=== PATIENT | male | born 1960 | race Caucasian/White ===

== ENCOUNTER 2017-01-09 16:11 | Inpatient (IN) | payer MEDICARE, OTHER ==
[2017-01-09 16:49] LABS: BASOPHIL 0.9 % (0-2.0); EOSINOPHIL 0.1 % (0-4.5); MCH 26.9 pg (25.7-33.7); MCHC 32.5 g/dl (32.0-35.9); MEAN CELL VOLUME 82.6 fl (80-96); MEAN PLT VOLUME 8.8 fl (7.5-11.1); NEUTROPHILS 86.5 % (42.8-82.8); RDW 16.8 % (11.9-15.9); WHITE BLOOD COUNT 6.2 K/mm3 (4.0-10.0)
[2017-01-09] MEDS ORDERED: SODIUM CHLORIDE 1,000 ML IV STA ×2 (17:02→18:29)
[2017-01-09] MEDS ORDERED: ONDANSETRON 4 MG/2 ML VIAL IVPUSH ONE ×2 (17:02→21:56)
[2017-01-09 17:04] LABS: ALBUMIN 1.6 g/dl (3.4-5.0); ANION GAP 15 (8-16); CALCIUM 7.7 mg/dL (8.5-10.1); CO2 17 mmol/L (21-32); CREATININE 4.1 mg/dL (0.7-1.3); GLUCOSE,RANDOM 132 mg/dL (74-106); SGOT/AST 57 U/L (15-37); SGPT/ALT 48 U/L (12-78)
[2017-01-09] MEDS ORDERED: ONDANSETRON 4 MG/2 ML VIAL ONE ×2 (17:13→22:01)
--- NOTE | 2017-01-09 17:16 | PDOC ---
History of Present Illness - General History Source: Patient - History of Present Illness Associated Symptoms: reports: malaise, nausea/vomiting, weakness. denies: chest pain, fever/chills, headaches, shortness of breath <Padmini Herbert - Last Filed: 01/09/17 18:29> <Fernandez Gardner - Last Filed: 01/09/17 23:24> <Fern Arreola - Last Filed: 01/11/17 15:39> - General Chief Complaint: Vomiting/Diarrhea Stated Complaint: VOMITING Time Seen by Provider: 01/09/17 17:01 Past History - Past Medical History Other medical history: DENIES. - Suicide/Smoking/Psychosocial Hx Smoking History: Never smoked Hx Alcohol Use: No Drug/Substance Use Hx: No Substance Use Type: None <Padmini Herbert - Last Filed: 01/09/17 18:29> <Fernandez Gardner - Last Filed: 01/09/17 23:24> <Fern Arreola - Last Filed: 01/11/17 15:39> - Past Medical History Allergies/Adverse Reactions: Allergies Allergy/AdvReac Type Severity Reaction Status Date / Time No Known Allergies Allergy Verified 01/09/17 16:20 Home Medications: Ambulatory Orders NK [No Known Home Medication] 01/09/17 Review of Systems - Review of Systems Constitutional: Yes: Malaise, Unintentional Wgt. Loss. No: Chills, Fever Respiratory: No: Cough, Shortness of Breath Cardiac (ROS): No: Chest Pain, Lightheadedness, Palpitations ABD/GI: Yes: Nausea, Vomiting. No: Blood Streaked Bowels, Constipated, Diarrhea , Abdominal cramping, Tarry Stools : No: Dysuria Neurological: No: Headache, Dizziness <Padmini Herbert Last Filed: 01/09/17 18:29> *Physical Exam - Vital Signs Last Vital Signs Temp Pulse Resp BP Pulse Ox 98.1 F 111 H 20 132/98 99 01/09/17 16:17 01/09/17 16:17 01/09/17 16:17 01/09/17 16:17 01/09/17 16:17 - Physical Exam Comments: 01/09/17 17:17 appears lethargic General Appearance: Yes: Appropriately Dressed. No: Apparent Distress HEENT: positive: Normal Voice, Other (dry MM) Neck: positive: Supple Respiratory/Chest: positive: Lungs Clear, Normal Breath Sounds. negative: Respiratory Distress Cardiovascular: positive: S1, S2, Tachycardia Gastrointestinal/Abdominal: positive: Soft. negative: Tender Musculoskeletal: negative: CVA Tenderness Extremity: positive: Normal Inspection Integumentary: positive: Dry, Warm Neurologic: positive: Fully Oriented, Alert, Normal Mood/Affect <Maria Del Carmen HerbertKathrynKindra - Last Filed: 01/09/17 18:29> - Vital Signs Last Vital Signs Temp Pulse Resp BP Pulse Ox 97.7 F 99 H 17 162/93 99 01/09/17 20:32 01/09/17 20:32 01/09/17 20:32 01/09/17 20:32 01/09/17 20:32 <Fernandez Gardner - Last Filed: 01/09/17 23:24> - Vital Signs Last Vital Signs Temp Pulse Resp BP Pulse Ox 97.8 F 104 H 20 165/98 99 01/11/17 14:00 01/11/17 14:00 01/11/17 14:00 01/11/17 14:00 01/10/17 01:30 <Fern Arreola - Last Filed: 01/11/17 15:39> Heart Score/ECG Review - ECG Intrepretation Comment:: 01/09/17 17:30 Twelve-lead EKG was performed and reviewed by me. There is sinus tachycardia @ 108 BPM. The axis is normal. The intervals are normal. There are no ST or T wave abnormalities. Impression: Sinus tachycardia, otherwise normal twelve-lead EKG <Maria Del Carmen HerbertKathrynKindra - Last Filed: 01/09/17 18:29> ED Treatment Course - LABORATORY CBC & Chemistry Diagram: 01/09/17 16:20 01/09/17 16:20 - ADDITIONAL ORDERS Additional order review: 01/09/17 16:20 RBC 4.86 MCV 82.6 MCHC 32.5 RDW 16.8 H MPV 8.8 Neutrophils % 86.5 H Lymphocytes % 8.6 Monocytes % 3.9 Eosinophils % 0.1 Basophils % 0.9 - RADIOLOGY Radiology Studies Ordered: Category Date Time Status HEAD CT WITHOUT CONTRAST [CT] Stat CT Scan 01/09/17 17:09 Ordered CHEST X-RAY PORTABLE* [RAD] Stat Radiology 01/09/17 17:02 Ordered <Padmini Herbert - Last Filed: 01/09/17 18:29> - LABORATORY CBC & Chemistry Diagram: 01/09/17 16:20 01/09/17 16:20 - ADDITIONAL ORDERS Additional order review: Laboratory Results 01/09/17 01/09/17 01/09/17 18:55 17:35 17:15 Sodium Potassium Chloride Carbon Dioxide Anion Gap BUN Creatinine Creat Clearance w eGFR Random Glucose Calcium Total Bilirubin AST ALT Alkaline Phosphatase Ammonia 36.41 H Total Protein Albumin Lipase 221 Urine Color Salma Urine Appearance Slcloudy Urine pH 5.0 Ur Specific [place] 1.020 Urine Protein 3+ H Urine Glucose (UA) 2+ H Urine Ketones Negative Urine Blood 2+ H Urine Nitrite Negative Urine Bilirubin Negative Urine Urobilinogen Negative Ur Leukocyte Esterase Negative Urine RBC 13 Urine WBC 4 Ur Epithelial Cells Rare Urine Bacteria Rare Urine Mucus Rare 01/09/17 16:20 Sodium 132 L Potassium 4.1 Chloride 100 Carbon Dioxide 17 L Anion Gap 15 BUN 71 H Creatinine 4.1 H Creat Clearance w eGFR 15.12 Random Glucose 132 H Calcium 7.7 L Total Bilirubin 1.8 H AST 57 H ALT 48 Alkaline Phosphatase 1170 H Ammonia Total Protein 5.5 L Albumin 1.6 L Lipase Urine Color Urine Appearance Urine pH Ur Specific [place] Urine Protein Urine Glucose (UA) Urine Ketones Urine Blood Urine Nitrite Urine Bilirubin Urine Urobilinogen Ur Leukocyte Esterase Urine RBC Urine WBC Ur Epithelial Cells Urine Bacteria Urine Mucus 01/09/17 17:15 Influenza Types A,B Antigen (DIDIER) - Final Nasopharyngeal Swab - Final 01/09/17 16:20 RBC 4.86 MCV 82.6 MCHC 32.5 RDW 16.8 H MPV 8.8 Neutrophils % 86.5 H Lymphocytes % 8.6 Monocytes % 3.9 Eosinophils % 0.1 Basophils % 0.9 - RADIOLOGY Radiology Studies Ordered: Category Date Time Status GALLBLADDER US [US] Stat Ultrasound 01/09/17 22:06 Ordered - Medications Given in the ED: ED Medications Discontinued Medications Generic Name Dose Route Start Last Admin Trade Name Freq PRN Reason Stop Dose Admin Sodium Chloride 1,000 mls @ 1,000 mls/hr 01/09/17 17:02 01/09/17 17:29 Normal Saline - IV 01/09/17 18:01 1,000 mls/hr ASDIR STA Administration Sodium Chloride 1,000 mls @ 1,000 mls/hr 01/09/17 18:29 01/09/17 18:44 Normal Saline - IV 01/09/17 19:28 1,000 mls/hr ASDIR STA Administration Sodium Chloride 500 mls @ 500 mls/hr 01/09/17 21:56 01/09/17 22:08 Normal Saline - IV 01/09/17 22:55 500 mls/hr ASDIR STA Administration Ondansetron HCl 4 mg 01/09/17 17:02 01/09/17 17:29 Zofran Injection IVPUSH 01/09/17 17:03 4 mg ONCE ONE Administration Ondansetron HCl 4 mg 01/09/17 21:56 01/09/17 22:08 Zofran Injection IVPUSH 01/09/17 21:57 4 mg ONCE ONE Administration <Fernandez Gardner D - Last Filed: 01/09/17 23:24> - LABORATORY CBC & Chemistry Diagram: 01/11/17 08:35 01/11/17 08:35 - ADDITIONAL ORDERS Additional order review: 01/09/17 17:15 Influenza Types A,B Antigen (DIDIER) - Final Nasopharyngeal Swab - Final 01/09/17 16:20 RBC 4.86 MCV 82.6 MCHC 32.5 RDW 16.8 H MPV 8.8 Neutrophils % 86.5 H Lymphocytes % 8.6 Monocytes % 3.9 Eosinophils % 0.1 Basophils % 0.9 - Medications Given in the ED: ED Medications Discontinued Medications Generic Name Dose Route Start Last Admin Trade Name Freq PRN Reason Stop Dose Admin Hydralazine HCl 10 mg 01/10/17 01:26 01/10/17 01:44 Apresoline Injection - IVPUSH 01/10/17 01:27 Not Given ONCE ONE Hydralazine HCl 10 mg 01/10/17 01:40 01/10/17 01:54 Apresoline - PO 01/10/17 01:41 10 mg ONCE ONE Administration Sodium Chloride 1,000 mls @ 1,000 mls/hr 01/09/17 17:02 01/09/17 17:29 Normal Saline - IV 01/09/17 18:01 1,000 mls/hr ASDIR STA Administration Sodium Chloride 1,000 mls @ 1,000 mls/hr 01/09/17 18:29 01/09/17 18:44 Normal Saline - IV 01/09/17 19:28 1,000 mls/hr ASDIR STA Administration Sodium Chloride 500 mls @ 500 mls/hr 01/09/17 21:56 01/09/17 22:08 Normal Saline - IV 01/09/17 22:55 500 mls/hr ASDIR STA Administration Sodium Chloride 1,000 mls @ 125 mls/hr 01/10/17 00:30 01/10/17 01:44 Normal Saline - IV 125 mls/hr ASDIR MEI Administration Sodium Chloride 1,000 mls @ 75 mls/hr 01/10/17 01:47 01/10/17 01:53 Normal Saline - IV Not Given ASDIR MEI Folic Acid 1 mg/ Thiamine HCl 1,000 mls @ 125 mls/hr 01/10/17 15:15 01/10/17 17 :39 100 mg/ Multivitamins/Minerals IVPB 01/10/17 23:14 125 mls/hr 10 ml/ Sodium Chloride ONCE ONE Administration Cefepime HCl 2 gm/ Dextrose 100 mls @ 200 mls/hr 01/10/17 16:00 01/10/17 17:39 IVPB 01/10/17 16:29 200 mls/hr ONCE ONE Administration Ibuprofen 600 mg 01/10/17 18:30 01/10/17 18:41 Motrin - PO 01/10/17 18:31 600 mg ONCE ONE Administration Ondansetron HCl 4 mg 01/09/17 17:02 01/09/17 17:29 Zofran Injection IVPUSH 01/09/17 17:03 4 mg ONCE ONE Administration Ondansetron HCl 4 mg 01/09/17 21:56 01/09/17 22:08 Zofran Injection IVPUSH 01/09/17 21:57 4 mg ONCE ONE Administration <Fern Arreola - Last Filed: 01/11/17 15:39> Medical Decision Making - Medical Decision Making 01/09/17 17:09 56-year-old male, denies any past medical history, here with a constellation of symptoms, including malaise with generalized weakness, nausea, vomiting and approximately 15-20 pound weight loss. Daughter at bedside and reports that patient began complaining of symptoms 2 weeks ago and now is hardly able to ambulate or report to work secondary to profound weakness. Daughter also states pt's eyes appear yellow. At some point patient also told family he had some blurry vision. Patient denies abdominal pain, change in bowel movements, fever , chills, chest pain, shortness of breath, palpitatiions, leg pain, swelling, headache, or focal weakness. No history of recent travel. Denies excessive ETOH use. No tob use See exam Profound weakness w/ n/v and weight loss Concern is for possible malignancy Lethargic, tachy and dry on exam w/ ? scleral icterus, exam otherwise unremarkable -IVF -labs -anticipate admission 01/09/17 17:22 Cr 4.1 w/ k of 4.1. Bili 1.8 w/ alk phos of >1K. Concern is for liver vs pancreas vs metastatic disease from other primary malignancy i.e colon, etc. Will scan abd at this time 01/09/17 17:27 01/09/17 17:31 01/09/17 19:00 Signed out to COMPENSATOR WORKER Wilmer pending CT and admission <PiedadPadmini - Last Filed: 01/09/17 18:29> *DC/Admit/Observation/Transfer <Padmini Herbert - Last Filed: 01/09/17 18:29> - Discharge Dispostion Admit: Yes <Fernandez Gardner - Last Filed: 01/09/17 23:24> - Attestations Physician Attestion: I reviewed the case with the mid-level practitioner and agree with the mid- level practitioner's assessment, diagnosis and disposition. <Fern Arreola - Last Filed: 01/11/17 15:39> Diagnosis at time of Disposition: Elevated LFTs Abdominal pain Qualifiers: Abdominal location: generalized Qualified Code(s): R10.84 - Generalized abdominal pain - Discharge Dispostion Condition at time of disposition: Fair
[2017-01-09 17:18] LABS: BILIRUBIN,TOTAL 1.8 mg/dL (0.2-1.0); TOT PROT 5.5 g/dl (6.4-8.2)
[2017-01-09 17:19] LABS: ALK PHOS 1170 U/L (45-117)
[2017-01-09 17:45] LABS: URINE APPEARANCE SLCLOUDY; URINE BILIRUBIN NEGATIVE (NEGATIVE); URINE BLOOD 2+ (NEGATIVE); URINE COLOR AMBER; URINE GLUCOSE (UA) 2+ (NEGATIVE); URINE KETONE NEGATIVE (NEGATIVE); URINE NITRITE NEGATIVE (NEGATIVE); URINE UROBILINOGEN NEGATIVE mg/dL (0.2-1.0)
[2017-01-09 18:07] LABS: URINE PROTEIN 3+ (NEGATIVE)
[2017-01-09 18:32] LABS: PLATELET COUNT 55 K/MM3 (134-434)
[2017-01-09 18:33] LABS: PLATELET ESTIMATE MARKEDLY DECREASED (NORMAL)
[2017-01-09 19:49] LABS: URINE BACTERIA RARE /hpf (NONE SEEN); URINE MUCUS RARE; URINE RBC 13 /hpf (0-3); URINE WBC 4 /hpf (3-5)
[2017-01-09 20:35] LABS: URINE LEUK ESTERASE Negative (NEGATIVE)
[2017-01-09] MEDS ORDERED: SODIUM CHLORIDE 500 ML IV STA (21:56)
--- NOTE | 2017-01-09 22:20 | HP ---
CHIEF COMPLAINT: Nausea, vomiting, generalized weakness, PCP: HISTORY OF PRESENT ILLNESS: Patient is a 56 Year old Indian speaking male with no past medical history who presented to the hospital today with 2 weeks history of nausea, vomiting, diarrhea , loss of appetite and valeria loss of 10-15 pound within 2 weeks and generalized weakness. diarrhea 2-3 times a day non bloody with some mucus . vomiting non bilious non bloody, he claims he vomit whatever he eat.He complains of generalized weakness, fatigue with blurry vision. His daughter noticed appears yellow. Patient denies any sick contact or recent travel. he denies any fever, chills, headache, dizziness but reports some light headedness. He denies any CP, sob, palpitation, cough, orthopnea, dispnea. He denies abdominal pain, urinary symptoms, hematuria or urgency but he claims that he wake up 2 times at night to urinate, he feels very dry and dehydrated and drink a lot of water. ER course was notable for: (1)IVF (2)Hep A,B, C panel (3) CBC, CMP Recent Travel:denies PAST MEDICAL HISTORY:denies, last hospitalization at [facility] with ER visit without admission. PAST SURGICAL HISTORY:None Social History: Smokin years as teenage 3-4 cig aday. Alcohol:6-8 beers on weekends Drugs: denies Family History: dad stroke with hemiplegia, mother had DM. Allergies No Known Allergies Allergy (Verified 01/09/17 16:20) HOME MEDICATIONS: Home Medications Medication Instructions Recorded NK [No Known Home Medication] 01/09/17 REVIEW OF SYSTEMS CONSTITUTIONAL: Absent: fever, chills, diaphoresis, +generalized weakness,+ malaise, loss of appetite, weight change HEENT: Absent: rhinorrhea, nasal congestion, throat pain, throat swelling, difficulty swallowing, mouth swelling, ear pain, eye pain, +visual changes CARDIOVASCULAR: Absent: chest pain, syncope, palpitations, irregular heart rate, + lightheadedness,+1 peripheral edema RESPIRATORY: Absent: cough, shortness of breath, dyspnea with exertion, orthopnea, wheezing, stridor, hemoptysis GASTROINTESTINAL: Absent: abdominal pain, abdominal distension,+ nausea, vomiting, diarrhea, constipation, melena, hematochezia GENITOURINARY: Absent: dysuria, frequency, urgency, hesitancy, hematuria, flank pain, genital pain MUSCULOSKELETAL: Absent: myalgia, arthralgia, joint swelling, back pain, neck pain SKIN: Absent: rash, itching, pallor, +bruises on both legs HEMATOLOGIC/IMMUNOLOGIC: Absent: easy bleeding, easy bruising, lymphadenopathy, frequent infections ENDOCRINE: Absent: unexplained weight gain, +unexplained weight loss, heat intolerance, cold intolerance NEUROLOGIC: Absent: headache, focal weakness or paresthesias, dizziness, unsteady gait, seizure, mental status changes, bladder or bowel incontinence PSYCHIATRIC: Absent: anxiety, depression, suicidal or homicidal ideation, hallucinations. PHYSICAL EXAMINATION Vital Signs - 24 hr 01/09/17 01/09/17 16:17 20:32 Temperature 98.1 F 97.7 F Pulse Rate 111 H Pulse Rate [ 99 H Radial] Respiratory 20 17 Rate Blood Pressure 132/98 Blood Pressure 162/93 [Left Arm] O2 Sat by Pulse 99 99 Oximetry (%) GENERAL: Awake, alert, and fully oriented, in mild distress. HEAD: Normal with no signs of trauma. EYES: sclera icteric, conjunctiva pallor. ENT:Dry mucous membranes. NECK: Normal range of motion, supple without lymphadenopathy, JVD, or masses. LUNGS: Breath sounds equal, clear to auscultation bilaterally. No wheezes, and no crackles. No accessory muscle use. HEART: Regular rate and rhythm, normal S1 and S2 without murmur, rub or gallop. ABDOMEN: Obese, Soft, nontender, little distended, normoactive bowel sounds, no guarding, no rebound, MUSCULOSKELETAL: Normal range of motion at all joints. bony deformities in right foot. No CVA tenderness. UPPER EXTREMITIES: warm, well-perfused. No cyanosis. No clubbing. No peripheral edema.strength 5/5, sensation intact. LOWER EXTREMITIES: warm, well-perfused. No calf tenderness. +1 peripheral edema. strength 5/5 , sensation intact. NEUROLOGICAL: Cranial nerves II-XII intact. Normal speech. unsteady gait. PSYCHIATRIC: Cooperative. Good eye contact. Appropriate mood and affect. SKIN: Jundice,Warm, dry, no rashes, B/L leg bruises from work. Laboratory Results - last 24 hr 01/09/17 01/09/17 01/09/17 16:20 16:20 17:15 WBC 6.2 RBC 4.86 Hgb 13.1 Hct 40.2 MCV 82.6 MCH 26.9 MCHC 32.5 RDW 16.8 H Plt Count 55 L MPV 8.8 Neutrophils % 86.5 H Lymphocytes % 8.6 Monocytes % 3.9 Eosinophils % 0.1 Basophils % 0.9 Platelet Estimate Markedly decreased Sodium 132 L Potassium 4.1 Chloride 100 Carbon Dioxide 17 L Anion Gap 15 BUN 71 H Creatinine 4.1 H Creat Clearance w eGFR 15.12 Random Glucose 132 H Calcium 7.7 L Total Bilirubin 1.8 H AST 57 H ALT 48 Alkaline Phosphatase 1170 H Ammonia Total Protein 5.5 L Albumin 1.6 L Lipase 221 Urine Color Urine Appearance Urine pH Ur Specific [place] Urine Protein Urine Glucose (UA) Urine Ketones Urine Blood Urine Nitrite Urine Bilirubin Urine Urobilinogen Ur Leukocyte Esterase Urine RBC Urine WBC Ur Epithelial Cells Urine Bacteria Urine Mucus 01/09/17 01/09/17 17:35 18:55 WBC RBC Hgb Hct MCV MCH MCHC RDW Plt Count MPV Neutrophils % Lymphocytes % Monocytes % Eosinophils % Basophils % Platelet Estimate Sodium Potassium Chloride Carbon Dioxide Anion Gap BUN Creatinine Creat Clearance w eGFR Random Glucose Calcium Total Bilirubin AST ALT Alkaline Phosphatase Ammonia 36.41 H Total Protein Albumin Lipase Urine Color Salma Urine Appearance Slcloudy Urine pH 5.0 Ur Specific [place] 1.020 Urine Protein 3+ H Urine Glucose (UA) 2+ H Urine Ketones Negative Urine Blood 2+ H Urine Nitrite Negative Urine Bilirubin Negative Urine Urobilinogen Negative Ur Leukocyte Esterase Negative Urine RBC 13 Urine WBC 4 Ur Epithelial Cells Rare Urine Bacteria Rare Urine Mucus Rare CBC, BMP 01/09/17 16:20 01/09/17 16:20 * CT chest and abdomen 01/09/2017 mild ascities, diffuse colities, ILD with fine nodularity, * Head CT is negative ASSESSMENT/PLAN: Patient is a 56 Year old Indian speaking male with no past medical history who presented to the hospital today with 2 weeks history of nausea, vomiting, diarrhea , loss of appetite and valeria loss of 10-15 pound within 2 weeks and generalized weakness.he was amditted for med surg for further evaluation and treatment. # diffuse colitis likely infectious (c.diff) vs other causes * H/O of 2 weeks N/V/D * loss of appetite * C.diff * stool ova and parasite * stool wbc, * stool occult blood. * GI consulted * # Jaundice likely 2/2 Alcoholic hepatitis vs cirrhoses vs cholangitis vs malignancy * hap A, B, C panel * Monitor Liver enzymes * AFP * Abdomen US * Total Bili and direct * alcohol abstinence * PTT, PT, INR * # DALTON likely 2/2 dehydration and hypovolemia vs CKD ? vs hepatorenal syndrom * BUN/Cr 71/4.1, trend * unknown base line * Ammonia 36.41 * IV fluids * Avoid nephrotoxic agents * glucosuria, protienurea * Consider Nephrology consult # Thrombocytopenia, Likely 2/2 secondary to alcohol * PLT 55 * Moitor * No active bleeding # Elevated BP , * not on any home meds * BP 162/93 to 189/115 * started hydralazine 10 mg IV once * start Ativan for alcohol withdrawal * Monitor if continue to be elevated * Consider Norvasc 5 mg daily # Lactic acidosis likely 2/2 infection vs dehydration * no source of infection * IVF fluids * Repeat X2 * trend down to 1.9 # Alcohol withdrawal * ativan 1mg q6hrs prn * ativan 2mg PO q6hrs standing dose * CIWA protocol # Hyponatremia * corrected NA 132 on admission * Start IV fluids * repeat BMP * # FEN * 2.5 L boluses in ED, maintenance NS @ 75 CC /hr * E: Hyponatremia, monitor * N: NPO due to cholitis * #Proph: * DVT: SCDS both legs * GI: no need for now * PT eval for disconditioning(imbalance problems) * # Dispo * Admit to med-surg Visit type - Emergency Visit Emergency Visit: Yes ED Registration Date: 01/09/17 Care time: The patient presented to the Emergency Department on the above date and was hospitalized for further evaluation of their emergent condition. - New Patient This patient is new to me today: Yes Date on this admission: 01/11/17 - Critical Care Critical Care patient: No
[2017-01-10] MEDS ORDERED: SODIUM CHLORIDE 1,000 ML IV SCH ×2 (00:30→01:47)
[2017-01-10] MEDS ORDERED: hydrALAZINE HCL 20 MG/ML VIAL IVPUSH ONE (01:26)
[2017-01-10] MEDS ORDERED: hydrALAZINE HCL 10 MG TABLET PO ONE (01:40)
[2017-01-10] MEDS ORDERED: LORazepam 2 MG/ML SDV VIAL IVPUSH PRN (04:06)
--- NOTE | 2017-01-10 04:19 | PN ---
Teaching Attending Note Name of Resident: Emanuel Pineda ATTENDING PHYSICIAN STATEMENT I saw and evaluated the patient. I reviewed the resident's note and discussed the case with the resident. I agree with the resident's findings and plan as documented. SUBJECTIVE: patient stated that he drinks alcohol frequently and that his last drink was on thursday, where he consumed 8 beers, patient denied drinking daily however he did admit to drink more than once per week. he denied any nausea or fever at the time of his exam. patient denied any chest pain or palpitations OBJECTIVE: BP was elevated patient was tachycardic when examined s1 and S2 RRR abdomen soft non-tender with positive bowel sounds, jaundiced skin and sclera dry mucosa no edema of the extremities ASSESSMENT AND PLAN: acute decomepsated liver cirrhosis - possible 2/2 alcoholic liver disease vs viral vs autoimmune - GI assessment - lactic acidosis - no source of infection at the time of exam possible due to lack of clearance - repeat level q4hrs until its <2 - IVF hydration - monitor the patient for any symptoms of infection - obtain blood culture if the patient spikes fever DALTON - 2/2 dehydration increase the fluid to 150cc after the patient received 2.5L in the fluid Alcohol withdrawal - patient Elevated BP and tachycardia and last drink was few days ago - ativan 1mg q6hrs prn - ativan 2mg PO q6hrs standing dose - evaluate the patient for any symptoms of withdrawal elevated BP and tachycardia - can be 2/2 alcohol withdrawal symptoms will manage the patient for alcohol withdrawal start the patient on amlodipine 5mg daily
[2017-01-10] MEDS: SODIUM CHLORIDE 1,000 ML IV SCH ×2 (04:21→10:10)
[2017-01-10] MEDS: LORazepam 1 MG TABLET PO SCH ×3 (06:52→21:15)
[2017-01-10 08:43] LABS: INR 1.08 (0.82-1.09); PROTHROMBIN TIME (PATIENT) 12.2 SEC (9.98-11.88)
[2017-01-10 08:46] LABS: ACTIVATED PTT 32.5 SECONDS (26.9-34.4)
[2017-01-10 08:56] LABS: ALBUMIN 1.2 g/dl (3.4-5.0); ALK PHOS 887 U/L (45-117); ANION GAP 13 (8-16); BILIRUBIN,TOTAL 1.3 mg/dL (0.2-1.0); CO2 15 mmol/L (21-32); CREATININE 3.7 mg/dL (0.7-1.3); GLUCOSE,RANDOM 79 mg/dL (74-106); MAGNESIUM 2.3 mg/dL (1.8-2.4); MCH 26.7 pg (25.7-33.7); MCHC 32.3 g/dl (32.0-35.9); MEAN CELL VOLUME 82.5 fl (80-96); MEAN PLT VOLUME 8.8 fl (7.5-11.1); PHOSPHOROUS 5.4 mg/dL (2.5-4.9); PLATELET COUNT 42 K/MM3 (134-434); RDW 16.4 % (11.9-15.9); SGOT/AST 47 U/L (15-37); SGPT/ALT 38 U/L (12-78); TOT PROT 4.3 g/dl (6.4-8.2); WHITE BLOOD COUNT 4.7 K/mm3 (4.0-10.0)
--- NOTE | 2017-01-10 09:06 | PN ---
Progress Note (short form) - Note Progress Note: minimally responsive. denies CP, SOB, fever, chills, N/V/C/D pt had large green BM during interview and was unaware he defecated on himself Current Medications Generic Name Dose Route Start Last Admin Trade Name Alpeshq PRN Reason Stop Dose Admin Amlodipine Besylate 5 mg 01/10/17 10:00 Norvasc - PO DAILY MEI Sodium Chloride 1,000 mls @ 150 mls/hr 01/10/17 04:15 01/10/17 04:21 Normal Saline - IV Not Given ASDIR MEI Lorazepam 1 mg 01/10/17 04:06 01/10/17 04:22 Ativan Injection - IVPUSH 1 mg Q6H PRN Administration WITHDRAWAL(CONT SUBST) Lorazepam 1 mg 01/10/17 06:00 01/10/17 06:52 Ativan - PO 1 mg TID MEI Administration Last Vital Signs Temp Pulse Resp BP Pulse Ox 98.0 F 102 H 16 167/106 99 01/10/17 06:13 01/10/17 06:13 01/10/17 06:13 01/10/17 06:13 01/10/17 01:30 General alert. minimally responsive to verbal stimuli. A&O x1 (self) HEENT EOMI, scleral icterus CV S1 S2 RRR no murmur/rub/gallop Lungs CTA B/L no wheezing/rales/rhonchi Abdomen soft +distention +fluid wave Extremities no pedal edema. mild tremor at rest. no asterixis CBCD WBC 4.7 K/mm3 (4.0-10.0) 01/10/17 07:30 RBC 4.00 M/mm3 (4.00-5.60) 01/10/17 07:30 Hgb 10.7 GM/dL (11.7-16.9) L D 01/10/17 07:30 Hct 33.0 % (35.4-49) L D 01/10/17 07:30 MCV 82.5 fl (80-96) 01/10/17 07:30 MCHC 32.3 g/dl (32.0-35.9) 01/10/17 07:30 RDW 16.4 % (11.9-15.9) H 01/10/17 07:30 Plt Count 42 K/MM3 (134-434) L D 01/10/17 07:30 MPV 8.8 fl (7.5-11.1) 01/10/17 07:30 CMP Sodium 136 mmol/L (136-145) 01/10/17 07:30 Potassium 3.5 mmol/L (3.5-5.1) 01/10/17 07:30 Chloride 108 mmol/L (98-107) H 01/10/17 07:30 Carbon Dioxide 15 mmol/L (21-32) L 01/10/17 07:30 Anion Gap 13 (8-16) 01/10/17 07:30 BUN 63 mg/dL (7-18) H 01/10/17 07:30 Creatinine 3.7 mg/dL (0.7-1.3) H 01/10/17 07:30 Creat Clearance w eGFR 17.02 (>60) 01/10/17 07:30 Random Glucose 79 mg/dL (74-106) D 01/10/17 07:30 Calcium 6.9 mg/dL (8.5-10.1) L* 01/10/17 07:30 Total Bilirubin 1.3 mg/dL (0.2-1.0) H D 01/10/17 07:30 AST 47 U/L (15-37) H 01/10/17 07:30 ALT 38 U/L (12-78) D 01/10/17 07:30 Alkaline Phosphatase 887 U/L (45-117) H D 01/10/17 07:30 Total Protein 4.3 g/dl (6.4-8.2) L D 01/10/17 07:30 Albumin 1.2 g/dl (3.4-5.0) L D 01/10/17 07:30 Microbiology 01/10/17 02:10 Clostridium difficile Antigen (DIDIER) - Final Stool Clostridium difficile Toxin Assay - Final 01/10/17 02:10 Gram Stain - Final Stool 01/09/17 17:15 Influenza Types A,B Antigen (DIDIER) - Final Nasopharyngeal Swab - Final A/P 56yo M wtih PMH Continuous ETOH dependence arrived to the ER c/o nausea and diarrhea with 15 pound weight loss. 1. Acute hepatitis and hepatic encephalopathy- likely ETOH induced. MELD 25. as per pt has no hx. ammonia level only mildly elevated. having copious BM. assoc with new onset ascites. concern for SBP. will give cefepime x1 and consult ID. Gi already consulted. will need to monitor closely. hepatitis panel pending 2. DALTON- unknown baseline. place kent. check urine lytes. renal u/s. avoid nephrotoxic medications. high risk of developing hepatorenal syndrome. will need to monitor UOP closely. IVF 3. AG metabolic acidosis- due to lactic acidosis. now resolved 4. Acute normocytic anemia- likely dilutional. no signs of bleeding. repeat CBC now. txn for Hgb <7. FOBT negative 5. Acute ETOH withdrawal- CIWA 5. unable to answer most questions. cont ativan standing. will slowly titrate down. monitor for worsneing withdrawals. give banana bag x1 and then start thiamine/folate/MVI 6. Pseudohypocalcemia- Corrected Ca 9.14 7. DVT ppx- SCD Visit type - Emergency Visit Emergency Visit: Yes ED Registration Date: 01/09/17 Care time: The patient presented to the Emergency Department on the above date and was hospitalized for further evaluation of their emergent condition. - New Patient This patient is new to me today: No - Critical Care Critical Care patient: No - Discharge Referral Referred to [facility] Med [facility] No
[2017-01-10 09:21] LABS: CALCIUM 6.9 mg/dL (8.5-10.1)
[2017-01-10] MEDS: amLODIPine BESYLATE 5 MG TABLET (FP) PO SCH (10:09)
--- NOTE | 2017-01-10 13:08 | EKG ---
Test Reason : Blood Pressure : / mmHG Vent. Rate : 108 BPM Atrial Rate : 108 BPM P-R Int : 152 ms QRS Dur : 090 ms QT Int : 354 ms P-R-T Axes : 038 054 014 degrees QTc Int : 474 ms SINUS TACHYCARDIA WITH PREMATURE ATRIAL COMPLEXES OTHERWISE NORMAL ECG WHEN COMPARED WITH ECG OF 29-SEP-2009 18:37, PREMATURE ATRIAL COMPLEXES ARE NOW PRESENT INVERTED T WAVES HAVE REPLACED NONSPECIFIC T WAVE ABNORMALITY IN INFERIOR LEADS CLINICAL CORRELATION IS RECOMMENDED Confirmed by YANCY CHAVARRIA MD ([id number]) on 01/10/2017 1:08:16 PM Referred By: Confirmed By:YANCY CHAVARRIA MD
[2017-01-10] MEDS ORDERED: CEFEPIME HCL 2 GM VIAL (RESTRICTED TO ID) IVPB ONE (14:52)
[2017-01-10] MEDS ORDERED: FOLIC ACID INJECTION - 1 MG, THIAMINE HCL 100 MG, MULTIVIT INJECTION ADULT 10 ML in SOD... IVPB ONE (15:15)
[2017-01-10] MEDS ORDERED: CEFEPIME 2 GM in DEXTROSE 5%-WATER - 100 ML IVPB ONE (16:00)
--- NOTE | 2017-01-10 16:56 | CON.GI ---
Consult Consult Specialty:: GI Referred by:: service - History of Present Illness History of Present Illness: Chart and ED records reviewed. History via pt's daughter. Weakness, chills, sleepiness, abdominal distension, pain and frequent, watery diarrhea with onset 3 weeks ago. No melena, hematochezia, hematemessis, jaundice reported. No travels other than to [place]. No ill contacts. No known medical problems, viral , genetic, autoimmune hepatitis. 30+ years of daily beer and hard liquor. Drank alcohol daily up until 3 weeks ago. - History Source History Provided By: Family Member, Medical Record Limitations to Obtaining History: Language Barrier - Alcohol/Substance Use Hx Alcohol Use: Yes (30+ year. Beer and vodka, per daughter) History of Substance Use: reports: None - Smoking History Smoking history: Never smoked - Social History Usual Living Arrangement: With Spouse Home Medications - Allergies Allergies/Adverse Reactions: Allergies Allergy/AdvReac Type Severity Reaction Status Date / Time No Known Allergies Allergy Verified 01/09/17 16:20 - Home Medications Home Medications: Ambulatory Orders NK [No Known Home Medication] 01/09/17 Family Disease History - Family Disease History Family History: Unremarkable Review of Systems Findings/Remarks: please refer to H&P and HPI Physical Exam-GI Vital Signs: Vital Signs Temperature 98.8 F 01/10/17 14:00 Pulse Rate 112 H 01/10/17 14:00 Respiratory Rate 20 01/10/17 14:00 Blood Pressure 157/94 01/10/17 14:00 O2 Sat by Pulse Oximetry (%) 99 01/10/17 01:30 Vital Signs (72 hours) 01/09/17 01/09/17 01/10/17 16:17 20:32 01:21 Temperature 98.1 F 97.7 F 98.7 F Pulse Rate 111 H 106 H Pulse Rate [ 99 H Radial] Respiratory 20 17 16 Rate Blood Pressure 132/98 189/115 Blood Pressure 162/93 [Left Arm] O2 Sat by Pulse 99 99 Oximetry (%) 01/10/17 01/10/17 01/10/17 01:30 02:31 05:01 Temperature 98.3 F Pulse Rate 102 H 100 H Pulse Rate [ Radial] Respiratory 18 18 Rate Blood Pressure 171/98 165/100 Blood Pressure [Left Arm] O2 Sat by Pulse 99 Oximetry (%) 01/10/17 01/10/17 01/10/17 06:13 10:00 14:00 Temperature 98.0 F 98.3 F 98.8 F Pulse Rate 102 H 102 H 112 H Pulse Rate [ Radial] Respiratory 16 18 20 Rate Blood Pressure 167/106 158/90 157/94 Blood Pressure [Left Arm] O2 Sat by Pulse Oximetry (%) Constitutional: Yes: No Distress, Calm Eyes: Yes: Conjunctiva Clear HENT: Yes: Atraumatic Neck: Yes: Supple Cardiovascular: Yes: Tachycardia Respiratory: Yes: Regular, CTA Bilaterally ...Auscultate: Yes: Normoactive Bowel Sounds ...Palpate: Yes: Soft. No: Tenderness ...Percussion: Yes: Dullness, Fluid Wave, Tympanitic Musculoskeletal: No: Joint Swelling Edema: No Integumentary: No: Jaundice Neurological: Yes: Alert, Oriented (Pt's daughter was transalting and pt was able to state date and his current location correctly) Labs: CBC, BMP 01/10/17 07:30 01/10/17 07:30 INR, PTT INR 1.08 (0.82-1.09) 01/10/17 07:30 CBCD WBC 4.7 K/mm3 (4.0-10.0) 01/10/17 07:30 RBC 4.00 M/mm3 (4.00-5.60) 01/10/17 07:30 Hgb 10.7 GM/dL (11.7-16.9) L D 01/10/17 07:30 Hct 33.0 % (35.4-49) L D 01/10/17 07:30 MCV 82.5 fl (80-96) 01/10/17 07:30 MCHC 32.3 g/dl (32.0-35.9) 01/10/17 07:30 RDW 16.4 % (11.9-15.9) H 01/10/17 07:30 Plt Count 42 K/MM3 (134-434) L D 01/10/17 07:30 MPV 8.8 fl (7.5-11.1) 01/10/17 07:30 CMP Sodium 136 mmol/L (136-145) 01/10/17 07:30 Potassium 3.5 mmol/L (3.5-5.1) 01/10/17 07:30 Chloride 108 mmol/L (98-107) H 01/10/17 07:30 Carbon Dioxide 15 mmol/L (21-32) L 01/10/17 07:30 Anion Gap 13 (8-16) 01/10/17 07:30 BUN 63 mg/dL (7-18) H 01/10/17 07:30 Creatinine 3.7 mg/dL (0.7-1.3) H 01/10/17 07:30 Creat Clearance w eGFR 17.02 (>60) 01/10/17 07:30 Calcium 6.9 mg/dL (8.5-10.1) L* 01/10/17 07:30 Total Bilirubin 1.3 mg/dL (0.2-1.0) H D 01/10/17 07:30 AST 47 U/L (15-37) H 01/10/17 07:30 ALT 38 U/L (12-78) D 01/10/17 07:30 Alkaline Phosphatase 887 U/L (45-117) H D 01/10/17 07:30 Total Protein 4.3 g/dl (6.4-8.2) L D 01/10/17 07:30 Albumin 1.2 g/dl (3.4-5.0) L D 01/10/17 07:30 Home Medication List Medication Instructions Recorded Confirmed Type NK [No Known Home Medication] 01/09/17 01/09/17 History Active Medications Generic Name Dose Route Start Last Admin Trade Name Kennedy PRN Reason Stop Dose Admin Amlodipine Besylate 5 mg 01/10/17 10:00 01/10/17 10:09 Norvasc - PO 5 mg DAILY MEI Administration Folic Acid 1 mg 01/11/17 10:00 Folic Acid - PO DAILY MEI Sodium Chloride 1,000 mls @ 150 mls/hr 01/10/17 04:15 01/10/17 10:10 Normal Saline - IV 150 mls/hr ASDIR MEI Administration Folic Acid 1 mg/ Thiamine HCl 1,000 mls @ 125 mls/hr 01/10/17 15:15 100 mg/ Multivitamins/Minerals IVPB 01/10/17 23:14 10 ml/ Sodium Chloride ONCE ONE Lorazepam 1 mg 01/10/17 04:06 01/10/17 04:22 Ativan Injection - IVPUSH 1 mg Q6H PRN Administration WITHDRAWAL(CONT SUBST) Lorazepam 1 mg 01/10/17 06:00 01/10/17 14:52 Ativan - PO Not Given TID MEI Multivitamins/Minerals/Vitamin C 1 tab 01/11/17 10:00 Tab-A-Vit - PO DAILY MEI Thiamine HCl 100 mg 01/11/17 10:00 Vitamin B1 - PO DAILY MEI Imaging - Results Cat Scan: Report Reviewed Ultrasound: Report Reviewed Problem List - Problems (1) Lethargy Code(s): R53.83 - OTHER FATIGUE (2) Elevated alkaline phosphatase level Code(s): R74.8 - ABNORMAL LEVELS OF OTHER SERUM ENZYMES Assessment/Plan Lethardy, ascites, colitis with profuse diarrhea, transaminitis and disproportionately elevated ALP, renal insufficiency in settings of chronic alcohol abuse for many years. Liver cirrhosis is likely. Encephalopathy (II), Alcoholic hepatitis (AF<32) ? HRS. ?SBP, ?Biliary pathology. "Colitis" on CT w/o contrast. Edema vs Infectious vs IBD. Rifaximin po 550 bid Diagnostic parasenthesis Exclude viral, autoimmune, metabolic etiologies ALP x 6 normal. Can be due to the above in addition to other potential etiologies. Will obtain GGT and fractionated ALP. Evaluate for hepatobiliary pathology with MRCP Stool workup pending. Withdrawal/detox management Will follow
[2017-01-10 17:01] LABS: MCH 26.8 pg (25.7-33.7); MCHC 32.8 g/dl (32.0-35.9); MEAN CELL VOLUME 81.7 fl (80-96); MEAN PLT VOLUME 9.4 fl (7.5-11.1); PLATELET COUNT 45 K/MM3 (134-434); RDW 16.5 % (11.9-15.9); WHITE BLOOD COUNT 5.2 K/mm3 (4.0-10.0)
[2017-01-10] MEDS ORDERED: IBUPROFEN 600 MG TABLET (FP) PO ONE (18:30)
[2017-01-10 19:55] LABS: ALBUMIN 1.3 g/dl (3.4-5.0); BILIRUBIN,DIRECT 1.1 mg/dL (0.0-0.2); BILIRUBIN,TOTAL 1.4 mg/dL (0.2-1.0); TOT PROT 4.9 g/dl (6.4-8.2)
[2017-01-10] MEDS: RIFAXIMIN 550 MG TABLET (UD) PO SCH (21:15)
[2017-01-11] MEDS: SODIUM CHLORIDE 1,000 ML IV SCH ×3 (02:40→11:57)
[2017-01-11] MEDS: LORazepam 1 MG TABLET PO SCH ×3 (06:10→21:52)
[2017-01-11] MEDS: amLODIPine BESYLATE 5 MG TABLET (FP) PO SCH (08:01)
[2017-01-11 08:48] LABS: BASOPHIL 1.6 % (0-2.0); EOSINOPHIL 0.5 % (0-4.5); MCH 26.7 pg (25.7-33.7); MCHC 32.2 g/dl (32.0-35.9); MEAN CELL VOLUME 82.7 fl (80-96); MEAN PLT VOLUME 8.8 fl (7.5-11.1); NEUTROPHILS 87.1 % (42.8-82.8); PLATELET COUNT 46 K/MM3 (134-434); RDW 16.3 % (11.9-15.9); WHITE BLOOD COUNT 5.1 K/mm3 (4.0-10.0)
[2017-01-11 09:21] LABS: ALBUMIN 1.3 g/dl (3.4-5.0); ANION GAP 15 (8-16); BILIRUBIN,DIRECT 1.2 mg/dL (0.0-0.2); CALCIUM 7.1 mg/dL (8.5-10.1); CO2 11 mmol/L (21-32); CREATININE 3.9 mg/dL (0.7-1.3); GLUCOSE,RANDOM 107 mg/dL (74-106); SGOT/AST 54 U/L (15-37); SGPT/ALT 40 U/L (12-78)
[2017-01-11 09:23] LABS: ALK PHOS 988 U/L (45-117); BILIRUBIN,TOTAL 1.6 mg/dL (0.2-1.0); TOT PROT 4.9 g/dl (6.4-8.2)
[2017-01-11] MEDS: THIAMINE HCL 100 MG TABLET (FP) PO SCH (09:40)
[2017-01-11] MEDS: MULTIVITAMINS (DAILY MVI) TABLET (FP) PO SCH (09:40)
[2017-01-11] MEDS: RIFAXIMIN 550 MG TABLET (UD) PO SCH ×2 (09:40→21:50)
[2017-01-11] MEDS: FOLIC ACID 1 MG TABLET (FP) PO SCH (09:40)
--- NOTE | 2017-01-11 09:57 | PN ---
Progress Note (short form) - Note Progress Note: c/o lethargy. denies CP, SOB, fever, chills, N/V/C/D, RIVERS, blurred vision, auditory or visual hallucinations Current Medications Generic Name Dose Route Start Last Admin Trade Name Freq PRN Reason Stop Dose Admin Amlodipine Besylate 5 mg 01/10/17 10:00 01/11/17 08:01 Norvasc - PO 5 mg DAILY MEI Administration Folic Acid 1 mg 01/11/17 10:00 01/11/17 09:40 Folic Acid - PO 1 mg DAILY MEI Administration Sodium Chloride 1,000 mls @ 150 mls/hr 01/10/17 04:15 01/11/17 06:10 Normal Saline - IV Not Given ASDIR MEI Lorazepam 1 mg 01/10/17 04:06 01/10/17 04:22 Ativan Injection - IVPUSH 1 mg Q6H PRN Administration WITHDRAWAL(CONT SUBST) Lorazepam 1 mg 01/10/17 06:00 01/11/17 06:10 Ativan - PO 1 mg TID MEI Administration Multivitamins/Minerals/Vitamin C 1 tab 01/11/17 10:00 01/11/17 09:40 Tab-A-Vit - PO 1 tab DAILY MEI Administration Rifaximin 550 mg 01/10/17 22:00 01/11/17 09:40 Xifaxan - PO 550 mg BID MEI Administration Thiamine HCl 100 mg 01/11/17 10:00 01/11/17 09:40 Vitamin B1 - PO 100 mg DAILY MEI Administration Last Vital Signs Temp Pulse Resp BP Pulse Ox 97.9 F 68 18 155/92 99 01/11/17 06:00 01/11/17 06:00 01/11/17 06:00 01/11/17 09:50 01/10/17 01:30 Intake & Output 01/08/17 01/09/17 01/10/17 01/11/17 23:59 23:59 23:59 23:59 Intake Total 1999 3750 1200 Output Total 600 200 Balance 2000 3150 1000 Weight 155 lb 160 lb 3.2 oz General alert. A&O x3 HEENT EOMI, non-icteric CV S1 S2 RRR no murmur/rub/gallop Lungs CTA B/L no wheezing/rales/rhonchi Abdomen soft +distention +fluid wave Extremities no pedal edema. no tremor at rest. no asterixis CBCD WBC 5.1 K/mm3 (4.0-10.0) 01/11/17 08:35 RBC 4.52 M/mm3 (4.00-5.60) 01/11/17 08:35 Hgb 12.1 GM/dL (11.7-16.9) 01/11/17 08:35 Hct 37.4 % (35.4-49) 01/11/17 08:35 MCV 82.7 fl (80-96) 01/11/17 08:35 MCHC 32.2 g/dl (32.0-35.9) 01/11/17 08:35 RDW 16.3 % (11.9-15.9) H 01/11/17 08:35 Plt Count 46 K/MM3 (134-434) L 01/11/17 08:35 MPV 8.8 fl (7.5-11.1) 01/11/17 08:35 CMP Sodium 136 mmol/L (136-145) 01/11/17 08:35 Potassium 3.0 mmol/L (3.5-5.1) L 01/11/17 08:35 Chloride 110 mmol/L (98-107) H 01/11/17 08:35 Carbon Dioxide 11 mmol/L (21-32) L D 01/11/17 08:35 Anion Gap 15 (8-16) 01/11/17 08:35 BUN 67 mg/dL (7-18) H 01/11/17 08:35 Creatinine 3.9 mg/dL (0.7-1.3) H 01/11/17 08:35 Creat Clearance w eGFR 16.01 (>60) 01/11/17 08:35 Calcium 7.1 mg/dL (8.5-10.1) L 01/11/17 08:35 Total Bilirubin 1.6 mg/dL (0.2-1.0) H 01/11/17 08:35 AST 54 U/L (15-37) H 01/11/17 08:35 ALT 40 U/L (12-78) 01/11/17 08:35 Alkaline Phosphatase 988 U/L (45-117) H 01/11/17 08:35 Total Protein 4.9 g/dl (6.4-8.2) L 01/11/17 08:35 Albumin 1.3 g/dl (3.4-5.0) L 01/11/17 08:35 Microbiology 01/10/17 02:10 Clostridium difficile Antigen (DIDIER) - Final Stool Clostridium difficile Toxin Assay - Final 01/10/17 02:10 Gram Stain - Final Stool A/P 56yo M wtih PMH Continuous ETOH dependence arrived to the ER c/o nausea and diarrhea with 15 pound weight loss. 1. ACute hepatitis- likely ETOH induced. MELD 25. clinically improved today. Bili trending up. concern for SBP and prophylactically started on cefipime. will pursue paracentesis. MRCP done this AM to further evaluate. started on rifampin. monitor closely. GI on board. hepatitis panel pending, stool Cx pending, BCx pending 2. DALTON- unknown baseline. kent with reduced UOP. kidney functioning worsening. Spoke with Neprhology for concern for developing hepatorenal. will evaluate and possible placement on albumin. avoid nephrotoxic agents. cont IVF. strict I&O 3. AG metabolic acidosis- due to lactic acidosis. now resolved 4. Acute normocytic anemia- likely dilutional. no signs of bleeding. HGb stable. txn for Hgb <7. FOBT negative 5. Acute ETOH withdrawal- CIWA 0. on ativan. will titrate down ativan. on thiamine/folate/MVI 6. Hypokalemia- low dose KCl in setting of DALTON 7. Elevated BP- received [id number]. with good response. will monitor for now. 8. Pseudohypocalcemia- Corrected Ca 9.14 9. Thrombocytopenia- likely due to ETOH and liver disease. no signs of bleeding. will monitor 10. DVT ppx- SCD Visit type - Emergency Visit Emergency Visit: Yes ED Registration Date: 01/09/17 Care time: The patient presented to the Emergency Department on the above date and was hospitalized for further evaluation of their emergent condition. - New Patient This patient is new to me today: No - Critical Care Critical Care patient: No - Discharge Referral Referred to [facility] No
[2017-01-11] MEDS ORDERED: POTASSIUM CHLORIDE ORAL LIQUID 20 MEQ/15 ML PO ONE ×2 (12:30→15:00)
--- NOTE | 2017-01-11 13:20 | CON.ID ---
Consult Consult Specialty:: infectious diseases Referred by:: Reason for Consultation:: r/o sbp,lehtargy - History of Present Illness Chief Complaint: weakness lethargy and dirrhoea History of Present Illness: 56 Year old Yakut speaking male with no past medical history who presented to the hospital today with 4 weeks history of nausea, vomiting,diarrhea , loss of appetite and valeria loss of 10-15 pound within 2 weeks and generalized weakness. diarrhea 2-3 times a day non bloody with some mucus . vomiting non bilious non bloody, he claims he vomit whatever he eat which was main reason patient came to the hospital complains of generalized weakness, fatigue with blurry vision. His daughter noticed appears yellow. Patient denies any sick contact or recent travel. according to the family patient drinks a lot currently patient feels very tired but says he has not had any dirrhoea today family in the room autoimmune hepatitis. 30+ years of daily beer and hard liquor. Drank alcohol daily up until 3 weeks ago. - History Source History Provided By: Patient, Family Member Limitations to Obtaining History: Language Barrier - Alcohol/Substance Use Hx Alcohol Use: Yes (30+ year. Beer and vodka, per daughter) History of Substance Use: reports: None - Smoking History Smoking history: Never smoked - Social History Usual Living Arrangement: With Spouse Home Medications - Allergies Allergies/Adverse Reactions: Allergies Allergy/AdvReac Type Severity Reaction Status Date / Time No Known Allergies Allergy Verified 01/09/17 16:20 - Home Medications Home Medications: Ambulatory Orders NK [No Known Home Medication] 01/09/17 Review of Systems - Review of Systems Constitutional: reports: Lethargy, Weakness Eyes: reports: No Symptoms HENT: reports: No Symptoms Neck: reports: No Symptoms Cardiovascular: reports: No Symptoms Respiratory: reports: No Symptoms Gastrointestinal: reports: Bloating, Diarrhea Genitourinary: reports: No Symptoms Musculoskeletal: reports: No Symptoms Integumentary: reports: No Symptoms Neurological: reports: No Symptoms Endocrine: reports: No Symptoms Hematology/Lymphatic: reports: No Symptoms Psychiatric: reports: No Symptoms Physical Exam Vital Signs: Vital Signs Temperature 97.9 F 01/11/17 06:00 Pulse Rate 68 01/11/17 06:00 Respiratory Rate 18 01/11/17 06:00 Blood Pressure 155/92 01/11/17 09:50 O2 Sat by Pulse Oximetry (%) 99 01/10/17 01:30 Constitutional: Yes: Well Nourished, No Distress, Calm Eyes: Yes: PERRL HENT: Yes: Atraumatic, Normocephalic Cardiovascular: Yes: Regular Rate and Rhythm Respiratory: Yes: Regular, CTA Bilaterally Gastrointestinal: Yes: Ascites, Tenderness (diffuse in the abdomen), Other ( sluggish bowel sounds) Musculoskeletal: Yes: WNL Extremities: Yes: WNL Neurological: Yes: Alert, Oriented Psychiatric: Yes: Alert, Oriented Labs: CBC, BMP 01/11/17 08:35 01/11/17 08:35 Imaging - Results Chest X-ray: Report Reviewed, Image Reviewed Cat Scan: Report Reviewed, Image Reviewed MRI: Image Reviewed Assessment/Plan Problem List - Problems (1) Lethargy Code(s): R53.83 - OTHER FATIGUE (2) Elevated alkaline phosphatase level Code(s): R74.8 - ABNORMAL LEVELS OF OTHER SERUM ENZYMES 3 colitis after lookng at the the patients picture and symptoms i am leaning towards infectious colitis though he can have inflammatory colitis also all the cx are still pending patient got cefipime plan i am going to start zosyn hydration gi following rest as per primary
[2017-01-11] MEDS: PIPERACILLIN/TAZOB 3.375 GM 50 ML IVPB SCH ×2 (14:46→17:57)
--- NOTE | 2017-01-11 15:08 | PN ---
Progress Note, Physician History of Present Illness: More awake and alert. No events. 5 loose bms in ~ 24 hrs. no melena, blood. Afebrile. MRI done, results pending. - Current Medication List Current Medications: Active Medications Amlodipine Besylate (Norvasc -) 5 mg PO DAILY [facility] Last Admin: 01/11/17 08:01 Dose: 5 mg Folic Acid (Folic Acid -) 1 mg PO DAILY [facility] Last Admin: 01/11/17 09:40 Dose: 1 mg Sodium Chloride (Normal Saline -) 1,000 mls @ 150 mls/hr IV ASDIR MEI Last Admin: 01/11/17 11:57 Dose: 150 mls/hr Piperacillin/Tazobactam/Dextrose (Zosyn 3.375gm Ivpb (Premix)) 50 mls @ 100 mls /hr IVPB Q8H-IV MEI PRN Reason: Protocol Last Admin: 01/11/17 14:46 Dose: 100 mls/hr Lorazepam (Ativan Injection -) 1 mg IVPUSH Q6H PRN PRN Reason: WITHDRAWAL(CONT SUBST) Last Admin: 01/10/17 04:22 Dose: 1 mg Lorazepam (Ativan -) 1 mg PO TID [facility] Last Admin: 01/11/17 14:40 Dose: Not Given Multivitamins/Minerals/Vitamin C (Tab-A-Vit -) 1 tab PO DAILY [facility] Last Admin: 01/11/17 09:40 Dose: 1 tab Rifaximin (Xifaxan -) 550 mg PO BID [facility] Last Admin: 01/11/17 09:40 Dose: 550 mg Thiamine HCl (Vitamin B1 -) 100 mg PO DAILY [facility] Last Admin: 01/11/17 09:40 Dose: 100 mg - Objective Vital Signs: Vital Signs Temperature 97.8 F 01/11/17 14:00 Pulse Rate 104 H 01/11/17 14:00 Respiratory Rate 20 01/11/17 14:00 Blood Pressure 165/98 01/11/17 14:00 O2 Sat by Pulse Oximetry (%) 99 01/10/17 01:30 Constitutional: Yes: No Distress, Calm Eyes: Yes: Conjunctiva Clear. No: Sclera Icterus HENT: Yes: Atraumatic Neck: Yes: Supple Cardiovascular: Yes: Tachycardia Respiratory: Yes: Regular, CTA Bilaterally Gastrointestinal: Yes: Normal Bowel Sounds, Distention. No: Tenderness Edema: No Integumentary: No: Jaundice Neurological: Yes: Alert Labs: CBC, BMP 01/11/17 08:35 01/11/17 08:35 INR, PTT INR 1.08 (0.82-1.09) 01/10/17 07:30 Laboratory Results - last 24 hr 01/09/17 01/10/17 01/10/17 17:15 16:40 18:45 WBC 5.2 RBC 4.46 Hgb 12.0 D Hct 36.5 MCV 81.7 MCH 26.8 MCHC 32.8 RDW 16.5 H Plt Count 45 L MPV 9.4 Neutrophils % Lymphocytes % Monocytes % Eosinophils % Basophils % Sodium Potassium Chloride Carbon Dioxide Anion Gap BUN Creatinine Creat Clearance w eGFR Random Glucose Calcium Total Bilirubin 1.4 H Direct Bilirubin 1.1 H GGT AST 50 H ALT 39 Alkaline Phosphatase 963 H Total Protein 4.9 L Albumin 1.3 L Stool Occult Blood Hep B Core IgM Ab Negative 01/10/17 01/11/17 01/11/17 19:30 08:35 08:35 WBC 5.1 RBC 4.52 Hgb 12.1 Hct 37.4 MCV 82.7 MCH 26.7 MCHC 32.2 RDW 16.3 H Plt Count 46 L MPV 8.8 Neutrophils % 87.1 H Lymphocytes % 7.3 L Monocytes % 3.5 L Eosinophils % 0.5 D Basophils % 1.6 Sodium 136 Potassium 3.0 L Chloride 110 H Carbon Dioxide 11 L D Anion Gap 15 BUN 67 H Creatinine 3.9 H Creat Clearance w eGFR 16.01 Random Glucose 107 H D Calcium 7.1 L Total Bilirubin 1.6 H Direct Bilirubin 1.2 H GGT AST 54 H ALT 40 Alkaline Phosphatase 988 H Total Protein 4.9 L Albumin 1.3 L Stool Occult Blood Positive Hep B Core IgM Ab 01/11/17 08:35 WBC RBC Hgb Hct MCV MCH MCHC RDW Plt Count MPV Neutrophils % Lymphocytes % Monocytes % Eosinophils % Basophils % Sodium Potassium Chloride Carbon Dioxide Anion Gap BUN Creatinine Creat Clearance w eGFR Random Glucose Calcium Total Bilirubin Direct Bilirubin GGT 880 H AST ALT Alkaline Phosphatase Total Protein Albumin Stool Occult Blood Hep B Core IgM Ab - ....Imaging MRI: Pending Problem List - Problems (1) Lethargy Code(s): R53.83 - OTHER FATIGUE (2) Elevated alkaline phosphatase level Code(s): R74.8 - ABNORMAL LEVELS OF OTHER SERUM ENZYMES Assessment/Plan Lethardy, ascites, colitis with profuse diarrhea, transaminitis and disproportionately elevated ALP, renal insufficiency in settings of chronic alcohol abuse for many years. Liver cirrhosis is likely. Encephalopathy (II), Alcoholic hepatitis (AF<32) ? HRS. ?SBP, ?Biliary pathology. "Colitis" on CT w/o contrast. Edema vs Infectious vs IBD. Rifaximin po 550 bid Diagnostic paracenthesis Exclude viral, autoimmune, metabolic etiologies ALP x 6 normal. Can be due to the above in addition to other potential etiologies. Fractionated ALP pending, however likely liver source. MRCP read pending Stool workup pending. Withdrawal/detox management EGD and Colonoscopy on this admission (colitis on CT, vomiting and diarrhea x 3 weeks) Will follow
[2017-01-11 15:51] LABS: URINE CREATININE 77.6 mg/dL (20-370)
[2017-01-11 17:23] VITALS: BMI 26.6
--- NOTE | 2017-01-11 17:23 | CON.NEP ---
Consult Consult Specialty:: Nephrology Reason for Consultation:: renal insufficiency - History of Present Illness Chief Complaint: vomiting History of Present Illness: This is a 56 year old man with a history of ethanol abuse who states he has not drank any alcohol in 2 to 3 months and presented with 3 weeks of vomiting and diarrhea. He is a poor historian but it seems he does not have issues with his kidneys. Still is weak. Has not taken any new recent meds and has no pain so has not taken NSAIDS - History Source History Provided By: Patient, Medical Record Limitations to Obtaining History: Poor Historian - Alcohol/Substance Use Hx Alcohol Use: Yes (30+ year. Beer and vodka, per daughter) History of Substance Use: reports: None - Smoking History Smoking history: Never smoked - Social History Usual Living Arrangement: With Spouse Home Medications - Allergies Allergies/Adverse Reactions: Allergies Allergy/AdvReac Type Severity Reaction Status Date / Time No Known Allergies Allergy Verified 01/09/17 16:20 - Home Medications Home Medications: Ambulatory Orders NK [No Known Home Medication] 01/09/17 Review of Systems - Review of Systems Constitutional: reports: Lethargy, Loss of Appetite, Unintentional Wgt. Loss, Weakness Eyes: reports: No Symptoms HENT: reports: No Symptoms Neck: reports: No Symptoms Cardiovascular: reports: No Symptoms Respiratory: reports: No Symptoms Gastrointestinal: reports: Diarrhea, Vomiting Genitourinary: reports: No Symptoms Breasts: reports: No Symptoms Reported Musculoskeletal: reports: No Symptoms Integumentary: reports: No Symptoms Neurological: reports: No Symptoms Endocrine: reports: No Symptoms Hematology/Lymphatic: reports: No Symptoms Psychiatric: reports: No Symptoms Nephrology Consult - Height Height: 5 ft 5 in - Weight Weight: 160 lb 3.2 oz - BMI Body Mass Index (BMI): 26.6 - Lab Results CBC,BMP: CBC, BMP 01/11/17 08:35 01/11/17 08:35 Anion Gap: Anion Gap Anion Gap 15 (8-16) 01/11/17 08:35 - Imaging Chest X-ray: Report Reviewed (interstitial lung disease) Cat Scan: Report Reviewed (wang colitis) - Physical Examination Vital Signs: Vital Signs Temperature 97.8 F 01/11/17 14:00 Pulse Rate 104 H 01/11/17 14:00 Respiratory Rate 20 01/11/17 14:00 Blood Pressure 165/98 01/11/17 14:00 O2 Sat by Pulse Oximetry (%) 99 01/10/17 01:30 Constitutional: Yes: Well Nourished, No Distress, Calm Eyes: Yes: Conjunctiva Clear HENT: Yes: Atraumatic, Normocephalic Neck: Yes: Supple, Trachea Midline Cardiovascular: Yes: Regular Rate and Rhythm. No: Rub Respiratory: Yes: CTA Bilaterally Gastrointestinal: Yes: Normal Bowel Sounds, Ascites. No: Tenderness Renal/: Yes: WNL Musculoskeletal: Yes: WNL Edema: No Integumentary: Yes: WNL Neurological: Yes: Alert, Oriented, Tremors Psychiatric: Yes: Alert, Oriented Assessment/Plan IMPRESSION This patient has renal insufficiency associated with proteinuria and hematuria. By my evaluation of his CT scan he has a left parapelvic cyst and perhaps some small non obstructing calculi and no hydronephrosis and apparently normal size kidneys. An official interpretation of the ct scan findings of the kidney is not available. He does have an FeNa of 0.78 which would suggest a prerenal state. Hepatorenal is a possibility but given his diarrhea, hypertension, urinary findings and stability of creatinine one would need to look for another cause. HRS type 2 is possible. He also has a hyperchloremic metabolic acidosis probably from diarrhea. Note positive urine net charge PLAN would do a vasculitis and hepatitis work up reduce ivf given hypertension may add bicarb to fluids avoid nephrotoxins obtain renal sonogram diagnostic paracentesis continue antibiotics obtain urine protein and creatinine MV
[2017-01-11 17:50] LABS: ALBUMIN 1.3 g/dl (3.4-5.0); BILIRUBIN,DIRECT 1.2 mg/dL (0.0-0.2); BILIRUBIN,TOTAL 1.5 mg/dL (0.2-1.0); TOT PROT 4.9 g/dl (6.4-8.2)
[2017-01-11] MEDS: [UNRECOGNIZED DRUG - OTHER] IV SCH (21:50)
[2017-01-11] MEDS: SODIUM BICARBONATE IV SCH (21:50)
[2017-01-11] MEDS: DEXTROSE IV SCH (21:50)
[2017-01-11] MEDS ORDERED: amLODIPine BESYLATE 5 MG TABLET (FP) PO ONE (22:42)
[2017-01-12] MEDS: PIPERACILLIN/TAZOB 3.375 GM 50 ML IVPB SCH ×3 (01:23→17:55)
[2017-01-12] MEDS: LORazepam 1 MG TABLET PO SCH ×2 (06:33→21:01)
[2017-01-12] MEDS: DEXTROSE IV SCH (06:34)
[2017-01-12] MEDS: [UNRECOGNIZED DRUG - OTHER] IV SCH (06:34)
[2017-01-12] MEDS: SODIUM BICARBONATE IV SCH (06:34)
[2017-01-12 08:04] LABS: BASOPHIL 1.1 % (0-2.0); EOSINOPHIL 0.4 % (0-4.5); MCH 26.7 pg (25.7-33.7); MCHC 32.9 g/dl (32.0-35.9); MEAN CELL VOLUME 81.2 fl (80-96); MEAN PLT VOLUME 8.9 fl (7.5-11.1); NEUTROPHILS 87.1 % (42.8-82.8); PLATELET COUNT 36 K/MM3 (134-434); RDW 16.8 % (11.9-15.9); WHITE BLOOD COUNT 5.3 K/mm3 (4.0-10.0)
--- NOTE | 2017-01-12 08:07 | PN ---
Physical Exam: SUBJECTIVE: Spoke in german. Pt states he had 3 episodes of soft diarrhea. Denies CP, SOB, fatigue. Febrile overnight 100.7. Elevated BP last night 196/ 100 --> given extra dose of Norvasc 5mg --> 160/84. OBJECTIVE: Vital Signs Period Temp Pulse Resp BP Sys/Arguelles Pulse Ox Last 24 Hr 97.8 F-100.7 F 94-110 18-21 149-196/68-100 GEN: AAOx2, NAD, Notably jaundice HEENT: PERRLA, EOMi CV: S1, S2, RRR LUNG: Mild bibasilar crackles ABD: Soft, mildly distended, normoactive BS MSK: No edema, no erythema Active Medications Generic Name Dose Route Start Last Admin Trade Name Freq PRN Reason Stop Dose Admin Amlodipine Besylate 5 mg 01/10/17 10:00 01/11/17 08:01 Norvasc - PO 5 mg DAILY MEI Administration Folic Acid 1 mg 01/11/17 10:00 01/11/17 09:40 Folic Acid - PO 1 mg DAILY MEI Administration Piperacillin/Tazobactam/Dextrose 50 mls @ 100 mls/hr 01/11/17 13:30 01/12/17 01 :23 Zosyn 3.375gm Ivpb (Premix) IVPB 100 mls/hr Q8H-IV MEI Administration Protocol Sodium Bicarbonate 50 meq/ 1,050 mls @ 83 mls/hr 01/11/17 19:00 01/12/17 06:34 Dextrose/Sodium Chloride IV Not Given Q12H MEI Lorazepam 1 mg 01/10/17 04:06 01/10/17 04:22 Ativan Injection - IVPUSH 1 mg Q6H PRN Administration WITHDRAWAL(CONT SUBST) Lorazepam 1 mg 01/10/17 06:00 01/12/17 06:33 Ativan - PO 1 mg TID MEI Administration Multivitamins/Minerals/Vitamin C 1 tab 01/11/17 10:00 01/11/17 09:40 Tab-A-Vit - PO 1 tab DAILY MEI Administration Rifaximin 550 mg 01/10/17 22:00 01/11/17 21:50 Xifaxan - PO 550 mg BID MEI Administration Thiamine HCl 100 mg 01/11/17 10:00 01/11/17 09:40 Vitamin B1 - PO 100 mg DAILY MEI Administration ASSESSMENT/PLAN: 56yo M w/ PMHx of EtOH abuse (+30 yrs) who presented to ER w/ nausea, vomiting, profuse watery diarrhea, 15 lb wt loss. Found to have elevated LFTs. # Transaminitis w/ markedly elevated ALP - ?intrahep cholestasis, likely underlying cirrhosis (ascites, low PLT/alb, splenomeg, hyperNH3), followed by GI + ID - Worsening ALP, no biliary path on MRCP, notable liver lesions (4 + 9mm), ? HCC, cannot do MRI w/con due to DALTON, - Spoke to Dr Mendoza, will transfuse 1u PLT tmrw 8AM and schedule diagnostic paracentesis for afternoon, ?malignant cells, also await AFP - R/o viral hepatitis (panel) and autoimmune (antiSM, TESSY) - Continue PO Rifamixin 550mg BID for hepatic enceph # Diarrhea - 2/2 infectious vs inflammatory colitis, seen on CT, Cdiff neg, leading to hypoK, hyperCl met acidosis - Febrile overnight, cont. Zosyn 3.375 Q8H, stool O&P pending, stool cx pending - EGD and colonoscopy on 10:30AM, will transfused PLTs prior # DALTON - worsening, likely acute on chronic, prerenal (FeNA 0.8), likely 2/2 hepatic dz vs vasculitis - Renal consult, unlikely hepatorenal syndrome, vasculitis w/up - Continue IVF NaCl w/ HCO3 # HTN - Increased Norvasc to 10mg daily, if BP elevated overnight ok to give Norvasc 5mg # EtOH Withdrawal - Titrating down standing Ativan to BID + PRN Ativan (due to liver dz), thiamine, folate, MV # FEN - Decreased IVNS w/ HCO3 to 50 cc/hr, repleting K+, sodium controlled # PPx - SCDs, PT requested (not seen) # Dispo - Continues to need inpatient care, will await for viral hep panel, rheumatoid panel, and AFP. Diagnostic para tmrw afternoon. Michaela Mendoza MD - PGY1 Internal Medicine Visit type - Emergency Visit Emergency Visit: No - New Patient This patient is new to me today: No - Critical Care Critical Care patient: No - Discharge Referral Referred to [facility] Med P.C.: No
[2017-01-12 08:35] LABS: ALBUMIN 1.2 g/dl (3.4-5.0); ANION GAP 16 (8-16); CALCIUM 7.1 mg/dL (8.5-10.1); CO2 10 mmol/L (21-32); GLUCOSE,RANDOM 157 mg/dL (74-106); MAGNESIUM 2.4 mg/dL (1.8-2.4); SGOT/AST 47 U/L (15-37)
[2017-01-12 08:41] LABS: BILIRUBIN,DIRECT 1.3 mg/dL (0.0-0.2); BILIRUBIN,TOTAL 1.7 mg/dL (0.2-1.0); CREATININE 4.3 mg/dL (0.7-1.3); PHOSPHOROUS 5.2 mg/dL (2.5-4.9); SGPT/ALT 38 U/L (12-78); TOT PROT 4.6 g/dl (6.4-8.2)
[2017-01-12 09:25] LABS: URINE CREATININE 67.5 mg/dL (20-370)
[2017-01-12] MEDS: RIFAXIMIN 550 MG TABLET (UD) PO SCH ×2 (09:37→21:01)
[2017-01-12] MEDS: amLODIPine BESYLATE 5 MG TABLET (FP) PO SCH (09:37)
[2017-01-12] MEDS: FOLIC ACID 1 MG TABLET (FP) PO SCH (09:37)
[2017-01-12] MEDS: THIAMINE HCL 100 MG TABLET (FP) PO SCH (09:37)
[2017-01-12] MEDS: MULTIVITAMINS (DAILY MVI) TABLET (FP) PO SCH (09:37)
[2017-01-12 09:48] LABS: ALK PHOS 1005 U/L (45-117)
--- NOTE | 2017-01-12 11:52 | PN ---
Progress Note, Physician History of Present Illness: More awake and alert. Diarrhea. Low grade fever. No melena, blood in stool ( heme pos). MRI shows 9 and 4 mm right lobe lesions, MRI with contrast recommended. Cr 4.3. - Current Medication List Current Medications: Active Medications Amlodipine Besylate (Norvasc -) 5 mg PO DAILY [facility] Last Admin: 01/12/17 09:37 Dose: 5 mg Folic Acid (Folic Acid -) 1 mg PO DAILY [facility] Last Admin: 01/12/17 09:37 Dose: 1 mg Piperacillin/Tazobactam/Dextrose (Zosyn 3.375gm Ivpb (Premix)) 50 mls @ 100 mls /hr IVPB Q8H-IV MEI PRN Reason: Protocol Last Admin: 01/12/17 09:37 Dose: 100 mls/hr Sodium Bicarbonate 50 meq/ (Dextrose/Sodium Chloride) 1,050 mls @ 83 mls/hr IV Q12H MEI Last Admin: 01/12/17 06:34 Dose: Not Given Lorazepam (Ativan Injection -) 1 mg IVPUSH Q6H PRN PRN Reason: WITHDRAWAL(CONT SUBST) Last Admin: 01/10/17 04:22 Dose: 1 mg Lorazepam (Ativan -) 1 mg PO TID [facility] Last Admin: 01/12/17 06:33 Dose: 1 mg Multivitamins/Minerals/Vitamin C (Tab-A-Vit -) 1 tab PO DAILY [facility] Last Admin: 01/12/17 09:37 Dose: 1 tab Rifaximin (Xifaxan -) 550 mg PO BID [facility] Last Admin: 01/12/17 09:37 Dose: 550 mg Thiamine HCl (Vitamin B1 -) 100 mg PO DAILY [facility] Last Admin: 01/12/17 09:37 Dose: 100 mg - Objective Vital Signs: Vital Signs Temperature 98.6 F 01/12/17 07:52 Pulse Rate 96 H 01/12/17 07:52 Respiratory Rate 18 01/12/17 07:52 Blood Pressure 163/96 01/12/17 07:52 O2 Sat by Pulse Oximetry (%) 96 01/12/17 09:00 Constitutional: Yes: No Distress, Calm HENT: Yes: Normocephalic Neck: Yes: Supple Cardiovascular: Yes: Regular Rate and Rhythm Respiratory: Yes: Regular Gastrointestinal: Yes: Normal Bowel Sounds, Ascites, Distention. No: Palpable Mass, Pulsatile Mass, Rectal Bleeding, Tenderness, Vomiting Integumentary: No: Jaundice Neurological: Yes: Alert, Oriented Labs: CBC, BMP 01/12/17 07:35 01/12/17 07:35 INR, PTT INR 1.08 (0.82-1.09) 01/10/17 07:30 CBCD WBC 5.3 K/mm3 (4.0-10.0) 01/12/17 07:35 RBC 4.17 M/mm3 (4.00-5.60) 01/12/17 07:35 Hgb 11.1 GM/dL (11.7-16.9) L 01/12/17 07:35 Hct 33.8 % (35.4-49) L 01/12/17 07:35 MCV 81.2 fl (80-96) 01/12/17 07:35 MCHC 32.9 g/dl (32.0-35.9) 01/12/17 07:35 RDW 16.8 % (11.9-15.9) H 01/12/17 07:35 Plt Count 36 K/MM3 (134-434) L* D 01/12/17 07:35 MPV 8.9 fl (7.5-11.1) 01/12/17 07:35 CMP Sodium 137 mmol/L (136-145) 01/12/17 07:35 Potassium 3.0 mmol/L (3.5-5.1) L 01/12/17 07:35 Chloride 111 mmol/L (98-107) H 01/12/17 07:35 Carbon Dioxide 10 mmol/L (21-32) L 01/12/17 07:35 Anion Gap 16 (8-16) 01/12/17 07:35 BUN 66 mg/dL (7-18) H 01/12/17 07:35 Creatinine 4.3 mg/dL (0.7-1.3) H 01/12/17 07:35 Creat Clearance w eGFR 14.31 (>60) 01/12/17 07:35 Calcium 7.1 mg/dL (8.5-10.1) L 01/12/17 07:35 Total Bilirubin 1.7 mg/dL (0.2-1.0) H 01/12/17 07:35 AST 47 U/L (15-37) H 01/12/17 07:35 ALT 38 U/L (12-78) 01/12/17 07:35 Alkaline Phosphatase 1005 U/L (45-117) H 01/12/17 07:35 Total Protein 4.6 g/dl (6.4-8.2) L 01/12/17 07:35 Albumin 1.2 g/dl (3.4-5.0) L 01/12/17 07:35 - ....Imaging MRI: Report Reviewed Problem List - Problems (1) Lethargy Code(s): R53.83 - OTHER FATIGUE (2) Elevated alkaline phosphatase level Code(s): R74.8 - ABNORMAL LEVELS OF OTHER SERUM ENZYMES (3) Liver mass, right lobe Code(s): R16.0 - HEPATOMEGALY, NOT ELSEWHERE CLASSIFIED Assessment/Plan Lethardy, ascites, colitis with profuse diarrhea, transaminitis and disproportionately elevated ALP, renal insufficiency in settings of chronic alcohol abuse for many years. Liver cirrhosis is likely. Encephalopathy (II), Alcoholic hepatitis (AF<32) ? HRS. ?SBP, ?Biliary pathology. "Colitis" on CT w/o contrast. Edema vs Infectious vs IBD. 9 and 4 mm right liver lobe lesions, contrast MRI recommended however Cr >4 at th is time Diagnostic paracentesis Exclude viral, autoimmune work up pending ALP continues to rise. Can be due to the above in addition to other potential etiologies. Fractionated ALP pending, however likely liver source. Stool workup pending. Withdrawal/detox management EGD and Colonoscopy on this admission after PLT transfusion (?esophageal varices , IBD, colitis on CT, hemeoccult positive, vomiting and diarrhea x 3 weeks) Will follow
[2017-01-12] MEDS ORDERED: POTASSIUM CHLORIDE ORAL LIQUID 20 MEQ/15 ML PO ONE ×2 (13:56→18:00)
[2017-01-12] MEDS ORDERED: DEXTROSE IV SCH (13:57)
[2017-01-12] MEDS ORDERED: [UNRECOGNIZED DRUG - OTHER] IV SCH (13:57)
[2017-01-12] MEDS ORDERED: SODIUM BICARBONATE IV SCH (13:57)
--- NOTE | 2017-01-12 14:03 | PN ---
Teaching Attending Note Name of Resident: Michaela Mendoza ATTENDING PHYSICIAN STATEMENT I saw and evaluated the patient. I reviewed the resident's note and discussed the case with the resident. I agree with the resident's findings and plan as documented. SUBJECTIVE:asymptomatic. offers no complaints and answers no to all questioning. denies Cp, SOB, fever, chills, N/V/C/D OBJECTIVE: Last Vital Signs Temp Pulse Resp BP Pulse Ox 98.6 F 96 H 18 163/96 96 01/12/17 07:52 01/12/17 07:52 01/12/17 07:52 01/12/17 07:52 01/12/17 09:00 Intake & Output 01/09/17 01/10/17 01/11/17 01/12/17 23:59 23:59 23:59 23:59 Intake Total 1999 3750 2000 850 Output Total 600 900 400 Balance 1999 3150 1100 450 Weight 155 lb 160 lb 3.2 oz 160 lb 3.2 oz General NAD CV S1 S2 RRR no murmur/rub/gallop Lungs +crackles R base Abdomen soft +distention normoactive BS Extremities no pedal edema no tremor ASSESSMENT AND PLAN: 56yo M wtih PMH Continuous ETOH dependence arrived to the ER c/o nausea and diarrhea with 15 pound weight loss. 1. ACute hepatitis- likely ETOH induced. MELD 25. clinically improved today. Bili trending up. concern for SBP however can not do paracentesis at this time in setting of worsening thrombocytopenia. MRCP showing 2 liver lesions with suspicion for malignancy. unable to do contrast with rising Cr. alk phos continues to rise. elevated GGT. AFP pending. autoimmune workup pending. on rifampin. monitor closely. GI on board. hepatitis panel pending, stool Cx pending, BCx pending 2. DALTON- unknown baseline. zaida has chronic disease as evident on renal u/s. bicarb started yesterday. will reduce IVF with pleural effusions. cont ot monitor OUP. cont IVF. strict I&O 3. Acute colitis- clinically improved. stool cx negative. on zosyn day 3. ID on board 4. AG metabolic acidosis- due to lactic acidosis. now resolved 5. Acute normocytic anemia- likely dilutional. no signs of bleeding. HGb stable. txn for Hgb <7. FOBT negative 6. Acute ETOH withdrawal- CIWA 0. on ativan. will titrate down ativan to BID dosing. on thiamine/folate/MVI 7. Hypokalemia- low dose KCl in setting of DALTON 8. Elevated BP- received [id number]. with good response. will monitor for now. 9. Pseudohypocalcemia- Corrected Ca 9.14 10. Thrombocytopenia- likely due to ETOH and liver disease. no signs of bleeding. continuing to trend down. will monitor 11. DVT ppx- SCD
--- NOTE | 2017-01-12 15:44 | PN ---
Physical Exam: SUBJECTIVE: --NEPHROLOGY PROGRESS NOTE -- Patient seen and examined at bedside. Pt with no complaints at this time. According to nursing notes pt has loose BMs still. Pt also had BP elevation to 196/100 last night. OBJECTIVE: Vital Signs Temperature 97.9 F 01/12/17 14:17 Pulse Rate 96 H 01/12/17 14:17 Respiratory Rate 18 01/12/17 14:17 Blood Pressure 157/87 01/12/17 14:17 O2 Sat by Pulse Oximetry (%) 96 01/12/17 09:00 GENERAL: The patient is awake, alert, and oriented x2 EYES: scleral icterus ENT: Ears normal, nares patent LUNGS: mild crackles at bases HEART: Regular rate and rhythm, S1, S2 without murmur ABDOMEN: Soft, nontender, mild distension, normoactive bowel sounds EXTREMITIES: warm, well-perfused, no edema. SKIN: Warm, dry Laboratory Results - last 24 hr 01/11/17 01/11/17 01/11/17 15:10 15:10 17:20 WBC RBC Hgb Hct MCV MCH MCHC RDW Plt Count MPV Neutrophils % Lymphocytes % Monocytes % Eosinophils % Basophils % Sodium Potassium Chloride Carbon Dioxide Anion Gap BUN Creatinine Creat Clearance w eGFR Random Glucose Calcium Phosphorus Magnesium Total Bilirubin 1.5 H Direct Bilirubin 1.2 H AST 53 H ALT 42 Alkaline Phosphatase 986 H Total Protein 4.9 L Albumin 1.3 L U Random Total Protein Ur Random Sodium Cancelled 21 Ur Random Potassium 14.9 Ur Random Chloride 11 Urine Creatinine 77.6 Protein/Creatinin Ratio 01/12/17 01/12/17 01/12/17 06:00 07:35 07:35 WBC 5.3 RBC 4.17 Hgb 11.1 L Hct 33.8 L MCV 81.2 MCH 26.7 MCHC 32.9 RDW 16.8 H Plt Count 36 L* D MPV 8.9 Neutrophils % 87.1 H Lymphocytes % 7.7 L Monocytes % 3.7 L Eosinophils % 0.4 Basophils % 1.1 Sodium 137 Potassium 3.0 L Chloride 111 H Carbon Dioxide 10 L Anion Gap 16 BUN 66 H Creatinine 4.3 H Creat Clearance w eGFR 14.31 Random Glucose 157 H D Calcium 7.1 L Phosphorus 5.2 H Magnesium 2.4 Total Bilirubin 1.7 H Direct Bilirubin 1.3 H AST 47 H ALT 38 Alkaline Phosphatase 1005 H Total Protein 4.6 L Albumin 1.2 L U Random Total Protein 427 H Ur Random Sodium Ur Random Potassium Ur Random Chloride Urine Creatinine 67.5 Protein/Creatinin Ratio 6.325 Laboratory Tests 01/11/17 01/12/17 08:35 07:35 TESSY Screen Pending c-ANCA Pending Proteinase 3 (PR3) Pending p-ANCA Pending Atypical p-ANCA Pending Myeloperoxidase Ab Pending Smooth Musc &FLOOR CASHIER Intrp Pending Microbiology 01/11/17 00:12 Stool Salmonella/Shigella Culture - Preliminary NO ENTERIC PATHOGENS, 24 HOURS, ON PRIMARY PLATES 01/11/17 00:12 Stool Yersinia Culture - Preliminary NO ENTERIC PATHOGENS, 24 HOURS, ON PRIMARY PLATES 01/11/17 00:12 Stool Vibrio Culture - Final NO GROWTH OF VIBRIO SPECIES OBTAINED 01/11/17 00:12 Stool Escherichia coli 0157 Culture - Final NO GROWTH OF E COLI 0157 OBTAINED 01/10/17 15:50 Urine - Urine Carter Urine Culture - Final NO GROWTH OBTAINED 01/10/17 18:55 Blood - Arterial Blood Culture - Preliminary NO GROWTH OBTAINED AFTER 24 HOURS, INCUBATION TO CONTINUE FOR 4 DAYS. 01/10/17 18:50 Blood - Arterial Blood Culture - Preliminary NO GROWTH OBTAINED AFTER 24 HOURS, INCUBATION TO CONTINUE FOR 4 DAYS. 01/10/17 02:10 Stool Clostridium difficile Antigen (DIDIER) - Final 01/10/17 02:10 Stool Clostridium difficile Toxin Assay - Final 01/10/17 02:10 Stool Gram Stain - Final 01/09/17 17:15 Nasopharyngeal Swab Influenza Types A,B Antigen (DIDIER) - Final 01/09/17 17:15 Nasopharyngeal Swab - Final Renal U/S imaging noted Active Medications Generic Name Dose Route Start Last Admin Trade Name Freq PRN Reason Stop Dose Admin Amlodipine Besylate 10 mg 01/13/17 10:00 Norvasc - PO DAILY MEI Folic Acid 1 mg 01/11/17 10:00 01/12/17 09:37 Folic Acid - PO 1 mg DAILY MEI Administration Piperacillin/Tazobactam/Dextrose 50 mls @ 100 mls/hr 01/11/17 13:30 01/12/17 09 :37 Zosyn 3.375gm Ivpb (Premix) IVPB 100 mls/hr Q8H-IV MEI Administration Protocol Sodium Bicarbonate 50 meq/ 1,050 mls @ 50 mls/hr 10/23/17 13:57 Dextrose/Sodium Chloride IV Q21H MEI Lorazepam 1 mg 01/10/17 04:06 01/10/17 04:22 Ativan Injection - IVPUSH 1 mg Q6H PRN Administration WITHDRAWAL(CONT SUBST) Lorazepam 1 mg 01/12/17 22:00 Ativan - PO BID MEI Multivitamins/Minerals/Vitamin C 1 tab 01/11/17 10:00 01/12/17 09:37 Tab-A-Vit - PO 1 tab DAILY MEI Administration Rifaximin 550 mg 01/10/17 22:00 01/12/17 09:37 Xifaxan - PO 550 mg BID MEI Administration Thiamine HCl 100 mg 01/11/17 10:00 01/12/17 09:37 Vitamin B1 - PO 100 mg DAILY MEI Administration ASSESSMENT/PLAN: 56 y/o F w/PMH of alcohol abuse presented to ER w/ N/V/diarrhea, fatigue and 15 pound weight loss. Pt with elevated ALP and found to have elevated Cr. -DALTON -no baseline Cr, pt with no medical follow up previously as well -c/w vasculitis work up -TESSY, c-anca, p-anca, PR3, atypical p-anca, myeloperoxidase ab, smooth muscle pending -possibly secondary to hepatorenal syndrome type 2 -hepatic workup including for malignancy and hepatitis -c/w D5NS w/sodium bicarb -avoid nephrotoxic agents -Acute hepatitis -c/w hepatic workup including for malignancy and hepatitis (including hep A) , alk phos isoenzyme -GI on board -Acute colitis -c/w zosyn -Anemia, normocytic -continue to monitor, transfuse if Hgb <7 -Hypokalemia -replete, monitor -alcohol abuse -on ativan Visit type - Emergency Visit Emergency Visit: Yes ED Registration Date: 01/09/17 Care time: The patient presented to the Emergency Department on the above date and was hospitalized for further evaluation of their emergent condition. - New Patient This patient is new to me today: No - Critical Care Critical Care patient: No
--- NOTE | 2017-01-12 16:13 | PN ---
Progress Note, Physician History of Present Illness: patient stable still with pain - Current Medication List Current Medications: Active Medications Amlodipine Besylate (Norvasc -) 10 mg PO DAILY [facility] Folic Acid (Folic Acid -) 1 mg PO DAILY [facility] Last Admin: 01/12/17 09:37 Dose: 1 mg Piperacillin/Tazobactam/Dextrose (Zosyn 3.375gm Ivpb (Premix)) 50 mls @ 100 mls /hr IVPB Q8H-IV [facility]I PRN Reason: Protocol Last Admin: 01/12/17 09:37 Dose: 100 mls/hr Sodium Bicarbonate 50 meq/ (Dextrose/Sodium Chloride) 1,050 mls @ 50 mls/hr IV Q21H MEI Lorazepam (Ativan Injection -) 1 mg IVPUSH Q6H PRN PRN Reason: WITHDRAWAL(CONT SUBST) Last Admin: 01/10/17 04:22 Dose: 1 mg Lorazepam (Ativan -) 1 mg PO BID [facility] Multivitamins/Minerals/Vitamin C (Tab-A-Vit -) 1 tab PO DAILY [facility] Last Admin: 01/12/17 09:37 Dose: 1 tab Rifaximin (Xifaxan -) 550 mg PO BID [facility] Last Admin: 01/12/17 09:37 Dose: 550 mg Thiamine HCl (Vitamin B1 -) 100 mg PO DAILY [facility] Last Admin: 01/12/17 09:37 Dose: 100 mg - Objective Vital Signs: Vital Signs Temperature 97.9 F 01/12/17 14:17 Pulse Rate 96 H 01/12/17 14:17 Respiratory Rate 18 01/12/17 14:17 Blood Pressure 157/87 01/12/17 14:17 O2 Sat by Pulse Oximetry (%) 96 01/12/17 09:00 Constitutional: Yes: No Distress, Calm Neck: Yes: Supple Cardiovascular: Yes: Regular Rate and Rhythm Respiratory: Yes: Regular, CTA Bilaterally Gastrointestinal: Yes: Normal Bowel Sounds, Soft Musculoskeletal: Yes: WNL Extremities: Yes: WNL Neurological: Yes: Alert, Oriented Psychiatric: Yes: Alert, Oriented Labs: CBC, BMP 01/12/17 07:35 01/12/17 07:35 INR, PTT INR 1.08 (0.82-1.09) 01/10/17 07:30 - ....Imaging Cat Scan: Report Reviewed, Image Reviewed Ultrasound: Report Reviewed MRI: Report Reviewed, Image Reviewed Assessment/Plan Problem List - Problems (1) Lethargy Code(s): R53.83 - OTHER FATIGUE (2) Elevated alkaline phosphatase level Code(s): R74.8 - ABNORMAL LEVELS OF OTHER SERUM ENZYMES 3 colitis plan continue zosyn rest as per primary await for work up final plan awaited
--- NOTE | 2017-01-12 17:59 | PN ---
Teaching Attending Note Name of Resident: Carlos Eduardo Patrick (Nephrology) ATTENDING PHYSICIAN STATEMENT I saw and evaluated the patient. I reviewed the resident's note and discussed the case with the resident. I agree with the resident's findings and plan as documented. Renal Follow Up Please see resident note. Pt denies shortness of breath. He denies lower ext edema. Current Medications Generic Name Dose Route Start Last Admin Trade Name Freq PRN Reason Stop Dose Admin Amlodipine Besylate 10 mg 01/13/17 10:00 Norvasc - PO DAILY [facility] Folic Acid 1 mg 01/11/17 10:00 01/12/17 09:37 Folic Acid - PO 1 mg DAILY [facility] Administration Piperacillin/Tazobactam/Dextrose 50 mls @ 100 mls/hr 01/11/17 13:30 01/12/17 17 :55 Zosyn 3.375gm Ivpb (Premix) IVPB 100 mls/hr Q8H-IV [facility] Administration Protocol Sodium Bicarbonate 50 meq/ 1,050 mls @ 50 mls/hr 01/12/17 13:57 01/12/17 17:55 Dextrose/Sodium Chloride IV 50 mls/hr Q21H [facility] Administration Lorazepam 1 mg 01/10/17 04:06 01/10/17 04:22 Ativan Injection - IVPUSH 1 mg Q6H PRN Administration WITHDRAWAL(CONT SUBST) Lorazepam 1 mg 01/12/17 22:00 Ativan - PO BID [facility] Multivitamins/Minerals/Vitamin C 1 tab 01/11/17 10:00 01/12/17 09:37 Tab-A-Vit - PO 1 tab DAILY [facility] Administration Rifaximin 550 mg 01/10/17 22:00 01/12/17 09:37 Xifaxan - PO 550 mg BID [facility]I Administration Thiamine HCl 100 mg 01/11/17 10:00 01/12/17 09:37 Vitamin B1 - PO 100 mg DAILY [facility] Administration Last Vital Signs Temp Pulse Resp BP Pulse Ox 97.9 F 96 H 18 157/87 96 01/12/17 14:17 01/12/17 14:17 01/12/17 14:17 01/12/17 14:17 01/12/17 09:00 Laboratory Tests 01/11/17 01/12/17 01/12/17 08:35 07:35 07:35 Carbon Dioxide 10 L BUN 66 H Creatinine 4.3 H TESSY Screen Pending c-ANCA Pending p-ANCA Pending Atypical p-ANCA Pending Myeloperoxidase Ab Pending Impression 1. DALTON 2. etoh abuse 3. liver cirrhosis 4. acidosis Plan - repeat labs in am - renal workup is in progress - cont current meds - HRS is in the differential - will follow Dr Amaya
[2017-01-12 18:44] LABS: ALBUMIN 1.2 g/dl (3.4-5.0); BILIRUBIN,DIRECT 1.2 mg/dL (0.0-0.2); BILIRUBIN,TOTAL 1.5 mg/dL (0.2-1.0); TOT PROT 4.9 g/dl (6.4-8.2)
[2017-01-13 00:09] LABS: SMOOTH MUSCLE AB 6 Units (0-19)
[2017-01-13] MEDS: PIPERACILLIN/TAZOB 3.375 GM 50 ML IVPB SCH ×3 (02:34→17:43)
[2017-01-13 07:06] LABS: ALBUMIN 1.3 g/dl (3.4-5.0); ALK PHOS 918 U/L (45-117); ANION GAP 18 (8-16); BILIRUBIN,TOTAL 1.7 mg/dL (0.2-1.0); CALCIUM 7.1 mg/dL (8.5-10.1); CO2 11 mmol/L (21-32); CREATININE 4.5 mg/dL (0.7-1.3); GLUCOSE,RANDOM 117 mg/dL (74-106); INR 1.09 (0.82-1.09); PROTHROMBIN TIME (PATIENT) 12.3 SEC (9.98-11.88); SGOT/AST 39 U/L (15-37); SGPT/ALT 37 U/L (12-78); TOT PROT 4.8 g/dl (6.4-8.2)
--- NOTE | 2017-01-13 07:52 | PN ---
Physical Exam: SUBJECTIVE: Patient seen this AM. Spoke in persian. Denies all complaints. 1x watery BM yesterday. OBJECTIVE: Vital Signs Period Temp Pulse Resp BP Sys/Arguelles Pulse Ox Last 24 Hr 97.9 F-98.9 F 96-103 18-19 128-157/72-100 94-96 GEN: AAOx2, NAD, Notably jaundice HEENT: PERRLA, EOMi, scleral icterus CV: S1, S2, RRR LUNG: Bibasilar crackles ABD: Soft, mildly distended, normoactive BS MSK: No edema, no erythema Laboratory Last Values WBC 5.3 K/mm3 (4.0-10.0) 01/12/17 07:35 RBC 4.17 M/mm3 (4.00-5.60) 01/12/17 07:35 Hgb 11.1 GM/dL (11.7-16.9) L 01/12/17 07:35 Hct 33.8 % (35.4-49) L 01/12/17 07:35 MCV 81.2 fl (80-96) 01/12/17 07:35 MCH 26.7 pg (25.7-33.7) 01/12/17 07:35 MCHC 32.9 g/dl (32.0-35.9) 01/12/17 07:35 RDW 16.8 % (11.9-15.9) H 01/12/17 07:35 Plt Count 36 K/MM3 (134-434) L* D 01/12/17 07:35 MPV 8.9 fl (7.5-11.1) 01/12/17 07:35 Neutrophils % 87.1 % (42.8-82.8) H 01/12/17 07:35 Lymphocytes % 7.7 % (8-40) L 01/12/17 07:35 Monocytes % 3.7 % (3.8-10.2) L 01/12/17 07:35 Eosinophils % 0.4 % (0-4.5) 01/12/17 07:35 Basophils % 1.1 % (0-2.0) 01/12/17 07:35 Platelet Estimate Markedly decreased (NORMAL) 01/09/17 16:20 PT with INR 12.30 SEC (9.98-11.88) H 01/13/17 05:40 INR 1.09 (0.82-1.09) 01/13/17 05:40 PTT (Actin FS) 32.5 SECONDS (26.9-34.4) 01/10/17 07:30 Sodium 141 mmol/L (136-145) 01/13/17 05:40 Potassium 3.0 mmol/L (3.5-5.1) L 01/13/17 05:40 Chloride 112 mmol/L (98-107) H 01/13/17 05:40 Carbon Dioxide 11 mmol/L (21-32) L 01/13/17 05:40 Anion Gap 18 (8-16) H 01/13/17 05:40 BUN 70 mg/dL (7-18) H 01/13/17 05:40 Creatinine 4.5 mg/dL (0.7-1.3) H 01/13/17 05:40 Creat Clearance w eGFR 13.58 (>60) 01/13/17 05:40 Random Glucose 117 mg/dL (74-106) H D 01/13/17 05:40 Lactic Acid 1.9 mmol/L (0.4-2.0) 01/10/17 03:00 Calcium 7.1 mg/dL (8.5-10.1) L 01/13/17 05:40 Phosphorus 5.2 mg/dL (2.5-4.9) H 01/12/17 07:35 Magnesium 2.4 mg/dL (1.8-2.4) 01/12/17 07:35 Total Bilirubin 1.7 mg/dL (0.2-1.0) H 01/13/17 05:40 Direct Bilirubin 1.2 mg/dL (0.0-0.2) H 01/12/17 16:30 GGT 880 U/L (5-85) H 01/11/17 08:35 AST 39 U/L (15-37) H 01/13/17 05:40 ALT 37 U/L (12-78) 01/13/17 05:40 Alkaline Phosphatase 918 U/L (45-117) H 01/13/17 05:40 Ammonia 36.41 umol/L (11-32) H 01/09/17 18:55 Total Protein 4.8 g/dl (6.4-8.2) L 01/13/17 05:40 Albumin 1.3 g/dl (3.4-5.0) L 01/13/17 05:40 Lipase 221 U/L (73-393) 01/09/17 17:15 Tumor Marker AFP 1.0 ng/ml (0.0-8.3) 01/11/17 08:35 Urine Color Salma 01/09/17 17:35 Urine Appearance Slcloudy 01/09/17 17:35 Urine pH 5.0 (5.0-8.0) 01/09/17 17:35 Ur Specific Baldwin 1.020 (1.005-1.025) 01/09/17 17:35 Urine Protein 3+ (NEGATIVE) H 01/09/17 17:35 Urine Glucose (UA) 2+ (NEGATIVE) H 01/09/17 17:35 Urine Ketones Negative (NEGATIVE) 01/09/17 17:35 Urine Blood 2+ (NEGATIVE) H 01/09/17 17:35 Urine Nitrite Negative (NEGATIVE) 01/09/17 17:35 Urine Bilirubin Negative (NEGATIVE) 01/09/17 17:35 Urine Urobilinogen Negative mg/dL (0.2-1.0) 01/09/17 17:35 Ur Leukocyte Esterase Negative (NEGATIVE) 01/09/17 17:35 Urine RBC 13 /hpf (0-3) 01/09/17 17:35 Urine WBC 4 /hpf (3-5) 01/09/17 17:35 Ur Epithelial Cells Rare /hpf (FEW) 01/09/17 17:35 Urine Bacteria Rare /hpf (NONE SEEN) 01/09/17 17:35 Urine Mucus Rare 01/09/17 17:35 U Random Total Protein 427 mg/dl (5-11.9) H 01/12/17 06:00 Ur Random Sodium 21 MMOL/L 01/11/17 15:10 Ur Random Potassium 14.9 MMOL/L 01/11/17 15:10 Ur Random Chloride 11 MMOL/L 01/11/17 15:10 Urine Creatinine 67.5 mg/dL (20-370) 01/12/17 06:00 Protein/Creatinin Ratio 6.325 MG/DL 01/12/17 06:00 Stool Occult Blood Positive (NEGATIVE) 01/10/17 19:30 TESSY Screen Negative (.) 01/11/17 08:35 Smooth Musc &[employer] Intrp 6 Units (0-19) 01/11/17 08:35 Hep B Core IgM Ab Negative (Negative) 01/09/17 17:15 Hepatitis C Antibody 0.3 s/co ratio (0.0-0.9) 01/11/17 17:20 Active Medications Generic Name Dose Route Start Last Admin Trade Name Freq PRN Reason Stop Dose Admin Amlodipine Besylate 10 mg 01/13/17 10:00 Norvasc - PO DAILY MEI Folic Acid 1 mg 01/11/17 10:00 01/12/17 09:37 Folic Acid - PO 1 mg DAILY MEI Administration Piperacillin/Tazobactam/Dextrose 50 mls @ 100 mls/hr 01/11/17 13:30 01/13/17 02 :34 Zosyn 3.375gm Ivpb (Premix) IVPB 100 mls/hr Q8H-IV MEI Administration Protocol Sodium Bicarbonate 50 meq/ 1,050 mls @ 50 mls/hr 01/12/17 13:57 01/12/17 17:55 Dextrose/Sodium Chloride IV 50 mls/hr Q21H MEI Administration Lorazepam 1 mg 01/10/17 04:06 01/10/17 04:22 Ativan Injection - IVPUSH 1 mg Q6H PRN Administration WITHDRAWAL(CONT SUBST) Lorazepam 1 mg 01/12/17 22:00 01/12/17 21:01 Ativan - PO 1 mg BID MEI Administration Multivitamins/Minerals/Vitamin C 1 tab 01/11/17 10:00 01/12/17 09:37 Tab-A-Vit - PO 1 tab DAILY MEI Administration Rifaximin 550 mg 01/10/17 22:00 01/12/17 21:01 Xifaxan - PO 550 mg BID MEI Administration Thiamine HCl 100 mg 01/11/17 10:00 01/12/17 09:37 Vitamin B1 - PO 100 mg DAILY MEI Administration ASSESSMENT/PLAN: 56yo M w/ PMHx of EtOH abuse (+30 yrs) who presented to ER w/ nausea, vomiting, profuse watery diarrhea, 15 lb wt loss. Found to have elevated LFTs. # Transaminitis w/ markedly elevated ALP - no gallbladder path on MRCP, likely 2 /2 intrahepatic cholestasis vs alcoholic hepatitis, followed by GI + ID - MRCP shows liver lesions (4 + 9mm), ?HCC, cannot do MRI w/con due to DALTON, - Spoke to Dr Mendoza, transfuse 1u PLT today, and paracentesis for afternoon , will send fluid for labwork, also await AFP - Unlikely autoimmune (TESSY neg, smooth musc Ab neg), R/o viral hepatitis ( panel) - Continue PO Rifamixin 550mg BID for hepatic enceph # Diarrhea - 2/2 infectious vs inflammatory colitis, seen on CT, Cdiff neg, leading to hypoK, hyperCl met acidosis - Day 4 Zosyn 3.375 Q8H, stool studies preliminary negative - EGD and colonoscopy on 10:30AM, will transfuse PLTs prior # DALTON - worsening, likely acute on chronic, prerenal (FeNA 0.8), likely 2/2 hepatic dz vs vasculitis - Renal consult, 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 Diagnostic para today afternoon if PLTs are around 54 Michaela Mendoza MD - PGY1 Internal Medicine Visit type - Emergency Visit Emergency Visit: No - New Patient This patient is new to me today: No - Critical Care Critical Care patient: No - Discharge Referral Referred to [facility] Med [facility] No
[2017-01-13] MEDS ORDERED: POTASSIUM CHLORIDE ORAL LIQUID 20 MEQ/15 ML PO ONE (08:05)
[2017-01-13] MEDS: amLODIPine BESYLATE 5 MG TABLET (FP) PO SCH (09:07)
[2017-01-13] MEDS: LORazepam 1 MG TABLET PO SCH ×2 (09:07→21:09)
--- NOTE | 2017-01-13 09:41 | PN ---
Progress Note, Physician History of Present Illness: More awake and alert. Diarrhea. No melena, chris blood in stool (heme pos). - Current Medication List Current Medications: Active Medications Amlodipine Besylate (Norvasc -) 10 mg PO DAILY [facility] Last Admin: 01/13/17 09:07 Dose: 10 mg Folic Acid (Folic Acid -) 1 mg PO DAILY [facility] Last Admin: 01/12/17 09:37 Dose: 1 mg Piperacillin/Tazobactam/Dextrose (Zosyn 3.375gm Ivpb (Premix)) 50 mls @ 100 mls /hr IVPB Q8H-IV MEI PRN Reason: Protocol Last Admin: 01/13/17 02:34 Dose: 100 mls/hr Sodium Bicarbonate 50 meq/ (Dextrose/Sodium Chloride) 1,050 mls @ 50 mls/hr IV Q21H MEI Last Admin: 01/12/17 17:55 Dose: 50 mls/hr Lorazepam (Ativan Injection -) 1 mg IVPUSH Q6H PRN PRN Reason: WITHDRAWAL(CONT SUBST) Last Admin: 01/10/17 04:22 Dose: 1 mg Lorazepam (Ativan -) 1 mg PO BID [facility] Last Admin: 01/13/17 09:07 Dose: 1 mg Multivitamins/Minerals/Vitamin C (Tab-A-Vit -) 1 tab PO DAILY [facility] Last Admin: 01/12/17 09:37 Dose: 1 tab Rifaximin (Xifaxan -) 550 mg PO BID [facility] Last Admin: 01/12/17 21:01 Dose: 550 mg Thiamine HCl (Vitamin B1 -) 100 mg PO DAILY [facility] Last Admin: 01/12/17 09:37 Dose: 100 mg - Objective Vital Signs: Vital Signs Temperature 98.9 F 01/13/17 06:00 Pulse Rate 102 H 01/13/17 06:00 Respiratory Rate 18 01/13/17 06:00 Blood Pressure 160/90 01/13/17 06:00 O2 Sat by Pulse Oximetry (%) 95 01/13/17 08:50 Constitutional: Yes: No Distress, Calm Eyes: Yes: Conjunctiva Clear Cardiovascular: Yes: Regular Rate and Rhythm Respiratory: Yes: CTA Bilaterally Gastrointestinal: Yes: Normal Bowel Sounds, Soft. No: Tenderness Neurological: Yes: Alert, Oriented Labs: CBC, BMP 01/12/17 07:35 01/13/17 05:40 INR, PTT INR 1.09 (0.82-1.09) 01/13/17 05:40 CBCD WBC 5.3 K/mm3 (4.0-10.0) 01/12/17 07:35 RBC 4.17 M/mm3 (4.00-5.60) 01/12/17 07:35 Hgb 11.1 GM/dL (11.7-16.9) L 01/12/17 07:35 Hct 33.8 % (35.4-49) L 01/12/17 07:35 MCV 81.2 fl (80-96) 01/12/17 07:35 MCHC 32.9 g/dl (32.0-35.9) 01/12/17 07:35 RDW 16.8 % (11.9-15.9) H 01/12/17 07:35 Plt Count 36 K/MM3 (134-434) L* D 01/12/17 07:35 MPV 8.9 fl (7.5-11.1) 01/12/17 07:35 CMP Sodium 141 mmol/L (136-145) 01/13/17 05:40 Potassium 3.0 mmol/L (3.5-5.1) L 01/13/17 05:40 Chloride 112 mmol/L (98-107) H 01/13/17 05:40 Carbon Dioxide 11 mmol/L (21-32) L 01/13/17 05:40 Anion Gap 18 (8-16) H 01/13/17 05:40 BUN 70 mg/dL (7-18) H 01/13/17 05:40 Creatinine 4.5 mg/dL (0.7-1.3) H 01/13/17 05:40 Creat Clearance w eGFR 13.58 (>60) 01/13/17 05:40 Calcium 7.1 mg/dL (8.5-10.1) L 01/13/17 05:40 Total Bilirubin 1.7 mg/dL (0.2-1.0) H 01/13/17 05:40 AST 39 U/L (15-37) H 01/13/17 05:40 ALT 37 U/L (12-78) 01/13/17 05:40 Alkaline Phosphatase 918 U/L (45-117) H 01/13/17 05:40 Total Protein 4.8 g/dl (6.4-8.2) L 01/13/17 05:40 Albumin 1.3 g/dl (3.4-5.0) L 01/13/17 05:40 Problem List - Problems (1) Lethargy Code(s): R53.83 - OTHER FATIGUE (2) Elevated alkaline phosphatase level Code(s): R74.8 - ABNORMAL LEVELS OF OTHER SERUM ENZYMES (3) Liver mass, right lobe Code(s): R16.0 - HEPATOMEGALY, NOT ELSEWHERE CLASSIFIED Assessment/Plan Clinically the same. Awake, alert, not in distress. Afebrile 9 and 4 mm right liver lobe lesions, contrast MRI recommended however Cr >4 at th is time Diagnostic paracentesis. Please send fluid for WBC cell count, cytology, Albumin , Total protein Exclude viral, autoimmune work up pending ALP trending down. Stool workup pending. Withdrawal/detox management EGD and Colonoscopy on this admission after PLT transfusion (?esophageal varices , IBD, colitis on CT, hemeoccult positive, vomiting and diarrhea x 3 weeks) Will follow
[2017-01-13 13:00] LABS: MCH 26.6 pg (25.7-33.7); MCHC 32.8 g/dl (32.0-35.9); MEAN PLT VOLUME 8.3 fl (7.5-11.1); PLATELET COUNT 53 K/MM3 (134-434); RDW 17.2 % (11.9-15.9); WHITE BLOOD COUNT 5.5 K/mm3 (4.0-10.0)
--- NOTE | 2017-01-13 14:39 | PN ---
Physical Exam: SUBJECTIVE: --NEPHROLOGY PROGRESS NOTE-- Patient seen and examined at bedside. Pt states he feels well and has no complaints. He denies CP, SOB, abd pain, diarrhea, n/v/f/c. He states hes had 3 BMs today none of which were loose stools/diarrhea. OBJECTIVE: Vital Signs Temperature 97.9 F 01/13/17 11:00 Pulse Rate 104 H 01/13/17 11:00 Respiratory Rate 18 01/13/17 11:00 Blood Pressure 162/97 01/13/17 11:00 O2 Sat by Pulse Oximetry (%) 95 01/13/17 08:50 GENERAL: The patient is awake, alert, oriented to person and place only. EYES: scleral icterus ENT: Ears normal, nares patent LUNGS: Auscultated anteriorly - CTA b/l; +TACHYPNEA HEART: Regular rate and rhythm, S1, S2 ABDOMEN: Soft, nontender, +DISTENSION, normoactive BS EXTREMITIES: warm, well-perfused, no edema. NEUROLOGICAL: Normal speech, gait not observed. PSYCH: Normal mood SKIN: Warm, dry Laboratory Results - last 24 hr 01/11/17 01/11/17 01/11/17 08:35 08:35 17:20 WBC RBC Hgb Hct MCV MCH MCHC RDW Plt Count MPV PT with INR INR Sodium Potassium Chloride Carbon Dioxide Anion Gap BUN Creatinine Creat Clearance w eGFR Random Glucose Calcium Total Bilirubin Direct Bilirubin AST ALT Alkaline Phosphatase Total Protein Albumin Tumor Marker AFP 1.0 TESSY Screen Negative Smooth Musc &[employer] Intrp 6 Hepatitis C Antibody 0.3 Blood Type Antibody Screen 01/12/17 01/13/17 01/13/17 16:30 05:40 05:40 WBC RBC Hgb Hct MCV MCH MCHC RDW Plt Count MPV PT with INR 12.30 H INR 1.09 Sodium 141 Potassium 3.0 L Chloride 112 H Carbon Dioxide 11 L Anion Gap 18 H BUN 70 H Creatinine 4.5 H Creat Clearance w eGFR 13.58 Random Glucose 117 H D Calcium 7.1 L Total Bilirubin 1.5 H 1.7 H Direct Bilirubin 1.2 H AST 41 H 39 H ALT 39 37 Alkaline Phosphatase 963 H 918 H Total Protein 4.9 L 4.8 L Albumin 1.2 L 1.3 L Tumor Marker AFP TESSY Screen Smooth Musc &[employer] Intrp Hepatitis C Antibody Blood Type Antibody Screen 01/13/17 01/13/17 01/13/17 08:20 08:20 12:50 WBC 5.5 RBC 4.32 Hgb 11.5 L Hct 35.0 L MCV 81.0 MCH 26.6 MCHC 32.8 RDW 17.2 H Plt Count 53 L D MPV 8.3 PT with INR INR Sodium Potassium Chloride Carbon Dioxide Anion Gap BUN Creatinine Creat Clearance w eGFR Random Glucose Calcium Total Bilirubin Direct Bilirubin AST ALT Alkaline Phosphatase Total Protein Albumin Tumor Marker AFP TESSY Screen Smooth Musc &[employer] Intrp Hepatitis C Antibody Blood Type O POSITIVE O POSITIVE Antibody Screen Negative Microbiology 01/11/17 00:12 Stool Salmonella/Shigella Culture - Final NO GROWTH OF SALMONELLA OR SHIGELLA SPECIES OBTAINED 01/11/17 00:12 Stool Campylobacter Culture - Final NO GROWTH OF CAMPYLOBACTER SPECIES OBTAINED 01/11/17 00:12 Stool Yersinia Culture - Final NO GROWTH OF YERSINIA SPECIES OBTAINED 01/11/17 00:12 Stool Vibrio Culture - Final NO GROWTH OF VIBRIO SPECIES OBTAINED 01/11/17 00:12 Stool Escherichia coli 0157 Culture - Final NO GROWTH OF E COLI 0157 OBTAINED 01/10/17 18:55 Blood - Arterial Blood Culture - Preliminary NO GROWTH OBTAINED AFTER 48 HOURS, INCUBATION TO CONTINUE FOR 3 DAYS. 01/10/17 18:50 Blood - Arterial Blood Culture - Preliminary NO GROWTH OBTAINED AFTER 48 HOURS, INCUBATION TO CONTINUE FOR 3 DAYS. 01/10/17 15:50 Urine - Urine Carter Urine Culture - Final NO GROWTH OBTAINED 01/10/17 02:10 Stool Clostridium difficile Antigen (DIDIER) - Final 01/10/17 02:10 Stool Clostridium difficile Toxin Assay - Final 01/10/17 02:10 Stool Gram Stain - Final 01/09/17 17:15 Nasopharyngeal Swab Influenza Types A,B Antigen (DIDIER) - Final 01/09/17 17:15 Nasopharyngeal Swab - Final Active Medications Generic Name Dose Route Start Last Admin Trade Name Freq PRN Reason Stop Dose Admin Amlodipine Besylate 10 mg 01/13/17 10:00 01/13/17 09:07 Norvasc - PO 10 mg DAILY EMI Administration Folic Acid 1 mg 01/11/17 10:00 01/12/17 09:37 Folic Acid - PO 1 mg DAILY MEI Administration Piperacillin/Tazobactam/Dextrose 50 mls @ 100 mls/hr 01/11/17 13:30 01/13/17 12 :29 Zosyn 3.375gm Ivpb (Premix) IVPB 100 mls/hr Q8H-IV MEI Administration Protocol Sodium Bicarbonate 50 meq/ 1,050 mls @ 50 mls/hr 01/12/17 13:57 01/12/17 17:55 Dextrose/Sodium Chloride IV 50 mls/hr Q21H MEI Administration Lorazepam 1 mg 01/10/17 04:06 01/10/17 04:22 Ativan Injection - IVPUSH 1 mg Q6H PRN Administration WITHDRAWAL(CONT SUBST) Lorazepam 1 mg 01/12/17 22:00 01/13/17 09:07 Ativan - PO 1 mg BID MEI Administration Multivitamins/Minerals/Vitamin C 1 tab 01/11/17 10:00 01/12/17 09:37 Tab-A-Vit - PO 1 tab DAILY MEI Administration Rifaximin 550 mg 01/10/17 22:00 01/12/17 21:01 Xifaxan - PO 550 mg BID MEI Administration Thiamine HCl 100 mg 01/11/17 10:00 01/12/17 09:37 Vitamin B1 - PO 100 mg DAILY MEI Administration ASSESSMENT/PLAN: 56 y/o F w/PMH of alcohol abuse presented to ER w/ N/V/diarrhea, fatigue and 15 pound weight loss. Pt with elevated ALP and found to have elevated Cr. -DALTON -no baseline Cr, pt with no medical follow up previously as well -Cr with some improvement today (2.9 --> 2.7) -c/w vasculitis work up -TESSY negative -c-anca, p-anca, PR3, atypical p-anca, myeloperoxidase ab, smooth muscle pending -possibly secondary to hepatorenal syndrome type 2 -hepatic workup including for malignancy and hepatitis -Fluids stopped -bicarb drip changed to 650 mg po q8h -will consider starting diuretics tomorrow -avoid nephrotoxic agents -Echo noted - no abnormalities on echo -Acute hepatitis -Hep C negative; Hep A & B pending -c/w hepatic workup including for malignancy and hepatitis (including hep A) , alk phos isoenzyme -GI on board -For paracentesis today, f/u fluid analysis -Thrombocytopenia -secondary to alcohol abuse -s/p transfusion 1 unit platelets -Acute colitis -Abx as per ID -ID on board -Anemia, normocytic -continue to monitor, transfuse if Hgb <7 -Hypokalemia -replete, monitor -alcohol abuse -on ativan 1mg po bid Visit type - Emergency Visit Emergency Visit: Yes ED Registration Date: 01/09/17 Care time: The patient presented to the Emergency Department on the above date and was hospitalized for further evaluation of their emergent condition. - New Patient This patient is new to me today: No - Critical Care Critical Care patient: No
--- NOTE | 2017-01-13 15:46 | PN ---
Teaching Attending Note Name of Resident: Michaela Mendoza ATTENDING PHYSICIAN STATEMENT I saw and evaluated the patient. I reviewed the resident's note and discussed the case with the resident. I agree with the resident's findings and plan as documented. SUBJECTIVE:states asymptomatic. denies being short of breath, tachypnic, CP, fever, chills, N/V/C/D OBJECTIVE: Last Vital Signs Temp Pulse Resp BP Pulse Ox 97.9 F 104 H 18 162/97 95 01/13/17 11:00 01/13/17 11:00 01/13/17 11:00 01/13/17 11:00 01/13/17 08:50 General mildy tachypnic HEENT icteric CV S1 S2 RRR no murmur/rub/gallop Lungs +crackles B/L bases Abdomen soft +distention normoactive BS Extremities no pedal edema no tremor ASSESSMENT AND PLAN: 56yo M wtih PMH Continuous ETOH dependence arrived to the ER c/o nausea and diarrhea with 15 pound weight loss. 1. ACute hepatitis- likely ETOH induced. MELD 25. bili continues to rise. plan for Plt prior to paracentesis today. will send for cell count, albumin, cytology. will need EGD/colonoscopy this admission. plan for tomorrow. to evalaute for varices. autoimmune, viral panel pending. AFP pending. Cx pending, BCx pending 2. DALTON- unknown baseline. zaida has chronic disease as evident on renal u/s. on bicarb ggt. UOP is good. nephrology on board. will need to monitor mental sttus as BUN is rising. kent in place. strict I&O 3. Acute colitis- clinically improved. stool cx negative. on zosyn day 4. ID on board 4. AG metabolic acidosis- due to lactic acidosis. 5. Acute normocytic anemia- likely dilutional. no signs of bleeding. HGb stable. txn for Hgb <7. FOBT negative 6. Acute ETOH withdrawal- CIWA 0. on ativan. will titrate down ativan to BID dosing. on thiamine/folate/MVI 7. Hypokalemia- low dose KCl in setting of DALTON 8. Elevated BP- received norvasc 5mg. with good response. will monitor for now. 9. Pseudohypocalcemia- Corrected Ca 9.14 10. Thrombocytopenia- likely due to ETOH and liver disease. no signs of bleeding. continuing to trend down. will monitor 11. DVT ppx- SCD
[2017-01-13] MEDS: MULTIVITAMINS (DAILY MVI) TABLET (FP) PO SCH (16:10)
[2017-01-13] MEDS: FOLIC ACID 1 MG TABLET (FP) PO SCH (16:11)
[2017-01-13] MEDS: THIAMINE HCL 100 MG TABLET (FP) PO SCH (16:11)
[2017-01-13] MEDS: RIFAXIMIN 550 MG TABLET (UD) PO SCH ×2 (16:11→21:09)
--- NOTE | 2017-01-13 17:18 | PN ---
Progress Note, Physician History of Present Illness: starting to feel better had BM abd pain much better - Current Medication List Current Medications: Active Medications Amlodipine Besylate (Norvasc -) 10 mg PO DAILY [facility] Last Admin: 01/13/17 09:07 Dose: 10 mg Folic Acid (Folic Acid -) 1 mg PO DAILY [facility] Last Admin: 01/13/17 16:11 Dose: 1 mg Piperacillin/Tazobactam/Dextrose (Zosyn 3.375gm Ivpb (Premix)) 50 mls @ 100 mls /hr IVPB Q8H-IV MEI PRN Reason: Protocol Last Admin: 01/13/17 12:29 Dose: 100 mls/hr Lorazepam (Ativan Injection -) 1 mg IVPUSH Q6H PRN PRN Reason: WITHDRAWAL(CONT SUBST) Last Admin: 01/10/17 04:22 Dose: 1 mg Lorazepam (Ativan -) 1 mg PO BID [facility] Last Admin: 01/13/17 09:07 Dose: 1 mg Multivitamins/Minerals/Vitamin C (Tab-A-Vit -) 1 tab PO DAILY [facility] Last Admin: 01/13/17 16:10 Dose: 1 tab Rifaximin (Xifaxan -) 550 mg PO BID [facility] Last Admin: 01/13/17 16:11 Dose: 550 mg Sodium Bicarbonate (Sodium Bicarbonate -) 650 mg PO Q8H MEI Thiamine HCl (Vitamin B1 -) 100 mg PO DAILY [facility] Last Admin: 01/13/17 16:11 Dose: 100 mg - Objective Vital Signs: Vital Signs Temperature 97.9 F 01/13/17 11:00 Pulse Rate 104 H 01/13/17 11:00 Respiratory Rate 18 01/13/17 11:00 Blood Pressure 162/97 01/13/17 11:00 O2 Sat by Pulse Oximetry (%) 95 01/13/17 08:50 Constitutional: Yes: No Distress, Calm Cardiovascular: Yes: Regular Rate and Rhythm Respiratory: Yes: Regular, CTA Bilaterally Gastrointestinal: Yes: Normal Bowel Sounds, Soft Musculoskeletal: Yes: WNL Extremities: Yes: WNL Neurological: Yes: Alert, Oriented Psychiatric: Yes: Alert, Oriented Labs: CBC, BMP 01/13/17 12:50 01/13/17 05:40 INR, PTT INR 1.09 (0.82-1.09) 01/13/17 05:40 Assessment/Plan Problem List - Problems (1) Lethargy Code(s): R53.83 - OTHER FATIGUE (2) Elevated alkaline phosphatase level Code(s): R74.8 - ABNORMAL LEVELS OF OTHER SERUM ENZYMES 3 colitis plan continue zosyn rest as per primary patient improving
[2017-01-13] MEDS: SODIUM BICARBONATE 650 MG TABLET PO SCH (17:43)
[2017-01-13 17:47] LABS: PERITONEAL FLUID LYMPHOCYTE 22 %; PERITONEAL FLUID MACROPHAGE 7 %; PERITONEAL FLUID MESOTHELIAL 1 %; PERITONEAL FLUID MONOCYTE 25 %; PERITONEAL FLUID NEUTROPHIL 45 %
--- NOTE | 2017-01-13 17:50 | PN ---
Teaching Attending Note Name of Resident: Carlos Eduardo Patrick (Nephrology) ATTENDING PHYSICIAN STATEMENT I saw and evaluated the patient. I reviewed the resident's note and discussed the case with the resident. I agree with the resident's findings and plan as documented. Pt seen and examined at bedside. He had paracentesis today Current Medications Generic Name Dose Route Start Last Admin Trade Name Freq PRN Reason Stop Dose Admin Amlodipine Besylate 10 mg 01/13/17 10:00 01/13/17 09:07 Norvasc - PO 10 mg DAILY MEI Administration Folic Acid 1 mg 01/11/17 10:00 01/13/17 16:11 Folic Acid - PO 1 mg DAILY MEI Administration Piperacillin/Tazobactam/Dextrose 50 mls @ 100 mls/hr 01/11/17 13:30 01/13/17 17 :43 Zosyn 3.375gm Ivpb (Premix) IVPB 100 mls/hr Q8H-IV MEI Administration Protocol Lorazepam 1 mg 01/10/17 04:06 01/10/17 04:22 Ativan Injection - IVPUSH 1 mg Q6H PRN Administration WITHDRAWAL(CONT SUBST) Lorazepam 1 mg 01/12/17 22:00 01/13/17 09:07 Ativan - PO 1 mg BID MEI Administration Multivitamins/Minerals/Vitamin C 1 tab 01/11/17 10:00 01/13/17 16:10 Tab-A-Vit - PO 1 tab DAILY MEI Administration Rifaximin 550 mg 01/10/17 22:00 01/13/17 16:11 Xifaxan - PO 550 mg BID MEI Administration Sodium Bicarbonate 650 mg 01/13/17 17:30 01/13/17 17:43 Sodium Bicarbonate - PO 650 mg TID MEI Administration Thiamine HCl 100 mg 01/11/17 10:00 01/13/17 16:11 Vitamin B1 - PO 100 mg DAILY MEI Administration Laboratory Tests 01/13/17 05:40 Potassium 3.0 L Carbon Dioxide 11 L Creatinine 4.5 H cardio s1s2 pulm clear GI soft ext neg edema Impression 1. liver cirrhosis 2. DALTON 3. thrombocytopenia 4. hypokalemia 5. acidosis 6. etoh abuse Plan - stop fluids - replace potassium - PO bicarb - renal workup in progress
[2017-01-14] MEDS: PIPERACILLIN/TAZOB 3.375 GM 50 ML IVPB SCH ×3 (01:55→18:06)
[2017-01-14] MEDS: SODIUM BICARBONATE 650 MG TABLET PO SCH ×3 (06:07→21:38)
[2017-01-14 08:06] LABS: ALBUMIN 1.2 g/dl (3.4-5.0); ANION GAP 18 (8-16); CALCIUM 7.1 mg/dL (8.5-10.1); CO2 11 mmol/L (21-32); GLUCOSE,RANDOM 95 mg/dL (74-106)
[2017-01-14 08:10] LABS: ALK PHOS 871 U/L (45-117); BILIRUBIN,TOTAL 2.1 mg/dL (0.2-1.0); CREATININE 4.8 mg/dL (0.7-1.3); SGOT/AST 39 U/L (15-37); SGPT/ALT 32 U/L (12-78); TOT PROT 4.7 g/dl (6.4-8.2)
[2017-01-14 08:22] LABS: MCH 26.6 pg (25.7-33.7); MCHC 32.4 g/dl (32.0-35.9); MEAN CELL VOLUME 81.9 fl (80-96); PLATELET COUNT 42 K/MM3 (134-434); WHITE BLOOD COUNT 4.8 K/mm3 (4.0-10.0)
--- NOTE | 2017-01-14 08:38 | PN ---
Physical Exam: SUBJECTIVE: Patient seen and examined. States he feels weak, did not eat dinner last night. Denies N/V. Had 2 bouts of green watery diarrhea. Denies fevers, chills. In afternoon, spoke to patient's family in the room, present was his (HCP) , children, sister, and nephew. Dr Castellon was present to discuss the risks and benefits of the EGD and colonoscopy. The patient endorsed full understanding, and signed consent. All questions about the patients admission and hospital events were answered. OBJECTIVE: Vital Signs Period Temp Pulse Resp BP Sys/Arguelles Pulse Ox Last 24 Hr 97.8 F-99.1 F 82-104 18-21 134-162/70-97 94-95 GEN: AAOx2, NAD, Notably jaundice, flapping tremors HEENT: PERRLA, EOMi, scleral icterus CV: S1, S2, RRR LUNG: Bibasilar crackles ABD: Soft, mildly distended, normoactive BS MSK: No edema, no erythema Laboratory Results - last 24 hr 01/11/17 01/13/17 01/13/17 06:00 08:20 08:20 WBC RBC Hgb Hct MCV MCH MCHC RDW Plt Count MPV Peritoneal WBC Peritoneal RBC Periton Neutrophils Periton Lymphocytes Peritoneal Monocytes Periton Mesothelial Periton Macrophages Peritoneal Tot Protein Peritoneal Albumin Peritoneal LDH Peritoneal Glucose Peritoneal Amylase Peritoneal Triglycerid Stool Calprotectin TNP Blood Type O POSITIVE O POSITIVE Antibody Screen Negative 01/13/17 01/13/17 01/14/17 12:50 15:00 06:25 WBC 5.5 4.8 RBC 4.32 3.95 L Hgb 11.5 L 10.5 L Hct 35.0 L 32.4 L MCV 81.0 81.9 MCH 26.6 26.6 MCHC 32.8 32.4 RDW 17.2 H 17.0 H Plt Count 53 L D 42 L D MPV 8.3 9.0 Peritoneal WBC 91 Peritoneal RBC 673 Periton Neutrophils 45 Periton Lymphocytes 22 Peritoneal Monocytes 25 Periton Mesothelial 1 Periton Macrophages 7 Peritoneal Tot Protein 1 Peritoneal Albumin 0 Peritoneal LDH 89 Peritoneal Glucose 134 Peritoneal Amylase 54 Peritoneal Triglycerid 45 Stool Calprotectin Blood Type Antibody Screen Active Medications Generic Name Dose Route Start Last Admin Trade Name Freq PRN Reason Stop Dose Admin Amlodipine Besylate 10 mg 01/13/17 10:00 01/14/17 09:59 Norvasc - PO 10 mg DAILY MEI Administration Folic Acid 1 mg 01/11/17 10:00 01/14/17 10:00 Folic Acid - PO 1 mg DAILY MEI Administration Piperacillin/Tazobactam/Dextrose 50 mls @ 100 mls/hr 01/11/17 13:30 01/14/17 18 :06 Zosyn 3.375gm Ivpb (Premix) IVPB 100 mls/hr Q8H-IV MEI Administration Protocol Lactulose 30 gm 01/14/17 13:27 Cephulac (Oral Use) PO Q6H PRN CONSTIPATION Lorazepam 1 mg 01/10/17 04:06 01/10/17 04:22 Ativan Injection - IVPUSH 1 mg Q6H PRN Administration WITHDRAWAL(CONT SUBST) Lorazepam 1 mg 01/12/17 22:00 01/14/17 10:00 Ativan - PO 1 mg BID MEI Administration Multivitamins/Minerals/Vitamin C 1 tab 01/11/17 10:00 01/14/17 09:59 Tab-A-Vit - PO 1 tab DAILY MEI Administration Rifaximin 550 mg 01/10/17 22:00 01/14/17 09:59 Xifaxan - PO 550 mg BID MEI Administration Sodium Bicarbonate 650 mg 01/13/17 17:30 01/14/17 15:34 Sodium Bicarbonate - PO 650 mg TID MEI Administration Thiamine HCl 100 mg 01/11/17 10:00 01/14/17 10:00 Vitamin B1 - PO 100 mg DAILY MEI Administration ASSESSMENT/PLAN: 56yo M w/ PMHx of EtOH abuse (+30 yrs) who presented to ER w/ nausea, vomiting, profuse watery diarrhea, 15 lb wt loss. Found to have elevated LFTs. # Hepatitis - likely 2/2 alcoholic hepatitis vs intrahepatic cholestasis; AFP neg; viral hep neg; TESSY/smAb neg - Pt showing signs of worsening hepatic encephalopathy, will give Lactulose 30 Q6H, continue Rifamixin 550mg BID - s/p paracentesis, SAAG >1.1 consistent w/ portal HTN, no SBP - Will speak to family today and update # Diarrhea - 2/2 infectious vs inflammatory colitis, seen on CT, Cdiff neg, leading to hypoK, hyperCl met acidosis - Day 5 Zosyn 3.375 Q8H, stool studies negative - EGD and colonoscopy tmrw 10:30AM, will transfuse PLTs in AM, start prep at 6pm, NPO after midnight # DALTON - worsening, likely acute on chronic, prerenal (FeNA 0.8), likely 2/2 hepatic dz vs vasculitis - Spoke to renal, 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 # Hypokalemia - 2/2 diarrhea + poor diet, repleted K+ today w/ 40mg PO x2 # HTN - Increased Norvasc to 10mg daily # EtOH Withdrawal - Continue Ativan BID, consider titrating tmrw to QD + PRN Ativan (due to liver dz), thiamine, folate, MV # FEN - Sodium controlled diet, ate more today # PPx - SCDs, PT requested # Dispo - Continues to need inpatient care, will await for viral hep panel, colonoscopy Michaela Mendoza MD - PGY1 Internal Medicine Visit type - Emergency Visit Emergency Visit: No - New Patient This patient is new to me today: No - Critical Care Critical Care patient: No - Discharge Referral Referred to [facility] Med P.C.: No
[2017-01-14] MEDS ORDERED: POTASSIUM CHLORIDE ORAL LIQUID 20 MEQ/15 ML PO ONE ×2 (09:36→18:25)
--- NOTE | 2017-01-14 09:40 | PN ---
Physical Exam: SUBJECTIVE: --NEPHROLOGY PROGRESS NOTE-- Patient seen and examined at bedside. Pt continues to deny any complaints. States he feels well and has no issues at this time. He reports 3 regular BMs over night into today but as per nurse pt had 3 loose/diarrhea BMs. Pt is s/p paracentesis. OBJECTIVE: Vital Signs Temperature 98.7 F 01/14/17 06:26 Pulse Rate 95 H 01/14/17 06:26 Respiratory Rate 21 01/14/17 06:26 Blood Pressure 149/79 01/14/17 06:26 O2 Sat by Pulse Oximetry (%) 94 L 01/13/17 20:40 GENERAL: The patient is awake, alert, oriented to person and place only. EYES: scleral icterus ENT: Ears normal, nares patent LUNGS: Auscultated anteriorly - CTA b/l; HEART: Regular rate and rhythm, S1, S2 ABDOMEN: Soft, nontender, +DISTENSION (improved compared to on admission), normoactive BS EXTREMITIES: warm, well-perfused, no edema. NEUROLOGICAL: Normal speech, gait not observed. PSYCH: Normal mood SKIN: Warm, dry Laboratory Results - last 24 hr 01/11/17 01/13/17 01/13/17 06:00 08:20 08:20 WBC RBC Hgb Hct MCV MCH MCHC RDW Plt Count MPV Sodium Potassium Chloride Carbon Dioxide Anion Gap BUN Creatinine Creat Clearance w eGFR Random Glucose Calcium Total Bilirubin AST ALT Alkaline Phosphatase Total Protein Albumin Peritoneal WBC Peritoneal RBC Periton Neutrophils Periton Lymphocytes Peritoneal Monocytes Periton Mesothelial Periton Macrophages Peritoneal Tot Protein Peritoneal Albumin Peritoneal LDH Peritoneal Glucose Peritoneal Amylase Peritoneal Triglycerid Stool Calprotectin TNP Blood Type O POSITIVE O POSITIVE Antibody Screen Negative 01/13/17 01/13/17 01/14/17 12:50 15:00 06:25 WBC 5.5 RBC 4.32 Hgb 11.5 L Hct 35.0 L MCV 81.0 MCH 26.6 MCHC 32.8 RDW 17.2 H Plt Count 53 L D MPV 8.3 Sodium 142 Potassium 2.8 L* Chloride 113 H Carbon Dioxide 11 L Anion Gap 18 H BUN 75 H Creatinine 4.8 H Creat Clearance w eGFR 12.60 Random Glucose 95 Calcium 7.1 L Total Bilirubin 2.1 H D AST 39 H ALT 32 Alkaline Phosphatase 871 H Total Protein 4.7 L Albumin 1.2 L Peritoneal WBC 91 Peritoneal RBC 673 Periton Neutrophils 45 Periton Lymphocytes 22 Peritoneal Monocytes 25 Periton Mesothelial 1 Periton Macrophages 7 Peritoneal Tot Protein 1 Peritoneal Albumin 0 Peritoneal LDH 89 Peritoneal Glucose 134 Peritoneal Amylase 54 Peritoneal Triglycerid 45 Stool Calprotectin Blood Type Antibody Screen 01/14/17 06:25 WBC 4.8 RBC 3.95 L Hgb 10.5 L Hct 32.4 L MCV 81.9 MCH 26.6 MCHC 32.4 RDW 17.0 H Plt Count 42 L D MPV 9.0 Sodium Potassium Chloride Carbon Dioxide Anion Gap BUN Creatinine Creat Clearance w eGFR Random Glucose Calcium Total Bilirubin AST ALT Alkaline Phosphatase Total Protein Albumin Peritoneal WBC Peritoneal RBC Periton Neutrophils Periton Lymphocytes Peritoneal Monocytes Periton Mesothelial Periton Macrophages Peritoneal Tot Protein Peritoneal Albumin Peritoneal LDH Peritoneal Glucose Peritoneal Amylase Peritoneal Triglycerid Stool Calprotectin Blood Type Antibody Screen Microbiology 01/13/17 15:00 Peritoneal Fluid Mycobacterial Culture - Preliminary 01/10/17 18:55 Blood - Arterial Blood Culture - Preliminary NO GROWTH OBTAINED AFTER 72 HOURS, INCUBATION TO CONTINUE FOR 2 DAYS. 01/10/17 18:50 Blood - Arterial Blood Culture - Preliminary NO GROWTH OBTAINED AFTER 72 HOURS, INCUBATION TO CONTINUE FOR 2 DAYS. 01/13/17 15:00 Peritoneal Fluid CHELLY Preparation - Preliminary 01/13/17 15:00 Peritoneal Fluid Fungal Culture - Preliminary 01/11/17 00:12 Stool Salmonella/Shigella Culture - Final NO GROWTH OF SALMONELLA OR SHIGELLA SPECIES OBTAINED 01/11/17 00:12 Stool Campylobacter Culture - Final NO GROWTH OF CAMPYLOBACTER SPECIES OBTAINED 01/11/17 00:12 Stool Yersinia Culture - Final NO GROWTH OF YERSINIA SPECIES OBTAINED 01/11/17 00:12 Stool Vibrio Culture - Final NO GROWTH OF VIBRIO SPECIES OBTAINED 01/11/17 00:12 Stool Escherichia coli 0157 Culture - Final NO GROWTH OF E COLI 0157 OBTAINED 01/10/17 15:50 Urine - Urine Carter Urine Culture - Final NO GROWTH OBTAINED 01/10/17 02:10 Stool Clostridium difficile Antigen (DIDIER) - Final 01/10/17 02:10 Stool Clostridium difficile Toxin Assay - Final 01/10/17 02:10 Stool Gram Stain - Final 01/09/17 17:15 Nasopharyngeal Swab Influenza Types A,B Antigen (DIDIER) - Final 01/09/17 17:15 Nasopharyngeal Swab - Final Active Medications Generic Name Dose Route Start Last Admin Trade Name Freq PRN Reason Stop Dose Admin Amlodipine Besylate 10 mg 01/13/17 10:00 01/13/17 09:07 Norvasc - PO 10 mg DAILY MEI Administration Folic Acid 1 mg 01/11/17 10:00 01/13/17 16:11 Folic Acid - PO 1 mg DAILY MEI Administration Piperacillin/Tazobactam/Dextrose 50 mls @ 100 mls/hr 01/11/17 13:30 01/14/17 01 :55 Zosyn 3.375gm Ivpb (Premix) IVPB 100 mls/hr Q8H-IV MEI Administration Protocol Lorazepam 1 mg 01/10/17 04:06 01/10/17 04:22 Ativan Injection - IVPUSH 1 mg Q6H PRN Administration WITHDRAWAL(CONT SUBST) Lorazepam 1 mg 01/12/17 22:00 01/13/17 21:09 Ativan - PO 1 mg BID MEI Administration Multivitamins/Minerals/Vitamin C 1 tab 01/11/17 10:00 01/13/17 16:10 Tab-A-Vit - PO 1 tab DAILY MEI Administration Rifaximin 550 mg 01/10/17 22:00 01/13/17 21:09 Xifaxan - PO 550 mg BID MEI Administration Sodium Bicarbonate 650 mg 01/13/17 17:30 01/14/17 06:07 Sodium Bicarbonate - PO 650 mg TID MEI Administration Thiamine HCl 100 mg 01/11/17 10:00 01/13/17 16:11 Vitamin B1 - PO 100 mg DAILY MEI Administration ASSESSMENT/PLAN: 56 y/o F w/PMH of alcohol abuse presented to ER w/ N/V/diarrhea, fatigue and 15 pound weight loss. Pt with elevated ALP and found to have elevated Cr. -DALTON -no baseline Cr, pt with no medical follow up previously as well -Cr worsening today. 4.5 --> 4.8 today -c/w vasculitis work up -TESSY negative, smooth muscle neg -PENDING: c-anca, p-anca, PR3, atypical p-anca, myeloperoxidase ab -possibly secondary to hepatorenal syndrome type 2 -hepatic workup including for malignancy and hepatitis -c/w sodium bicarb 650 mg po tid -avoid nephrotoxic agents -Echo noted - no abnormalities on echo -Acute hepatitis -Hep C negative; Hep A & B pending -c/w hepatic workup including for malignancy and hepatitis (including hep A) , alk phos isoenzyme -AFP neg -GI on board -For paracentesis today, f/u fluid analysis -Thrombocytopenia -secondary to alcohol abuse -s/p transfusion 1 unit platelets -continue to monitor -Acute colitis -Abx as per ID -ID on board -Anemia, normocytic -continue to monitor, transfuse if Hgb <7 -Hypokalemia -2.8 this AM -replete, monitor -alcohol abuse -on ativan 1mg po bid, folic acid, thiamine Visit type - Emergency Visit Emergency Visit: Yes ED Registration Date: 01/09/17 Care time: The patient presented to the Emergency Department on the above date and was hospitalized for further evaluation of their emergent condition. - New Patient This patient is new to me today: No - Critical Care Critical Care patient: No
[2017-01-14] MEDS: RIFAXIMIN 550 MG TABLET (UD) PO SCH ×2 (09:59→21:38)
[2017-01-14] MEDS: amLODIPine BESYLATE 5 MG TABLET (FP) PO SCH (09:59)
[2017-01-14] MEDS: MULTIVITAMINS (DAILY MVI) TABLET (FP) PO SCH (09:59)
[2017-01-14] MEDS: FOLIC ACID 1 MG TABLET (FP) PO SCH (10:00)
[2017-01-14] MEDS: LORazepam 1 MG TABLET PO SCH ×2 (10:00→21:38)
[2017-01-14] MEDS: THIAMINE HCL 100 MG TABLET (FP) PO SCH (10:00)
--- NOTE | 2017-01-14 10:27 | PN ---
Progress Note, Physician History of Present Illness: S/p diag. paracentesis. More awake and alert. No melena, chris blood in stool - Current Medication List Current Medications: Active Medications Amlodipine Besylate (Norvasc -) 10 mg PO DAILY [facility] Last Admin: 01/14/17 09:59 Dose: 10 mg Folic Acid (Folic Acid -) 1 mg PO DAILY MEI Last Admin: 01/14/17 10:00 Dose: 1 mg Piperacillin/Tazobactam/Dextrose (Zosyn 3.375gm Ivpb (Premix)) 50 mls @ 100 mls /hr IVPB Q8H-IV MEI PRN Reason: Protocol Last Admin: 01/14/17 10:05 Dose: 100 mls/hr Lorazepam (Ativan Injection -) 1 mg IVPUSH Q6H PRN PRN Reason: WITHDRAWAL(CONT SUBST) Last Admin: 01/10/17 04:22 Dose: 1 mg Lorazepam (Ativan -) 1 mg PO BID [facility] Last Admin: 01/14/17 10:00 Dose: 1 mg Multivitamins/Minerals/Vitamin C (Tab-A-Vit -) 1 tab PO DAILY MEI Last Admin: 01/14/17 09:59 Dose: 1 tab Rifaximin (Xifaxan -) 550 mg PO BID [facility] Last Admin: 01/14/17 09:59 Dose: 550 mg Sodium Bicarbonate (Sodium Bicarbonate -) 650 mg PO TID [facility] Last Admin: 01/14/17 06:07 Dose: 650 mg Thiamine HCl (Vitamin B1 -) 100 mg PO DAILY [facility] Last Admin: 01/14/17 10:00 Dose: 100 mg - Objective Vital Signs: Vital Signs Temperature 98.7 F 01/14/17 06:26 Pulse Rate 95 H 01/14/17 06:26 Respiratory Rate 21 01/14/17 06:26 Blood Pressure 149/79 01/14/17 06:26 O2 Sat by Pulse Oximetry (%) 94 L 01/13/17 20:40 Constitutional: Yes: No Distress, Calm Gastrointestinal: Yes: Normal Bowel Sounds, Soft, Distention. No: Tenderness Labs: CBC, BMP 01/14/17 06:25 01/14/17 06:25 INR, PTT INR 1.09 (0.82-1.09) 01/13/17 05:40 CBCD WBC 4.8 K/mm3 (4.0-10.0) 01/14/17 06:25 RBC 3.95 M/mm3 (4.00-5.60) L 01/14/17 06:25 Hgb 10.5 GM/dL (11.7-16.9) L 01/14/17 06:25 Hct 32.4 % (35.4-49) L 01/14/17 06:25 MCV 81.9 fl (80-96) 01/14/17 06:25 MCHC 32.4 g/dl (32.0-35.9) 01/14/17 06:25 RDW 17.0 % (11.9-15.9) H 01/14/17 06:25 Plt Count 42 K/MM3 (134-434) L D 01/14/17 06:25 MPV 9.0 fl (7.5-11.1) 01/14/17 06:25 CMP Sodium 142 mmol/L (136-145) 01/14/17 06:25 Potassium 2.8 mmol/L (3.5-5.1) L* 01/14/17 06:25 Chloride 113 mmol/L (98-107) H 01/14/17 06:25 Carbon Dioxide 11 mmol/L (21-32) L 01/14/17 06:25 Anion Gap 18 (8-16) H 01/14/17 06:25 BUN 75 mg/dL (7-18) H 01/14/17 06:25 Creatinine 4.8 mg/dL (0.7-1.3) H 01/14/17 06:25 Creat Clearance w eGFR 12.60 (>60) 01/14/17 06:25 Calcium 7.1 mg/dL (8.5-10.1) L 01/14/17 06:25 Total Bilirubin 2.1 mg/dL (0.2-1.0) H D 01/14/17 06:25 AST 39 U/L (15-37) H 01/14/17 06:25 ALT 32 U/L (12-78) 01/14/17 06:25 Alkaline Phosphatase 871 U/L (45-117) H 01/14/17 06:25 Total Protein 4.7 g/dl (6.4-8.2) L 01/14/17 06:25 Albumin 1.2 g/dl (3.4-5.0) L 01/14/17 06:25 SAAG 1.2 TP 1 WBC 91 Problem List - Problems (1) Lethargy Code(s): R53.83 - OTHER FATIGUE (2) Elevated alkaline phosphatase level Code(s): R74.8 - ABNORMAL LEVELS OF OTHER SERUM ENZYMES (3) Liver mass, right lobe Code(s): R16.0 - HEPATOMEGALY, NOT ELSEWHERE CLASSIFIED Assessment/Plan More alert and comfortable 9 and 4 mm right liver lobe lesions, contrast MRI recommended however Cr >4 at th is time Diagnostic paracentesis. Please send fluid for WBC cell count, cytology, Albumin , Total protein Exclude viral, autoimmune work up pending ALP trending down. Stool workup pending. Withdrawal/detox management EGD and Colonoscopy on this admission after PLT transfusion (?esophageal varices , IBD, colitis on CT, hemeoccult positive, vomiting and diarrhea x 3 weeks) Will follow
--- NOTE | 2017-01-14 12:08 | PN ---
Teaching Attending Note Name of Resident: Carlos Eduardo Patrick (Nephrology) ATTENDING PHYSICIAN STATEMENT I saw and evaluated the patient. I reviewed the resident's note and discussed the case with the resident. I agree with the resident's findings and plan as documented. Nephrology Pt seen and examined at bedside. He is having diarrhea. Current Medications Generic Name Dose Route Start Last Admin Trade Name Freq PRN Reason Stop Dose Admin Amlodipine Besylate 10 mg 01/13/17 10:00 01/14/17 09:59 Norvasc - PO 10 mg DAILY MEI Administration Folic Acid 1 mg 01/11/17 10:00 01/14/17 10:00 Folic Acid - PO 1 mg DAILY MEI Administration Piperacillin/Tazobactam/Dextrose 50 mls @ 100 mls/hr 01/11/17 13:30 01/14/17 10 :05 Zosyn 3.375gm Ivpb (Premix) IVPB 100 mls/hr Q8H-IV MEI Administration Protocol Lorazepam 1 mg 01/10/17 04:06 01/10/17 04:22 Ativan Injection - IVPUSH 1 mg Q6H PRN Administration WITHDRAWAL(CONT SUBST) Lorazepam 1 mg 01/12/17 22:00 01/14/17 10:00 Ativan - PO 1 mg BID MEI Administration Multivitamins/Minerals/Vitamin C 1 tab 01/11/17 10:00 01/14/17 09:59 Tab-A-Vit - PO 1 tab DAILY MEI Administration Rifaximin 550 mg 01/10/17 22:00 01/14/17 09:59 Xifaxan - PO 550 mg BID MEI Administration Sodium Bicarbonate 650 mg 01/13/17 17:30 01/14/17 06:07 Sodium Bicarbonate - PO 650 mg TID MEI Administration Thiamine HCl 100 mg 01/11/17 10:00 01/14/17 10:00 Vitamin B1 - PO 100 mg DAILY MEI Administration Last Vital Signs Temp Pulse Resp BP Pulse Ox 98.4 F 88 20 130/77 94 L 01/14/17 10:00 01/14/17 10:00 01/14/17 10:00 01/14/17 10:00 01/13/17 20:40 Laboratory Tests 01/12/17 01/14/17 01/14/17 07:35 06:25 06:25 Plt Count 36 L* D 42 L D Potassium 2.8 L* Carbon Dioxide 11 L Anion Gap 18 H 01/14/17 11:45 Plt Count Potassium Pending Carbon Dioxide Anion Gap Laboratory Tests 01/12/17 07:35 c-ANCA Pending Proteinase 3 (PR3) Pending p-ANCA Pending Atypical p-ANCA Pending Myeloperoxidase Ab Pending cardio s1s2 pulm clear GI soft ext neg edema Impression 1. liver cirrhosis 2. DALTON 3. thrombocytopenia 4. hypokalemia 5. acidosis 6. etoh abuse Plan - replace potassium - check mag - cont bicarb - follow renal workup - follow repeat potassium - renal workup in progress
[2017-01-14] MEDS ORDERED: LACTULOSE 20 GM/30 ML UDC (FOR ORAL USE ONLY) PO PRN (13:27)
[2017-01-14 16:18] LABS: ALKALINE PHOSPHATASE 916 IU/L (39-117); INTESTINAL FRAC.: 0 % (0-18)
--- NOTE | 2017-01-14 16:29 | PN ---
Progress Note, Physician History of Present Illness: stable s/p diagnostic paracentesis - Current Medication List Current Medications: Active Medications Amlodipine Besylate (Norvasc -) 10 mg PO DAILY [facility] Last Admin: 01/14/17 09:59 Dose: 10 mg Folic Acid (Folic Acid -) 1 mg PO DAILY MEI Last Admin: 01/14/17 10:00 Dose: 1 mg Piperacillin/Tazobactam/Dextrose (Zosyn 3.375gm Ivpb (Premix)) 50 mls @ 100 mls /hr IVPB Q8H-IV MEI PRN Reason: Protocol Last Admin: 01/14/17 10:05 Dose: 100 mls/hr Lactulose (Cephulac (Oral Use)) 30 gm PO Q6H PRN PRN Reason: CONSTIPATION Lorazepam (Ativan Injection -) 1 mg IVPUSH Q6H PRN PRN Reason: WITHDRAWAL(CONT SUBST) Last Admin: 01/10/17 04:22 Dose: 1 mg Lorazepam (Ativan -) 1 mg PO BID [facility] Last Admin: 01/14/17 10:00 Dose: 1 mg Multivitamins/Minerals/Vitamin C (Tab-A-Vit -) 1 tab PO DAILY [facility] Last Admin: 01/14/17 09:59 Dose: 1 tab Rifaximin (Xifaxan -) 550 mg PO BID [facility] Last Admin: 01/14/17 09:59 Dose: 550 mg Sodium Bicarbonate (Sodium Bicarbonate -) 650 mg PO TID [facility] Last Admin: 01/14/17 15:34 Dose: 650 mg Thiamine HCl (Vitamin B1 -) 100 mg PO DAILY [facility] Last Admin: 01/14/17 10:00 Dose: 100 mg - Objective Vital Signs: Vital Signs Temperature 96.5 F L 01/14/17 15:15 Pulse Rate 85 01/14/17 15:15 Respiratory Rate 19 01/14/17 15:15 Blood Pressure 105/83 01/14/17 15:15 O2 Sat by Pulse Oximetry (%) 94 L 01/13/17 20:40 Constitutional: Yes: No Distress, Calm Cardiovascular: Yes: Regular Rate and Rhythm Respiratory: Yes: Regular, CTA Bilaterally Gastrointestinal: Yes: Normal Bowel Sounds, Soft Musculoskeletal: Yes: WNL Extremities: Yes: WNL Neurological: Yes: Alert, Oriented Psychiatric: Yes: Alert, Oriented Labs: CBC, BMP 01/14/17 06:25 01/14/17 11:45 INR, PTT INR 1.09 (0.82-1.09) 01/13/17 05:40 Assessment/Plan Problem List - Problems (1) Lethargy Code(s): R53.83 - OTHER FATIGUE (2) Elevated alkaline phosphatase level Code(s): R74.8 - ABNORMAL LEVELS OF OTHER SERUM ENZYMES 3 colitis plan continue zosyn rest as per primary patient improving await for final results will deescalate abx probably by thursday
--- NOTE | 2017-01-14 17:03 | PN ---
Teaching Attending Note Name of Resident: Michaela Mendoza ATTENDING PHYSICIAN STATEMENT I saw and evaluated the patient. I reviewed the resident's note and discussed the case with the resident. I agree with the resident's findings and plan as documented. SUBJECTIVE: Patient seen and examined. denies any dyspnea, weakness, nausea, vomiting or abdominal pain. Ongoing greenish diarrhea. Reports dry throat, no other complaints. OBJECTIVE: Vital Signs Period Temp Pulse Resp BP Sys/Arguelles Pulse Ox Last 24 Hr 96.5 F-99.1 F 82-95 19-21 105-149/70-83 94 CVS -S1S2 regular Chest - decreased effort, decreased breath sounds at bases Abdomen - soft, distended, non tender throughout, positive bowel sounds Extremities - trace pedal edema, positive asterexis Neuro AAOriented to self, place, moves all extremities freely HEENT - PERRLA, EOMI, positive icterus Laboratory Results - last 24 hr 01/10/17 01/11/17 01/13/17 07:30 08:35 15:00 WBC RBC Hgb Hct MCV MCH MCHC RDW Plt Count MPV Sodium Potassium Chloride Carbon Dioxide Anion Gap Hepatic Function Panel 66 BUN Creatinine Creat Clearance w eGFR Random Glucose Calcium Total Bilirubin AST ALT Alkaline Phosphatase 916 H Total Protein Albumin Peritoneal WBC 91 Peritoneal RBC 673 Periton Neutrophils 45 Periton Lymphocytes 22 Peritoneal Monocytes 25 Periton Mesothelial 1 Periton Macrophages 7 Peritoneal Tot Protein 1 Peritoneal Albumin 0 Peritoneal LDH 89 Peritoneal Glucose 134 Peritoneal Amylase 54 Peritoneal Triglycerid 45 TESSY Screen Negative 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 Intrp 6 Hep A IgM Ab Confirm Negative Hepatitis A Ab Total Positive H Hep Bs Antigen Negative Hep Bs Antibody Non reactive Hep B Core Total Ab Negative 01/14/17 01/14/17 01/14/17 06:25 06:25 11:45 WBC 4.8 RBC 3.95 L Hgb 10.5 L Hct 32.4 L MCV 81.9 MCH 26.6 MCHC 32.4 RDW 17.0 H Plt Count 42 L D MPV 9.0 Sodium 142 Potassium 2.8 L* 3.6 D Chloride 113 H Carbon Dioxide 11 L Anion Gap 18 H Hepatic Function Panel BUN 75 H Creatinine 4.8 H Creat Clearance w eGFR 12.60 Random Glucose 95 Calcium 7.1 L Total Bilirubin 2.1 H D AST 39 H ALT 32 Alkaline Phosphatase 871 H Total Protein 4.7 L Albumin 1.2 L Peritoneal WBC Peritoneal RBC Periton Neutrophils Periton Lymphocytes Peritoneal Monocytes Periton Mesothelial Periton Macrophages Peritoneal Tot Protein Peritoneal Albumin Peritoneal LDH Peritoneal Glucose Peritoneal Amylase Peritoneal Triglycerid TESSY Screen 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 Intrp Hep A IgM Ab Confirm Hepatitis A Ab Total Hep Bs Antigen Hep Bs Antibody Hep B Core Total Ab ASSESSMENT AND PLAN: 56yo M wtih PMH Continuous ETOH dependence arrived to the ER c/o nausea and diarrhea with 15 pound weight loss. - ACute hepatitis- likely ETOH induced. MELD 25. LFTS elevated but overal unchanged. s/p paracentesis 01/13 with fluid studies neg for SBP. For EGD/ colonoscopy tomorrow, Autoimmune w/u/AFP neg. GI input appreciated. -HEpatic encephalopathy - Continue rifaximin, will start lactulose to titrate for 2-3 loose BM. Monitor mental status. - DALTON- unknown baseline. zaida has chronic disease as evident on renal u/s. on bicarb ggt. UOP is good. nephrology on board. will need to monitor mental sttus as BUN is rising. kent in place. strict I&O. Hepatorenal syndrome on differential, continue to monitor. HOld off o nIVF. - Acute colitis- clinically improved. stool cx negative. on zosyn day 5. ID on board - AG metabolic acidosis- due to lactic acidosis and renal failure. - Acute normocytic anemia- likely dilutional. no signs of bleeding. HGb stable. txn for Hgb <7. FOBT negative - Acute ETOH withdrawal- CIWA 0. on ativan. will titrate down ativan to BID dosing. on thiamine/folate/MVI, titrate Ativan to once daily, then off. - Hypokalemia- low dose KCl in setting of DALTON, worsened today, replete aggressively given ongoing diarrhea. - Elevated BP- received norvasc 5mg. with good response. will monitor for now. - Pseudohypocalcemia- Corrected Ca 9.14 - Thrombocytopenia- likely due to ETOH and liver disease. no signs of bleeding. continuing to trend down. will monitor. Positive splenomegaly - DVT ppx- SCD -dispo - ongoing multiple active medical issues, continues to be inpatient level of care.
[2017-01-14] MEDS ORDERED: PEG3350/SOD SULF,BICARB,CL/KCL 4,000 ML SOLN.RECON PO ONE (18:00)
[2017-01-15 00:12] LABS: C-ANCA <1:20 titer (Neg:<1:20); MYELOPEROXIDASE ANTIBODY <9.0 U/mL (0.0-9.0); P-ANCA <1:20 titer (Neg:<1:20); PROTEINASE-3 ANTIBODY <3.5 U/mL (0.0-3.5)
[2017-01-15] MEDS: PIPERACILLIN/TAZOB 3.375 GM 50 ML IVPB SCH ×3 (01:13→18:28)
[2017-01-15] MEDS: SODIUM BICARBONATE 650 MG TABLET PO SCH ×3 (06:05→21:29)
[2017-01-15] MEDS ORDERED: LACTULOSE 20 GM/30 ML UDC (FOR ORAL USE ONLY) PO SCH (06:30)
--- NOTE | 2017-01-15 08:27 | PN ---
Physical Exam: SUBJECTIVE: Patient seen and examined. Looks much better today! More alert, awake, smiling. States he feels less weak. NPO for EGD/colonoscopy. OBJECTIVE: Vital Signs Period Temp Pulse Resp BP Sys/Arguelles Pulse Ox Last 24 Hr 96.5 F-98.4 F 83-88 19-20 105-150/77-91 97 GEN: AAOx2, NAD, Notably jaundice, flapping tremors HEENT: PERRLA, EOMi, scleral icterus CV: S1, S2, RRR LUNG: Bibasilar crackles ABD: Soft, mildly distended, normoactive BS MSK: No edema, no erythema Laboratory Results - last 24 hr 01/10/17 01/11/17 01/12/17 07:30 08:35 07:35 Sodium Potassium Chloride Carbon Dioxide Anion Gap Hepatic Function Panel 66 BUN Creatinine Creat Clearance w eGFR Random Glucose Calcium Total Bilirubin AST ALT Alkaline Phosphatase 916 H Total Protein Albumin TESSY Screen Negative c-ANCA <1:20 Proteinase 3 (PR3) <3.5 p-ANCA <1:20 Atypical p-ANCA <1:20 Myeloperoxidase Ab <9.0 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 6 Hep A IgM Ab Confirm Negative Hepatitis A Ab Total Positive H Hep Bs Antigen Negative Hep Bs Antibody Non reactive Hep B Core Total Ab Negative 01/14/17 01/14/17 06:25 11:45 Sodium 142 Potassium 2.8 L* 3.6 D Chloride 113 H Carbon Dioxide 11 L Anion Gap 18 H Hepatic Function Panel BUN 75 H Creatinine 4.8 H Creat Clearance w eGFR 12.60 Random Glucose 95 Calcium 7.1 L Total Bilirubin 2.1 H D AST 39 H ALT 32 Alkaline Phosphatase 871 H Total Protein 4.7 L Albumin 1.2 L TESSY Screen c-ANCA Proteinase 3 (PR3) p-ANCA Atypical p-ANCA Myeloperoxidase Ab 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 Hep A IgM Ab Confirm Hepatitis A Ab Total Hep Bs Antigen Hep Bs Antibody Hep B Core Total Ab Active Medications Generic Name Dose Route Start Last Admin Trade Name Freq PRN Reason Stop Dose Admin Amlodipine Besylate 10 mg 01/13/17 10:00 01/14/17 09:59 Norvasc - PO 10 mg DAILY EMI Administration Folic Acid 1 mg 01/11/17 10:00 01/14/17 10:00 Folic Acid - PO 1 mg DAILY MEI Administration Piperacillin/Tazobactam/Dextrose 50 mls @ 100 mls/hr 01/11/17 13:30 01/15/17 01 :13 Zosyn 3.375gm Ivpb (Premix) IVPB 100 mls/hr Q8H-IV MEI Administration Protocol Lactulose 30 gm 01/15/17 06:30 Cephulac (Oral Use) PO Q6HPO MEI Lorazepam 1 mg 01/10/17 04:06 01/10/17 04:22 Ativan Injection - IVPUSH 1 mg Q6H PRN Administration WITHDRAWAL(CONT SUBST) Lorazepam 1 mg 01/15/17 10:00 Ativan - PO DAILY MEI Multivitamins/Minerals/Vitamin C 1 tab 01/11/17 10:00 01/14/17 09:59 Tab-A-Vit - PO 1 tab DAILY MEI Administration Rifaximin 550 mg 01/10/17 22:00 01/14/17 21:38 Xifaxan - PO 550 mg BID MEI Administration Sodium Bicarbonate 650 mg 01/13/17 17:30 01/15/17 06:05 Sodium Bicarbonate - PO Not Given TID MEI Thiamine HCl 100 mg 01/11/17 10:00 01/14/17 10:00 Vitamin B1 - PO 100 mg DAILY MEI Administration ASSESSMENT/PLAN: 56yo M w/ PMHx of EtOH abuse (+30 yrs) who presented to ER w/ nausea, vomiting, profuse watery diarrhea, 15 lb wt loss. Found to have elevated LFTs. # Transaminitis w/ markedly high ALP - likely 2/2 alcoholic hep vs intrahep cholestasis; AFP neg; viral hep neg; TESSY/smAb neg; SAAG >1.1 - Cont Lactulose + Rifamixin for hepatic encephalopathy # Diarrhea - 2/2 infectious vs inflammatory colitis, seen on CT, Cdiff neg, leading to hypoK, hyperCl met acidosis - s/p EGD + colonoscopy today, look for varices, Day 6 Zosyn 3.375 Q8H, stool studies negative # DALTON - worsening, possible hepatorenal, likely pt is intravascularly depleted from diarrhea + poor PO, and third spacing w/ low albumin causing ascites - Stat ABG shows met acidosis, likely from diarrhea loss of HCO3 and possible lactic acidosis from low organ perfusion, will get stat LA - Will replete albumin and get stat BMP to check bicarb, will call Dr. Amaya w/ results # Hypokalemia - 2/2 diarrhea + poor diet, repleted K+ today w/ 40mg PO x2, encourage PO intake # HTN - Increased Norvasc to 10mg daily # EtOH Withdrawal - Continue Ativan QD, + PRN Ativan (due to liver dz), thiamine , folate, MV # FEN - Sodium controlled diet, ate more today # PPx - SCDs # Dispo - Continues to need inpatient care, pt needs kent for strict I&O monitoring, too weak to use urinal Michaela Mendoza MD - PGY1 Internal Medicine Visit type - Emergency Visit Emergency Visit: No - New Patient This patient is new to me today: No - Critical Care Critical Care patient: No - Discharge Referral Referred to [facility] Med P.C.: No
[2017-01-15 09:01] LABS: ALBUMIN 1.3 g/dl (3.4-5.0); ANION GAP 20 (8-16); CALCIUM 7.2 mg/dL (8.5-10.1); CO2 9 mmol/L (21-32); GLUCOSE,RANDOM 103 mg/dL (74-106)
[2017-01-15 09:05] LABS: ALK PHOS 818 U/L (45-117); BILIRUBIN,TOTAL 1.9 mg/dL (0.2-1.0); SGOT/AST 40 U/L (15-37); SGPT/ALT 33 U/L (12-78); TOT PROT 4.9 g/dl (6.4-8.2)
[2017-01-15] MEDS: amLODIPine BESYLATE 5 MG TABLET (FP) PO SCH (10:31)
[2017-01-15 11:36] LABS: MCH 26.6 pg (25.7-33.7); MCHC 32.6 g/dl (32.0-35.9); MEAN CELL VOLUME 81.6 fl (80-96); MEAN PLT VOLUME 8.3 fl (7.5-11.1); PLATELET COUNT 61 K/MM3 (134-434); WHITE BLOOD COUNT 5.6 K/mm3 (4.0-10.0)
[2017-01-15] MEDS ORDERED: PROPOFOL 20 ML ONE ×3 (12:07)
[2017-01-15] MEDS ORDERED: POTASSIUM CHLORIDE ORAL LIQUID 20 MEQ/15 ML PO ONE ×3 (12:45→18:31)
--- NOTE | 2017-01-15 12:55 | PROC ---
Endoscopy Procedure Endoscopy procedure completed. Please see scanned procedure report.
--- NOTE | 2017-01-15 13:52 | PN ---
Teaching Attending Note Name of Resident: Michaela Mendoza ATTENDING PHYSICIAN STATEMENT I saw and evaluated the patient. I reviewed the resident's note and discussed the case with the resident. I agree with the resident's findings and plan as documented. SUBJECTIVE: patient seen and examined. Sleepy but arousable, denies any pain, dyspnea, abdominal symptoms. No new complaints. OBJECTIVE: Vital Signs Period Temp Pulse Resp BP Sys/Arguelles Pulse Ox Last 24 Hr 96.5 F-98.2 F 72-86 18-20 105-150/64-91 97-100 Intake & Output 01/12/17 01/13/17 01/14/17 01/15/17 23:59 23:59 23:59 23:59 Intake Total 1781 5375 608 5338 Output Total 1150 800 625 0 Balance 631 5002 153 6417 General - sleepy but arousable, answers appropriately, in no acute distress CVS - S1S2 regular Chest -decreaed effort, decreased breath sounds at bases Abdomen - soft, NT, Mild distension unchanged, positive bowel sounds extremities - unchanged edema, positive asterexis Current Medications Generic Name Dose Route Start Last Admin Trade Name Freq PRN Reason Stop Dose Admin Amlodipine Besylate 10 mg 01/13/17 10:00 01/15/17 10:31 Norvasc - PO 10 mg DAILY MEI Administration Folic Acid 1 mg 01/11/17 10:00 01/14/17 10:00 Folic Acid - PO 1 mg DAILY MEI Administration Piperacillin/Tazobactam/Dextrose 50 mls @ 100 mls/hr 01/11/17 13:30 01/15/17 01 :13 Zosyn 3.375gm Ivpb (Premix) IVPB 100 mls/hr Q8H-IV MEI Administration Protocol Lactulose 30 gm 01/15/17 06:30 Cephulac (Oral Use) PO Q6HPO MEI Lorazepam 1 mg 01/10/17 04:06 01/10/17 04:22 Ativan Injection - IVPUSH 1 mg Q6H PRN Administration WITHDRAWAL(CONT SUBST) Lorazepam 1 mg 01/15/17 10:00 Ativan - PO DAILY MEI Multivitamins/Minerals/Vitamin C 1 tab 01/11/17 10:00 01/14/17 09:59 Tab-A-Vit - PO 1 tab DAILY MEI Administration Rifaximin 550 mg 01/10/17 22:00 01/14/17 21:38 Xifaxan - PO 550 mg BID MEI Administration Sodium Bicarbonate 650 mg 01/13/17 17:30 01/15/17 06:05 Sodium Bicarbonate - PO Not Given TID MEI Thiamine HCl 100 mg 01/11/17 10:00 01/14/17 10:00 Vitamin B1 - PO 100 mg DAILY MEI Administration Laboratory Results - last 24 hr 01/10/17 01/11/17 01/12/17 07:30 08:35 07:35 WBC RBC Hgb Hct MCV MCH MCHC RDW Plt Count MPV Sodium Potassium Chloride Carbon Dioxide Anion Gap Hepatic Function Panel 66 BUN Creatinine Creat Clearance w eGFR Random Glucose Calcium Total Bilirubin AST ALT Alkaline Phosphatase 916 H Total Protein Albumin TESSY Screen Negative c-ANCA <1:20 Proteinase 3 (PR3) <3.5 p-ANCA <1:20 Atypical p-ANCA <1:20 Myeloperoxidase Ab <9.0 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 Intrp 6 Hep A IgM Ab Confirm Negative Hepatitis A Ab Total Positive H Hep Bs Antigen Negative Hep Bs Antibody Non reactive Hep B Core Total Ab Negative Blood Type 01/13/17 01/15/17 01/15/17 08:20 08:15 11:25 WBC 5.6 RBC 4.00 Hgb 10.7 L Hct 32.6 L MCV 81.6 MCH 26.6 MCHC 32.6 RDW 17.0 H Plt Count 61 L D MPV 8.3 Sodium 139 Potassium 3.0 L Chloride 110 H Carbon Dioxide 9 L Anion Gap 20 H Hepatic Function Panel BUN 73 H Creatinine 5.0 H Creat Clearance w eGFR 12.02 Random Glucose 103 Calcium 7.2 L Total Bilirubin 1.9 H AST 40 H ALT 33 Alkaline Phosphatase 818 H Total Protein 4.9 L Albumin 1.3 L TESSY Screen c-ANCA Proteinase 3 (PR3) p-ANCA Atypical p-ANCA Myeloperoxidase Ab 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 Antibiotic taper per ID. Change norvasc to beta ottoniel if varices present. Worsening renal function, suspect intravascular depletion with third spacing from diarrhea/poor PO intake, cannot r/o hepatorenal syndrome. Tricky volume status given pleural effusion/ascitis Discussed with nephrology about fluid challenge vs albumin. Monitor renal function closely, renal dosing of medications. Platelet transfusion as needed. Replete K aggressively. Encourage PO intake. Lactulose/rifaximin. DVTPPX with SCDs prognosis guarded given multiple active issues and worsening renal function.
--- NOTE | 2017-01-15 14:33 | PN ---
Progress Note, Physician History of Present Illness: Pt seen and examined at bedside. He is awake and appears comfortable. - Current Medication List Current Medications: Active Medications Amlodipine Besylate (Norvasc -) 10 mg PO DAILY [facility] Last Admin: 01/15/17 10:31 Dose: 10 mg Folic Acid (Folic Acid -) 1 mg PO DAILY [facility] Last Admin: 01/14/17 10:00 Dose: 1 mg Piperacillin/Tazobactam/Dextrose (Zosyn 3.375gm Ivpb (Premix)) 50 mls @ 100 mls /hr IVPB Q8H-IV MEI PRN Reason: Protocol Last Admin: 01/15/17 01:13 Dose: 100 mls/hr Lactulose (Cephulac (Oral Use)) 30 gm PO Q6HPO MEI Lorazepam (Ativan Injection -) 1 mg IVPUSH Q6H PRN PRN Reason: WITHDRAWAL(CONT SUBST) Last Admin: 01/10/17 04:22 Dose: 1 mg Lorazepam (Ativan -) 1 mg PO DAILY [facility] Multivitamins/Minerals/Vitamin C (Tab-A-Vit -) 1 tab PO DAILY [facility] Last Admin: 01/14/17 09:59 Dose: 1 tab Rifaximin (Xifaxan -) 550 mg PO BID [facility] Last Admin: 01/14/17 21:38 Dose: 550 mg Sodium Bicarbonate (Sodium Bicarbonate -) 650 mg PO TID [facility] Last Admin: 01/15/17 06:05 Dose: Not Given Thiamine HCl (Vitamin B1 -) 100 mg PO DAILY [facility] Last Admin: 01/14/17 10:00 Dose: 100 mg - Objective Vital Signs: Vital Signs Temperature 98 F 01/15/17 12:53 Pulse Rate 72 01/15/17 13:30 Respiratory Rate 18 01/15/17 13:30 Blood Pressure 120/64 01/15/17 13:30 O2 Sat by Pulse Oximetry (%) 99 01/15/17 13:30 Constitutional: Yes: Calm Eyes: Yes: Conjunctiva Clear HENT: Yes: Atraumatic Cardiovascular: Yes: S1, S2 Respiratory: Yes: Rhonchi Gastrointestinal: Yes: Soft, Ascites Musculoskeletal: Yes: Muscle Weakness Edema: No Neurological: Yes: Other (awake) Labs: CBC, BMP 01/15/17 11:25 01/15/17 08:15 INR, PTT INR 1.09 (0.82-1.09) 01/13/17 05:40 Assessment/Plan Current Medications Generic Name Dose Route Start Last Admin Trade Name Kennedy PRN Reason Stop Dose Admin Amlodipine Besylate 10 mg 01/13/17 10:00 01/15/17 10:31 Norvasc - PO 10 mg DAILY MEI Administration Folic Acid 1 mg 01/11/17 10:00 01/14/17 10:00 Folic Acid - PO 1 mg DAILY MEI Administration Piperacillin/Tazobactam/Dextrose 50 mls @ 100 mls/hr 01/11/17 13:30 01/15/17 01 :13 Zosyn 3.375gm Ivpb (Premix) IVPB 100 mls/hr Q8H-IV MEI Administration Protocol Lactulose 30 gm 01/15/17 06:30 Cephulac (Oral Use) PO Q6HPO MEI Lorazepam 1 mg 01/10/17 04:06 01/10/17 04:22 Ativan Injection - IVPUSH 1 mg Q6H PRN Administration WITHDRAWAL(CONT SUBST) Lorazepam 1 mg 01/15/17 10:00 Ativan - PO DAILY MEI Multivitamins/Minerals/Vitamin C 1 tab 01/11/17 10:00 01/14/17 09:59 Tab-A-Vit - PO 1 tab DAILY MEI Administration Rifaximin 550 mg 01/10/17 22:00 01/14/17 21:38 Xifaxan - PO 550 mg BID MEI Administration Sodium Bicarbonate 650 mg 01/13/17 17:30 01/15/17 06:05 Sodium Bicarbonate - PO Not Given TID [facility] Thiamine HCl 100 mg 01/11/17 10:00 01/14/17 10:00 Vitamin B1 - PO 100 mg DAILY MEI Administration Impression 1. liver cirrhosis 2. DALTON 3. thrombocytopenia 4. hypokalemia 5. acidosis 6. etoh abuse Plan - start albumin - repeat labs in am - renal workup in progress - renal failure has been progressive - supplement potassium - likely hepatorenal disease - will follow
[2017-01-15 15:08] LABS: ARTERIAL BLD GAS O2 SATURATION 97.7 % (90-98.9); ARTERIAL BLOOD GAS pH 7.33 (7.35-7.45)
[2017-01-15 15:09] LABS: ALLENS TEST POSITIVE; ART PUNCT SITE RIGHT RADIAL; ARTERIAL BLOOD GAS HCO3 9.4 meq/L (22-26)
[2017-01-15 15:10] LABS: LPM/O2% 21%; PT. ON O2? NO; TYPE OF O2 R/A
[2017-01-15] MEDS: ALBUMIN HUMAN 25% 12.5 GM/50 ML VIAL IVPB SCH ×2 (15:46→21:27)
[2017-01-15] MEDS: LACTULOSE 20 GM/30 ML UDC (FOR ORAL USE ONLY) PO SCH ×2 (15:50→17:32)
[2017-01-15] MEDS: LORazepam 1 MG TABLET PO SCH (15:51)
[2017-01-15] MEDS: THIAMINE HCL 100 MG TABLET (FP) PO SCH (15:51)
[2017-01-15] MEDS: RIFAXIMIN 550 MG TABLET (UD) PO SCH ×2 (15:52→21:30)
[2017-01-15] MEDS: FOLIC ACID 1 MG TABLET (FP) PO SCH (15:52)
[2017-01-15] MEDS: MULTIVITAMINS (DAILY MVI) TABLET (FP) PO SCH (15:52)
--- NOTE | 2017-01-15 15:58 | PN ---
Progress Note, Physician History of Present Illness: stable s/p endoscopy,colonoscopy - Current Medication List Current Medications: Active Medications Albumin Human (Albumin Human 25%) 25 gm IVPB Q6H [facility] Stop: 01/16/17 20:46 Last Admin: 01/15/17 15:46 Dose: 25 gm Amlodipine Besylate (Norvasc -) 10 mg PO DAILY [facility] Last Admin: 01/15/17 10:31 Dose: 10 mg Folic Acid (Folic Acid -) 1 mg PO DAILY MEI Last Admin: 01/15/17 15:52 Dose: 1 mg Piperacillin/Tazobactam/Dextrose (Zosyn 3.375gm Ivpb (Premix)) 50 mls @ 100 mls /hr IVPB Q8H-IV MEI PRN Reason: Protocol Last Admin: 01/15/17 14:58 Dose: 100 mls/hr Lactulose (Cephulac (Oral Use)) 30 gm PO Q6HPO MEI Last Admin: 01/15/17 15:50 Dose: 30 gm Lorazepam (Ativan Injection -) 1 mg IVPUSH Q6H PRN PRN Reason: WITHDRAWAL(CONT SUBST) Last Admin: 01/10/17 04:22 Dose: 1 mg Lorazepam (Ativan -) 1 mg PO DAILY [facility] Last Admin: 01/15/17 15:51 Dose: 1 mg Multivitamins/Minerals/Vitamin C (Tab-A-Vit -) 1 tab PO DAILY [facility] Last Admin: 01/15/17 15:52 Dose: 1 tab Rifaximin (Xifaxan -) 550 mg PO BID [facility] Last Admin: 01/15/17 15:52 Dose: 550 mg Sodium Bicarbonate (Sodium Bicarbonate -) 1,300 mg PO TID [facility] Thiamine HCl (Vitamin B1 -) 100 mg PO DAILY [facility] Last Admin: 01/15/17 15:51 Dose: 100 mg - Objective Vital Signs: Vital Signs Temperature 98 F 01/15/17 12:53 Pulse Rate 72 01/15/17 13:30 Respiratory Rate 18 01/15/17 13:30 Blood Pressure 120/64 01/15/17 13:30 O2 Sat by Pulse Oximetry (%) 99 01/15/17 13:30 Constitutional: Yes: No Distress, Calm Cardiovascular: Yes: Regular Rate and Rhythm Respiratory: Yes: Regular, CTA Bilaterally Gastrointestinal: Yes: Normal Bowel Sounds, Soft Musculoskeletal: Yes: WNL Extremities: Yes: WNL Neurological: Yes: Alert, Oriented Psychiatric: Yes: Alert, Oriented Labs: CBC, BMP 01/15/17 11:25 01/15/17 08:15 INR, PTT INR 1.09 (0.82-1.09) 01/13/17 05:40 Assessment/Plan Problem List - Problems (1) Lethargy Code(s): R53.83 - OTHER FATIGUE (2) Elevated alkaline phosphatase level Code(s): R74.8 - ABNORMAL LEVELS OF OTHER SERUM ENZYMES 3 colitis plan continue zosyn rest as per primary await for all cx reports daughter in room spoke in detail; patient very weak will stop abx tomorrow
--- NOTE | 2017-01-15 17:38 | PATH ---
Cytology Non-Gynecological Report Patient Name: ALONZO BOLIVAR [facility]. Rec. #: [id number] /Age/Gender: 1960 (Age: 56) / M Account: [id number] Location: [address] [place] [address] Taken: 01/13/2017 Received: 01/14/2017 Reported: 01/15/2017 Physicians: Wang Mccrary M.D. Specimen(s) Received A: PERITONEAL FLUID B: PERITONEAL FLUID Clinical History Ascites Final Diagnosis A. ABDOMINAL FLUID, PARACENTESIS: SATISFACTORY FOR EVALUATION. NO MALIGNANT CELLS IDENTIFIED. FEW MESOTHELIAL CELLS, FEW NEUTROPHILS AND FEW LYMPHOCYTES PRESENT. B. ABDOMINAL FLUID, PARACENTESIS: SATISFACTORY FOR EVALUATION. NO MALIGNANT CELLS IDENTIFIED. RARE MESOTHELIAL CELLS PRESENT. Comment: Recommend correlation with clinical findings and follow up as clinically indicated. Electronically Signed Hermelinda Covarrubias M.D. Gross Description A. Approximately 50 cc of yellow fluid received fixed in 50% alcohol. Two cytofunnels and one cellblock prepared. B. Approximately 1500 cc of yellow fluid received fresh. Two cytofunnels and one cellblock prepared.
[2017-01-15 18:09] LABS: ANION GAP 20 (8-16); CALCIUM 7.3 mg/dL (8.5-10.1); CO2 10 mmol/L (21-32); CREATININE 5.1 mg/dL (0.7-1.3); GLUCOSE,RANDOM 102 mg/dL (74-106); MAGNESIUM 2.5 mg/dL (1.8-2.4)
[2017-01-15] MEDS ORDERED: KCL 10 MEQ IVPB 100 ML IVPB SCH (18:30)
[2017-01-15] MEDS ORDERED: POTASSIUM CHLORIDE 20 MEQ in SODIUM CHLORIDE 250 ML IVPB ONE (18:45)
[2017-01-15] MEDS ORDERED: POTASSIUM CHLORIDE 20 MEQ in SODIUM CHLORIDE 250 ML IVPB SCH (18:45)
[2017-01-15 19:28] LABS: URINE APPEARANCE CLOUDY; URINE BILIRUBIN NEGATIVE (NEGATIVE); URINE BLOOD 2+ (NEGATIVE); URINE COLOR DKYELLOW; URINE GLUCOSE (UA) 1+ (NEGATIVE); URINE KETONE NEGATIVE (NEGATIVE); URINE NITRITE NEGATIVE (NEGATIVE); URINE UROBILINOGEN NEGATIVE mg/dL (0.2-1.0)
[2017-01-15 19:29] LABS: URINE PROTEIN 3+ (NEGATIVE)
[2017-01-15 19:32] LABS: URINE BACTERIA MANY /hpf (NONE SEEN); URINE MUCUS RARE; URINE RBC 82 /hpf (0-3); URINE WBC 3 /hpf (3-5)
[2017-01-15 21:19] LABS: URINE LEUK ESTERASE Negative (NEGATIVE)
[2017-01-16] MEDS: LACTULOSE 20 GM/30 ML UDC (FOR ORAL USE ONLY) PO SCH ×5 (00:17→18:48)
[2017-01-16] MEDS: PIPERACILLIN/TAZOB 3.375 GM 50 ML IVPB SCH ×2 (02:40→09:27)
[2017-01-16] MEDS: ALBUMIN HUMAN 25% 12.5 GM/50 ML VIAL IVPB SCH ×2 (02:40→09:27)
[2017-01-16] MEDS: SODIUM BICARBONATE 650 MG TABLET PO SCH ×3 (05:51→21:38)
[2017-01-16 07:42] LABS: MCH 27.5 pg (25.7-33.7); MCHC 33.6 g/dl (32.0-35.9); MEAN CELL VOLUME 81.7 fl (80-96); MEAN PLT VOLUME 9.6 fl (7.5-11.1); PLATELET COUNT 42 K/MM3 (134-434); RDW 17.3 % (11.9-15.9); WHITE BLOOD COUNT 4.2 K/mm3 (4.0-10.0)
[2017-01-16 08:29] LABS: ALBUMIN 2.4 g/dl (3.4-5.0); ALK PHOS 642 U/L (45-117); ANION GAP 19 (8-16); BILIRUBIN,TOTAL 3.1 mg/dL (0.2-1.0); CALCIUM 7.4 mg/dL (8.5-10.1); CO2 10 mmol/L (21-32); GLUCOSE,RANDOM 128 mg/dL (74-106); TOT PROT 5.5 g/dl (6.4-8.2)
--- NOTE | 2017-01-16 08:33 | PN ---
Physical Exam: SUBJECTIVE: Patient more alert and awake today. Vomitted once overnight because he had dry throat and was coughing, was able to tolerate dinner yesterday. No abd pain but states his belly is more distended. Had 3 bouts of diarrhea. Denies CP, SOB, fevers, chills. OBJECTIVE: Vital Signs Period Temp Pulse Resp BP Sys/Arguelles Pulse Ox Last 24 Hr 97.9 F-98.7 F 72-85 18-20 108-150/64-85 95-100 GEN: AAOx2, Eyes open, more responsive today, talkign more, still notably jaundice, +asterixis HEENT: PERRLA, EOMi, scleral icterus CV: S1, S2, RRR LUNG: Bibasilar crackles ABD: Soft, moderately distended, normoactive BS MSK: No edema, no erythema Laboratory Last Values WBC 4.2 K/mm3 (4.0-10.0) 01/16/17 06:00 RBC 3.59 M/mm3 (4.00-5.60) L 01/16/17 06:00 Hgb 9.9 GM/dL (11.7-16.9) L 01/16/17 06:00 Hct 29.3 % (35.4-49) L 01/16/17 06:00 MCV 81.7 fl (80-96) 01/16/17 06:00 MCH 27.5 pg (25.7-33.7) 01/16/17 06:00 MCHC 33.6 g/dl (32.0-35.9) 01/16/17 06:00 RDW 17.3 % (11.9-15.9) H 01/16/17 06:00 Plt Count 42 K/MM3 (134-434) L D 01/16/17 06:00 MPV 9.6 fl (7.5-11.1) D 01/16/17 06:00 Neutrophils % 87.1 % (42.8-82.8) H 01/12/17 07:35 Lymphocytes % 7.7 % (8-40) L 01/12/17 07:35 Monocytes % 3.7 % (3.8-10.2) L 01/12/17 07:35 Eosinophils % 0.4 % (0-4.5) 01/12/17 07:35 Basophils % 1.1 % (0-2.0) 01/12/17 07:35 Platelet Estimate Markedly decreased (NORMAL) 01/09/17 16:20 PT with INR 12.30 SEC (9.98-11.88) H 01/13/17 05:40 INR 1.09 (0.82-1.09) 01/13/17 05:40 PTT (Actin FS) 32.5 SECONDS (26.9-34.4) 01/10/17 07:30 Puncture Site Right radial 01/15/17 15:00 ABG pH 7.33 (7.35-7.45) L 01/15/17 15:00 ABG pCO2 at Pt Temp 18.4 mmHg (35-45) L* 01/15/17 15:00 ABG pO2 at Pt Temp 94.0 mmHg (80-100) 01/15/17 15:00 ABG HCO3 9.4 meq/L (22-26) L* 01/15/17 15:00 ABG O2 Sat (Measured) 97.7 % (90-98.9) 01/15/17 15:00 ABG O2 Content 14.2 % vol (15-22) L 01/15/17 15:00 ABG Base Excess -15.0 meq/l (-2-2) L* 01/15/17 15:00 Ramón Test Positive 01/15/17 15:00 O2 Delivery Device R/a 01/15/17 15:00 Oxygen Flow Rate 21% 01/15/17 15:00 PEEP 0.0 cmH2O 01/15/17 15:00 Sodium 141 mmol/L (136-145) 01/16/17 06:00 Potassium 3.0 mmol/L (3.5-5.1) L 01/16/17 06:00 Chloride 112 mmol/L (98-107) H 01/16/17 06:00 Carbon Dioxide 10 mmol/L (21-32) L 01/16/17 06:00 Anion Gap 19 (8-16) H 01/16/17 06:00 Hepatic Function Panel 66 % (13-88) 01/11/17 08:35 BUN 75 mg/dL (7-18) H 01/15/17 17:00 Creatinine 5.1 mg/dL (0.7-1.3) H 01/15/17 17:00 Creat Clearance w eGFR 12.02 (>60) 01/15/17 08:15 Random Glucose 128 mg/dL (74-106) H D 01/16/17 06:00 Lactic Acid 2.0 mmol/L (0.4-2.0) 01/15/17 18:00 Calcium 7.4 mg/dL (8.5-10.1) L 01/16/17 06:00 Phosphorus 5.2 mg/dL (2.5-4.9) H 01/12/17 07:35 Magnesium 2.5 mg/dL (1.8-2.4) H 01/15/17 17:00 Total Bilirubin 3.1 mg/dL (0.2-1.0) H D 01/16/17 06:00 Direct Bilirubin 1.2 mg/dL (0.0-0.2) H 01/12/17 16:30 GGT 880 U/L (5-85) H 01/11/17 08:35 AST 40 U/L (15-37) H 01/15/17 08:15 ALT 33 U/L (12-78) 01/15/17 08:15 Alkaline Phosphatase 642 U/L (45-117) H D 01/16/17 06:00 Ammonia 36.41 umol/L (11-32) H 01/09/17 18:55 Total Protein 5.5 g/dl (6.4-8.2) L 01/16/17 06:00 Albumin 2.4 g/dl (3.4-5.0) L D 01/16/17 06:00 Lipase 221 U/L (73-393) 01/09/17 17:15 Tumor Marker AFP 1.0 ng/ml (0.0-8.3) 01/11/17 08:35 Urine Color Dkyellow 01/15/17 18:30 Urine Appearance Cloudy 01/15/17 18:30 Urine pH 5.0 (5.0-8.0) 01/15/17 18:30 Ur Specific [place] 1.015 (1.005-1.025) 01/15/17 18:30 Urine Protein 3+ (NEGATIVE) H 01/15/17 18:30 Urine Glucose (UA) 1+ (NEGATIVE) H 01/15/17 18:30 Urine Ketones Negative (NEGATIVE) 01/15/17 18:30 Urine Blood 2+ (NEGATIVE) H 01/15/17 18:30 Urine Nitrite Negative (NEGATIVE) 01/15/17 18:30 Urine Bilirubin Negative (NEGATIVE) 01/15/17 18:30 Urine Urobilinogen Negative mg/dL (0.2-1.0) 01/15/17 18:30 Ur Leukocyte Esterase Negative (NEGATIVE) 01/15/17 18:30 Urine RBC 82 /hpf (0-3) 01/15/17 18:30 Urine WBC 3 /hpf (3-5) 01/15/17 18:30 Ur Epithelial Cells Rare /hpf (FEW) 01/15/17 18:30 Urine Bacteria Many /hpf (NONE SEEN) 01/15/17 18:30 Urine Mucus Rare 01/15/17 18:30 U Random Total Protein 427 mg/dl (5-11.9) H 01/12/17 06:00 Ur Random Sodium 21 MMOL/L 01/11/17 15:10 Ur Random Potassium 14.9 MMOL/L 01/11/17 15:10 Ur Random Chloride 11 MMOL/L 01/11/17 15:10 Urine Creatinine 67.5 mg/dL (20-370) 01/12/17 06:00 Protein/Creatinin Ratio 6.325 MG/DL 01/12/17 06:00 Peritoneal WBC 91 /mm3 01/13/17 15:00 Peritoneal RBC 673 /mm3 01/13/17 15:00 Periton Neutrophils 45 % 01/13/17 15:00 Periton Lymphocytes 22 % 01/13/17 15:00 Peritoneal Monocytes 25 % 01/13/17 15:00 Periton Mesothelial 1 % 01/13/17 15:00 Periton Macrophages 7 % 01/13/17 15:00 Peritoneal Tot Protein 1 gm/dL 01/13/17 15:00 Peritoneal Albumin 0 g/dL 01/13/17 15:00 Peritoneal LDH 89 IU/L 01/13/17 15:00 Peritoneal Glucose 134 mg/dL 01/13/17 15:00 Peritoneal Amylase 54 U/L 01/13/17 15:00 Peritoneal Triglycerid 45 mg/dL 01/13/17 15:00 Stool Occult Blood Positive (NEGATIVE) 01/10/17 19:30 Stool Calprotectin TNP 01/11/17 06:00 TESSY Screen Negative (.) 01/11/17 08:35 c-ANCA <1:20 titer (Neg:<1:20) 01/12/17 07:35 Proteinase 3 (PR3) <3.5 U/mL (0.0-3.5) 01/12/17 07:35 p-ANCA <1:20 titer (Neg:<1:20) 01/12/17 07:35 Atypical p-ANCA <1:20 titer (Neg:<1:20) 01/12/17 07:35 Myeloperoxidase Ab <9.0 U/mL (0.0-9.0) 01/12/17 07:35 Smooth Musc &KAIWHAKAHAERE Intrp 6 Units (0-19) 01/11/17 08:35 Hep A IgM Ab Confirm Negative (Negative) 01/10/17 07:30 Hepatitis A Ab Total Positive (Negative) H 01/10/17 07:30 Hep Bs Antigen Negative (Negative) 01/10/17 07:30 Hep Bs Antibody Non reactive (.) 01/10/17 07:30 Hep B Core Total Ab Negative (Negative) 01/10/17 07:30 Hep B Core IgM Ab Negative (Negative) 01/09/17 17:15 Hepatitis C Antibody 0.3 s/co ratio (0.0-0.9) 01/11/17 17:20 Blood Type O POSITIVE 01/13/17 08:20 Antibody Screen Negative 01/13/17 08:20 Active Medications Generic Name Dose Route Start Last Admin Trade Name Freq PRN Reason Stop Dose Admin Albumin Human 50 gm 01/17/17 10:00 Albumin Human 25% IVPB DAILY MEI Amlodipine Besylate 10 mg 01/13/17 10:00 01/16/17 09:21 Norvasc - PO 10 mg DAILY MEI Administration Folic Acid 1 mg 01/11/17 10:00 01/16/17 09:21 Folic Acid - PO 1 mg DAILY MEI Administration Piperacillin/Tazobactam/Dextrose 50 mls @ 100 mls/hr 01/11/17 13:30 01/16/17 09 :27 Zosyn 3.375gm Ivpb (Premix) IVPB 100 mls/hr Q8H-IV MEI Administration Protocol Lactulose 30 gm 01/15/17 06:30 01/16/17 06:00 Cephulac (Oral Use) PO Not Given Q6HPO MEI Midodrine 7.5 mg 01/16/17 11:00 01/16/17 12:52 Proamatine - PO 7.5 mg TID-MID MEI Administration Multivitamins/Minerals/Vitamin C 1 tab 01/11/17 10:00 01/16/17 09:22 Tab-A-Vit - PO 1 tab DAILY MEI Administration Octreotide Acetate 100 mcg 01/16/17 11:00 01/16/17 12:53 Sandostatin - SQ 100 mcg TID MEI Administration Potassium Chloride 40 meq 01/17/17 10:00 Potassium Chloride Oral Liquid PO DAILY MEI Rifaximin 550 mg 01/10/17 22:00 01/16/17 09:22 Xifaxan - PO 550 mg BID MEI Administration Sodium Bicarbonate 1,300 mg 01/15/17 14:37 01/16/17 05:51 Sodium Bicarbonate - PO 1,300 mg TID MEI Administration Thiamine HCl 100 mg 01/11/17 10:00 01/16/17 09:22 Vitamin B1 - PO 100 mg DAILY MEI Administration ASSESSMENT/PLAN: 56yo M w/ PMHx of EtOH abuse (+30 yrs) who presented to ER w/ nausea, vomiting, profuse watery diarrhea, 15 lb wt loss. Found to have elevated LFTs. # Acute Hepatitis - likely 2/2 alcohol, LFTs improving; AFP neg; viral hep neg; TESSY/smAb neg; SAAG >1.1 - Cont Lactulose + Rifamixin for hepatic encephalopathy, eventual conversation w/ liver center # DALTON - possible hepatorenal along w/ dehydration + third spacing, sediment in urine, ?ATN - S/p 6 doses of albumin, started Midodrine and Octreotide as per GI. Will give trial 500cc of IVF D5-1/2NS w/ HCO3, d/w nephro - Will get UA and Ulytes to determine if pt is in ATN, eventually nephro can consider biopsy, too risky now 2/2 low PLT # Colitis - 2/2 infectious vs inflammatory colitis, seen on CT, Cdiff neg, leading to hypoK, hyperCl met acidosis - Zosyn stopped, s/p EGD + colonoscopy - inflammed colon, no varices, + gastritis w/ erosions (likely from alcohol) # HAGMA - 2/2 bicarb loss from diarrhea, lactic acid negative - NaHCO3 started by nephro # Hypokalemia - 2/2 diarrhea + poor diet, will place standing PO 40meq KCl liquid daily, check more than once per day # HTN -Norvasc 10mg daily # EtOH Withdrawal - Stopped ativan, continue thiamine, folate, MV # FEN - Sodium controlled diet, eating today # PPx - SCDs # Dispo - Continues to need inpatient care, DALTON continues to progress, possible hepatorenal picture Visit type - Emergency Visit Emergency Visit: No - New Patient This patient is new to me today: No - Critical Care Critical Care patient: No - Discharge Referral Referred to [facility] Med P.C.: No
[2017-01-16] MEDS: LORazepam 1 MG TABLET PO SCH (09:20)
[2017-01-16] MEDS: FOLIC ACID 1 MG TABLET (FP) PO SCH (09:21)
[2017-01-16] MEDS: amLODIPine BESYLATE 5 MG TABLET (FP) PO SCH (09:21)
[2017-01-16] MEDS: RIFAXIMIN 550 MG TABLET (UD) PO SCH ×2 (09:22→21:38)
[2017-01-16] MEDS: MULTIVITAMINS (DAILY MVI) TABLET (FP) PO SCH (09:22)
[2017-01-16] MEDS: THIAMINE HCL 100 MG TABLET (FP) PO SCH (09:22)
--- NOTE | 2017-01-16 10:07 | PN ---
Progress Note, Physician History of Present Illness: Awake and alert. No melena, chris blood in stool. Tremors. Nephrology input noted. - Current Medication List Current Medications: Active Medications Albumin Human (Albumin Human 25%) 25 gm IVPB Q6H MEI Stop: 01/16/17 20:46 Last Admin: 01/16/17 09:27 Dose: 25 gm Amlodipine Besylate (Norvasc -) 10 mg PO DAILY MEI Last Admin: 01/16/17 09:21 Dose: 10 mg Folic Acid (Folic Acid -) 1 mg PO DAILY MEI Last Admin: 01/16/17 09:21 Dose: 1 mg Piperacillin/Tazobactam/Dextrose (Zosyn 3.375gm Ivpb (Premix)) 50 mls @ 100 mls /hr IVPB Q8H-IV MEI PRN Reason: Protocol Last Admin: 01/16/17 09:27 Dose: 100 mls/hr Lactulose (Cephulac (Oral Use)) 30 gm PO Q6HPO MEI Last Admin: 01/16/17 06:00 Dose: Not Given Lorazepam (Ativan Injection -) 1 mg IVPUSH Q6H PRN PRN Reason: WITHDRAWAL(CONT SUBST) Last Admin: 01/10/17 04:22 Dose: 1 mg Lorazepam (Ativan -) 1 mg PO DAILY MEI Last Admin: 01/16/17 09:20 Dose: 1 mg Multivitamins/Minerals/Vitamin C (Tab-A-Vit -) 1 tab PO DAILY MEI Last Admin: 01/16/17 09:22 Dose: 1 tab Rifaximin (Xifaxan -) 550 mg PO BID [facility] Last Admin: 01/16/17 09:22 Dose: 550 mg Sodium Bicarbonate (Sodium Bicarbonate -) 1,300 mg PO TID [facility] Last Admin: 01/16/17 05:51 Dose: 1,300 mg Thiamine HCl (Vitamin B1 -) 100 mg PO DAILY [facility] Last Admin: 01/16/17 09:22 Dose: 100 mg - Objective Vital Signs: Vital Signs Temperature 98.3 F 01/16/17 06:00 Pulse Rate 85 01/16/17 06:00 Respiratory Rate 18 01/16/17 06:00 Blood Pressure 141/85 01/16/17 06:00 O2 Sat by Pulse Oximetry (%) 95 01/15/17 20:58 Constitutional: Yes: Calm, Mild Distress Cardiovascular: Yes: Regular Rate and Rhythm Respiratory: Yes: Tachypnea Gastrointestinal: Yes: Normal Bowel Sounds, Soft. No: Melena, Palpable Mass, Pulsatile Mass, Rectal Bleeding, Tenderness Neurological: Yes: Alert, Oriented, Lethargy Labs: CBC, BMP 01/16/17 06:00 01/16/17 06:00 INR, PTT INR 1.09 (0.82-1.09) 01/13/17 05:40 Abnormal Lab Results 01/15/17 01/15/17 01/15/17 11:25 15:00 17:00 RBC Hgb 10.7 L Hct 32.6 L RDW 17.0 H Plt Count 61 L D ABG pH 7.33 L ABG pCO2 at Pt Temp 18.4 L* ABG HCO3 9.4 L* ABG O2 Content 14.2 L ABG Base Excess -15.0 L* Potassium 2.8 L* Chloride 108 H Carbon Dioxide 10 L Anion Gap 20 H BUN 75 H Creatinine 5.1 H Random Glucose Calcium 7.3 L Magnesium 2.5 H Total Bilirubin Alkaline Phosphatase Total Protein Albumin Urine Protein Urine Glucose (UA) Urine Blood 01/15/17 01/16/17 01/16/17 18:30 06:00 06:00 RBC 3.59 L Hgb 9.9 L Hct 29.3 L RDW 17.3 H Plt Count 42 L D ABG pH ABG pCO2 at Pt Temp ABG HCO3 ABG O2 Content ABG Base Excess Potassium 3.0 L Chloride 112 H Carbon Dioxide 10 L Anion Gap 19 H BUN Creatinine Random Glucose 128 H D Calcium 7.4 L Magnesium Total Bilirubin 3.1 H D Alkaline Phosphatase 642 H D Total Protein 5.5 L Albumin 2.4 L D Urine Protein 3+ H Urine Glucose (UA) 1+ H Urine Blood 2+ H Problem List - Problems (1) Lethargy Code(s): R53.83 - OTHER FATIGUE (2) Elevated alkaline phosphatase level Code(s): R74.8 - ABNORMAL LEVELS OF OTHER SERUM ENZYMES (3) Liver mass, right lobe Code(s): R16.0 - HEPATOMEGALY, NOT ELSEWHERE CLASSIFIED Assessment/Plan Mild respiratory distress. Worsening renal function. Gastritis with multiple erosions on EGD and edematous colon on colonoscopy. Biopsies pending. HRS Midodrine, octreotide in addition to already started albumin ordered Daily CMP/Dir. bili ordered
[2017-01-16 10:43] LABS: CREATININE 5.3 mg/dL (0.7-1.3); SGOT/AST 33 U/L (15-37); SGPT/ALT 27 U/L (12-78)
[2017-01-16 10:51] LABS: BILIRUBIN,DIRECT 2.2 mg/dL (0.0-0.2)
[2017-01-16] MEDS ORDERED: POTASSIUM CHLORIDE ORAL LIQUID 20 MEQ/15 ML PO ONE ×3 (12:14→17:54)
[2017-01-16] MEDS: MIDODRINE HCL 5 MG TABLET PO SCH ×3 (12:52→18:47)
[2017-01-16] MEDS: OCTREOTIDE ACETATE 100 MCG/1 ML SQ SCH ×3 (12:53→21:38)
[2017-01-16] MEDS ORDERED: PT OWN MED DRAWER 7, Y5N ONE ×2 (13:43→18:19)
--- NOTE | 2017-01-16 13:44 | PN ---
Progress Note, Physician History of Present Illness: events noted patient very weak - Current Medication List Current Medications: Active Medications Albumin Human (Albumin Human 25%) 50 gm IVPB DAILY [facility] Amlodipine Besylate (Norvasc -) 10 mg PO DAILY [facility] Last Admin: 01/16/17 09:21 Dose: 10 mg Folic Acid (Folic Acid -) 1 mg PO DAILY [facility] Last Admin: 01/16/17 09:21 Dose: 1 mg Sodium Bicarbonate 75 meq/ (Dextrose/Sodium Chloride) 1,075 mls @ 35 mls/hr IV ASDIR [facility] Lactulose (Cephulac (Oral Use)) 30 gm PO Q6HPO [facility] Last Admin: 01/16/17 13:21 Dose: Not Given Midodrine (Proamatine -) 7.5 mg PO TID-MID [facility] Last Admin: 01/16/17 13:24 Dose: Not Given Multivitamins/Minerals/Vitamin C (Tab-A-Vit -) 1 tab PO DAILY [facility] Last Admin: 01/16/17 09:22 Dose: 1 tab Octreotide Acetate (Sandostatin -) 100 mcg SQ TID [facility] Last Admin: 01/16/17 13:24 Dose: Not Given Potassium Chloride (Potassium Chloride Oral Liquid) 40 meq PO DAILY [facility] Potassium Chloride (Potassium Chloride Oral Liquid) 40 meq PO ONCE ONE Stop: 01/16/17 13:40 Rifaximin (Xifaxan -) 550 mg PO BID [facility] Last Admin: 01/16/17 09:22 Dose: 550 mg Sodium Bicarbonate (Sodium Bicarbonate -) 1,300 mg PO TID [facility] Last Admin: 01/16/17 05:51 Dose: 1,300 mg Thiamine HCl (Vitamin B1 -) 100 mg PO DAILY [facility] Last Admin: 01/16/17 09:22 Dose: 100 mg - Objective Vital Signs: Vital Signs Temperature 98.3 F 01/16/17 06:00 Pulse Rate 85 01/16/17 06:00 Respiratory Rate 18 01/16/17 06:00 Blood Pressure 141/85 01/16/17 06:00 O2 Sat by Pulse Oximetry (%) 95 01/15/17 20:58 Constitutional: Yes: Calm, Mild Distress Cardiovascular: Yes: Regular Rate and Rhythm Respiratory: Yes: Regular, CTA Bilaterally Gastrointestinal: Yes: Normal Bowel Sounds, Soft Musculoskeletal: Yes: WNL Extremities: Yes: WNL Neurological: Yes: Alert, Oriented Psychiatric: Yes: Alert, Oriented Labs: CBC, BMP 01/16/17 06:00 INR, PTT INR 1.09 (0.82-1.09) 01/13/17 05:40 Assessment/Plan Problem List - Problems (1) Lethargy Code(s): R53.83 - OTHER FATIGUE (2) Elevated alkaline phosphatase level Code(s): R74.8 - ABNORMAL LEVELS OF OTHER SERUM ENZYMES 3 colitis renal failure plan stopped all abx rest as per primary continue to monitor will await renal plan rest as per primary
[2017-01-16] MEDS ORDERED: DEXTROSE 5%-0.45% SALINE 1,000 ML with SODIUM BICARBONATE 8.4% - 75 MEQ IV SCH ×2 (13:45→13:46)
--- NOTE | 2017-01-16 14:49 | PN ---
Progress Note, Physician History of Present Illness: Pt seen and examined at bedside. He is out of bed to chair today. He is more awake and alert. He denies shortness of breath. - Current Medication List Current Medications: Active Medications Albumin Human (Albumin Human 25%) 50 gm IVPB DAILY [facility] Amlodipine Besylate (Norvasc -) 10 mg PO DAILY [facility] Last Admin: 01/16/17 09:21 Dose: 10 mg Folic Acid (Folic Acid -) 1 mg PO DAILY [facility] Last Admin: 01/16/17 09:21 Dose: 1 mg Sodium Bicarbonate 75 meq/ (Dextrose/Sodium Chloride) 1,075 mls @ 35 mls/hr IV ASDIR [facility] Stop: 01/17/17 15:45 Lactulose (Cephulac (Oral Use)) 30 gm PO Q6HPO [facility] Last Admin: 01/16/17 13:21 Dose: Not Given Midodrine (Proamatine -) 7.5 mg PO TID-MID [facility] Last Admin: 01/16/17 13:24 Dose: Not Given Multivitamins/Minerals/Vitamin C (Tab-A-Vit -) 1 tab PO DAILY [facility] Last Admin: 01/16/17 09:22 Dose: 1 tab Octreotide Acetate (Sandostatin -) 100 mcg SQ TID [facility] Last Admin: 01/16/17 13:24 Dose: Not Given Potassium Chloride (Potassium Chloride Oral Liquid) 40 meq PO DAILY [facility] Potassium Chloride (Potassium Chloride Oral Liquid) 40 meq PO ONCE ONE Stop: 01/16/17 15:01 Rifaximin (Xifaxan -) 550 mg PO BID [facility] Last Admin: 01/16/17 09:22 Dose: 550 mg Sodium Bicarbonate (Sodium Bicarbonate -) 1,300 mg PO TID [facility] Last Admin: 01/16/17 05:51 Dose: 1,300 mg Thiamine HCl (Vitamin B1 -) 100 mg PO DAILY [facility] Last Admin: 01/16/17 09:22 Dose: 100 mg - Objective Vital Signs: Vital Signs Temperature 98.3 F 01/16/17 06:00 Pulse Rate 85 01/16/17 06:00 Respiratory Rate 18 01/16/17 06:00 Blood Pressure 141/85 01/16/17 06:00 O2 Sat by Pulse Oximetry (%) 95 01/15/17 20:58 Constitutional: Yes: Calm HENT: Yes: Atraumatic Cardiovascular: Yes: S1, S2 Respiratory: Yes: CTA Bilaterally Gastrointestinal: Yes: Ascites Genitourinary: Yes: Carter Present Musculoskeletal: Yes: Muscle Weakness Edema: No Neurological: Yes: Other (oriented but sluggish) Labs: CBC, BMP 01/16/17 06:00 01/16/17 10:31 INR, PTT INR 1.09 (0.82-1.09) 01/13/17 05:40 Assessment/Plan Current Medications Generic Name Dose Route Start Last Admin Trade Name [place] PRN Reason Stop Dose Admin Albumin Human 50 gm 01/17/17 10:00 Albumin Human 25% IVPB DAILY MEI Amlodipine Besylate 10 mg 01/13/17 10:00 01/16/17 09:21 Norvasc - PO 10 mg DAILY MEI Administration Folic Acid 1 mg 01/11/17 10:00 01/16/17 09:21 Folic Acid - PO 1 mg DAILY MEI Administration Sodium Bicarbonate 75 meq/ 1,075 mls @ 35 mls/hr 01/16/17 13:46 Dextrose/Sodium Chloride IV 01/17/17 15:45 ASDIR MEI Lactulose 30 gm 01/15/17 06:30 01/16/17 13:21 Cephulac (Oral Use) PO Not Given Q6HPO MEI Midodrine 7.5 mg 01/16/17 11:00 01/16/17 13:24 Proamatine - PO Not Given TID-MID MEI Multivitamins/Minerals/Vitamin C 1 tab 01/11/17 10:00 01/16/17 09:22 Tab-A-Vit - PO 1 tab DAILY MEI Administration Octreotide Acetate 100 mcg 01/16/17 11:00 01/16/17 13:24 Sandostatin - SQ Not Given TID MEI Potassium Chloride 40 meq 01/17/17 10:00 Potassium Chloride Oral Liquid PO DAILY MEI Potassium Chloride 40 meq 01/16/17 15:00 Potassium Chloride Oral Liquid PO 01/16/17 15:01 ONCE ONE Rifaximin 550 mg 01/10/17 22:00 01/16/17 09:22 Xifaxan - PO 550 mg BID MEI Administration Sodium Bicarbonate 1,300 mg 01/15/17 14:37 01/16/17 05:51 Sodium Bicarbonate - PO 1,300 mg TID MEI Administration Thiamine HCl 100 mg 01/11/17 10:00 01/16/17 09:22 Vitamin B1 - PO 100 mg DAILY MEI Administration Laboratory Tests 01/09/17 01/10/17 01/11/17 17:15 07:30 08:35 Urine Protein Urine Blood TESSY Screen Negative c-ANCA Proteinase 3 (PR3) p-ANCA Atypical p-ANCA Myeloperoxidase Ab Double Strand DNA Ab Glomerular Base Memb Ab Hep Bs Antigen Negative Hep Bs Antibody Non reactive Hep B Core Total Ab Negative Hep B Core IgM Ab Negative 01/12/17 01/15/17 01/15/17 07:35 06:20 18:30 Urine Protein 3+ H Urine Blood 2+ H TESSY Screen c-ANCA <1:20 Proteinase 3 (PR3) <3.5 p-ANCA <1:20 Atypical p-ANCA <1:20 Myeloperoxidase Ab <9.0 Double Strand DNA Ab 3 Glomerular Base Memb Ab Pending Hep Bs Antigen Hep Bs Antibody Hep B Core Total Ab Hep B Core IgM Ab Impression 1. liver cirrhosis 2. DALTON 3. thrombocytopenia 4. hypokalemia 5. acidosis 6. etoh abuse Plan - discussed with GI - cont albimun - po intake is poor and he is having diarrhea - will give gentle fluids with dextrose and bicarb - aggressively replace potassium and check potassium levels more than once per day - discussed with medical team - renal workup is negative so far - kidney biopsy will be risky at this point secondary to thrombocytopenia - monitor bicarb - monitor renal function - renal failure has been progressive - supplement potassium - likely hepatorenal disease - per family, he has a 35 year etoh history and he is rarely seen sober - pt is making urine - urinary sediment is active, reviewed repeat labs - could have ATN as well - will follow
--- NOTE | 2017-01-16 15:02 | PN ---
Teaching Attending Note Name of Resident: Michaela Mendoza ATTENDING PHYSICIAN STATEMENT I saw and evaluated the patient. I reviewed the resident's note and discussed the case with the resident. I agree with the resident's findings and plan as documented. SUBJECTIVE: Patient seen and examined. more awake and conversant today, denies any pain, dyspnea, Still with ongoing loose stools. No new complaints. OBJECTIVE: Vital Signs Period Temp Pulse Resp BP Sys/Arguelles Pulse Ox Last 24 Hr 97.9 F-98.7 F 80-85 18-20 139-141/78-85 95 Intake & Output 01/13/17 01/14/17 01/15/17 01/16/17 23:59 23:59 23:59 23:59 Intake Total 2602 244 6069 50 Output Total 800 491 854 9428 Balance 6706 760 5404 -950 General: positive icterus, in no acute distress, no use of acessory muscles of respiration CVS -S1S2 regular chest - decreased breath sounds at bases Abdomen - soft, distended (mildy worse than yesterday), non tender throughout, positive bowel sounds Extremities unchanged pedal edema Neuro AA, oriented Current Medications Albumin Human (Albumin Human 25%) 50 gm IVPB DAILY [facility] Amlodipine Besylate (Norvasc -) 10 mg PO DAILY [facility] Last Admin: 01/16/17 09:21 Dose: 10 mg Folic Acid (Folic Acid -) 1 mg PO DAILY [facility] Last Admin: 01/16/17 09:21 Dose: 1 mg Sodium Bicarbonate 75 meq/ (Dextrose/Sodium Chloride) 1,075 mls @ 35 mls/hr IV ASDIR [facility] Stop: 01/17/17 15:45 Lactulose (Cephulac (Oral Use)) 30 gm PO Q6HPO [facility] Last Admin: 01/16/17 13:21 Dose: Not Given Midodrine (Proamatine -) 7.5 mg PO TID-MID [facility] Last Admin: 01/16/17 13:24 Dose: Not Given Multivitamins/Minerals/Vitamin C (Tab-A-Vit -) 1 tab PO DAILY [facility] Last Admin: 01/16/17 09:22 Dose: 1 tab Octreotide Acetate (Sandostatin -) 100 mcg SQ TID [facility] Last Admin: 01/16/17 13:24 Dose: Not Given Potassium Chloride (Potassium Chloride Oral Liquid) 40 meq PO DAILY [facility] Rifaximin (Xifaxan -) 550 mg PO BID [facility] Last Admin: 01/16/17 09:22 Dose: 550 mg Sodium Bicarbonate (Sodium Bicarbonate -) 1,300 mg PO TID [facility] Last Admin: 01/16/17 05:51 Dose: 1,300 mg Thiamine HCl (Vitamin B1 -) 100 mg PO DAILY [facility] Last Admin: 01/16/17 09:22 Dose: 100 mg Laboratory Results - last 24 hr 01/15/17 01/15/17 01/15/17 06:20 15:00 17:00 WBC RBC Hgb Hct MCV MCH MCHC RDW Plt Count MPV Puncture Site Right radial ABG pH 7.33 L ABG pCO2 at Pt Temp 18.4 L* ABG pO2 at Pt Temp 94.0 ABG HCO3 9.4 L* ABG O2 Sat (Measured) 97.7 ABG O2 Content 14.2 L ABG Base Excess -15.0 L* Ramón Test Positive O2 Delivery Device R/a Oxygen Flow Rate 21% PEEP 0.0 Sodium 138 Potassium 2.8 L* Chloride 108 H Carbon Dioxide 10 L Anion Gap 20 H BUN 75 H Creatinine 5.1 H Creat Clearance w eGFR Random Glucose 102 Lactic Acid Calcium 7.3 L Magnesium 2.5 H Total Bilirubin Direct Bilirubin AST ALT Alkaline Phosphatase Total Protein Albumin Urine Color Urine Appearance Urine pH Ur Specific [place] Urine Protein Urine Glucose (UA) Urine Ketones Urine Blood Urine Nitrite Urine Bilirubin Urine Urobilinogen Ur Leukocyte Esterase Urine RBC Urine WBC Ur Epithelial Cells Urine Bacteria Urine Mucus Double Strand DNA Ab 3 01/15/17 01/15/17 01/16/17 18:00 18:30 06:00 WBC 4.2 RBC 3.59 L Hgb 9.9 L Hct 29.3 L MCV 81.7 MCH 27.5 MCHC 33.6 RDW 17.3 H Plt Count 42 L D MPV 9.6 D Puncture Site ABG pH ABG pCO2 at Pt Temp ABG pO2 at Pt Temp ABG HCO3 ABG O2 Sat (Measured) ABG O2 Content ABG Base Excess Ramón Test O2 Delivery Device Oxygen Flow Rate PEEP Sodium Potassium Chloride Carbon Dioxide Anion Gap BUN Creatinine Creat Clearance w eGFR Random Glucose Lactic Acid 2.0 Calcium Magnesium Total Bilirubin Direct Bilirubin AST ALT Alkaline Phosphatase Total Protein Albumin Urine Color Dkyellow Urine Appearance Cloudy Urine pH 5.0 Ur Specific [place] 1.015 Urine Protein 3+ H Urine Glucose (UA) 1+ H Urine Ketones Negative Urine Blood 2+ H Urine Nitrite Negative Urine Bilirubin Negative Urine Urobilinogen Negative Ur Leukocyte Esterase Negative Urine RBC 82 Urine WBC 3 Ur Epithelial Cells Rare Urine Bacteria Many Urine Mucus Rare Double Strand DNA Ab 01/16/17 01/16/17 06:00 10:31 WBC RBC Hgb Hct MCV MCH MCHC RDW Plt Count MPV Puncture Site ABG pH ABG pCO2 at Pt Temp ABG pO2 at Pt Temp ABG HCO3 ABG O2 Sat (Measured) ABG O2 Content ABG Base Excess Ramón Test O2 Delivery Device Oxygen Flow Rate PEEP Sodium 141 Cancelled Potassium 3.0 L Cancelled Chloride 112 H Cancelled Carbon Dioxide 10 L Cancelled Anion Gap 19 H Cancelled BUN 76 H Cancelled Creatinine 5.3 H Cancelled Creat Clearance w eGFR 11.24 Cancelled Random Glucose 128 H D Cancelled Lactic Acid Calcium 7.4 L Cancelled Magnesium Total Bilirubin 3.1 H D Cancelled Direct Bilirubin 2.2 H D Cancelled AST 33 Cancelled ALT 27 Cancelled Alkaline Phosphatase 642 H D Cancelled Total Protein 5.5 L Cancelled Albumin 2.4 L D Cancelled Urine Color Urine Appearance Urine pH Ur Specific [place] Urine Protein Urine Glucose (UA) Urine Ketones Urine Blood Urine Nitrite Urine Bilirubin Urine Urobilinogen Ur Leukocyte Esterase Urine RBC Urine WBC Ur Epithelial Cells Urine Bacteria Urine Mucus Double Strand DNA Ab ASSESSMENT AND PLAN: -Acute hepatitis, suspect ETOH induced -Hepatic encephalopathy -Pleural effusion/ascitis -Hypoalbuminemia -Hypokalemia -Acute colitis -ARF vs ARF on CKD, unknown baseline, unclear if from intravascular depletion vs hepatorenal syndrome -Normocytic anemia -Thrombocytopenia -HTN -Pseudohypocalcemia Plan: Zosyn day 7, for EGD/colonscopy noted, multiple gastric erosions, edematous colon. start protonix, outpatient biopsy results follow up. Antibiotic taper per ID. Worsening renal function, suspect intravascular depletion with third spacing from diarrhea/poor PO intake, cannot r/o hepatorenal syndrome. Tricky volume status given pleural effusion/ascitis Started on albumin/octreotide/midodrine/Bicarb drip, BMP q12h, monitor for now. Platelet transfusion as needed. Replete K aggressively. Place on standing K supplementation. Encourage PO intake. Lactulose/rifaximin. DVTPPX with SCDs prognosis guarded given multiple active issues and worsening renal function.
[2017-01-16] MEDS: PANTOPRAZOLE 40 MG TABLET (FP) PO SCH (15:18)
--- NOTE | 2017-01-16 15:29 | PATH ---
Surgical Pathology Report Patient Name: ALONZO BOLIVAR [facility]. Rec. #: [id number] /Age/Gender: 1960 (Age: 56) / M Account: [id number] Location: [address] [place] [address] Taken: 01/15/2017 Received: 01/15/2017 Reported: 01/16/2017 Physicians: Jarett Castellon M.D. Specimen(s) Received A: BX 2ND PORTION DUODENUM B: BX ANTRUM AND BODY C: ASCENDING COLON POLYP D: BX DESCENDING COLON E: POLYP SIGMOID Clinical History Liver cirrhosis, colitis Gastritis, duodenitis, colon polyp, colitis Final Diagnosis A. SECOND PORTION DUODENUM, BIOPSY: MODERATE CHRONIC DUODENITIS. B. ANTRUM AND BODY, BIOPSY: MODERATE CHRONIC GASTRITIS. IMMUNOSTAIN IS NEGATIVE FOR H. PYLORI ORGANISMS. C. ASCENDING COLON, BIOPSY: COLONIC MUCOSA SHOWING SMALL BENIGN/REACTIVE LYMPHOID AGGREGATE. NEGATIVE FOR COLITIS. D. DESCENDING COLON, BIOPSY: COLONIC MUCOSA SHOWING SMALL BENIGN/REACTIVE LYMPHOID AGGREGATE. NEGATIVE FOR COLITIS. E. SIGMOID, POLYP, POLYPECTOMY: TUBULAR ADENOMA. Electronically Signed Salma Blanco M.D. Gross Description A. Received in formalin, labeled "biopsy second portion of duodenum" are 2 givens, irregular portions of soft tissue measuring 0.1 and 0.3 cm. in greatest dimension. The specimens are submitted in toto in one cassette. B. Received in formalin, labeled "biopsy antrum and body" are 4 givens, irregular portions of soft tissue ranging from 0.2-0.5 cm. in greatest dimension. The specimens are submitted in toto in one cassette. C. Received in formalin, labeled "biopsy ascending colon" are 2 givens, irregular portions of soft tissue averaging 0.3 cm. in greatest dimension. The specimens are submitted in toto in one cassette. D. Received in formalin, labeled "biopsy descending colon" are 3 givens, irregular portions of soft tissue ranging from 0.1-0.2 cm. in greatest dimension. The specimens are submitted in toto in one cassette. E. Received in formalin, labeled "biopsy sigmoid polyp" are 2 givens, irregular portions of soft tissue measuring 0.1 and 0.4 cm. in greatest dimension. The specimens are submitted in toto in one cassette. /01/15/2017 saudi01/15/2017
[2017-01-16 17:00] LABS: URINE APPEARANCE CLOUDY; URINE BILIRUBIN NEGATIVE (NEGATIVE); URINE BLOOD 3+ (NEGATIVE); URINE COLOR AMBER; URINE GLUCOSE (UA) 2+ (NEGATIVE); URINE KETONE NEGATIVE (NEGATIVE); URINE NITRITE NEGATIVE (NEGATIVE); URINE UROBILINOGEN NEGATIVE mg/dL (0.2-1.0)
[2017-01-16 17:08] LABS: URINE PROTEIN 3+ (NEGATIVE)
[2017-01-16 17:15] LABS: URINE BACTERIA RARE /hpf (NONE SEEN); URINE MUCUS RARE; URINE RBC 211 /hpf (0-3); URINE WBC 26 /hpf (3-5); YEAST FEW
[2017-01-16 17:34] LABS: ANION GAP 18 (8-16); CALCIUM 7.6 mg/dL (8.5-10.1); CO2 9 mmol/L (21-32); CREATININE 5.2 mg/dL (0.7-1.3); GLUCOSE,RANDOM 153 mg/dL (74-106)
[2017-01-16 19:07] LABS: URINE LEUK ESTERASE Negative (NEGATIVE)
[2017-01-17] MEDS: LACTULOSE 20 GM/30 ML UDC (FOR ORAL USE ONLY) PO SCH ×3 (00:27→11:55)
[2017-01-17] MEDS: OCTREOTIDE ACETATE 100 MCG/1 ML SQ SCH ×3 (06:02→23:05)
[2017-01-17] MEDS: SODIUM BICARBONATE 650 MG TABLET PO SCH ×3 (06:03→22:25)
[2017-01-17 07:00] LABS: ALBUMIN 2.3 g/dl (3.4-5.0); ALK PHOS 524 U/L (45-117); ANION GAP 20 (8-16); BILIRUBIN,DIRECT 2.2 mg/dL (0.0-0.2); BILIRUBIN,TOTAL 2.9 mg/dL (0.2-1.0); CALCIUM 7.7 mg/dL (8.5-10.1); CO2 9 mmol/L (21-32); CREATININE 5.5 mg/dL (0.7-1.3); GLUCOSE,RANDOM 150 mg/dL (74-106); SGPT/ALT 28 U/L (12-78); TOT PROT 5.5 g/dl (6.4-8.2)
[2017-01-17 07:02] LABS: SGOT/AST 34 U/L (15-37)
[2017-01-17] MEDS ORDERED: ALBUMIN HUMAN 25% 12.5 GM/50 ML VIAL IVPB SCH (10:00)
[2017-01-17] MEDS ORDERED: POTASSIUM CHLORIDE ORAL LIQUID 20 MEQ/15 ML PO SCH (10:00)
[2017-01-17] MEDS ORDERED: PIPERACILLIN/TAZOB 2.25 GM/50 ML PREMIX BAG IVPB ONE (10:24)
[2017-01-17] MEDS: FOLIC ACID 1 MG TABLET (FP) PO SCH (10:27)
[2017-01-17] MEDS: THIAMINE HCL 100 MG TABLET (FP) PO SCH (10:28)
[2017-01-17] MEDS: amLODIPine BESYLATE 5 MG TABLET (FP) PO SCH (10:28)
[2017-01-17] MEDS: PANTOPRAZOLE 40 MG TABLET (FP) PO SCH (10:28)
[2017-01-17] MEDS: RIFAXIMIN 550 MG TABLET (UD) PO SCH ×2 (10:28→22:25)
[2017-01-17] MEDS ORDERED: PT OWN MED DRAWER 7, Y5N ONE ×2 (10:57→15:30)
--- NOTE | 2017-01-17 11:27 | PN ---
Progress Note, Physician History of Present Illness: Pt seen and examined. Chart, imaging and labs reviewed. Today patient is afebrile, denies pain. Reports about 3-4 BMs per day. Denies chills/fever, shortness of breath, or chest pain. - Current Medication List Current Medications: Active Medications Albumin Human (Albumin Human 25%) 50 gm IVPB DAILY [facility] Amlodipine Besylate (Norvasc -) 10 mg PO DAILY [facility] Last Admin: 01/17/17 10:28 Dose: 10 mg Folic Acid (Folic Acid -) 1 mg PO DAILY [facility] Last Admin: 01/17/17 10:27 Dose: 1 mg Sodium Bicarbonate 75 meq/ (Dextrose/Sodium Chloride) 1,075 mls @ 35 mls/hr IV ASDIR [facility] Stop: 01/17/17 15:45 Last Admin: 01/16/17 17:22 Dose: 35 mls/hr Piperacillin/Tazobactam/Dextrose (Zosyn 2.25gm Ivpb (Premix)) 50 mls @ 100 mls/ hr IVPB Q6H-IV [facility] PRN Reason: Protocol Lactulose (Cephulac (Oral Use)) 30 gm PO Q6HPO [facility] Last Admin: 01/17/17 06:03 Dose: 30 gm Midodrine (Proamatine -) 7.5 mg PO TID-MID [facility] Last Admin: 01/16/17 18:47 Dose: 7.5 mg Multivitamins/Minerals/Vitamin C (Tab-A-Vit -) 1 tab PO DAILY [facility] Last Admin: 01/16/17 09:22 Dose: 1 tab Octreotide Acetate (Sandostatin -) 100 mcg SQ TID [facility] Last Admin: 01/17/17 06:02 Dose: 100 mcg Pantoprazole Sodium (Protonix -) 40 mg PO DAILY [facility] Last Admin: 01/17/17 10:28 Dose: 40 mg Potassium Chloride (Potassium Chloride Oral Liquid) 40 meq PO DAILY [facility] Last Admin: 01/17/17 10:29 Dose: 40 meq Rifaximin (Xifaxan -) 550 mg PO BID [facility] Last Admin: 01/17/17 10:28 Dose: 550 mg Sodium Bicarbonate (Sodium Bicarbonate -) 1,300 mg PO TID [facility] Last Admin: 01/17/17 06:03 Dose: 1,300 mg Thiamine HCl (Vitamin B1 -) 100 mg PO DAILY [facility] Last Admin: 01/17/17 10:28 Dose: 100 mg - Objective Vital Signs: Vital Signs Temperature 98.2 F 01/17/17 08:45 Pulse Rate 68 01/17/17 08:45 Respiratory Rate 22 01/17/17 08:45 Blood Pressure 138/80 01/17/17 08:45 O2 Sat by Pulse Oximetry (%) 98 01/16/17 21:00 Constitutional: Yes: No Distress Cardiovascular: Yes: Tachycardia Respiratory: Yes: CTA Bilaterally Gastrointestinal: Yes: Normal Bowel Sounds, Soft Genitourinary: Yes: Carter Present Extremities: Yes: WNL, Other (SCDs on) Integumentary: Yes: WNL Psychiatric: Yes: Alert, Oriented Labs: CBC, BMP 01/16/17 06:00 01/17/17 05:55 INR, PTT INR 1.09 (0.82-1.09) 01/13/17 05:40 Assessment/Plan Acute Renal failure Diarrhea - stool studies negative - pt afebrile, no leukocytosis continue monitor off antibiotics
--- NOTE | 2017-01-17 11:33 | PN ---
Physical Exam: SUBJECTIVE: Patient seen and examined. States that his belly is more distended, and it hurts when he moves around. Still has no appetite. No SOB though visibly more tachypneic today. OBJECTIVE: Vital Signs Period Temp Pulse Resp BP Sys/Arguelles Pulse Ox Last 24 Hr 94 F-99.0 F 68-88 20-24 138-155/80-93 98 GEN: AAOx2, more tachypneic today, slightly increased labored breathing, but not SOB HEENT: PERRLA, EOMi, scleral icterus CV: S1, S2, RRR LUNG: Bibasilar crackles ABD: Soft, more distended, normoactive BS MSK: No edema, no erythema Laboratory Last Values WBC 4.2 K/mm3 (4.0-10.0) 01/16/17 06:00 RBC 3.59 M/mm3 (4.00-5.60) L 01/16/17 06:00 Hgb 9.9 GM/dL (11.7-16.9) L 01/16/17 06:00 Hct 29.3 % (35.4-49) L 01/16/17 06:00 MCV 81.7 fl (80-96) 01/16/17 06:00 MCH 27.5 pg (25.7-33.7) 01/16/17 06:00 MCHC 33.6 g/dl (32.0-35.9) 01/16/17 06:00 RDW 17.3 % (11.9-15.9) H 01/16/17 06:00 Plt Count 42 K/MM3 (134-434) L D 01/16/17 06:00 MPV 9.6 fl (7.5-11.1) D 01/16/17 06:00 Neutrophils % 87.1 % (42.8-82.8) H 01/12/17 07:35 Lymphocytes % 7.7 % (8-40) L 01/12/17 07:35 Monocytes % 3.7 % (3.8-10.2) L 01/12/17 07:35 Eosinophils % 0.4 % (0-4.5) 01/12/17 07:35 Basophils % 1.1 % (0-2.0) 01/12/17 07:35 Platelet Estimate Markedly decreased (NORMAL) 01/09/17 16:20 PT with INR 12.30 SEC (9.98-11.88) H 01/13/17 05:40 INR 1.09 (0.82-1.09) 01/13/17 05:40 PTT (Actin FS) 32.5 SECONDS (26.9-34.4) 01/10/17 07:30 Puncture Site Right radial 01/15/17 15:00 ABG pH 7.33 (7.35-7.45) L 01/15/17 15:00 ABG pCO2 at Pt Temp 18.4 mmHg (35-45) L* 01/15/17 15:00 ABG pO2 at Pt Temp 94.0 mmHg (80-100) 01/15/17 15:00 ABG HCO3 9.4 meq/L (22-26) L* 01/15/17 15:00 ABG O2 Sat (Measured) 97.7 % (90-98.9) 01/15/17 15:00 ABG O2 Content 14.2 % vol (15-22) L 01/15/17 15:00 ABG Base Excess -15.0 meq/l (-2-2) L* 01/15/17 15:00 Ramón Test Positive 01/15/17 15:00 O2 Delivery Device R/a 01/15/17 15:00 Oxygen Flow Rate 21% 01/15/17 15:00 PEEP 0.0 cmH2O 01/15/17 15:00 Sodium 144 mmol/L (136-145) 01/17/17 05:55 Potassium 3.6 mmol/L (3.5-5.1) 01/17/17 05:55 Chloride 115 mmol/L (98-107) H 01/17/17 05:55 Carbon Dioxide 9 mmol/L (21-32) L 01/17/17 05:55 Anion Gap 20 (8-16) H 01/17/17 05:55 Hepatic Function Panel 66 % (13-88) 01/11/17 08:35 BUN 77 mg/dL (7-18) H 01/17/17 05:55 Creatinine 5.5 mg/dL (0.7-1.3) H 01/17/17 05:55 Creat Clearance w eGFR 10.77 (>60) 01/17/17 05:55 Random Glucose 150 mg/dL (74-106) H 01/17/17 05:55 Lactic Acid 2.0 mmol/L (0.4-2.0) 01/15/17 18:00 Calcium 7.7 mg/dL (8.5-10.1) L 01/17/17 05:55 Phosphorus 5.2 mg/dL (2.5-4.9) H 01/12/17 07:35 Magnesium 2.5 mg/dL (1.8-2.4) H 01/15/17 17:00 Total Bilirubin 2.9 mg/dL (0.2-1.0) H 01/17/17 05:55 Direct Bilirubin 2.2 mg/dL (0.0-0.2) H 01/17/17 05:55 GGT 880 U/L (5-85) H 01/11/17 08:35 AST 34 U/L (15-37) 01/17/17 05:55 ALT 28 U/L (12-78) 01/17/17 05:55 Alkaline Phosphatase 524 U/L (45-117) H 01/17/17 05:55 Ammonia 36.41 umol/L (11-32) H 01/09/17 18:55 Total Protein 5.5 g/dl (6.4-8.2) L 01/17/17 05:55 Albumin 2.3 g/dl (3.4-5.0) L 01/17/17 05:55 Lipase 221 U/L (73-393) 01/09/17 17:15 Tumor Marker AFP 1.0 ng/ml (0.0-8.3) 01/11/17 08:35 Urine Color Salma 01/16/17 15:30 Urine Appearance Cloudy 01/16/17 15:30 Urine pH 5.0 (5.0-8.0) 01/16/17 15:30 Ur Specific [place] 1.020 (1.005-1.025) 01/16/17 15:30 Urine Protein 3+ (NEGATIVE) H 01/16/17 15:30 Urine Glucose (UA) 2+ (NEGATIVE) H 01/16/17 15:30 Urine Ketones Negative (NEGATIVE) 01/16/17 15:30 Urine Blood 3+ (NEGATIVE) H 01/16/17 15:30 Urine Nitrite Negative (NEGATIVE) 01/16/17 15:30 Urine Bilirubin Negative (NEGATIVE) 01/16/17 15:30 Urine Urobilinogen Negative mg/dL (0.2-1.0) 01/16/17 15:30 Ur Leukocyte Esterase Negative (NEGATIVE) 01/16/17 15:30 Urine RBC 211 /hpf (0-3) 01/16/17 15:30 Urine WBC 26 /hpf (3-5) 01/16/17 15:30 Ur Epithelial Cells Rare /hpf (FEW) 01/16/17 15:30 Urine Bacteria Rare /hpf (NONE SEEN) 01/16/17 15:30 Urine Mucus Rare 01/16/17 15:30 Urine Yeast Few 01/16/17 15:30 U Random Total Protein 427 mg/dl (5-11.9) H 01/12/17 06:00 Ur Random Sodium 34 MMOL/L 01/16/17 15:30 Ur Random Potassium 24.6 MMOL/L 01/16/17 15:30 Ur Random Chloride 15 MMOL/L 01/16/17 15:30 Urine Creatinine 59.0 mg/dL (20-370) 01/16/17 15:30 Protein/Creatinin Ratio 6.325 MG/DL 01/12/17 06:00 Peritoneal WBC 91 /mm3 01/13/17 15:00 Peritoneal RBC 673 /mm3 01/13/17 15:00 Periton Neutrophils 45 % 01/13/17 15:00 Periton Lymphocytes 22 % 01/13/17 15:00 Peritoneal Monocytes 25 % 01/13/17 15:00 Periton Mesothelial 1 % 01/13/17 15:00 Periton Macrophages 7 % 01/13/17 15:00 Peritoneal Tot Protein 1 gm/dL 01/13/17 15:00 Peritoneal Albumin 0 g/dL 01/13/17 15:00 Peritoneal LDH 89 IU/L 01/13/17 15:00 Peritoneal Glucose 134 mg/dL 01/13/17 15:00 Peritoneal Amylase 54 U/L 01/13/17 15:00 Peritoneal Triglycerid 45 mg/dL 01/13/17 15:00 Stool Occult Blood Positive (NEGATIVE) 01/10/17 19:30 Stool Calprotectin TNP 01/11/17 06:00 TESSY Screen Negative (.) 01/11/17 08:35 c-ANCA <1:20 titer (Neg:<1:20) 01/12/17 07:35 Proteinase 3 (PR3) <3.5 U/mL (0.0-3.5) 01/12/17 07:35 p-ANCA <1:20 titer (Neg:<1:20) 01/12/17 07:35 Atypical p-ANCA <1:20 titer (Neg:<1:20) 01/12/17 07:35 Myeloperoxidase Ab <9.0 U/mL (0.0-9.0) 01/12/17 07:35 Double Strand DNA Ab 3 IU/mL (0-9) 01/15/17 06:20 Smooth Musc &[employer] Intrp 6 Units (0-19) 01/11/17 08:35 Hep A IgM Ab Confirm Negative (Negative) 01/10/17 07:30 Hepatitis A Ab Total Positive (Negative) H 01/10/17 07:30 Hep Bs Antigen Negative (Negative) 01/10/17 07:30 Hep Bs Antibody Non reactive (.) 01/10/17 07:30 Hep B Core Total Ab Negative (Negative) 01/10/17 07:30 Hep B Core IgM Ab Negative (Negative) 01/09/17 17:15 Hepatitis C Antibody 0.3 s/co ratio (0.0-0.9) 01/11/17 17:20 Blood Type O POSITIVE 01/13/17 08:20 Antibody Screen Negative 01/13/17 08:20 Active Medications Generic Name Dose Route Start Last Admin Trade Name Freq PRN Reason Stop Dose Admin Albumin Human 50 gm 01/17/17 10:00 01/17/17 11:53 Albumin Human 25% IVPB 50 gm DAILY [facility] Administration Amlodipine Besylate 10 mg 01/13/17 10:00 01/17/17 10:28 Norvasc - PO 10 mg DAILY [facility] Administration Folic Acid 1 mg 01/11/17 10:00 01/17/17 10:27 Folic Acid - PO 1 mg DAILY [facility] Administration Meropenem 500 mg/ Dextrose 100 mls @ 400 mls/hr 01/17/17 22:00 IVPB BID [facility] Midodrine 7.5 mg 01/16/17 11:00 01/17/17 15:35 Proamatine - PO 7.5 mg TID-MID [facility] Administration Multivitamins/Minerals/Vitamin C 1 tab 01/11/17 10:00 01/17/17 11:55 Tab-A-Vit - PO 1 tab DAILY [facility] Administration Octreotide Acetate 100 mcg 01/16/17 11:00 01/17/17 15:41 Sandostatin - SQ 100 mcg TID [facility] Administration Pantoprazole Sodium 40 mg 01/16/17 15:15 01/17/17 10:28 Protonix - PO 40 mg DAILY [facility] Administration Potassium Chloride 40 meq 01/17/17 10:00 01/17/17 10:29 Potassium Chloride Oral Liquid PO 40 meq DAILY [facility] Administration Rifaximin 550 mg 01/10/17 22:00 01/17/17 10:28 Xifaxan - PO 550 mg BID [facility] Administration Sodium Bicarbonate 1,300 mg 01/15/17 14:37 01/17/17 15:43 Sodium Bicarbonate - PO 1,300 mg TID [facility] Administration Thiamine HCl 100 mg 01/11/17 10:00 01/17/17 10:28 Vitamin B1 - PO 100 mg DAILY [facility] Administration ASSESSMENT/PLAN: 56yo M w/ PMHx of EtOH abuse (+30 yrs) who presented to ER w/ nausea, vomiting, profuse watery diarrhea, 15 lb wt loss. Found to have elevated LFTs. # Alcoholic Hepatitis - 500cc fluid challenge yest lead to increased ascites w/ symptomatic SOB, still worsening DAL[place] - Nephro (Dr Mcadams) agrees to therapeutic tap, IR willing to do it Thursday w/ possible pleur-ex for continual drainage - Cont Lactulose + Rifamixin for HE; Cont albumin 50mg QD for third spacing - If pt becomes very SOB, will give prn BiPAP and possibly ?Lasix in the meantime # DALTON - ?hepatorenal, worsening, currently in ATN picture w/ FeNa 2.2% - Continue Midodrine and Octreotide as per GI, continue low salt diet # Chronic Diarrhea - unk cause carlene, surg path of colonoscopy shows no colitis, stool cultures neg, ?malabsorption related to liver dz # Hypothermia - ?GI source, ?pneumonia, w/ ID reccs, start Meropenem 500mg BID in light of new hypothermia # Pulmonary Infiltrates - seen on new CT, venous congestion vs PNA # HAGMA - 2/2 bicarb loss from diarrhea, lactic acid negative, NaHCO3 started by nephro # Gastritis - w/ erosions, seen on EGD, likely from alcohol, started on protonix PO # Hypokalemia - 2/2 diarrhea + poor diet, will place standing PO 40meq KCl liquid daily # HTN - Norvasc 10mg daily # EtOH Withdrawal - Stopped ativan, continue thiamine, folate, MV # FEN - Sodium controlled diet, eating today # PPx - SCDs # Dispo - Continues to need inpatient care, guarded prognosis given possible hepatorenal picture, now in ATN. Progressing condition, will transfer to tele for closer monitoring. Family is aware. Visit type - Emergency Visit Emergency Visit: No - New Patient This patient is new to me today: No - Critical Care Critical Care patient: No - Discharge Referral Referred to [facility] No
[2017-01-17] MEDS: MULTIVITAMINS (DAILY MVI) TABLET (FP) PO SCH (11:55)
[2017-01-17] MEDS: MIDODRINE HCL 5 MG TABLET PO SCH ×3 (11:55→18:57)
--- NOTE | 2017-01-17 12:41 | PN ---
Teaching Attending Note Name of Resident: Michaela Mendoza ATTENDING PHYSICIAN STATEMENT I saw and evaluated the patient. I reviewed the resident's note and discussed the case with the resident. I agree with the resident's findings and plan as documented. SUBJECTIVE: Patient seen and examined. Denies any dyspnea, nausea, vomiting. Reports some abdominal pain generalized, ongoing diarrhea. Poor oral intake. OBJECTIVE: Vital Signs Period Temp Pulse Resp BP Sys/Arguelles Pulse Ox Last 24 Hr 94 F-99.0 F 68-88 20-24 138-155/80-93 98 Intake & Output 01/14/17 01/15/17 01/16/17 01/17/17 23:59 23:59 23:59 23:59 Intake Total 820 5316 470 420 Output Total 022 007 4620 400 Balance 195 4566 -1130 20 General mildly tachypneic in bed, able to speak in full sentences, icterus ABdomen soft, worsened distension, mild tenderness in amilcar-umbilical region, unable to appreciate bowel sounds Extremities trace pedal edema CVS -S1S2 regular Chest decreased breath sounds at bases Current Medications Albumin Human (Albumin Human 25%) 50 gm IVPB DAILY [facility] Last Admin: 01/17/17 11:53 Dose: 50 gm Amlodipine Besylate (Norvasc -) 10 mg PO DAILY [facility] Last Admin: 01/17/17 10:28 Dose: 10 mg Folic Acid (Folic Acid -) 1 mg PO DAILY [facility] Last Admin: 01/17/17 10:27 Dose: 1 mg Sodium Bicarbonate 75 meq/ (Dextrose/Sodium Chloride) 1,075 mls @ 35 mls/hr IV ASDIR [facility] Stop: 01/17/17 15:45 Last Admin: 01/16/17 17:22 Dose: 35 mls/hr Piperacillin/Tazobactam/Dextrose (Zosyn 2.25gm Ivpb (Premix)) 50 mls @ 100 mls/ hr IVPB Q6H-IV [facility] PRN Reason: Protocol Lactulose (Cephulac (Oral Use)) 30 gm PO Q6HPO [facility] Last Admin: 01/17/17 06:03 Dose: 30 gm Midodrine (Proamatine -) 7.5 mg PO TID-MID [facility] Last Admin: 01/16/17 18:47 Dose: 7.5 mg Multivitamins/Minerals/Vitamin C (Tab-A-Vit -) 1 tab PO DAILY [facility] Last Admin: 01/16/17 09:22 Dose: 1 tab Octreotide Acetate (Sandostatin -) 100 mcg SQ TID [facility] Last Admin: 01/17/17 06:02 Dose: 100 mcg Pantoprazole Sodium (Protonix -) 40 mg PO DAILY [facility] Last Admin: 01/17/17 10:28 Dose: 40 mg Potassium Chloride (Potassium Chloride Oral Liquid) 40 meq PO DAILY [facility] Last Admin: 01/17/17 10:29 Dose: 40 meq Rifaximin (Xifaxan -) 550 mg PO BID [facility] Last Admin: 01/17/17 10:28 Dose: 550 mg Sodium Bicarbonate (Sodium Bicarbonate -) 1,300 mg PO TID [facility] Last Admin: 01/17/17 06:03 Dose: 1,300 mg Thiamine HCl (Vitamin B1 -) 100 mg PO DAILY [facility] Last Admin: 01/17/17 10:28 Dose: 100 mg Laboratory Results - last 24 hr 01/15/17 01/16/17 01/16/17 06:20 10:31 15:30 Sodium Cancelled Potassium Cancelled Chloride Cancelled Carbon Dioxide Cancelled Anion Gap Cancelled BUN Cancelled Creatinine Cancelled Creat Clearance w eGFR Cancelled Random Glucose Cancelled Calcium Cancelled Total Bilirubin Cancelled Direct Bilirubin Cancelled AST Cancelled ALT Cancelled Alkaline Phosphatase Cancelled Total Protein Cancelled Albumin Cancelled Urine Color Urine Appearance Urine pH Ur Specific [place] Urine Protein Urine Glucose (UA) Urine Ketones Urine Blood Urine Nitrite Urine Bilirubin Urine Urobilinogen Ur Leukocyte Esterase Urine RBC Urine WBC Ur Epithelial Cells Urine Bacteria Urine Mucus Urine Yeast Ur Random Sodium 34 Ur Random Potassium 24.6 Ur Random Chloride 15 Urine Creatinine Double Strand DNA Ab 3 01/16/17 01/16/17 01/16/17 15:30 15:30 16:00 Sodium 139 Potassium 3.3 L Chloride 112 H Carbon Dioxide 9 L Anion Gap 18 H BUN 73 H Creatinine 5.2 H Creat Clearance w eGFR Random Glucose 153 H Calcium 7.6 L Total Bilirubin Direct Bilirubin AST ALT Alkaline Phosphatase Total Protein Albumin Urine Color Salma Urine Appearance Cloudy Urine pH 5.0 Ur Specific [place] 1.020 Urine Protein 3+ H Urine Glucose (UA) 2+ H Urine Ketones Negative Urine Blood 3+ H Urine Nitrite Negative Urine Bilirubin Negative Urine Urobilinogen Negative Ur Leukocyte Esterase Negative Urine RBC 211 Urine WBC 26 Ur Epithelial Cells Rare Urine Bacteria Rare Urine Mucus Rare Urine Yeast Few Ur Random Sodium Ur Random Potassium Ur Random Chloride Urine Creatinine 59.0 Double Strand DNA Ab 01/17/17 05:55 Sodium 144 Potassium 3.6 Chloride 115 H Carbon Dioxide 9 L Anion Gap 20 H BUN 77 H Creatinine 5.5 H Creat Clearance w eGFR 10.77 Random Glucose 150 H Calcium 7.7 L Total Bilirubin 2.9 H Direct Bilirubin 2.2 H AST 34 ALT 28 Alkaline Phosphatase 524 H Total Protein 5.5 L Albumin 2.3 L Urine Color Urine Appearance Urine pH Ur Specific [place] Urine Protein Urine Glucose (UA) Urine Ketones Urine Blood Urine Nitrite Urine Bilirubin Urine Urobilinogen Ur Leukocyte Esterase Urine RBC Urine WBC Ur Epithelial Cells Urine Bacteria Urine Mucus Urine Yeast Ur Random Sodium Ur Random Potassium Ur Random Chloride Urine Creatinine Double Strand DNA Ab ASSESSMENT AND PLAN: -Acute hepatitis, suspect ETOH induced -Hepatic encephalopathy -Pleural effusion/ascitis -Hypoalbuminemia -Hypokalemia -Acute colitis -ARF vs ARF on CKD, unknown baseline, unclear if from intravascular depletion with resultant ATN vs hepatorenal syndrome -Normocytic anemia -Thrombocytopenia -HTN -Pseudohypocalcemia Plan: Zosyn day 8 (resumed today given episode of hypothermia yesterday and abdominal pain). Worsening ascitis with tachypneia today, discussed with IR, oxygenating well, plan for diagnostic/therapeutic paracentesis on Thursday after platelet transfusion. Check non contrast CT chest/A/P. EGD/colonscopy noted, multiple gastric erosions, edematous colon. Continue Protonix, outpatient biopsy results follow up. ID inptu noted Worsening renal function, suspect intravascular depletion with third spacing from diarrhea/poor PO intake with resultant ATN, cannot r/o hepatorenal syndrome. Tricky volume status given pleural effusion/ascitis Started on albumin/octreotide/midodrine/Bicarb drip, BMP q12h, monitor for now. Worsening ascitis and also suspect more pleural effusion. Plan for paracentesis , repeat chest/abdominal imaging as above. Monitor closely. Platelet transfusion as needed. Replete K aggressively. Place on standing K supplementation. Encourage PO intake. Lactulose/rifaximin. DVTPPX with SCDs prognosis guarded given multiple active issues and worsening renal function, continue to monitor closely, transfer to telemetry given worsening clinical status, for closer monitoring.
[2017-01-17] MEDS: PIPERACILLIN/TAZOB 2.25 GM 50 ML IVPB SCH ×2 (15:38→15:40)
[2017-01-17 16:26] LABS: BASOPHIL 0.1 % (0-2.0); EOSINOPHIL 0.7 % (0-4.5); MCH 27.3 pg (25.7-33.7); MEAN CELL VOLUME 82.9 fl (80-96); MEAN PLT VOLUME 10.1 fl (7.5-11.1); NEUTROPHILS 90.6 % (42.8-82.8); RDW 18.5 % (11.9-15.9); WHITE BLOOD COUNT 6.6 K/mm3 (4.0-10.0)
--- NOTE | 2017-01-17 16:28 | PN ---
GI Progress Note Subjective: No acute events Increased abdominal girth reported by nurse copious diarrhea reported - Objective Vital Signs: Vital Signs Temperature 96.2 F L 01/17/17 11:00 Pulse Rate 68 01/17/17 08:45 Respiratory Rate 22 01/17/17 08:45 Blood Pressure 138/80 01/17/17 08:45 O2 Sat by Pulse Oximetry (%) 98 01/16/17 21:00 Constitutional: Calm Eyes: Yes: Sclera Icterus Cardiovascular: Yes: Regular Rate and Rhythm Respiratory: Yes: Diminished (at left base > right with mild rhonchi left lung base) Gastrointestinal Inspection: Yes: Distention, Other (Dressing in RLQ.) ...Auscultate: Yes: Normoactive Bowel Sounds ...Palpate: Yes: Soft. No: Tenderness ...Percussion: Yes: Dullness. No: Tympanitic Edema: Yes (trace LE edema) Neurological: Yes: Alert. No: Asterix[facility] Labs: CBC, BMP 01/17/17 05:55 INR, PTT INR 1.09 (0.82-1.09) 01/13/17 05:40 Hepatic Panel Hepatic Function Panel 66 % (13-88) 01/11/17 08:35 Total Bilirubin 2.9 mg/dL (0.2-1.0) H 01/17/17 05:55 Direct Bilirubin 2.2 mg/dL (0.0-0.2) H 01/17/17 05:55 AST 34 U/L (15-37) 01/17/17 05:55 ALT 28 U/L (12-78) 01/17/17 05:55 Alkaline Phosphatase 524 U/L (45-117) H 01/17/17 05:55 Albumin 2.3 g/dl (3.4-5.0) L 01/17/17 05:55 - ....Imaging Cat Scan: Report Reviewed (diffuse interstitial opacities, small bilateral pleural effusions, atelectatic changes left lung base. moderate ascites) Assessment/Plan Alcoholic hepatitis In setting of cirrhosis with sequelae of ascites, possible HRS vs. alternate renal pathology (UA + for blood, RBC,Protein) -May need repeat paracentesis at some point however no need for urgent one at this time -On Midodrine / Octreotide and being followed by nephrology -Diarrhea: Stopping lactulose today given the profound metabolic acidosis. Continue Rifaximin. Also, Antibiotics were just stoppped yesterday by ID however restarted by primary team today. consider recalling ID. Abx would also be a source for Na load. -Sodium controlled diet -Being transferred to monitored setting Overall poor prognosis. Family is aware of this
[2017-01-17 16:32] LABS: PLATELET COUNT 35 K/MM3 (134-434)
[2017-01-17] MEDS ORDERED: MEROPENEM 500 MG VIAL (RESTRICTED TO ID) IVPB SCH (22:00)
[2017-01-17] MEDS: MEROPENEM 500 MG in DEXTROSE 5%-WATER - 100 ML IVPB SCH (23:06)
[2017-01-18] MEDS: SODIUM BICARBONATE 650 MG TABLET PO SCH ×3 (06:15→21:58)
[2017-01-18] MEDS: OCTREOTIDE ACETATE 100 MCG/1 ML SQ SCH ×3 (06:16→22:26)
[2017-01-18 06:30] LABS: BASOPHIL 0.3 % (0-2.0); EOSINOPHIL 1.2 % (0-4.5); MCH 27.5 pg (25.7-33.7); MCHC 33.2 g/dl (32.0-35.9); MEAN CELL VOLUME 82.8 fl (80-96); MEAN PLT VOLUME 9.4 fl (7.5-11.1); NEUTROPHILS 88.7 % (42.8-82.8); RDW 18.7 % (11.9-15.9); WHITE BLOOD COUNT 5.5 K/mm3 (4.0-10.0)
[2017-01-18 06:37] LABS: PLATELET COUNT 32 K/MM3 (134-434)
[2017-01-18 07:18] LABS: ALBUMIN 2.3 g/dl (3.4-5.0); ALK PHOS 405 U/L (45-117); ANION GAP 18 (8-16); BILIRUBIN,DIRECT 2.3 mg/dL (0.0-0.2); BILIRUBIN,TOTAL 3.1 mg/dL (0.2-1.0); CALCIUM 7.7 mg/dL (8.5-10.1); CO2 10 mmol/L (21-32); CREATININE 6.4 mg/dL (0.7-1.3); GLUCOSE,RANDOM 129 mg/dL (74-106); SGOT/AST 36 U/L (15-37); SGPT/ALT 27 U/L (12-78); TOT PROT 5.5 g/dl (6.4-8.2)
[2017-01-18] MEDS ORDERED: LACTULOSE 20 GM/30 ML UDC (FOR ORAL USE ONLY) PO ONE (09:00)
[2017-01-18] MEDS ORDERED: PT OWN MED DRAWER 7, Y5N ONE ×3 (09:02→21:36)
[2017-01-18] MEDS: MEROPENEM 500 MG in DEXTROSE 5%-WATER - 100 ML IVPB SCH ×2 (09:41→21:57)
[2017-01-18] MEDS: FOLIC ACID 1 MG TABLET (FP) PO SCH (09:42)
[2017-01-18] MEDS: amLODIPine BESYLATE 5 MG TABLET (FP) PO SCH (09:42)
[2017-01-18] MEDS: PANTOPRAZOLE 40 MG TABLET (FP) PO SCH (09:42)
[2017-01-18] MEDS: MULTIVITAMINS (DAILY MVI) TABLET (FP) PO SCH (09:42)
[2017-01-18] MEDS: THIAMINE HCL 100 MG TABLET (FP) PO SCH (09:42)
[2017-01-18] MEDS: RIFAXIMIN 550 MG TABLET (UD) PO SCH ×2 (09:42→21:58)
[2017-01-18] MEDS: MIDODRINE HCL 5 MG TABLET PO SCH ×3 (09:43→17:54)
[2017-01-18] MEDS ORDERED: POTASSIUM CHLORIDE ORAL LIQUID 20 MEQ/15 ML PO SCH (10:00)
[2017-01-18] MEDS ORDERED: ALBUMIN HUMAN 25% 12.5 GM/50 ML VIAL IVPB SCH (10:00)
--- NOTE | 2017-01-18 11:17 | PN ---
Progress Note, Physician History of Present Illness: Pt seen and examined. Events noted. Was transferred to ICU for closer monitoring. He is alert and asking to go home. Still with loose stools reported on Lactulose. Less hypothermic today. - Current Medication List Current Medications: Active Medications Amlodipine Besylate (Norvasc -) 10 mg PO DAILY [facility] Last Admin: 01/18/17 09:42 Dose: 10 mg Folic Acid (Folic Acid -) 1 mg PO DAILY [facility] Last Admin: 01/18/17 09:42 Dose: 1 mg Meropenem 500 mg/ Dextrose 100 mls @ 400 mls/hr IVPB BID [facility] Last Admin: 01/18/17 09:41 Dose: 400 mls/hr Midodrine (Proamatine -) 7.5 mg PO TID-MID [facility] Last Admin: 01/18/17 09:43 Dose: 7.5 mg Multivitamins/Minerals/Vitamin C (Tab-A-Vit -) 1 tab PO DAILY [facility] Last Admin: 01/18/17 09:42 Dose: 1 tab Octreotide Acetate (Sandostatin -) 100 mcg SQ TID [facility] Last Admin: 01/18/17 06:16 Dose: 100 mcg Pantoprazole Sodium (Protonix -) 40 mg PO DAILY [facility] Last Admin: 01/18/17 09:42 Dose: 40 mg Potassium Chloride (Potassium Chloride Oral Liquid) 40 meq PO DAILY [facility] Last Admin: 01/18/17 09:46 Dose: 40 meq Rifaximin (Xifaxan -) 550 mg PO BID [facility] Last Admin: 01/18/17 09:42 Dose: 550 mg Sodium Bicarbonate (Sodium Bicarbonate -) 1,300 mg PO TID [facility] Last Admin: 01/18/17 06:15 Dose: 1,300 mg Thiamine HCl (Vitamin B1 -) 100 mg PO DAILY [facility] Last Admin: 01/18/17 09:42 Dose: 100 mg - Objective Vital Signs: Vital Signs Temperature 98.4 F 01/18/17 06:00 Pulse Rate 87 01/18/17 08:00 Respiratory Rate 22 01/18/17 08:00 Blood Pressure 159/91 01/18/17 08:00 O2 Sat by Pulse Oximetry (%) 100 01/18/17 09:00 Constitutional: Yes: Mild Distress Cardiovascular: Yes: Regular Rate and Rhythm Respiratory: Yes: Diminished Gastrointestinal: Yes: Normal Bowel Sounds, Soft, Ascites, Distention Extremities: Yes: Other (mild edema) Integumentary: Yes: WNL Neurological: Yes: Alert Labs: CBC, BMP 01/18/17 05:05 01/18/17 05:05 INR, PTT INR 1.09 (0.82-1.09) 01/13/17 05:40 Repeat Blood cultures sent- results pending - ....Imaging Cat Scan: Report Reviewed Assessment/Plan ETOH abuse Worsening abd distension Colitis Pulmonary vascular congestion with possible superimposed PNA -- restarted on Meropenem yesterday by me, continue -- no diarrhea at this time , has been on lactulose -- repeat C. difficile testing ordered, last was negative along with previous stool cultures showing no growth -- hypothermia appears to have resolved continue close monitoring CC time: 40 min
--- NOTE | 2017-01-18 12:32 | PN ---
Teaching Attending Note Name of Resident: Solo Crabtree ATTENDING PHYSICIAN STATEMENT SUBJECTIVE: Patient seen and examined. Denies any chest pain, palpitations, or dyspnea. Anxious in bed, fidgety, reports some abdominal pain, no fevers or chills. OBJECTIVE: Vital Signs Period Temp Pulse Resp BP Sys/Arguelles Pulse Ox Last 24 Hr 97.7 F-98.4 F 78-91 17-25 158-175/88-95 100-100 Intake & Output 01/15/17 01/16/17 01/17/17 01/18/17 23:59 23:59 23:59 23:59 Intake Total 5316 470 920 120 Output Total 750 1600 450 200 Balance 4566 -1130 470 -80 General: mild distress, anxious in bed, + icterus CVS S1s2 regular Chest bibasilar rales, R>L Abdomen soft, distended periumbilical tenderness, no voluntary or involuntary guarding or rigidity, unable to appreciate bowel sounds extr - trace pedal edema Neuro Awake, oriented to self and place, follows commands, mild asterexis, facial symmetry, moves all extremities symmetrically Current Medications Amlodipine Besylate (Norvasc -) 10 mg PO DAILY [facility] Last Admin: 01/18/17 09:42 Dose: 10 mg Folic Acid (Folic Acid -) 1 mg PO DAILY [facility] Last Admin: 01/18/17 09:42 Dose: 1 mg Meropenem 500 mg/ Dextrose 100 mls @ 400 mls/hr IVPB BID [facility] Last Admin: 01/18/17 09:41 Dose: 400 mls/hr Midodrine (Proamatine -) 7.5 mg PO TID-MID [facility] Last Admin: 01/18/17 09:43 Dose: 7.5 mg Multivitamins/Minerals/Vitamin C (Tab-A-Vit -) 1 tab PO DAILY [facility] Last Admin: 01/18/17 09:42 Dose: 1 tab Octreotide Acetate (Sandostatin -) 100 mcg SQ TID [facility] Last Admin: 01/18/17 06:16 Dose: 100 mcg Pantoprazole Sodium (Protonix -) 40 mg PO DAILY [facility] Last Admin: 01/18/17 09:42 Dose: 40 mg Potassium Chloride (Potassium Chloride Oral Liquid) 40 meq PO DAILY [facility] Last Admin: 01/18/17 09:46 Dose: 40 meq Rifaximin (Xifaxan -) 550 mg PO BID [facility] Last Admin: 01/18/17 09:42 Dose: 550 mg Sodium Bicarbonate (Sodium Bicarbonate -) 1,300 mg PO TID [facility] Last Admin: 01/18/17 06:15 Dose: 1,300 mg Thiamine HCl (Vitamin B1 -) 100 mg PO DAILY [facility] Last Admin: 01/18/17 09:42 Dose: 100 mg Laboratory Results - last 24 hr 01/13/17 01/17/17 01/18/17 08:20 15:40 05:05 WBC 6.6 D RBC 3.92 L Hgb 10.7 L Hct 32.5 L MCV 82.9 MCH 27.3 MCHC 33.0 RDW 18.5 H Plt Count 35 L* MPV 10.1 Neutrophils % 90.6 H Lymphocytes % 4.9 L D Monocytes % 3.7 L Eosinophils % 0.7 Basophils % 0.1 Sodium 144 Potassium 3.6 Chloride 116 H Carbon Dioxide 10 L Anion Gap 18 H BUN 85 H Creatinine 6.4 H Creat Clearance w eGFR 9.04 Random Glucose 129 H Lactic Acid Calcium 7.7 L Total Bilirubin 3.1 H Direct Bilirubin 2.3 H AST 36 ALT 27 Alkaline Phosphatase 405 H D Total Protein 5.5 L Albumin 2.3 L Blood Type O POSITIVE 01/18/17 01/18/17 05:05 05:05 WBC 5.5 RBC 3.97 L Hgb 10.9 L Hct 32.9 L MCV 82.8 MCH 27.5 MCHC 33.2 RDW 18.7 H Plt Count 32 L* MPV 9.4 Neutrophils % 88.7 H Lymphocytes % 6.8 L D Monocytes % 3.0 L Eosinophils % 1.2 Basophils % 0.3 Sodium Potassium Chloride Carbon Dioxide Anion Gap BUN Creatinine Creat Clearance w eGFR Random Glucose Lactic Acid 2.6 H* Calcium Total Bilirubin Direct Bilirubin AST ALT Alkaline Phosphatase Total Protein Albumin Blood Type CT chest/A/P reviewed ASSESSMENT AND PLAN: -Acute hepatitis, suspect ETOH induced -Hepatic encephalopathy -Pleural effusion/ascitis -Hypoalbuminemia -Hypokalemia -Acute colitis -ARF vs ARF on CKD, unknown baseline, unclear if from intravascular depletion vs hepatorenal syndrome -Normocytic anemia -Thrombocytopenia -HTN -Pseudohypocalcemia -Lactic acidosis Plan: s/p 7 days zosyn, Meropenem day 1 per ID. Vague abdominal pain and tenderness. CT A/P reviewed. For diagnostic/therapeutic paracentesis tomorrow, discussed with IR. Repeat stool C defficile, diarrhea partly induced by lactulose. EGD/colonscopy noted, multiple gastric erosions, edematous colon. Continue protonix, outpatient biopsy results follow up. Today with some increased confusion, suspect from holding lactulose, give one dose today, assess. Also cannot r/u uremia component and ongoing infectious process. Pulmonary vascular congeston +/- superimposed PNA on CT Chest, antibiotics per ID, discussed with renal as below. Worsening renal function, suspect intravascular depletion with third spacing from diarrhea/poor PO intake with resultant ATN, cannot r/o hepatorenal syndrome. Tricky volume status given pleural effusion/ascitis Lactic acid noted, check ABG. Worsening acid- base with volume overload, worsening creatinine now with decreasing urine output. Discussed with renal Dr. Gupta, given difficult volume status with acidosis and worsening renal function, will need to address HD with patient and family. However, overall prognosis poor at this stage, given ongoing alcohol use with decompensated , likely alcoholic liver disease at this stage. Continue midodrine/octreotide per GI. Platelet transfusion in AM before paracentesis. Replete K aggressively. Place on standing K supplementation. Encourage PO intake. Lactulose/rifaximin. DVTPPX with SCDs Volume status and renal function continue to worsen with decreasing urine output , worsening acidosis and ongoing infectious process (unclear if colitis on admission or bowel edema from volume overload) with possible superimposed PNA. Will need to address overall goals of care with patient and HCP, given overall poor prognosis. Not a candidate for liver transplant given ongoing alcohol use. Total time spent including patient visit and exam, discussion with patient, RN, renal and co-ordination of care 45 min.
--- NOTE | 2017-01-18 15:38 | PN ---
Progress Note (short form) - Note Progress Note: nephrology f/u alcoholic liver disease alcoholic hepatitis [place] non oliguric metabolic acidosis Active Medications Amlodipine Besylate (Norvasc -) 10 mg PO DAILY [facility] Last Admin: 01/18/17 09:42 Dose: 10 mg Folic Acid (Folic Acid -) 1 mg PO DAILY [facility] Last Admin: 01/18/17 09:42 Dose: 1 mg Meropenem 500 mg/ Dextrose 100 mls @ 400 mls/hr IVPB BID [facility] Last Admin: 01/18/17 09:41 Dose: 400 mls/hr Midodrine (Proamatine -) 7.5 mg PO TID-MID [facility] Last Admin: 01/18/17 14:07 Dose: 7.5 mg Multivitamins/Minerals/Vitamin C (Tab-A-Vit -) 1 tab PO DAILY [facility] Last Admin: 01/18/17 09:42 Dose: 1 tab Octreotide Acetate (Sandostatin -) 100 mcg SQ TID [facility] Last Admin: 01/18/17 06:16 Dose: 100 mcg Pantoprazole Sodium (Protonix -) 40 mg PO DAILY [facility] Last Admin: 01/18/17 09:42 Dose: 40 mg Potassium Chloride (Potassium Chloride Oral Liquid) 40 meq PO DAILY [facility] Last Admin: 01/18/17 09:46 Dose: 40 meq Rifaximin (Xifaxan -) 550 mg PO BID [facility] Last Admin: 01/18/17 09:42 Dose: 550 mg Sodium Bicarbonate (Sodium Bicarbonate -) 1,300 mg PO TID [facility] Last Admin: 01/18/17 14:06 Dose: 1,300 mg Thiamine HCl (Vitamin B1 -) 100 mg PO DAILY [facility] Last Admin: 01/18/17 09:42 Dose: 100 mg Last Vital Signs Temp Pulse Resp BP Pulse Ox 96.3 F L 73 18 159/91 100 01/18/17 14:00 01/18/17 14:00 01/18/17 14:00 01/18/17 14:00 01/18/17 09:00 arousable responsive oriented to place and person Heent icteric neck NO JVD Lungs clear Heart RRR Abd soft nontender Ext edema feet and pretibial CBC, BMP 01/18/17 05:05 01/18/17 05:05 IMP Progressive [place] still nonoliguric, clear urine, high spec gravity prior u/a looks clinically dry (diarrhea, deminished intake, insensitive losses) chest ct c/w some lung congestion- no reflected clinically (no sob, o2 sat 100, clear sounding lungs) no Plan-another fluid trial 1 liter slowly 75 cc/hr may need dialysis if not better tomorrow consent obtained for dialysis access catheter and for hemodialysis treatment
--- NOTE | 2017-01-18 16:14 | PN ---
GI Progress Note Subjective: No acute events Remains in monitored setting Denies abdominal pain Diarrhea improved - Objective Vital Signs: Vital Signs Temperature 96.3 F L 01/18/17 14:00 Pulse Rate 73 01/18/17 14:00 Respiratory Rate 18 01/18/17 14:00 Blood Pressure 159/91 01/18/17 14:00 O2 Sat by Pulse Oximetry (%) 100 01/18/17 09:00 Constitutional: Calm Eyes: Yes: Sclera Icterus Cardiovascular: Yes: Regular Rate and Rhythm Respiratory: Yes: Diminished (at bases b/l) Gastrointestinal Inspection: Yes: Distention ...Auscultate: Yes: Normoactive Bowel Sounds ...Palpate: Yes: Soft. No: Tenderness Neurological: Yes: Confusion (AAO x person) Labs: CBC, BMP 01/18/17 05:05 01/18/17 05:05 INR, PTT INR 1.09 (0.82-1.09) 01/13/17 05:40 Assessment/Plan Suspected Alcoholic Hepatitis Being evaluated for ? HRS. May need Hemodialysis Adding back Lactulose 20g BID given increasing confusion. Ammonia ordered for AM Family aware of overall poor prognosis
[2017-01-18] MEDS ORDERED: POTASSIUM CHLORIDE 10 MEQ in SODIUM CHLORIDE 1,000 ML IVPB ONE (16:45)
[2017-01-18 20:36] LABS: ARTERIAL BLOOD GAS BASE EXCESS -16.2 meq/l (-2-2); ARTERIAL BLOOD GAS HCO3 8.7 meq/L (22-26); ARTERIAL BLOOD GAS PO2 79.3 mmHg (80-100)
[2017-01-18 20:37] LABS: ALLENS TEST POSITIVE; ART PUNCT SITE RIGHT RADIAL; PT. ON O2? NO
[2017-01-18 20:38] LABS: TYPE OF O2 ROOM AIR
[2017-01-18] MEDS: LACTULOSE 20 GM/30 ML UDC (FOR ORAL USE ONLY) PO SCH (21:57)
--- NOTE | 2017-01-19 06:10 | PN ---
Progress Note (short form) - Note Progress Note: Responded to code 99 immediatly.Patient being coded.Did DL with MAC#3.VCV ETT 7.5.Posative Etco2.BS R=L.ETT secured at 23 cm.Advised ABG and CXR.
--- NOTE | 2017-01-19 06:13 | HOSP ---
Subjective - Review of Symptoms Events since last encounter: Call was placed to home phone [phone]. Family was made aware of the patient's condition. Consent was obtained from Stephanie Montes (daughter) and Hermelinda Montes () for central line placement. They are on their way to the hospital. Dr Thomson was made aware Visit type - Emergency Visit Emergency Visit: No - New Patient This patient is new to me today: No - Critical Care Critical Care patient: No
[2017-01-19] MEDS ORDERED: LORazepam 2 MG/ML SDV VIAL ONE ×8 (06:17→21:54)
[2017-01-19 06:18] LABS: EOSINOPHIL 0.5 % (0-4.5); MCH 27.3 pg (25.7-33.7); MEAN CELL VOLUME 85.3 fl (80-96); MEAN PLT VOLUME 9.4 fl (7.5-11.1); NEUTROPHILS 86.9 % (42.8-82.8); PLATELET COUNT 47 K/MM3 (134-434); RDW 19.8 % (11.9-15.9); WHITE BLOOD COUNT 6.8 K/mm3 (4.0-10.0)
[2017-01-19] MEDS: SODIUM BICARBONATE 650 MG TABLET PO SCH (06:20)
[2017-01-19] MEDS: OCTREOTIDE ACETATE 100 MCG/1 ML SQ SCH ×3 (06:21→21:32)
[2017-01-19] MEDS ORDERED: FOSPHENYTOIN SODIUM 100 MG/2 ML VIAL IVPUSH ONE (06:24)
[2017-01-19 06:26] LABS: INR 1.42 (0.82-1.09); PROTHROMBIN TIME (PATIENT) 16.1 SEC (9.98-11.88)
--- NOTE | 2017-01-19 06:44 | RAPID ---
Physical Examination Vital Signs: Vital Signs Temperature 97.5 F L 01/19/17 02:00 Pulse Rate 90 01/19/17 06:20 Respiratory Rate 21 01/19/17 06:20 Blood Pressure 148/80 01/19/17 06:20 O2 Sat by Pulse Oximetry (%) 100 01/18/17 20:04 Findings/Remarks: Arsh Rudolph called for PEA arrest CPR at bedside EPI X2 With ROSC Stat Intubation ABD/CXR ALL LABS including CBC,CMP. Elecctrolytes, ABG, repeat LA, STAT TROP/EKG, repeated Pt. noted to have Seizures Ativan 2mg X 3 given Fosphenytoin loading/maintnance ordered Neuro consulted CT Head when able Central line being placed Family and Team notified and at bedside Transfer pt. to ICU CC Time: 45 minutes Labs: CBC, BMP 01/19/17 05:00
[2017-01-19 06:45] LABS: ANION GAP 14 (8-16); BILIRUBIN,DIRECT 2.4 mg/dL (0.0-0.2); CALCIUM 7.6 mg/dL (8.5-10.1); CO2 12 mmol/L (21-32); CREATININE 7.3 mg/dL (0.7-1.3); GLUCOSE,RANDOM 155 mg/dL (74-106); SGPT/ALT 29 U/L (12-78)
[2017-01-19] MEDS ORDERED: FOSPHENYTOIN SODIUM IVPB ONE (06:45)
[2017-01-19] MEDS ORDERED: SODIUM CHLORIDE IVPB ONE (06:45)
[2017-01-19 06:47] LABS: ALK PHOS 367 U/L (45-117); BILIRUBIN,TOTAL 3.3 mg/dL (0.2-1.0); TOT PROT 5.4 g/dl (6.4-8.2)
[2017-01-19] MEDS ORDERED: MAGNESIUM SULF 50% (8.12 MEQ/2 ML-1 GM VIAL) IVPB ONE (06:56)
[2017-01-19 07:00] LABS: SGOT/AST 42 U/L (15-37)
[2017-01-19] MEDS ORDERED: PROPOFOL 100 ML ONE (07:17)
[2017-01-19] MEDS ORDERED: LORazepam 2 MG/ML SDV VIAL IVPUSH ONE ×2 (07:25→20:59)
[2017-01-19] MEDS ORDERED: DOPAMINE 400 MG/D5W - 250 ML IVPB SCH (07:30)
--- NOTE | 2017-01-19 07:30 | PROC ---
Procedure Note Procedure: Central line placement Informed consent was obtained, a pause was conducted with RN and this user. Under ultrasound guidance a Right IJ triple lumen catheter was placed using Selinger technique. There was gentle flow of dark venous blood from all ports. Line was secured at 14cm. A chest xray was ordered to confirm placement. The vital signs were stable throughout the procedure. The patient tolerated the procedure well. KIA Hernandez
[2017-01-19 07:38] LABS: ARTERIAL BLD GAS O2 SATURATION 97.7 % (90-98.9); ARTERIAL BLOOD GAS BASE EXCESS -28.2 meq/l (-2-2); ARTERIAL BLOOD GAS HCO3 5.5 meq/L (22-26)
[2017-01-19 07:39] LABS: ART PUNCT SITE RIGHT BRACHIAL; LPM/O2% 100; MECH. VENT. YES; PT. ON O2? YES; TYPE OF O2 VENT; VENT RATE 14; VT/PRESS 500
[2017-01-19 07:40] LABS: ARTERIAL BLOOD GAS pH 6.75 (7.35-7.45)
[2017-01-19] MEDS ORDERED: SODIUM BICARBONATE 8.4% 50 MEQ/50 ML DISP.SYRIN IVPUSH ONE ×4 (08:17→16:03)
[2017-01-19 08:37] LABS: PHOSPHOROUS 7.9 mg/dL (2.5-4.9)
[2017-01-19 08:50] LABS: MAGNESIUM 2.9 mg/dL (1.8-2.4)
[2017-01-19] MEDS ORDERED: levETIRAcetam 500 MG/5 ML INJECTION VIAL IVPB ONE ×2 (09:00→11:49)
[2017-01-19 09:29] LABS: TROPONIN I 0.16 ng/ml (0.00-0.05)
[2017-01-19] MEDS ORDERED: SODIUM BICARBONATE 8.4% 50 MEQ/50 ML VIAL ONE ×2 (09:29→14:39)
[2017-01-19] MEDS: PANTOPRAZOLE 40 MG TABLET (FP) PO SCH (10:07)
[2017-01-19] MEDS: amLODIPine BESYLATE 5 MG TABLET (FP) PO SCH (10:07)
[2017-01-19] MEDS ORDERED: NOREPINEPHRINE BITARTRATE 4 MG/4 ML ML IV ONE ×2 (10:15→21:03)
[2017-01-19] MEDS: SODIUM BICARBONATE 8.4% - 150 MEQ in DEXTROSE 5%-WATER - 1,000 ML IV SCH ×2 (10:30→20:58)
[2017-01-19] MEDS: NOREPINEPHRINE BITARTRATE 4,000 MCG in DEXTROSE 5%-WATER - 496 ML IV SCH ×2 (11:00→23:06)
--- NOTE | 2017-01-19 11:30 | PN ---
Progress Note, Physician History of Present Illness: Chart reviewed. Events noted. Worsened RF. s/p code 99. - Current Medication List Current Medications: Active Medications Amlodipine Besylate (Norvasc -) 10 mg PO DAILY MEI Folic Acid (Folic Acid -) 1 mg PO DAILY MEI Fosphenytoin Sodium (Cerebyx -) 100 mg IVPB TID MEI Sodium Bicarbonate 150 meq/ (Dextrose) 1,150 mls @ 83 mls/hr IV Q13H MEI Norepinephrine Bitartrate 4, (000 mcg/ Dextrose) 500 mls @ 37.5 mls/hr IV TITR MEI; 5 MCG/MIN PRN Reason: Protocol Meropenem 500 mg/ Dextrose 100 mls @ 400 mls/hr IVPB BID MEI Lactulose (Cephulac (Oral Use)) 20 gm PO BID MEI Lorazepam (Ativan Injection -) 2 mg IM ONCE ONE Stop: 01/19/17 10:25 Lorazepam (Ativan Injection -) 2 mg IM ONCE ONE Stop: 01/19/17 10:26 Midodrine (Proamatine -) 7.5 mg PO TID-MID MEI Multivitamins/Minerals/Vitamin C (Tab-A-Vit -) 1 tab PO DAILY MEI Octreotide Acetate (Sandostatin -) 100 mcg SQ TID MEI Pantoprazole Sodium (Protonix -) 40 mg PO DAILY MEI Rifaximin (Xifaxan -) 550 mg PO BID MEI Sodium Bicarbonate (Sodium Bicarbonate 8.4% -) 50 meq IVPUSH ONCE ONE Stop: 01/19/17 08:18 Last Admin: 01/19/17 08:20 Dose: 50 meq Sodium Bicarbonate (Sodium Bicarbonate 8.4% -) 50 meq IVPUSH ONCE ONE Stop: 01/19/17 08:33 Last Admin: 01/19/17 08:40 Dose: 50 meq Sodium Bicarbonate (Sodium Bicarbonate -) 1,300 mg PO TID MEI Thiamine HCl (Vitamin B1 -) 100 mg PO DAILY MEI - Objective Vital Signs: Vital Signs Temperature 97.5 F L 01/19/17 02:00 Pulse Rate 82 01/19/17 09:40 Respiratory Rate 14 01/19/17 09:40 Blood Pressure 86/55 01/19/17 09:40 O2 Sat by Pulse Oximetry (%) 100 01/19/17 09:00 Labs: CBC, BMP 01/19/17 05:00 01/19/17 05:00 INR, PTT INR 1.42 (0.82-1.09) H D 01/19/17 05:00 Problem List - Problems (1) Lethargy Code(s): R53.83 - OTHER FATIGUE (2) Elevated alkaline phosphatase level Code(s): R74.8 - ABNORMAL LEVELS OF OTHER SERUM ENZYMES (3) Liver mass, right lobe Code(s): R16.0 - HEPATOMEGALY, NOT ELSEWHERE CLASSIFIED Assessment/Plan Deteriorated. s/p code 99. in ICU on vasopressors and ventilatory support. Daughters at bedside. Worsened renal function with pos protein and blood in urine. ?ATN ?+/-HRS. Midodrine, octreotide and albumin, started on Thursday, had no positive effect on cr level. ICU Management as per ICU team Prognosis grave Discussed with patient daughters at bedside
[2017-01-19] MEDS: MEROPENEM 500 MG in DEXTROSE 5%-WATER - 100 ML IVPB SCH ×3 (11:42→21:31)
[2017-01-19] MEDS: MIDODRINE HCL 5 MG TABLET PO SCH (11:43)
[2017-01-19] MEDS: MULTIVITAMINS (DAILY MVI) TABLET (FP) PO SCH (11:43)
[2017-01-19] MEDS: RIFAXIMIN 550 MG TABLET (UD) PO SCH (11:43)
[2017-01-19] MEDS: THIAMINE HCL 100 MG TABLET (FP) PO SCH (11:43)
--- NOTE | 2017-01-19 12:10 | PN ---
Teaching Attending Note Name of Resident: Michaela Mendoza ATTENDING PHYSICIAN STATEMENT Time over evaluation: 9:00 AM I saw and evaluated the patient. I reviewed the resident's note and discussed the case with the resident. I agree with the resident's findings and plan as documented. SUBJECTIVE: Patient seen and examined, intubated, on vent, no pupillary or corneal reflexes. Unable to assess for ROS. OBJECTIVE: Vital Signs Period Temp Pulse Resp BP Sys/Arguelles Pulse Ox Last 24 Hr 96.3 F-97.5 F 56-90 14-29 55-168/40-100 100-100 Intake & Output 01/16/17 01/17/17 01/18/17 01/19/17 23:59 23:59 23:59 23:59 Intake Total 470 948 821 7907 Output Total 1600 450 350 200 Balance -1130 470 -10 1100 Weight 171 lb General: intubated unresponsive on vent, eyes open, neg pupillary or corneal reflexes CVS S1S2 regular Chest poor effort,limited exam Abdomen soft, distended, unable to appreciate bowel sounds, extremities edema unchanged from yesterday neuro eyes open no pupillary or corneal reflexes, pupil dilated and fixed, no withdrawal to pain, unable to appreciate reflexes Current Medications Amlodipine Besylate (Norvasc -) 10 mg PO DAILY MEI Folic Acid (Folic Acid -) 1 mg PO DAILY MEI Fosphenytoin Sodium (Cerebyx -) 100 mg IVPB TID [facility] Sodium Bicarbonate 150 meq/ (Dextrose) 1,150 mls @ 83 mls/hr IV Q13H MEI Last Admin: 01/19/17 10:30 Dose: 83 mls/hr Norepinephrine Bitartrate 4, (000 mcg/ Dextrose) 500 mls @ 37.5 mls/hr IV TITR MEI; 5 MCG/MIN PRN Reason: Protocol Last Admin: 01/19/17 11:00 Dose: 37.5 mls/hr Meropenem 500 mg/ Dextrose 100 mls @ 400 mls/hr IVPB BID MEI Last Admin: 01/19/17 11:43 Dose: 400 mls/hr Midazolam HCl 100 mg/ Sodium (Chloride) 100 mls @ 2 mls/hr IVPB TITR MEI; 2 MG/ HR PRN Reason: Protocol Propofol (Diprivan -) 100 mls @ 2.327 mls/hr IVPB TITR MEI; 5 MCG/KG/MIN PRN Reason: Protocol Lactulose (Cephulac (Oral Use)) 20 gm PO BID MEI Lorazepam (Ativan Injection -) 2 mg IVPUSH ONCE ONE Stop: 01/19/17 11:54 Lorazepam (Ativan Injection -) 2 mg IVPUSH ONCE ONE Stop: 01/19/17 11:54 Midodrine (Proamatine -) 7.5 mg PO TID-MID MEI Multivitamins/Minerals/Vitamin C (Tab-A-Vit -) 1 tab PO DAILY MEI Octreotide Acetate (Sandostatin -) 100 mcg SQ TID MEI Pantoprazole Sodium (Protonix -) 40 mg PO DAILY MEI Rifaximin (Xifaxan -) 550 mg PO BID MEI Sodium Bicarbonate (Sodium Bicarbonate -) 1,300 mg PO TID MEI Thiamine HCl (Vitamin B1 -) 100 mg PO DAILY MEI Laboratory Results - last 24 hr 01/16/17 01/18/17 01/18/17 15:30 20:25 20:45 WBC RBC Hgb Hct MCV MCH MCHC RDW Plt Count MPV Neutrophils % Lymphocytes % Monocytes % Eosinophils % Basophils % PT with INR INR Anticoagulation Therapy Y Puncture Site Right radial ABG pH 7.30 L ABG pCO2 at Pt Temp 18.5 L* ABG pO2 at Pt Temp 79.3 L ABG HCO3 8.7 L* ABG O2 Sat (Measured) 95.0 ABG O2 Content 13.5 L ABG Base Excess -16.2 L* Ramón Test Positive O2 Delivery Device Room air Oxygen Flow Rate No Vent Mode Y Vent Rate Y Mechanical Rate Y PEEP 0.0 Pressure Support Vent Y Sodium Potassium Chloride Carbon Dioxide Anion Gap BUN Creatinine Creat Clearance w eGFR Random Glucose Calcium Phosphorus Magnesium Total Bilirubin Direct Bilirubin AST ALT Alkaline Phosphatase Ammonia Troponin I Total Protein Albumin Urine Eosinophils None seen Blood Type O POSITIVE Antibody Screen Negative 01/18/17 01/19/17 01/19/17 20:45 05:00 05:00 WBC 6.8 RBC 4.11 Hgb 11.2 L Hct 35.1 L MCV 85.3 MCH 27.3 MCHC 32.0 RDW 19.8 H Plt Count 47 L D MPV 9.4 Neutrophils % 86.9 H Lymphocytes % 10.0 D Monocytes % 0.6 L Eosinophils % 0.5 Basophils % 2.0 D PT with INR INR Anticoagulation Therapy Puncture Site ABG pH ABG pCO2 at Pt Temp ABG pO2 at Pt Temp ABG HCO3 ABG O2 Sat (Measured) ABG O2 Content ABG Base Excess Ramón Test O2 Delivery Device Oxygen Flow Rate Vent Mode Vent Rate Mechanical Rate PEEP Pressure Support Vent Sodium 144 Potassium 4.9 D Chloride 118 H Carbon Dioxide 12 L Anion Gap 14 BUN 92 H Creatinine 7.3 H Creat Clearance w eGFR 7.77 Random Glucose 155 H D Calcium 7.6 L Phosphorus 7.9 H D Magnesium 2.9 H Total Bilirubin 3.3 H Direct Bilirubin 2.4 H AST 42 H ALT 29 Alkaline Phosphatase 367 H Ammonia Troponin I 0.16 H Total Protein 5.4 L Albumin 2.0 L Urine Eosinophils Blood Type O POSITIVE Antibody Screen 01/19/17 01/19/17 01/19/17 05:00 05:00 05:00 WBC RBC Hgb Hct MCV MCH MCHC RDW Plt Count MPV Neutrophils % Lymphocytes % Monocytes % Eosinophils % Basophils % PT with INR 16.10 H INR 1.42 H D Anticoagulation Therapy Puncture Site ABG pH ABG pCO2 at Pt Temp ABG pO2 at Pt Temp ABG HCO3 ABG O2 Sat (Measured) ABG O2 Content ABG Base Excess Ramón Test O2 Delivery Device Oxygen Flow Rate Vent Mode Vent Rate Mechanical Rate PEEP Pressure Support Vent Sodium Cancelled Potassium Cancelled Chloride Cancelled Carbon Dioxide Cancelled Anion Gap Cancelled BUN Cancelled Creatinine Cancelled Creat Clearance w eGFR Cancelled Random Glucose Cancelled Calcium Cancelled Phosphorus Cancelled Magnesium Cancelled Total Bilirubin Cancelled Direct Bilirubin AST Cancelled ALT Cancelled Alkaline Phosphatase Cancelled Ammonia 37.90 H Troponin I Total Protein Cancelled Albumin Cancelled Urine Eosinophils Blood Type Antibody Screen 01/19/17 01/19/17 05:00 07:30 WBC RBC Hgb Hct MCV MCH MCHC RDW Plt Count MPV Neutrophils % Lymphocytes % Monocytes % Eosinophils % Basophils % PT with INR INR Anticoagulation Therapy Puncture Site Right brachial ABG pH 6.75 L* ABG pCO2 at Pt Temp 41.8 D ABG pO2 at Pt Temp 269.0 H* ABG HCO3 5.5 L* ABG O2 Sat (Measured) 97.7 ABG O2 Content 13.6 L ABG Base Excess -28.2 L* Ramón Test Not applicable O2 Delivery Device Vent Oxygen Flow Rate 100 Vent Mode A/c Vent Rate 14 Mechanical Rate Yes PEEP 5.0 Pressure Support Vent 500 Sodium Potassium Chloride Carbon Dioxide Anion Gap BUN Creatinine Creat Clearance w eGFR Random Glucose Calcium Phosphorus Magnesium Total Bilirubin Direct Bilirubin AST ALT Alkaline Phosphatase Ammonia Troponin I Cancelled Total Protein Albumin Urine Eosinophils Blood Type Antibody Screen ASSESSMENT AND PLAN: -PEA arrest -Acute hypoxic respiratory failure -Status epilepticus -ARF vs ARF on CKD, unknown baseline, unclear if from intravascular depletion vs hepatorenal syndrome, progressively worsening, now oliguric -Metablic acidosis, combined anion gap and non anion gap -Acute hepatitis, suspect ETOH induced -Hepatic encephalopathy -Pleural effusion/ascitis -Hypoalbuminemia -Hypokalemia -Acute colitis -Normocytic anemia -Thrombocytopenia -HTN -Pseudohypocalcemia -Lactic acidosis Plan Overnight events noted. Code 99 called for PEA arrest, intubated. Noted in status, s/p Ativan IV and phenytoin loading. Bradycardic and hypotensive, placed on dopamine, now levophed. Defer further management to ICU. Dilated fixed pupils, neurology input. CT brain, Dialysis per renal, however actively unstable with status epilepticus and hypothermia currently, placed on patsy hugger. Failed trial with midodrine, octreotide, albumin. Progressive hepatic dysfunction and worsening of renal function inspite of multiple ongoing therapeutic interventions. Prognosis grave currently. Will continue to follow up with ICU team, neurology,nephrology, GI for additional interventions. Discussed with daughter Stephanie, updated on current status, all questions answered. Patient critically ill with multiorgan involvement, now with respiratory failure , status epilepticus, dilated fixed pupils and ongoing progressive hepatic dysfunction with coagulopathy and renal failure. Discussed with nephrology Keyla Pan. Total critical care time spent 45 min.
[2017-01-19] MEDS: DOPAMINE 400 MG/D5W - 250 ML IVPB SCH ×2 (12:55→20:00)
--- NOTE | 2017-01-19 12:59 | PN ---
Progress Note, Physician History of Present Illness: Pt seen and examined at bedside. He had an arrest this morning and is now in the ICU. He is having seizure activity. - Current Medication List Current Medications: Active Medications Amlodipine Besylate (Norvasc -) 10 mg PO DAILY [facility] Folic Acid (Folic Acid -) 1 mg PO DAILY MEI Fosphenytoin Sodium (Cerebyx -) 100 mg IVPB TID MEI Sodium Bicarbonate 150 meq/ (Dextrose) 1,150 mls @ 83 mls/hr IV Q13H MEI Last Admin: 01/19/17 10:30 Dose: 83 mls/hr Norepinephrine Bitartrate 4, (000 mcg/ Dextrose) 500 mls @ 37.5 mls/hr IV TITR MEI; 5 MCG/MIN PRN Reason: Protocol Last Admin: 01/19/17 11:00 Dose: 37.5 mls/hr Meropenem 500 mg/ Dextrose 100 mls @ 400 mls/hr IVPB BID MEI Last Admin: 01/19/17 11:43 Dose: 400 mls/hr Midazolam HCl 100 mg/ Sodium (Chloride) 100 mls @ 2 mls/hr IVPB TITR MEI; 2 MG/ HR PRN Reason: Protocol Propofol (Diprivan -) 100 mls @ 2.327 mls/hr IVPB TITR MEI; 5 MCG/KG/MIN PRN Reason: Protocol Lactulose (Cephulac (Oral Use)) 20 gm PO BID MEI Lorazepam (Ativan Injection -) 2 mg IVPUSH ONCE ONE Stop: 01/19/17 11:54 Lorazepam (Ativan Injection -) 2 mg IVPUSH ONCE ONE Stop: 01/19/17 11:54 Midodrine (Proamatine -) 7.5 mg PO TID-MID [facility] Multivitamins/Minerals/Vitamin C (Tab-A-Vit -) 1 tab PO DAILY MEI Octreotide Acetate (Sandostatin -) 100 mcg SQ TID MEI Pantoprazole Sodium (Protonix -) 40 mg PO DAILY MEI Rifaximin (Xifaxan -) 550 mg PO BID MEI Sodium Bicarbonate (Sodium Bicarbonate -) 1,300 mg PO TID MEI Thiamine HCl (Vitamin B1 -) 100 mg PO DAILY MEI - Objective Vital Signs: Vital Signs Temperature 93.2 F L 01/19/17 12:20 Pulse Rate 77 01/19/17 12:20 Respiratory Rate 14 01/19/17 12:20 Blood Pressure 96/71 01/19/17 12:20 O2 Sat by Pulse Oximetry (%) 100 01/19/17 09:00 Constitutional: Yes: Moderate Distress Eyes: Yes: Other (pupils are dilated and not reactive) Neck: Yes: Supple Cardiovascular: Yes: S1, S2 Respiratory: Yes: Mechanically Ventilated Gastrointestinal: Yes: Soft, Ascites Genitourinary: Yes: Carter Present Musculoskeletal: Yes: Muscle Weakness Edema: LLE: Trace, RLE: Trace Neurological: Yes: Other (seizure) Labs: CBC, BMP 01/19/17 05:00 01/19/17 05:00 INR, PTT INR 1.42 (0.82-1.09) H D 01/19/17 05:00 - ....Imaging Chest X-ray: Report Reviewed Assessment/Plan Current Medications Generic Name Dose Route Start Last Admin Trade Name Freq PRN Reason Stop Dose Admin Amlodipine Besylate 10 mg 01/20/17 10:00 Norvasc - PO DAILY MEI Folic Acid 1 mg 01/20/17 10:00 Folic Acid - PO DAILY MEI Fosphenytoin Sodium 100 mg 01/19/17 14:00 Cerebyx - IVPB TID MEI Sodium Bicarbonate 150 meq/ 1,150 mls @ 83 mls/hr 01/19/17 08:15 01/19/17 10:30 Dextrose IV 83 mls/hr Q13H MEI Administration Norepinephrine Bitartrate 4, 500 mls @ 37.5 mls/hr 01/19/17 09:00 01/19/17 11: 00 000 mcg/ Dextrose IV 37.5 mls/hr TITR MEI Administration Protocol 5 MCG/MIN Meropenem 500 mg/ Dextrose 100 mls @ 400 mls/hr 01/19/17 22:00 01/19/17 11:43 IVPB 400 mls/hr BID MEI Administration Midazolam HCl 100 mg/ Sodium 100 mls @ 2 mls/hr 01/19/17 12:00 Chloride IVPB TITR MEI Protocol 2 MG/HR Propofol 100 mls @ 2.327 mls/hr 01/19/17 12:00 Diprivan - IVPB TITR MEI Protocol 5 MCG/KG/MIN Lactulose 20 gm 01/19/17 22:00 Cephulac (Oral Use) PO BID MEI Lorazepam 2 mg 01/19/17 11:53 Ativan Injection - IVPUSH 01/19/17 11:54 ONCE ONE Lorazepam 2 mg 01/19/17 11:53 Ativan Injection - IVPUSH 01/19/17 11:54 ONCE ONE Midodrine 7.5 mg 01/19/17 14:00 Proamatine - PO TID-MID MEI Multivitamins/Minerals/Vitamin C 1 tab 01/20/17 10:00 Tab-A-Vit - PO DAILY MEI Octreotide Acetate 100 mcg 01/19/17 14:00 Sandostatin - SQ TID MEI Pantoprazole Sodium 40 mg 01/20/17 10:00 Protonix - PO DAILY MEI Rifaximin 550 mg 01/19/17 22:00 Xifaxan - PO BID MEI Sodium Bicarbonate 1,300 mg 01/19/17 14:00 Sodium Bicarbonate - PO TID MEI Thiamine HCl 100 mg 01/20/17 10:00 Vitamin B1 - PO DAILY MEI Laboratory Tests 01/11/17 01/12/17 01/15/17 08:35 07:35 06:20 TESSY Screen Negative c-ANCA <1:20 Proteinase 3 (PR3) <3.5 p-ANCA <1:20 Atypical p-ANCA <1:20 Myeloperoxidase Ab <9.0 Double Strand DNA Ab 3 Smooth Musc &PRODUCTION LINE OPERATOR Intrp 6 Glomerular Base Memb Ab Pending Impression 1. liver cirrhosis 2. DALTON 3. thrombocytopenia 4. hypokalemia 5. acidosis 6. etoh abuse 7. HRS 8. cardiac arrest 9. hypotension 10. seizure Plan - pt is s/p cardiac arrest - pupuls are dilated and fixed, called neuro - ct head when stable - start bicarb drip - pt is too unstable for HD at this point - discussed with ICU team - discussed with family at length, they asked for me to call their friend who is a physician, Yrn Barraza [phone], [phone] and discuss the case - daughter says she has never seen pt sober for the last 35 years and he has been drinking up until this admission - GI follow up - likely hepatorenal disease - monitor urine output - will follow
[2017-01-19 13:32] LABS: ARTERIAL BLD GAS O2 SATURATION 97.8 % (90-98.9); ARTERIAL BLOOD GAS BASE EXCESS -27.4 meq/l (-2-2)
[2017-01-19 13:33] LABS: ARTERIAL BLOOD GAS HCO3 6.5 meq/L (22-26); ARTERIAL BLOOD GAS pH 6.78 (7.35-7.45)
[2017-01-19 13:34] LABS: ALLENS TEST POSITIVE; ART PUNCT SITE RIGHT BRACHIAL; LPM/O2% 100%; MECH. VENT. Y; PT. ON O2? YES; TYPE OF O2 VENT; VENT RATE 14; VT/PRESS 500
[2017-01-19] MEDS: FOLIC ACID 1 MG TABLET (FP) PO SCH (13:49)
[2017-01-19] MEDS: FOSPHENYTOIN SODIUM 100 MG/2 ML VIAL IVPB SCH ×3 (13:54→23:06)
[2017-01-19] MEDS ORDERED: SODIUM BICARBONATE 650 MG TABLET PO SCH (14:00)
[2017-01-19] MEDS ORDERED: MIDODRINE HCL 5 MG TABLET PO SCH (14:00)
[2017-01-19] MEDS: MIDAZOLAM 100 MG in SODIUM CHLORIDE 100 ML IVPB SCH (14:16)
[2017-01-19] MEDS: LACTULOSE 20 GM/30 ML UDC (FOR ORAL USE ONLY) PO SCH (14:17)
--- NOTE | 2017-01-19 15:20 | PN ---
Progress Note, Physician History of Present Illness: events noted patient crashed in icu now intubated - Current Medication List Current Medications: Active Medications Fosphenytoin Sodium (Cerebyx -) 100 mg IVPB TID MEI Last Admin: 01/19/17 13:54 Dose: 100 mg Sodium Bicarbonate 150 meq/ (Dextrose) 1,150 mls @ 83 mls/hr IV Q13H MEI Last Admin: 01/19/17 10:30 Dose: 83 mls/hr Norepinephrine Bitartrate 4, (000 mcg/ Dextrose) 500 mls @ 37.5 mls/hr IV TITR MEI; 5 MCG/MIN PRN Reason: Protocol Last Admin: 01/19/17 11:00 Dose: 37.5 mls/hr Meropenem 500 mg/ Dextrose 100 mls @ 400 mls/hr IVPB BID MEI Last Admin: 01/19/17 11:43 Dose: 400 mls/hr Midazolam HCl 100 mg/ Sodium (Chloride) 100 mls @ 2 mls/hr IVPB TITR MEI; 2 MG/ HR PRN Reason: Protocol Last Titration: 01/19/17 14:47 Dose: 4 mg/hr Propofol (Diprivan -) 100 mls @ 2.327 mls/hr IVPB TITR MEI; 5 MCG/KG/MIN PRN Reason: Protocol Dopamine HCl/Dextrose (Dopamine 400 Mg/D5w -) 250 mls @ 8.726 mls/hr IVPB TITR MEI; 3 MCG/KG/MIN PRN Reason: Protocol Last Admin: 01/19/17 12:55 Dose: 8.726 mls/hr Octreotide Acetate (Sandostatin -) 100 mcg SQ TID MEI Last Admin: 01/19/17 14:17 Dose: Not Given Sodium Bicarbonate (Sodium Bicarbonate -) 1,300 mg PO TID MEI Last Admin: 01/19/17 14:17 Dose: Not Given - Objective Vital Signs: Vital Signs Temperature 95.1 F L 01/19/17 14:46 Pulse Rate 84 01/19/17 14:46 Respiratory Rate 14 01/19/17 14:46 Blood Pressure 113/69 01/19/17 14:46 O2 Sat by Pulse Oximetry (%) 100 01/19/17 14:20 Constitutional: Yes: Other Neck: Yes: Supple Cardiovascular: Yes: Regular Rate and Rhythm Respiratory: Yes: Intubated, Mechanically Ventilated Gastrointestinal: Yes: Normal Bowel Sounds, Soft Musculoskeletal: Yes: WNL Extremities: Yes: WNL Neurological: Yes: Other Psychiatric: Yes: Other Labs: CBC, BMP 01/19/17 05:00 01/19/17 05:00 INR, PTT INR 1.42 (0.82-1.09) H D 01/19/17 05:00 Assessment/Plan Problem List - Problems (1) Lethargy Code(s): R53.83 - OTHER FATIGUE (2) Elevated alkaline phosphatase level Code(s): R74.8 - ABNORMAL LEVELS OF OTHER SERUM ENZYMES 3 colitis renal failure Acute CP arrest Seizures Liver cirrhosis [place] Thrombocytopenia Electrolyte imbalance Severe Metabolic Acidosis ETOH abuse plan conitnue current mgmt renal on case plan noted icu managing ct abx patients prognosis poor cc time 40 min
--- NOTE | 2017-01-19 15:28 | PN ---
Teaching Attending Note Name of Resident: Rogelio Barlow ATTENDING PHYSICIAN STATEMENT I saw and evaluated the patient. I reviewed the resident's note and discussed the case with the resident. I agree with the resident's findings and plan as documented. SUBJECTIVE: Patient seen and examined in the ICU. 56 M, chronic ETOH abuse and cirrhosis. Admitted initially to the medical floor due to a 2 week history nausea, vomiting , loss of appetite, and weight loss. Patient was also having diarrhea, which was non-bloody. Prolonged hospital course with progressive deterioration. Early this AM patient suffered a CP arrest. Time of ROSC estimated to be 6 minutes. Patient now seen intubate with seizure activity noted. Currently on 5 mcq NE / 3 mg Dopamine for hemodynamic support. Noted severe electrolyte disarray and acidosis. Intake & Output 01/16/17 01/17/17 01/18/17 01/19/17 23:59 23:59 23:59 23:59 Intake Total 470 174 977 1462 Output Total 1600 450 350 220 Balance -1130 470 -10 1080 Weight 171 lb Last Vital Signs Temp Pulse Resp BP Pulse Ox 95.1 F L 84 14 113/69 100 01/19/17 14:46 01/19/17 14:46 01/19/17 14:46 01/19/17 14:46 01/19/17 14:20 Active Medications Fosphenytoin Sodium (Cerebyx -) 100 mg IVPB TID MEI Last Admin: 01/19/17 13:54 Dose: 100 mg Sodium Bicarbonate 150 meq/ (Dextrose) 1,150 mls @ 83 mls/hr IV Q13H MEI Last Admin: 01/19/17 10:30 Dose: 83 mls/hr Norepinephrine Bitartrate 4, (000 mcg/ Dextrose) 500 mls @ 37.5 mls/hr IV TITR MEI; 5 MCG/MIN PRN Reason: Protocol Last Admin: 01/19/17 11:00 Dose: 37.5 mls/hr Meropenem 500 mg/ Dextrose 100 mls @ 400 mls/hr IVPB BID MEI Last Admin: 01/19/17 11:43 Dose: 400 mls/hr Midazolam HCl 100 mg/ Sodium (Chloride) 100 mls @ 2 mls/hr IVPB TITR MEI; 2 MG/ HR PRN Reason: Protocol Last Titration: 01/19/17 14:47 Dose: 4 mg/hr Propofol (Diprivan -) 100 mls @ 2.327 mls/hr IVPB TITR MEI; 5 MCG/KG/MIN PRN Reason: Protocol Dopamine HCl/Dextrose (Dopamine 400 Mg/D5w -) 250 mls @ 8.726 mls/hr IVPB TITR MEI; 3 MCG/KG/MIN PRN Reason: Protocol Last Admin: 01/19/17 12:55 Dose: 8.726 mls/hr Octreotide Acetate (Sandostatin -) 100 mcg SQ TID MEI Last Admin: 01/19/17 14:17 Dose: Not Given Sodium Bicarbonate (Sodium Bicarbonate -) 1,300 mg PO TID MEI Last Admin: 01/19/17 14:17 Dose: Not Given Constitutional: Yes: Intubated, seizing Eyes: Yes: Dilated and non-reactive Neck: Yes: Supple Cardiovascular: Yes: S1, S2 Respiratory: Yes: Mechanically Ventilated, few scattered rhonchi Gastrointestinal: Yes: Soft, Ascites Genitourinary: Yes: Carter Present Musculoskeletal: Yes: Muscle Weakness Edema: LLE: Trace, RLE: Trace Neurological: Yes: seizure Labs: Laboratory Results - last 24 hr 01/15/17 01/16/17 01/18/17 06:20 15:30 20:25 WBC RBC Hgb Hct MCV MCH MCHC RDW Plt Count MPV Neutrophils % Lymphocytes % Monocytes % Eosinophils % Basophils % PT with INR INR Anticoagulation Therapy Y Puncture Site Right radial ABG pH 7.30 L ABG pCO2 at Pt Temp 18.5 L* ABG pO2 at Pt Temp 79.3 L ABG HCO3 8.7 L* ABG O2 Sat (Measured) 95.0 ABG O2 Content 13.5 L ABG Base Excess -16.2 L* Ramón Test Positive O2 Delivery Device Room air Oxygen Flow Rate No Vent Mode Y Vent Rate Y Mechanical Rate Y PEEP 0.0 Pressure Support Vent Y Sodium Potassium Chloride Carbon Dioxide Anion Gap BUN Creatinine Creat Clearance w eGFR Random Glucose Calcium Phosphorus Magnesium Total Bilirubin Direct Bilirubin AST ALT Alkaline Phosphatase Ammonia Troponin I Total Protein Albumin Urine Eosinophils None seen Double Strand DNA Ab 3 Glomerular Base Memb Ab 6 Blood Type Antibody Screen 01/18/17 01/18/17 01/19/17 20:45 20:45 05:00 WBC RBC Hgb Hct MCV MCH MCHC RDW Plt Count MPV Neutrophils % Lymphocytes % Monocytes % Eosinophils % Basophils % PT with INR INR Anticoagulation Therapy Puncture Site ABG pH ABG pCO2 at Pt Temp ABG pO2 at Pt Temp ABG HCO3 ABG O2 Sat (Measured) ABG O2 Content ABG Base Excess Ramón Test O2 Delivery Device Oxygen Flow Rate Vent Mode Vent Rate Mechanical Rate PEEP Pressure Support Vent Sodium 144 Potassium 4.9 D Chloride 118 H Carbon Dioxide 12 L Anion Gap 14 BUN 92 H Creatinine 7.3 H Creat Clearance w eGFR 7.77 Random Glucose 155 H D Calcium 7.6 L Phosphorus 7.9 H D Magnesium 2.9 H Total Bilirubin 3.3 H Direct Bilirubin 2.4 H AST 42 H ALT 29 Alkaline Phosphatase 367 H Ammonia Troponin I 0.16 H Total Protein 5.4 L Albumin 2.0 L Urine Eosinophils Double Strand DNA Ab Glomerular Base Memb Ab Blood Type O POSITIVE O POSITIVE Antibody Screen Negative 01/19/17 01/19/17 01/19/17 05:00 05:00 05:00 WBC 6.8 RBC 4.11 Hgb 11.2 L Hct 35.1 L MCV 85.3 MCH 27.3 MCHC 32.0 RDW 19.8 H Plt Count 47 L D MPV 9.4 Neutrophils % 86.9 H Lymphocytes % 10.0 D Monocytes % 0.6 L Eosinophils % 0.5 Basophils % 2.0 D PT with INR 16.10 H INR 1.42 H D Anticoagulation Therapy Puncture Site ABG pH ABG pCO2 at Pt Temp ABG pO2 at Pt Temp ABG HCO3 ABG O2 Sat (Measured) ABG O2 Content ABG Base Excess Ramón Test O2 Delivery Device Oxygen Flow Rate Vent Mode Vent Rate Mechanical Rate PEEP Pressure Support Vent Sodium Potassium Chloride Carbon Dioxide Anion Gap BUN Creatinine Creat Clearance w eGFR Random Glucose Calcium Phosphorus Magnesium Total Bilirubin Direct Bilirubin AST ALT Alkaline Phosphatase Ammonia 37.90 H Troponin I Total Protein Albumin Urine Eosinophils Double Strand DNA Ab Glomerular Base Memb Ab Blood Type Antibody Screen 01/19/17 01/19/17 01/19/17 05:00 05:00 07:30 WBC RBC Hgb Hct MCV MCH MCHC RDW Plt Count MPV Neutrophils % Lymphocytes % Monocytes % Eosinophils % Basophils % PT with INR INR Anticoagulation Therapy Puncture Site Right brachial ABG pH 6.75 L* ABG pCO2 at Pt Temp 41.8 D ABG pO2 at Pt Temp 269.0 H* ABG HCO3 5.5 L* ABG O2 Sat (Measured) 97.7 ABG O2 Content 13.6 L ABG Base Excess -28.2 L* Ramón Test Not applicable O2 Delivery Device Vent Oxygen Flow Rate 100 Vent Mode A/c Vent Rate 14 Mechanical Rate Yes PEEP 5.0 Pressure Support Vent 500 Sodium Cancelled Potassium Cancelled Chloride Cancelled Carbon Dioxide Cancelled Anion Gap Cancelled BUN Cancelled Creatinine Cancelled Creat Clearance w eGFR Cancelled Random Glucose Cancelled Calcium Cancelled Phosphorus Cancelled Magnesium Cancelled Total Bilirubin Cancelled Direct Bilirubin AST Cancelled ALT Cancelled Alkaline Phosphatase Cancelled Ammonia Troponin I Cancelled Total Protein Cancelled Albumin Cancelled Urine Eosinophils Double Strand DNA Ab Glomerular Base Memb Ab Blood Type Antibody Screen 01/19/17 13:28 WBC RBC Hgb Hct MCV MCH MCHC RDW Plt Count MPV Neutrophils % Lymphocytes % Monocytes % Eosinophils % Basophils % PT with INR INR Anticoagulation Therapy Puncture Site Right brachial ABG pH 6.78 L* ABG pCO2 at Pt Temp 46.3 H ABG pO2 at Pt Temp 218.0 H* ABG HCO3 6.5 L* ABG O2 Sat (Measured) 97.8 ABG O2 Content 14.6 L ABG Base Excess -27.4 L* Ramón Test Positive O2 Delivery Device Vent Oxygen Flow Rate 100% Vent Mode A/c Vent Rate 14 Mechanical Rate Y PEEP 5.0 Pressure Support Vent 500 Sodium Potassium Chloride Carbon Dioxide Anion Gap BUN Creatinine Creat Clearance w eGFR Random Glucose Calcium Phosphorus Magnesium Total Bilirubin Direct Bilirubin AST ALT Alkaline Phosphatase Ammonia Troponin I Total Protein Albumin Urine Eosinophils Double Strand DNA Ab Glomerular Base Memb Ab Blood Type Antibody Screen IMP: Acute CP arrest -> Likely LUIS Seizures due to hypoxemia Liver cirrhosis DALTON Thrombocytopenia Electrolyte imbalance Severe Metabolic Acidosis ETOH abuse Suspected HRS PLAN: Due to previously suspected HRS and now with CP arrest (although ROSC was only 6 minutes) -> Overall outcome is expected to be grave. Neurology consult noted. Noted renal consult. Agree that given his current condition, he would not be able to tolerate [employer] and this intervention would unlikely change his outcome Noted Bicarbonate was ordered Pressors to maintain MAP Follow ABG / Acid Base ABX per ID Update given to the friend of the family Dr Yrn Barraza [phone]. Dr Rivas Critical care time spent in reviewing chart, evaluating patient and formulating plan - 40 minutes.
--- NOTE | 2017-01-19 15:39 | CON.NEURO ---
Consult - History of Present Illness History of Present Illness: 56 Year old [place] speaking male with no past medical history who presented to the hospital on 12/2016 with 2 weeks history of nausea, vomiting,diarrhea , loss of appetite and valeria loss of 10-15 pound within 2 weeks and generalized weakness. diarrhea 2-3 times a day non bloody was being treated for alcholic hepatitis. This AM ,s/p PEA arrest, intubated. Noted in status, s/p Ativan IV and phenytoin loading. Bradycardic and hypotensive, placed on dopamine, now levophed;on versed 4, as well noted to be left facial twitching ; family bedside; unable to get HD CT bc pt too unstable 01/09/17 : CT/HEAD CT WITHOUT CONTRAST HISTORY PROVIDED: Blurred vision TECHNIQUE: Sequential axial images were obtained from the base of the skull to the vertex. There is no evidence of acute intracranial hemorrhage, mass lesions or infarctions. There is a mild degree of diffuse cerebral atrophy with sulcal widening and ventricular dilatation. IMPRESSION: No evidence of acute intracranial pathology. - Alcohol/Substance Use Hx Alcohol Use: Yes (30+ year. Beer and vodka, per daughter) History of Substance Use: reports: None - Smoking History Smoking history: Never smoked - Social History Usual Living Arrangement: With Spouse Home Medications - Allergies Allergies/Adverse Reactions: Allergies Allergy/AdvReac Type Severity Reaction Status Date / Time No Known Allergies Allergy Verified 01/09/17 16:20 - Home Medications Home Medications: Ambulatory Orders NK [No Known Home Medication] 01/09/17 Physical Exam-Neuro Vital Signs: Vital Signs Temperature 95.1 F L 01/19/17 14:46 Pulse Rate 84 01/19/17 14:46 Respiratory Rate 14 01/19/17 14:46 Blood Pressure 113/69 01/19/17 14:46 O2 Sat by Pulse Oximetry (%) 100 01/19/17 14:20 Constitutional: Yes: Moderate Distress Labs: CBC, BMP 01/19/17 05:00 01/19/17 05:00 INR, PTT INR 1.42 (0.82-1.09) H D 01/19/17 05:00 - Neuro Exam Level Of Consciousness: Yes: Comatose (on sedation, eyes open, nystagmus to left , left facila twitching, no corneal, pupils 6mm-NR , motor- no repsosne to tactile stim, plantars dwn ) Assessment/Plan 56 Year old [place] speaking male with no past medical history who presented to the hospital on 12/2016 with 2 weeks history of nausea, vomiting,diarrhea , loss of appetite and valeria loss of 10-15 pound within 2 weeks and generalized weakness. diarrhea 2-3 times a day non bloody was being treated for alcholic hepatitis. This AM ,s/p PEA arrest, intubated. Noted in status, s/p Ativan IV and phenytoin loading. 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
--- NOTE | 2017-01-19 15:57 | PN ---
Physical Exam: SUBJECTIVE: Patient seen and examined at bedside. Pt was transferred to ICU this morning following a code 99 with ROSC after 6 min. Pt was intubated. On exam, pt was unresponsive to verbal command or sternal rub. Pupils were fixed and dilated. No corneal reflex, no babinski sign. OBJECTIVE: Vital Signs Period Temp Pulse Resp BP Sys/Arguelles Pulse Ox Last 24 Hr 88.6 F-97.5 F 56-90 14-29 55-168/40-100 100-100 GENERAL: Intubated. Pt unresponsive to voice or sternal rub HEAD: Normal with no signs of trauma. EYES: pupils fixed and dilated ENT: moist mucous membranes. NECK: Trachea midline, full range of motion, supple. LUNGS: Breath sounds equal, clear to auscultation bilaterally, no wheezes, no crackles, no accessory muscle use. HEART: Regular rate and rhythm, S1, S2 without murmur, rub or gallop. ABDOMEN: Soft, nondistended, normoactive bowel sounds, no guarding, no rebound, no hepatosplenomegaly, no masses. EXTREMITIES: 2+ pulses, warm, well-perfused, no edema. NEUROLOGICAL:gait not observed. SKIN: Warm, dry, normal turgor, no rashes or lesions noted Laboratory Results - last 24 hr 01/15/17 01/16/17 01/18/17 06:20 15:30 20:25 WBC RBC Hgb Hct MCV MCH MCHC RDW Plt Count MPV Neutrophils % Lymphocytes % Monocytes % Eosinophils % Basophils % PT with INR INR Anticoagulation Therapy Y Puncture Site Right radial ABG pH 7.30 L ABG pCO2 at Pt Temp 18.5 L* ABG pO2 at Pt Temp 79.3 L ABG HCO3 8.7 L* ABG O2 Sat (Measured) 95.0 ABG O2 Content 13.5 L ABG Base Excess -16.2 L* Ramón Test Positive O2 Delivery Device Room air Oxygen Flow Rate No Vent Mode Y Vent Rate Y Mechanical Rate Y PEEP 0.0 Pressure Support Vent Y Sodium Potassium Chloride Carbon Dioxide Anion Gap BUN Creatinine Creat Clearance w eGFR Random Glucose Calcium Phosphorus Magnesium Total Bilirubin Direct Bilirubin AST ALT Alkaline Phosphatase Ammonia Troponin I Total Protein Albumin Urine Eosinophils None seen Double Strand DNA Ab 3 Glomerular Base Memb Ab 6 Blood Type Antibody Screen 01/18/17 01/18/17 01/19/17 20:45 20:45 05:00 WBC RBC Hgb Hct MCV MCH MCHC RDW Plt Count MPV Neutrophils % Lymphocytes % Monocytes % Eosinophils % Basophils % PT with INR INR Anticoagulation Therapy Puncture Site ABG pH ABG pCO2 at Pt Temp ABG pO2 at Pt Temp ABG HCO3 ABG O2 Sat (Measured) ABG O2 Content ABG Base Excess Ramón Test O2 Delivery Device Oxygen Flow Rate Vent Mode Vent Rate Mechanical Rate PEEP Pressure Support Vent Sodium 144 Potassium 4.9 D Chloride 118 H Carbon Dioxide 12 L Anion Gap 14 BUN 92 H Creatinine 7.3 H Creat Clearance w eGFR 7.77 Random Glucose 155 H D Calcium 7.6 L Phosphorus 7.9 H D Magnesium 2.9 H Total Bilirubin 3.3 H Direct Bilirubin 2.4 H AST 42 H ALT 29 Alkaline Phosphatase 367 H Ammonia Troponin I 0.16 H Total Protein 5.4 L Albumin 2.0 L Urine Eosinophils Double Strand DNA Ab Glomerular Base Memb Ab Blood Type O POSITIVE O POSITIVE Antibody Screen Negative 01/19/17 01/19/17 01/19/17 05:00 05:00 05:00 WBC 6.8 RBC 4.11 Hgb 11.2 L Hct 35.1 L MCV 85.3 MCH 27.3 MCHC 32.0 RDW 19.8 H Plt Count 47 L D MPV 9.4 Neutrophils % 86.9 H Lymphocytes % 10.0 D Monocytes % 0.6 L Eosinophils % 0.5 Basophils % 2.0 D PT with INR 16.10 H INR 1.42 H D Anticoagulation Therapy Puncture Site ABG pH ABG pCO2 at Pt Temp ABG pO2 at Pt Temp ABG HCO3 ABG O2 Sat (Measured) ABG O2 Content ABG Base Excess Ramón Test O2 Delivery Device Oxygen Flow Rate Vent Mode Vent Rate Mechanical Rate PEEP Pressure Support Vent Sodium Potassium Chloride Carbon Dioxide Anion Gap BUN Creatinine Creat Clearance w eGFR Random Glucose Calcium Phosphorus Magnesium Total Bilirubin Direct Bilirubin AST ALT Alkaline Phosphatase Ammonia 37.90 H Troponin I Total Protein Albumin Urine Eosinophils Double Strand DNA Ab Glomerular Base Memb Ab Blood Type Antibody Screen 01/19/17 01/19/17 01/19/17 05:00 05:00 07:30 WBC RBC Hgb Hct MCV MCH MCHC RDW Plt Count MPV Neutrophils % Lymphocytes % Monocytes % Eosinophils % Basophils % PT with INR INR Anticoagulation Therapy Puncture Site Right brachial ABG pH 6.75 L* ABG pCO2 at Pt Temp 41.8 D ABG pO2 at Pt Temp 269.0 H* ABG HCO3 5.5 L* ABG O2 Sat (Measured) 97.7 ABG O2 Content 13.6 L ABG Base Excess -28.2 L* Ramón Test Not applicable O2 Delivery Device Vent Oxygen Flow Rate 100 Vent Mode A/c Vent Rate 14 Mechanical Rate Yes PEEP 5.0 Pressure Support Vent 500 Sodium Cancelled Potassium Cancelled Chloride Cancelled Carbon Dioxide Cancelled Anion Gap Cancelled BUN Cancelled Creatinine Cancelled Creat Clearance w eGFR Cancelled Random Glucose Cancelled Calcium Cancelled Phosphorus Cancelled Magnesium Cancelled Total Bilirubin Cancelled Direct Bilirubin AST Cancelled ALT Cancelled Alkaline Phosphatase Cancelled Ammonia Troponin I Cancelled Total Protein Cancelled Albumin Cancelled Urine Eosinophils Double Strand DNA Ab Glomerular Base Memb Ab Blood Type Antibody Screen 01/19/17 13:28 WBC RBC Hgb Hct MCV MCH MCHC RDW Plt Count MPV Neutrophils % Lymphocytes % Monocytes % Eosinophils % Basophils % PT with INR INR Anticoagulation Therapy Puncture Site Right brachial ABG pH 6.78 L* ABG pCO2 at Pt Temp 46.3 H ABG pO2 at Pt Temp 218.0 H* ABG HCO3 6.5 L* ABG O2 Sat (Measured) 97.8 ABG O2 Content 14.6 L ABG Base Excess -27.4 L* Ramón Test Positive O2 Delivery Device Vent Oxygen Flow Rate 100% Vent Mode A/c Vent Rate 14 Mechanical Rate Y PEEP 5.0 Pressure Support Vent 500 Sodium Potassium Chloride Carbon Dioxide Anion Gap BUN Creatinine Creat Clearance w eGFR Random Glucose Calcium Phosphorus Magnesium Total Bilirubin Direct Bilirubin AST ALT Alkaline Phosphatase Ammonia Troponin I Total Protein Albumin Urine Eosinophils Double Strand DNA Ab Glomerular Base Memb Ab Blood Type Antibody Screen Active Medications Generic Name Dose Route Start Last Admin Trade Name Freq PRN Reason Stop Dose Admin Fosphenytoin Sodium 100 mg 01/19/17 14:00 01/19/17 13:54 Cerebyx - IVPB 100 mg TID MEI Administration Sodium Bicarbonate 150 meq/ 1,150 mls @ 83 mls/hr 01/19/17 08:15 01/19/17 10:30 Dextrose IV 83 mls/hr Q13H MEI Administration Norepinephrine Bitartrate 4, 500 mls @ 37.5 mls/hr 01/19/17 09:00 01/19/17 11: 00 000 mcg/ Dextrose IV 37.5 mls/hr TITR MEI Administration Protocol 5 MCG/MIN Meropenem 500 mg/ Dextrose 100 mls @ 400 mls/hr 01/19/17 22:00 01/19/17 11:43 IVPB 400 mls/hr BID MEI Administration Midazolam HCl 100 mg/ Sodium 100 mls @ 2 mls/hr 01/19/17 12:00 01/19/17 14:47 Chloride IVPB 4 mg/hr TITR MEI Titration Protocol 2 MG/HR Propofol 100 mls @ 2.327 mls/hr 01/19/17 12:00 Diprivan - IVPB TITR MEI Protocol 5 MCG/KG/MIN Dopamine HCl/Dextrose 250 mls @ 8.726 mls/hr 01/19/17 13:15 01/19/17 12:55 Dopamine 400 Mg/D5w - IVPB 8.726 mls/hr TITR MEI Administration Protocol 3 MCG/KG/MIN Octreotide Acetate 100 mcg 01/19/17 14:00 01/19/17 14:17 Sandostatin - SQ Not Given TID MEI Sodium Bicarbonate 1,300 mg 01/19/17 14:00 01/19/17 14:17 Sodium Bicarbonate - PO Not Given TID MEI ASSESSMENT/PLAN: 56 M w/ PMH alcoholism, cirrhosis who presented to ED with n/v/d. Pt was admitted for colitis and jaundice 2/2 acute hepatic failure, DALTON. Floor team has been attempting to optimize pt's fluid and electrolytes status. Despite therapy, pt's liver and kidney function has continued to deteriorate. Pt had 2 diagnostic/therapeutic paracinteses. The possibility of doing dialysis today was being considered. However, this morning the patient had PEA arrest. Pt was coded and ROSC was achieved. Pt was then transferred to ICU. On exam in ICU, pt was unresponsive to sternal rub, had fixed dilated pupils, no corneal reflex, and no babinski sign. #s/p cardiac arrest -pt was coded for 6 min -pt was intubated -currently unresponsive #Hypotensive shock requiring pressors -on levophed -on dopamine #hepatitis on Liver cirrhosis -ascites -transaminitis -2/2 to etoh vs shock liver vs hepatorenal syndrome #DALTON -Laborer/Grade Check 7.3 -not a candidate for HD due to hemodynamic instability #seizures -pt has been seizing despite many rounds of ativan -started on propafol and midazolam drip #metab acidosis -pH 6.7 -pt has been receiving Bicarb pushes and Bicarb drip #ascites -Pt has received 2 taps -belly not currently distended #hypoalbuminemia -alb of 2.0 #normocytic anemia -likely 2/2 liver disease #hyperchloremia -Cl 118 -on fluids #lactic acidosis -LA of 2.6 -pt on pressors #colitis -bowel wall swelling on CT #troponinemia -pt s/p code -mild elevation #FEN -on d5w -pseudohypocalcemia, hyperchloremia -pt unconscious unresponsive #Dispo -admit to ICU Rogelio Barlow MD PGY-1 case discussed with attending Visit type - Emergency Visit Emergency Visit: No - New Patient This patient is new to me today: No - Critical Care Critical Care patient: Yes Total Critical Care Time (in minutes): 35 Critical Care Statement: The care of this patient involved high complexity decision making to prevent further life threatening deterioration of the patient 's condition and/or to evaluate & treat vital organ system(s) failure or risk of failure. - Discharge Referral Referred to [facility] No
[2017-01-19] MEDS: PROPOFOL 100 ML IVPB SCH (16:49)
[2017-01-19] MEDS ORDERED: SODIUM BICARBONATE 8.4% - 50 ML ONE (16:54)
--- NOTE | 2017-01-19 17:12 | PN ---
Physical Exam: SUBJECTIVE: Patient seen and examined. Not responsive to verbal and painful stimuli. Events noted overnight. Code 99 called PEA arrest, intubated. Hypotensive now on 2 pressors (dopamine and NE) OBJECTIVE: Vital Signs Period Temp Pulse Resp BP Sys/Arguelles Pulse Ox Last 24 Hr 88.6 F-97.5 F 56-90 14-29 55-168/40-100 100-100 GEN: Sedative, not responding to sternal rubs, intubated on pressors HEENT: Pupils fixed and dilated, unable to assess EOM CV: S1, S2, RRR LUNG: Upper airway noises bilaterally ABD: Distended, unable to assess tenderness, normoactive BS MSK: No edema, cool extremities Laboratory Last Values WBC 6.8 K/mm3 (4.0-10.0) 01/19/17 05:00 RBC 4.11 M/mm3 (4.00-5.60) 01/19/17 05:00 Hgb 11.2 GM/dL (11.7-16.9) L 01/19/17 05:00 Hct 35.1 % (35.4-49) L 01/19/17 05:00 MCV 85.3 fl (80-96) 01/19/17 05:00 MCH 27.3 pg (25.7-33.7) 01/19/17 05:00 MCHC 32.0 g/dl (32.0-35.9) 01/19/17 05:00 RDW 19.8 % (11.9-15.9) H 01/19/17 05:00 Plt Count 47 K/MM3 (134-434) L D 01/19/17 05:00 MPV 9.4 fl (7.5-11.1) 01/19/17 05:00 Neutrophils % 86.9 % (42.8-82.8) H 01/19/17 05:00 Lymphocytes % 10.0 % (8-40) D 01/19/17 05:00 Monocytes % 0.6 % (3.8-10.2) L 01/19/17 05:00 Eosinophils % 0.5 % (0-4.5) 01/19/17 05:00 Basophils % 2.0 % (0-2.0) D 01/19/17 05:00 Platelet Estimate Markedly decreased (NORMAL) 01/09/17 16:20 PT with INR 16.10 SEC (9.98-11.88) H 01/19/17 05:00 INR 1.42 (0.82-1.09) H D 01/19/17 05:00 PTT (Actin FS) 32.5 SECONDS (26.9-34.4) 01/10/17 07:30 Anticoagulation Therapy Y 01/18/17 20:25 Puncture Site Right brachial 01/19/17 13:28 ABG pH 6.78 (7.35-7.45) L* 01/19/17 13:28 ABG pCO2 at Pt Temp 46.3 mmHg (35-45) H 01/19/17 13:28 ABG pO2 at Pt Temp 218.0 mmHg (80-100) H* 01/19/17 13:28 ABG HCO3 6.5 meq/L (22-26) L* 01/19/17 13:28 ABG O2 Sat (Measured) 97.8 % (90-98.9) 01/19/17 13:28 ABG O2 Content 14.6 % vol (15-22) L 01/19/17 13:28 ABG Base Excess -27.4 meq/l (-2-2) L* 01/19/17 13:28 Ramón Test Positive 01/19/17 13:28 O2 Delivery Device Vent 01/19/17 13:28 Oxygen Flow Rate 100% 01/19/17 13:28 Vent Mode A/c 01/19/17 13:28 Vent Rate 14 01/19/17 13:28 Mechanical Rate Y 01/19/17 13:28 PEEP 5.0 cmH2O 01/19/17 13:28 Pressure Support Vent 500 01/19/17 13:28 Sodium 144 mmol/L (136-145) 01/19/17 05:00 Potassium 4.9 mmol/L (3.5-5.1) D 01/19/17 05:00 Chloride 118 mmol/L (98-107) H 01/19/17 05:00 Carbon Dioxide 12 mmol/L (21-32) L 01/19/17 05:00 Anion Gap 14 (8-16) 01/19/17 05:00 Hepatic Function Panel 66 % (13-88) 01/11/17 08:35 BUN 92 mg/dL (7-18) H 01/19/17 05:00 Creatinine 7.3 mg/dL (0.7-1.3) H 01/19/17 05:00 Creat Clearance w eGFR 7.77 (>60) 01/19/17 05:00 Random Glucose 155 mg/dL (74-106) H D 01/19/17 05:00 Lactic Acid 2.6 mmol/L (0.4-2.0) H* 01/18/17 05:05 Calcium 7.6 mg/dL (8.5-10.1) L 01/19/17 05:00 Phosphorus 7.9 mg/dL (2.5-4.9) H D 01/19/17 05:00 Magnesium 2.9 mg/dL (1.8-2.4) H 01/19/17 05:00 Total Bilirubin 3.3 mg/dL (0.2-1.0) H 01/19/17 05:00 Direct Bilirubin 2.4 mg/dL (0.0-0.2) H 01/19/17 05:00 GGT 880 U/L (5-85) H 01/11/17 08:35 AST 42 U/L (15-37) H 01/19/17 05:00 ALT 29 U/L (12-78) 01/19/17 05:00 Alkaline Phosphatase 367 U/L (45-117) H 01/19/17 05:00 Ammonia 37.90 umol/L (11-32) H 01/19/17 05:00 Troponin I 0.16 ng/ml (0.00-0.05) H 01/19/17 05:00 Total Protein 5.4 g/dl (6.4-8.2) L 01/19/17 05:00 Albumin 2.0 g/dl (3.4-5.0) L 01/19/17 05:00 Lipase 221 U/L (73-393) 01/09/17 17:15 Tumor Marker AFP 1.0 ng/ml (0.0-8.3) 01/11/17 08:35 Urine Color Salma 01/16/17 15:30 Urine Appearance Cloudy 01/16/17 15:30 Urine pH 5.0 (5.0-8.0) 01/16/17 15:30 Ur Specific [place] 1.020 (1.005-1.025) 01/16/17 15:30 Urine Protein 3+ (NEGATIVE) H 01/16/17 15:30 Urine Glucose (UA) 2+ (NEGATIVE) H 01/16/17 15:30 Urine Ketones Negative (NEGATIVE) 01/16/17 15:30 Urine Blood 3+ (NEGATIVE) H 01/16/17 15:30 Urine Nitrite Negative (NEGATIVE) 01/16/17 15:30 Urine Bilirubin Negative (NEGATIVE) 01/16/17 15:30 Urine Urobilinogen Negative mg/dL (0.2-1.0) 01/16/17 15:30 Ur Leukocyte Esterase Negative (NEGATIVE) 01/16/17 15:30 Urine RBC 211 /hpf (0-3) 01/16/17 15:30 Urine WBC 26 /hpf (3-5) 01/16/17 15:30 Ur Epithelial Cells Rare /hpf (FEW) 01/16/17 15:30 Urine Bacteria Rare /hpf (NONE SEEN) 01/16/17 15:30 Urine Mucus Rare 01/16/17 15:30 Urine Yeast Few 01/16/17 15:30 Urine Eosinophils None seen % (.) 01/16/17 15:30 U Random Total Protein 427 mg/dl (5-11.9) H 01/12/17 06:00 Ur Random Sodium 34 MMOL/L 01/16/17 15:30 Ur Random Potassium 24.6 MMOL/L 01/16/17 15:30 Ur Random Chloride 15 MMOL/L 01/16/17 15:30 Urine Creatinine 59.0 mg/dL (20-370) 01/16/17 15:30 Protein/Creatinin Ratio 6.325 MG/DL 01/12/17 06:00 Peritoneal WBC 91 /mm3 01/13/17 15:00 Peritoneal RBC 673 /mm3 01/13/17 15:00 Periton Neutrophils 45 % 01/13/17 15:00 Periton Lymphocytes 22 % 01/13/17 15:00 Peritoneal Monocytes 25 % 01/13/17 15:00 Periton Mesothelial 1 % 01/13/17 15:00 Periton Macrophages 7 % 01/13/17 15:00 Peritoneal Tot Protein 1 gm/dL 01/13/17 15:00 Peritoneal Albumin 0 g/dL 01/13/17 15:00 Peritoneal LDH 89 IU/L 01/13/17 15:00 Peritoneal Glucose 134 mg/dL 01/13/17 15:00 Peritoneal Amylase 54 U/L 01/13/17 15:00 Peritoneal Triglycerid 45 mg/dL 01/13/17 15:00 Stool Occult Blood Positive (NEGATIVE) 01/10/17 19:30 Stool Calprotectin TNP 01/11/17 06:00 TESSY Screen Negative (.) 01/11/17 08:35 c-ANCA <1:20 titer (Neg:<1:20) 01/12/17 07:35 Proteinase 3 (PR3) <3.5 U/mL (0.0-3.5) 01/12/17 07:35 p-ANCA <1:20 titer (Neg:<1:20) 01/12/17 07:35 Atypical p-ANCA <1:20 titer (Neg:<1:20) 01/12/17 07:35 Myeloperoxidase Ab <9.0 U/mL (0.0-9.0) 01/12/17 07:35 Double Strand DNA Ab 3 IU/mL (0-9) 01/15/17 06:20 Smooth Musc &SOIL TESTER Intrp 6 Units (0-19) 01/11/17 08:35 Glomerular Base Memb Ab 6 units (0-20) 01/15/17 06:20 Hep A IgM Ab Confirm Negative (Negative) 01/10/17 07:30 Hepatitis A Ab Total Positive (Negative) H 01/10/17 07:30 Hep Bs Antigen Negative (Negative) 01/10/17 07:30 Hep Bs Antibody Non reactive (.) 01/10/17 07:30 Hep B Core Total Ab Negative (Negative) 01/10/17 07:30 Hep B Core IgM Ab Negative (Negative) 01/09/17 17:15 Hepatitis C Antibody 0.3 s/co ratio (0.0-0.9) 01/11/17 17:20 Blood Type O POSITIVE 01/18/17 20:45 Antibody Screen Negative 01/18/17 20:45 Active Medications Generic Name Dose Route Start Last Admin Trade Name Freq PRN Reason Stop Dose Admin Fosphenytoin Sodium 100 mg 01/19/17 14:00 01/19/17 13:54 Cerebyx - IVPB 100 mg TID MEI Administration Sodium Bicarbonate 150 meq/ 1,150 mls @ 83 mls/hr 01/19/17 08:15 01/19/17 10:30 Dextrose IV 83 mls/hr Q13H MEI Administration Norepinephrine Bitartrate 4, 500 mls @ 37.5 mls/hr 01/19/17 09:00 01/19/17 16: 48 000 mcg/ Dextrose IV 17 mcg/min TITR MEI Titration Protocol 5 MCG/MIN Meropenem 500 mg/ Dextrose 100 mls @ 400 mls/hr 01/19/17 22:00 01/19/17 11:43 IVPB 400 mls/hr BID MEI Administration Midazolam HCl 100 mg/ Sodium 100 mls @ 2 mls/hr 01/19/17 12:00 01/19/17 17:08 Chloride IVPB 6 mg/hr TITR MEI Titration Protocol 2 MG/HR Propofol 100 mls @ 2.327 mls/hr 01/19/17 12:00 01/19/17 16:49 Diprivan - IVPB Not Given TITR MEI Protocol 5 MCG/KG/MIN Dopamine HCl/Dextrose 250 mls @ 8.726 mls/hr 01/19/17 13:15 01/19/17 12:55 Dopamine 400 Mg/D5w - IVPB 8.726 mls/hr TITR MEI Administration Protocol 3 MCG/KG/MIN Octreotide Acetate 100 mcg 01/19/17 14:00 01/19/17 14:17 Sandostatin - SQ Not Given TID MEI Sodium Bicarbonate 1,300 mg 01/19/17 14:00 01/19/17 14:17 Sodium Bicarbonate - PO Not Given TID MEI ASSESSMENT/PLAN: 56yo M w/ PMHx of EtOH abuse (+30 yrs) who presented to ER w/ nausea, vomiting, profuse watery diarrhea, 15 lb wt loss over 2 weeks. Found to have elevated LFTs. # Likely Hepatorenal Syndrome - 2/2 decompensated alcoholic liver dz, failed multiple fluid challenges - S/p PEA arrest, transfer to ICU, intubated, ABG shows worsening acidosis, Cr worsening, even w/ midrodine + octreotide - Per renal, too unstable for HD carlene - Hypotensive, on Dopamine and NE drips # HAGMA - 2/2 bicarb loss from diarrhea + worsening renal failure + lactic acidosis - S/p multiple bicarb pushes, currently on 150meq Bicarb in D5W, ABG not improving # New Onset Seizures - 2/2 anoxia from arrest vs intracerebral pathology ?bleed from low PLT, showing signs of herniation (pupils fixed, dilated, no corneal reflex) - Loaded and maintained on Fospheny + Midazolam drip + Ativan PRN - Per neuro, titrate up midazolam if still seizing as long as BP can tolerate - Dilantin level stat, ideal level 15-20, if low can give more cerebryx # Hypothermia - ?central, ?GI source, ?pneumonia, on Meropenem, consider switching due to seizures, follow ID [email or web address] # Chronic Diarrhea - unk cause carlene, surg path of colonoscopy shows no colitis, stool cultures neg, ?malabsorption related to liver dz # Thrombocytopenia - 2/2 liver dz, intermittent PLT transfusions prior to procedures # Pulmonary Infiltrates - seen on new CT, venous congestion vs PNA # Gastritis - w/ erosions, seen on EGD, likely from alcohol, started on protonix PO # Hypokalemia - resolved as of now, stopped scheduled KCl # HTN - Norvasc 10mg daily # EtOH Withdrawal - Stopped ativan # FEN - NPO for now # PPx - SCDs # Dispo - Now in ICU, very poor prognosis, family aware, family will discuss code status with eachother. d/w Dr Leyda Mendoza MD - PGY1 Internal Medicine Visit type - Emergency Visit Emergency Visit: No - New Patient This patient is new to me today: No - Critical Care Critical Care patient: No - Discharge Referral Referred to [facility] Med P.C.: No
[2017-01-19 17:58] LABS: ARTERIAL BLD GAS O2 SATURATION 97.8 % (90-98.9); ARTERIAL BLOOD GAS BASE EXCESS -25.1 meq/l (-2-2)
[2017-01-19 18:00] LABS: ALLENS TEST POSITIVE; ART PUNCT SITE RIGHT BRACHIAL; PT. ON O2? YES
[2017-01-19 18:01] LABS: LPM/O2% 100%; MECH. VENT. YES; TYPE OF O2 MECH VENT; VENT RATE 20; VT/PRESS 500
[2017-01-19 18:02] LABS: ARTERIAL BLOOD GAS HCO3 6.9 meq/L (22-26)
[2017-01-19] MEDS ORDERED: LORazepam 2 MG/ML SDV VIAL IVPUSH STA ×2 (20:52→21:53)
--- NOTE | 2017-01-19 20:57 | PN ---
Physical Exam: SUBJECTIVE: Called by nurse since pt was actively seizing. Assessed patient, head shaking. Episode lasted for approximately 2 minutes. Vital signs: 99 HR, BP 101/66, 02 sat 100%, patient RR23, vent settings on A/C control 20. Midazolam was titrated up to 10 mg/min. 2 mg IVP ativan was also administered. Patient currently on : dopamine 7 mcg/kg/min and levophed 20 mcg/min. OBJECTIVE: Vital Signs Period Temp Pulse Resp BP Sys/Arguelles Pulse Ox Last 24 Hr 88.6 F-98.7 F 56-90 14-29 55-159/40-95 100-100 GENERAL: pt unable to respond to stimuli, on vent, on levophed and dopamine pressors EYES: pupils fixed and dilated NECK: Trachea midline, full range of motion, supple. LUNGS: coarse breath sounds bilaterally HEART: Regular rate and rhythm, S1, S2 without murmur, rub or gallop. ABDOMEN: distended EXTREMITIES: 2+ pulses, warm, well-perfused, no edema. NEUROLOGICAL: unable to assess d/t pt's mental status SKIN: cool extremities Laboratory Results - last 24 hr 01/15/17 01/16/17 01/18/17 06:20 15:30 20:45 WBC RBC Hgb Hct MCV MCH MCHC RDW Plt Count MPV Neutrophils % Lymphocytes % Monocytes % Eosinophils % Basophils % PT with INR INR Puncture Site ABG pH ABG pCO2 at Pt Temp ABG pO2 at Pt Temp ABG HCO3 ABG O2 Sat (Measured) ABG O2 Content ABG Base Excess Ramón Test O2 Delivery Device Oxygen Flow Rate Vent Mode Vent Rate Mechanical Rate PEEP Pressure Support Vent Sodium Potassium Chloride Carbon Dioxide Anion Gap BUN Creatinine Creat Clearance w eGFR Random Glucose Lactic Acid Calcium Phosphorus Magnesium Total Bilirubin Direct Bilirubin AST ALT Alkaline Phosphatase Ammonia Troponin I Total Protein Albumin Urine Eosinophils None seen Double Strand DNA Ab 3 Glomerular Base Memb Ab 6 Blood Type O POSITIVE Antibody Screen Negative 01/18/17 01/19/17 01/19/17 20:45 05:00 05:00 WBC 6.8 RBC 4.11 Hgb 11.2 L Hct 35.1 L MCV 85.3 MCH 27.3 MCHC 32.0 RDW 19.8 H Plt Count 47 L D MPV 9.4 Neutrophils % 86.9 H Lymphocytes % 10.0 D Monocytes % 0.6 L Eosinophils % 0.5 Basophils % 2.0 D PT with INR INR Puncture Site ABG pH ABG pCO2 at Pt Temp ABG pO2 at Pt Temp ABG HCO3 ABG O2 Sat (Measured) ABG O2 Content ABG Base Excess Ramón Test O2 Delivery Device Oxygen Flow Rate Vent Mode Vent Rate Mechanical Rate PEEP Pressure Support Vent Sodium 144 Potassium 4.9 D Chloride 118 H Carbon Dioxide 12 L Anion Gap 14 BUN 92 H Creatinine 7.3 H Creat Clearance w eGFR 7.77 Random Glucose 155 H D Lactic Acid Calcium 7.6 L Phosphorus 7.9 H D Magnesium 2.9 H Total Bilirubin 3.3 H Direct Bilirubin 2.4 H AST 42 H ALT 29 Alkaline Phosphatase 367 H Ammonia Troponin I 0.16 H Total Protein 5.4 L Albumin 2.0 L Urine Eosinophils Double Strand DNA Ab Glomerular Base Memb Ab Blood Type O POSITIVE Antibody Screen 01/19/17 01/19/17 01/19/17 05:00 05:00 05:00 WBC RBC Hgb Hct MCV MCH MCHC RDW Plt Count MPV Neutrophils % Lymphocytes % Monocytes % Eosinophils % Basophils % PT with INR 16.10 H INR 1.42 H D Puncture Site ABG pH ABG pCO2 at Pt Temp ABG pO2 at Pt Temp ABG HCO3 ABG O2 Sat (Measured) ABG O2 Content ABG Base Excess Ramón Test O2 Delivery Device Oxygen Flow Rate Vent Mode Vent Rate Mechanical Rate PEEP Pressure Support Vent Sodium Cancelled Potassium Cancelled Chloride Cancelled Carbon Dioxide Cancelled Anion Gap Cancelled BUN Cancelled Creatinine Cancelled Creat Clearance w eGFR Cancelled Random Glucose Cancelled Lactic Acid Calcium Cancelled Phosphorus Cancelled Magnesium Cancelled Total Bilirubin Cancelled Direct Bilirubin AST Cancelled ALT Cancelled Alkaline Phosphatase Cancelled Ammonia 37.90 H Troponin I Total Protein Cancelled Albumin Cancelled Urine Eosinophils Double Strand DNA Ab Glomerular Base Memb Ab Blood Type Antibody Screen 01/19/17 01/19/17 01/19/17 05:00 07:30 13:28 WBC RBC Hgb Hct MCV MCH MCHC RDW Plt Count MPV Neutrophils % Lymphocytes % Monocytes % Eosinophils % Basophils % PT with INR INR Puncture Site Right brachial Right brachial ABG pH 6.75 L* 6.78 L* ABG pCO2 at Pt Temp 41.8 D 46.3 H ABG pO2 at Pt Temp 269.0 H* 218.0 H* ABG HCO3 5.5 L* 6.5 L* ABG O2 Sat (Measured) 97.7 97.8 ABG O2 Content 13.6 L 14.6 L ABG Base Excess -28.2 L* -27.4 L* Ramón Test Not applicable Positive O2 Delivery Device Vent Vent Oxygen Flow Rate 100 100% Vent Mode A/c A/c Vent Rate 14 14 Mechanical Rate Yes Y PEEP 5.0 5.0 Pressure Support Vent 500 500 Sodium Potassium Chloride Carbon Dioxide Anion Gap BUN Creatinine Creat Clearance w eGFR Random Glucose Lactic Acid Calcium Phosphorus Magnesium Total Bilirubin Direct Bilirubin AST ALT Alkaline Phosphatase Ammonia Troponin I Cancelled Total Protein Albumin Urine Eosinophils Double Strand DNA Ab Glomerular Base Memb Ab Blood Type Antibody Screen 01/19/17 01/19/17 17:30 18:00 WBC RBC Hgb Hct MCV MCH MCHC RDW Plt Count MPV Neutrophils % Lymphocytes % Monocytes % Eosinophils % Basophils % PT with INR INR Puncture Site Right brachial ABG pH 6.90 L* ABG pCO2 at Pt Temp 37.7 ABG pO2 at Pt Temp 163.0 H* ABG HCO3 6.9 L* ABG O2 Sat (Measured) 97.8 ABG O2 Content 14.6 L ABG Base Excess -25.1 L* Ramón Test Positive O2 Delivery Device Mech vent Oxygen Flow Rate 100% Vent Mode A/c Vent Rate 20 Mechanical Rate Yes PEEP 5.0 Pressure Support Vent 500 Sodium Potassium Chloride Carbon Dioxide Anion Gap BUN Creatinine Creat Clearance w eGFR Random Glucose Lactic Acid 13.6 H* Calcium Phosphorus Magnesium Total Bilirubin Direct Bilirubin AST ALT Alkaline Phosphatase Ammonia Troponin I Total Protein Albumin Urine Eosinophils Double Strand DNA Ab Glomerular Base Memb Ab Blood Type Antibody Screen Active Medications Generic Name Dose Route Start Last Admin Trade Name Freq PRN Reason Stop Dose Admin Fosphenytoin Sodium 100 mg 01/19/17 14:00 01/19/17 13:54 Cerebyx - IVPB 100 mg TID MEI Administration Sodium Bicarbonate 150 meq/ 1,150 mls @ 83 mls/hr 01/19/17 08:15 01/19/17 10:30 Dextrose IV 83 mls/hr Q13H MEI Administration Norepinephrine Bitartrate 4, 500 mls @ 37.5 mls/hr 01/19/17 09:00 01/19/17 18: 10 000 mcg/ Dextrose IV 20 mcg/min TITR MEI Titration Protocol 5 MCG/MIN Meropenem 500 mg/ Dextrose 100 mls @ 400 mls/hr 01/19/17 22:00 01/19/17 11:43 IVPB 400 mls/hr BID MEI Administration Midazolam HCl 100 mg/ Sodium 100 mls @ 2 mls/hr 01/19/17 12:00 01/19/17 17:08 Chloride IVPB 6 mg/hr TITR MEI Titration Protocol 2 MG/HR Propofol 100 mls @ 2.327 mls/hr 01/19/17 12:00 01/19/17 16:49 Diprivan - IVPB Not Given TITR MEI Protocol 5 MCG/KG/MIN Dopamine HCl/Dextrose 250 mls @ 8.726 mls/hr 01/19/17 13:15 01/19/17 12:55 Dopamine 400 Mg/D5w - IVPB 8.726 mls/hr TITR MEI Administration Protocol 3 MCG/KG/MIN Lorazepam 2 mg 01/19/17 20:52 Ativan Injection - IVPUSH 01/19/17 20:53 ONCE STA Octreotide Acetate 100 mcg 01/19/17 14:00 01/19/17 14:17 Sandostatin - SQ Not Given TID MEI ASSESSMENT/PLAN: Visit type - Emergency Visit Emergency Visit: No - New Patient This patient is new to me today: Yes Date on this admission: 01/19/17 - Critical Care Critical Care patient: Yes Total Critical Care Time (in minutes): 42 Critical Care Statement: The care of this patient involved high complexity decision making to prevent further life threatening deterioration of the patient 's condition and/or to evaluate & treat vital organ system(s) failure or risk of failure.
[2017-01-19] MEDS ORDERED: PT OWN MED DRAWER 7, Y5N ONE (21:04)
[2017-01-19] MEDS ORDERED: CHLORHEXIDINE GLUCONATE 0.12% 15ML CUP MM ONE (21:51)
[2017-01-19] MEDS ORDERED: LACTULOSE 20 GM/30 ML UDC (FOR ORAL USE ONLY) PO SCH (22:00)
[2017-01-19] MEDS ORDERED: RIFAXIMIN 550 MG TABLET (UD) PO SCH (22:00)
[2017-01-20] MEDS: FOSPHENYTOIN SODIUM 100 MG/2 ML VIAL IVPB SCH ×4 (05:29→21:41)
[2017-01-20] MEDS: OCTREOTIDE ACETATE 100 MCG/1 ML SQ SCH ×3 (05:30→21:46)
[2017-01-20] MEDS: MIDAZOLAM 100 MG in SODIUM CHLORIDE 100 ML IVPB SCH ×2 (05:31→11:38)
[2017-01-20] MEDS: DOPAMINE 400 MG/D5W - 250 ML IVPB SCH ×2 (05:38→14:09)
[2017-01-20] MEDS ORDERED: ARTIFICIAL TEARS (POLYVINYL ALCOHOL 1.4%) OPTH DROPS OU PRN (05:42)
[2017-01-20 06:34] LABS: INR 2.77 (0.82-1.09); PROTHROMBIN TIME (PATIENT) 31.3 SEC (9.98-11.88)
[2017-01-20 06:40] LABS: ALBUMIN 1.8 g/dl (3.4-5.0); ANION GAP 29 (8-16); BILIRUBIN,TOTAL 3.9 mg/dL (0.2-1.0); CALCIUM 7.1 mg/dL (8.5-10.1); CO2 6 mmol/L (21-32); CREATININE 7.2 mg/dL (0.7-1.3); GLUCOSE,RANDOM 78 mg/dL (74-106); SGPT/ALT 399 U/L (12-78)
[2017-01-20] MEDS ORDERED: NOREPINEPHRINE BITARTRATE 4 MG/4 ML ML IV ONE ×3 (06:50→17:43)
[2017-01-20] MEDS: NOREPINEPHRINE BITARTRATE 8,000 MCG in DEXTROSE 5%-WATER - 492 ML IV SCH ×2 (06:53→19:00)
[2017-01-20 06:56] LABS: ALK PHOS 507 U/L (45-117)
[2017-01-20 07:05] LABS: MCHC 30.2 g/dl (32.0-35.9); MEAN CELL VOLUME 89.4 fl (80-96); MEAN PLT VOLUME 8.4 fl (7.5-11.1); PLATELET COUNT 51 K/MM3 (134-434); RDW 21.6 % (11.9-15.9)
[2017-01-20 07:27] LABS: SGOT/AST 2140 U/L (15-37)
[2017-01-20] MEDS ORDERED: SODIUM POLYSTYRENE SULFONATE 15 GM/60 ML BOTTLE PO ONE (07:34)
[2017-01-20] MEDS ORDERED: INSULIN REGULAR HUMAN 100 UNITS/ML *VIAL IVPUSH ONE (07:39)
[2017-01-20] MEDS ORDERED: DEXTROSE 50%-WATER - 25 GM/50 ML VIAL IVPUSH ONE (07:40)
[2017-01-20] MEDS ORDERED: CALCIUM GLUCONATE 10% - 1,000 MG/10 ML VIAL IVPUSH ONE (07:41)
[2017-01-20] MEDS ORDERED: DEXTROSE 50%-WATER - 25 GM/50 ML VIAL ONE (09:23)
[2017-01-20] MEDS ORDERED: INSULIN (NOVOLOG) ASPART 100 UNITS/ML 10ML VIAL ONE (09:23)
[2017-01-20] MEDS: SODIUM BICARBONATE 8.4% - 150 MEQ in DEXTROSE 5%-WATER - 1,000 ML IV SCH (09:30)
[2017-01-20] MEDS: MEROPENEM 500 MG in DEXTROSE 5%-WATER - 100 ML IVPB SCH ×2 (09:30→21:39)
[2017-01-20] MEDS: NOREPINEPHRINE BITARTRATE 4,000 MCG in DEXTROSE 5%-WATER - 496 ML IV SCH (09:31)
[2017-01-20] MEDS ORDERED: SODIUM POLYSTYRENE SULFONATE 15 GM/60 ML BOTTLE ONE (09:55)
[2017-01-20] MEDS ORDERED: PANTOPRAZOLE 40 MG TABLET (FP) PO SCH (10:00)
[2017-01-20] MEDS ORDERED: amLODIPine BESYLATE 10 MG TABLET (FP) PO SCH (10:00)
[2017-01-20] MEDS ORDERED: FOLIC ACID 1 MG TABLET (FP) PO SCH (10:00)
[2017-01-20] MEDS ORDERED: THIAMINE HCL 100 MG TABLET (FP) PO SCH (10:00)
[2017-01-20] MEDS ORDERED: MULTIVITAMINS (DAILY MVI) TABLET (FP) PO SCH (10:00)
--- NOTE | 2017-01-20 11:07 | PN ---
Progress Note, Physician History of Present Illness: Chart reviewed. No change in neurological status. - Current Medication List Current Medications: Active Medications Artificial Tears (Artificial Tears) 1 drop OU BID PRN PRN Reason: DRY EYES Fosphenytoin Sodium (Cerebyx -) 100 mg IVPB Q6H MEI Last Admin: 01/20/17 05:29 Dose: 100 mg Sodium Bicarbonate 150 meq/ (Dextrose) 1,150 mls @ 83 mls/hr IV Q13H MEI Last Admin: 01/20/17 09:30 Dose: 83 mls/hr Norepinephrine Bitartrate 4, (000 mcg/ Dextrose) 500 mls @ 37.5 mls/hr IV TITR MEI; 5 MCG/MIN PRN Reason: Protocol Last Admin: 01/20/17 09:31 Dose: 562.5 mls/hr Meropenem 500 mg/ Dextrose 100 mls @ 400 mls/hr IVPB BID MEI Last Admin: 01/20/17 09:30 Dose: 400 mls/hr Midazolam HCl 100 mg/ Sodium (Chloride) 100 mls @ 2 mls/hr IVPB TITR MEI; 2 MG/ HR PRN Reason: Protocol Last Admin: 01/20/17 05:31 Dose: 15 mls/hr Propofol (Diprivan -) 100 mls @ 2.327 mls/hr IVPB TITR MEI; 5 MCG/KG/MIN PRN Reason: Protocol Last Admin: 01/19/17 16:49 Dose: Not Given Dopamine HCl/Dextrose (Dopamine 400 Mg/D5w -) 250 mls @ 8.726 mls/hr IVPB TITR MEI; 3 MCG/KG/MIN PRN Reason: Protocol Last Admin: 01/20/17 05:38 Dose: 20.361 mls/hr Norepinephrine Bitartrate 8, (000 mcg/ Dextrose) 500 mls @ 8.72 mls/hr IV ASDIR MEI; 0.03 MCG/KG/MIN PRN Reason: Protocol Last Admin: 01/20/17 06:53 Dose: 75.62 mls/hr Octreotide Acetate (Sandostatin -) 100 mcg SQ TID MEI Last Admin: 01/20/17 05:30 Dose: 100 mcg - Objective Vital Signs: Vital Signs Temperature 98.6 F 01/20/17 10:00 Pulse Rate 82 01/20/17 10:00 Respiratory Rate 22 01/20/17 10:00 Blood Pressure 110/71 01/20/17 10:00 O2 Sat by Pulse Oximetry (%) 100 01/19/17 22:00 Labs: CBC, BMP 01/20/17 05:40 01/20/17 05:40 INR, PTT INR 2.77 (0.82-1.09) H D 01/20/17 05:40 Problem List - Problems (1) Lethargy Code(s): R53.83 - OTHER FATIGUE (2) Elevated alkaline phosphatase level Code(s): R74.8 - ABNORMAL LEVELS OF OTHER SERUM ENZYMES (3) Liver mass, right lobe Code(s): R16.0 - HEPATOMEGALY, NOT ELSEWHERE CLASSIFIED Assessment/Plan Remain in ICU on vasopressors and ventilatory support. Unresponsive. No changes in neurological status. Not a candidate for HD, per nephrology Change in liver chemistry likely related to hypoperfusion/ischemic state. ICU Management as per ICU team Prognosis grave, family aware
[2017-01-20 11:49] LABS: NUCLEATED RED BLOOD CELL 12 % (0-0); WHITE BLOOD COUNT 13.2 K/mm3 (4.0-10.0)
[2017-01-20 11:50] LABS: BASOPHIL (MANUAL) 0 % (0-2.0); METAMYELOCYTE 1 % (0-2); MYELOCYTE 5 % (0-2); PLATELET ESTIMATE DECREASED (NORMAL); REACTIVE LYMPHOCYTES 1 % (0-80)
[2017-01-20 11:51] LABS: ANISOCYTOSIS 2+; POIKILOCYTOSIS 2+
[2017-01-20 11:55] LABS: OVALOCYTE FEW; SMUDGE CELLS RARE; TARGET CELLS FEW; TEAR DROP CELLS RARE
[2017-01-20] MEDS ORDERED: BENZOIN/ALOE VERA/STORAX/TOLU 58 ML BOTTLE ONE (12:00)
--- NOTE | 2017-01-20 12:58 | PN ---
Teaching Attending Note Name of Resident: Rogelio Barlow ATTENDING PHYSICIAN STATEMENT I saw and evaluated the patient. I reviewed the resident's note and discussed the case with the resident. I agree with the resident's findings and plan as documented. SUBJECTIVE: Patient seen and examined in the ICU. Intubated and sedated. Remains on AC Mode of vent, 100% FiO2. HyperK noted and treated this AM. Remains on 20 mcq NE and 7 mg Dopamine for hemodynamic support. Seizure activity noted. Intake & Output 01/17/17 01/18/17 01/19/17 01/20/17 23:59 23:59 23:59 23:59 Intake Total 433 566 4124 2362 Output Total 450 350 320 50 Balance 470 -10 4313 2312 Weight 171 lb 181 lb 3 oz Last Vital Signs Temp Pulse Resp BP Pulse Ox 98.6 F 80 22 96/67 100 01/20/17 10:00 01/20/17 12:00 01/20/17 12:00 01/20/17 12:00 01/19/17 22:00 Active Medications Artificial Tears (Artificial Tears) 1 drop OU BID PRN PRN Reason: DRY EYES Last Admin: 01/20/17 11:45 Dose: 1 drp Fosphenytoin Sodium (Cerebyx -) 100 mg IVPB Q6H MEI Last Admin: 01/20/17 11:40 Dose: 100 mg Sodium Bicarbonate 150 meq/ (Dextrose) 1,150 mls @ 83 mls/hr IV Q13H MEI Last Admin: 01/20/17 09:30 Dose: 83 mls/hr Norepinephrine Bitartrate 4, (000 mcg/ Dextrose) 500 mls @ 37.5 mls/hr IV TITR MEI; 5 MCG/MIN PRN Reason: Protocol Last Admin: 01/20/17 09:31 Dose: 562.5 mls/hr Meropenem 500 mg/ Dextrose 100 mls @ 400 mls/hr IVPB BID MEI Last Admin: 01/20/17 09:30 Dose: 400 mls/hr Midazolam HCl 100 mg/ Sodium (Chloride) 100 mls @ 2 mls/hr IVPB TITR MEI; 2 MG/ HR PRN Reason: Protocol Last Admin: 01/20/17 11:38 Dose: 15 mls/hr Propofol (Diprivan -) 100 mls @ 2.327 mls/hr IVPB TITR MEI; 5 MCG/KG/MIN PRN Reason: Protocol Last Admin: 01/19/17 16:49 Dose: Not Given Dopamine HCl/Dextrose (Dopamine 400 Mg/D5w -) 250 mls @ 8.726 mls/hr IVPB TITR MEI; 3 MCG/KG/MIN PRN Reason: Protocol Last Admin: 01/20/17 05:38 Dose: 20.361 mls/hr Norepinephrine Bitartrate 8, (000 mcg/ Dextrose) 500 mls @ 8.72 mls/hr IV ASDIR MEI; 0.03 MCG/KG/MIN PRN Reason: Protocol Last Admin: 01/20/17 06:53 Dose: 75.62 mls/hr Octreotide Acetate (Sandostatin -) 100 mcg SQ TID MEI Last Admin: 01/20/17 05:30 Dose: 100 mcg Constitutional: Yes: Intubated, non-responsive, intermittent seizing Eyes: Yes: Dilated and non-reactive Neck: Yes: Supple Cardiovascular: Yes: S1, S2 Respiratory: Yes: Mechanically Ventilated, few scattered rhonchi Gastrointestinal: Yes: Soft, Ascites Genitourinary: Yes: Carter Present Musculoskeletal: Yes: Muscle Weakness Edema: LLE: Trace, RLE: Trace Neurological: Yes: seizure Labs: Laboratory Results - last 24 hr 01/15/17 01/19/17 01/19/17 06:20 13:28 17:30 WBC Corrected WBC (auto) RBC Hgb Hct MCV MCH MCHC RDW Plt Count MPV Neutrophils % Neutrophils % (Manual) Band Neuts % (Manual) Lymphocytes % Lymphocytes % (Manual) Monocytes % Monocytes % (Manual) Eosinophils % Eosinophils % (Manual) Basophils % Basophils % (Manual) Myelocytes % (Man) Nucleated RBC % Smudge Cells Platelet Estimate Platelet Comment Poikilocytosis Anisocytosis Target Cells Tear Drop Cells Ovalocytes PT with INR INR Puncture Site Right brachial ABG pH 6.78 L* ABG pCO2 at Pt Temp 46.3 H ABG pO2 at Pt Temp 218.0 H* ABG HCO3 6.5 L* ABG O2 Sat (Measured) 97.8 ABG O2 Content 14.6 L ABG Base Excess -27.4 L* Ramón Test Positive O2 Delivery Device Vent Oxygen Flow Rate 100% Vent Mode A/c Vent Rate 14 Mechanical Rate Y PEEP 5.0 Pressure Support Vent 500 Sodium Potassium Chloride Carbon Dioxide Anion Gap BUN Creatinine Creat Clearance w eGFR Random Glucose Lactic Acid 13.6 H* Calcium Total Bilirubin AST ALT Alkaline Phosphatase Total Protein Albumin Phenytoin Double Strand DNA Ab 3 Glomerular Base Memb Ab 6 01/19/17 01/19/17 01/20/17 18:00 19:35 00:30 WBC Corrected WBC (auto) RBC Hgb Hct MCV MCH MCHC RDW Plt Count MPV Neutrophils % Neutrophils % (Manual) Band Neuts % (Manual) Lymphocytes % Lymphocytes % (Manual) Monocytes % Monocytes % (Manual) Eosinophils % Eosinophils % (Manual) Basophils % Basophils % (Manual) Myelocytes % (Man) Nucleated RBC % Smudge Cells Platelet Estimate Platelet Comment Poikilocytosis Anisocytosis Target Cells Tear Drop Cells Ovalocytes PT with INR INR Puncture Site Right brachial ABG pH 6.90 L* ABG pCO2 at Pt Temp 37.7 ABG pO2 at Pt Temp 163.0 H* ABG HCO3 6.9 L* ABG O2 Sat (Measured) 97.8 ABG O2 Content 14.6 L ABG Base Excess -25.1 L* Ramón Test Positive O2 Delivery Device Mech vent Oxygen Flow Rate 100% Vent Mode A/c Vent Rate 20 Mechanical Rate Yes PEEP 5.0 Pressure Support Vent 500 Sodium Potassium Chloride Carbon Dioxide Anion Gap BUN Creatinine Creat Clearance w eGFR Random Glucose Lactic Acid 15.0 H* Calcium Total Bilirubin AST ALT Alkaline Phosphatase Total Protein Albumin Phenytoin 10.1 Double Strand DNA Ab Glomerular Base Memb Ab 01/20/17 01/20/17 01/20/17 05:40 05:40 05:40 WBC 13.2 H D Corrected WBC (auto) 11.79 RBC 3.81 L Hgb 10.3 L Hct 34.0 L MCV 89.4 MCH 27.0 MCHC 30.2 L RDW 21.6 H Plt Count 51 L MPV 8.4 D Neutrophils % Skiver Counter Neutrophils % (Manual) 46 Band Neuts % (Manual) 35 H Lymphocytes % Skiver Counter Lymphocytes % (Manual) 8 Monocytes % Skiver Counter Monocytes % (Manual) 3 L Eosinophils % Skiver Counter Eosinophils % (Manual) 1 Basophils % Skiver Counter Basophils % (Manual) 0 Myelocytes % (Man) 5 H Nucleated RBC % 12 H* Smudge Cells Rare Platelet Estimate Decreased Platelet Comment No clumping noted Poikilocytosis 2+ Anisocytosis 2+ Target Cells Few Tear Drop Cells Rare Ovalocytes Few PT with INR 31.30 H INR 2.77 H D Puncture Site ABG pH ABG pCO2 at Pt Temp ABG pO2 at Pt Temp ABG HCO3 ABG O2 Sat (Measured) ABG O2 Content ABG Base Excess Ramón Test O2 Delivery Device Oxygen Flow Rate Vent Mode Vent Rate Mechanical Rate PEEP Pressure Support Vent Sodium 144 Potassium 6.1 H* D Chloride 109 H Carbon Dioxide 6 L D Anion Gap 29 H BUN 87 H Creatinine 7.2 H Creat Clearance w eGFR 7.89 Random Glucose 78 D Lactic Acid Calcium 7.1 L Total Bilirubin 3.9 H AST 2140 H ALT 399 H D Alkaline Phosphatase 507 H D Total Protein 5.0 L Albumin 1.8 L Phenytoin Double Strand DNA Ab Glomerular Base Memb Ab IMP: Acute CP arrest -> Likely LUIS Seizures due to hypoxemia Liver cirrhosis DALTON Thrombocytopenia Electrolyte imbalance Severe Metabolic Acidosis ETOH abuse Suspected HRS PLAN: Neurology consult noted. Seizure activity attempting to be managed with Versed/ Propofol/Cerebyx The patient's overall condition today has shown no significant improvement and laboratory data has worsened: D/W Renal he is not stable for [employer] and this intervention would unlikely change his outcome and in fact may worsen his condition. Bicarbonate drip per renal Pressors to maintain MAP Follow ABG / Acid Base ABX per ID (I spoke with family friend Dr Yrn Barraza [phone] yesterday) Overall prognosis for meaningful survival is grave given his progressive HRS and recent cardiac arrest. In this situation would favor conservative measures and compassionate extubation. Dr Rivas Critical care time spent in reviewing chart, evaluating patient and formulating plan - 40 minutes.
--- NOTE | 2017-01-20 13:20 | PN ---
Progress Note, Physician History of Present Illness: 6 Year old Icelandic speaking male with no past medical history who presented to the hospital on 12/2016 with 2 weeks history of nausea, vomiting,diarrhea , loss of appetite and valeria loss of 10-15 pound within 2 weeks and generalized weakness. diarrhea 2-3 times a day non bloody was being treated for alcholic hepatitis. This AM ,s/p PEA arrest, intubated. Noted in status, s/p Ativan IV and phenytoin loading. Bradycardic and hypotensive, placed on dopamine, now levophed;on versed 4, as well noted to be left facial twitching ; family bedside; unable to get HD CT bc pt too unstable This morning pt. reported to have had seizure activity, on Fosphenytoin 100mg q6hrs, yesterday received loading dose of Keppra. - Current Medication List Current Medications: Active Medications Artificial Tears (Artificial Tears) 1 drop OU BID PRN PRN Reason: DRY EYES Last Admin: 01/20/17 11:45 Dose: 1 drp Fosphenytoin Sodium (Cerebyx -) 100 mg IVPB Q6H MEI Last Admin: 01/20/17 11:40 Dose: 100 mg Sodium Bicarbonate 150 meq/ (Dextrose) 1,150 mls @ 83 mls/hr IV Q13H MEI Last Admin: 01/20/17 09:30 Dose: 83 mls/hr Norepinephrine Bitartrate 4, (000 mcg/ Dextrose) 500 mls @ 37.5 mls/hr IV TITR MEI; 5 MCG/MIN PRN Reason: Protocol Last Admin: 01/20/17 09:31 Dose: 562.5 mls/hr Meropenem 500 mg/ Dextrose 100 mls @ 400 mls/hr IVPB BID MEI Last Admin: 01/20/17 09:30 Dose: 400 mls/hr Midazolam HCl 100 mg/ Sodium (Chloride) 100 mls @ 2 mls/hr IVPB TITR MEI; 2 MG/ HR PRN Reason: Protocol Last Admin: 01/20/17 11:38 Dose: 15 mls/hr Propofol (Diprivan -) 100 mls @ 2.327 mls/hr IVPB TITR MEI; 5 MCG/KG/MIN PRN Reason: Protocol Last Admin: 01/19/17 16:49 Dose: Not Given Dopamine HCl/Dextrose (Dopamine 400 Mg/D5w -) 250 mls @ 8.726 mls/hr IVPB TITR MEI; 3 MCG/KG/MIN PRN Reason: Protocol Last Admin: 01/20/17 05:38 Dose: 20.361 mls/hr Norepinephrine Bitartrate 8, (000 mcg/ Dextrose) 500 mls @ 8.72 mls/hr IV ASDIR MEI; 0.03 MCG/KG/MIN PRN Reason: Protocol Last Admin: 01/20/17 06:53 Dose: 75.62 mls/hr Octreotide Acetate (Sandostatin -) 100 mcg SQ TID MEI Last Admin: 01/20/17 05:30 Dose: 100 mcg - Objective Vital Signs: Vital Signs Temperature 98.6 F 01/20/17 10:00 Pulse Rate 80 01/20/17 12:00 Respiratory Rate 22 01/20/17 12:00 Blood Pressure 96/67 01/20/17 12:00 O2 Sat by Pulse Oximetry (%) 100 01/19/17 22:00 Neurological: Yes: Unresponsive (Comatose with no spontaneous movements, eyes- disconjugate with absent dolls eye movements, pupils 4mm, sluggish to light. No peripheral reflexes present.) Labs: CBC, BMP 01/20/17 05:40 01/20/17 05:40 INR, PTT INR 2.77 (0.82-1.09) H D 01/20/17 05:40 Assessment/Plan Anoxic encephalopathy, convulsive SE. -Suggest: Cont Cerebryx Add Keppra 500mg ivss q12 hrs EEG if possible. d/w pts. family.
--- NOTE | 2017-01-20 13:23 | PN ---
Physical Exam: SUBJECTIVE: Patient seen and examined at bedside. No acute events at night. Pt was hyperkalemic this morning. Pt was given Kayexalate, Ins, D50, Calcium gluconate. EKG was reviewed. Pt is still intubated and sedated. Afebrile overnight. No diarrhea. Pt continues to have seizures and is still requiring pressors. OBJECTIVE: Vital Signs Period Temp Pulse Resp BP Sys/Arguelles Pulse Ox Last 24 Hr 95.1 F-98.7 F 75-98 14-23 83-113/46-74 98-100 GENERAL: The patient is intube HEAD: Normal with no signs of trauma. EYES: PERRL, extraocular movements intact, sclera anicteric, conjunctiva clear. No ptosis. ENT: Ears normal, nares patent, oropharynx clear without exudates, moist mucous membranes. NECK: Trachea midline, full range of motion, supple. LUNGS: Breath sounds equal, no wheezes, no crackles, no accessory muscle use. HEART: Regular rate and rhythm, S1, S2 without murmur, rub or gallop. ABDOMEN: Soft, nondistended, normoactive bowel sounds, no guarding EXTREMITIES: 2+ pulses, warm, well-perfused, 2+ edema. NEUROLOGICAL:pupils fixed and dilated. No corneal reflex. No response to sternal rub PSYCH: Unresponsive SKIN: Warm, dry, normal turgor, no rashes or lesions noted Laboratory Results - last 24 hr 01/15/17 01/19/17 01/19/17 06:20 13:28 17:30 WBC Corrected WBC (auto) RBC Hgb Hct MCV MCH MCHC RDW Plt Count MPV Neutrophils % Neutrophils % (Manual) Band Neuts % (Manual) Lymphocytes % Lymphocytes % (Manual) Monocytes % Monocytes % (Manual) Eosinophils % Eosinophils % (Manual) Basophils % Basophils % (Manual) Myelocytes % (Man) Nucleated RBC % Smudge Cells Platelet Estimate Platelet Comment Poikilocytosis Anisocytosis Target Cells Tear Drop Cells Ovalocytes PT with INR INR Puncture Site Right brachial ABG pH 6.78 L* ABG pCO2 at Pt Temp 46.3 H ABG pO2 at Pt Temp 218.0 H* ABG HCO3 6.5 L* ABG O2 Sat (Measured) 97.8 ABG O2 Content 14.6 L ABG Base Excess -27.4 L* Ramón Test Positive O2 Delivery Device Vent Oxygen Flow Rate 100% Vent Mode A/c Vent Rate 14 Mechanical Rate Y PEEP 5.0 Pressure Support Vent 500 Sodium Potassium Chloride Carbon Dioxide Anion Gap BUN Creatinine Creat Clearance w eGFR Random Glucose Lactic Acid 13.6 H* Calcium Total Bilirubin AST ALT Alkaline Phosphatase Total Protein Albumin Phenytoin Double Strand DNA Ab 3 Glomerular Base Memb Ab 6 01/19/17 01/19/17 01/20/17 18:00 19:35 00:30 WBC Corrected WBC (auto) RBC Hgb Hct MCV MCH MCHC RDW Plt Count MPV Neutrophils % Neutrophils % (Manual) Band Neuts % (Manual) Lymphocytes % Lymphocytes % (Manual) Monocytes % Monocytes % (Manual) Eosinophils % Eosinophils % (Manual) Basophils % Basophils % (Manual) Myelocytes % (Man) Nucleated RBC % Smudge Cells Platelet Estimate Platelet Comment Poikilocytosis Anisocytosis Target Cells Tear Drop Cells Ovalocytes PT with INR INR Puncture Site Right brachial ABG pH 6.90 L* ABG pCO2 at Pt Temp 37.7 ABG pO2 at Pt Temp 163.0 H* ABG HCO3 6.9 L* ABG O2 Sat (Measured) 97.8 ABG O2 Content 14.6 L ABG Base Excess -25.1 L* Ramón Test Positive O2 Delivery Device Mech vent Oxygen Flow Rate 100% Vent Mode A/c Vent Rate 20 Mechanical Rate Yes PEEP 5.0 Pressure Support Vent 500 Sodium Potassium Chloride Carbon Dioxide Anion Gap BUN Creatinine Creat Clearance w eGFR Random Glucose Lactic Acid 15.0 H* Calcium Total Bilirubin AST ALT Alkaline Phosphatase Total Protein Albumin Phenytoin 10.1 Double Strand DNA Ab Glomerular Base Memb Ab 01/20/17 01/20/17 01/20/17 05:40 05:40 05:40 WBC 13.2 H D Corrected WBC (auto) 11.79 RBC 3.81 L Hgb 10.3 L Hct 34.0 L MCV 89.4 MCH 27.0 MCHC 30.2 L RDW 21.6 H Plt Count 51 L MPV 8.4 D Neutrophils % Card Doffer Neutrophils % (Manual) 46 Band Neuts % (Manual) 35 H Lymphocytes % Card Doffer Lymphocytes % (Manual) 8 Monocytes % Card Doffer Monocytes % (Manual) 3 L Eosinophils % Card Doffer Eosinophils % (Manual) 1 Basophils % Card Doffer Basophils % (Manual) 0 Myelocytes % (Man) 5 H Nucleated RBC % 12 H* Smudge Cells Rare Platelet Estimate Decreased Platelet Comment No clumping noted Poikilocytosis 2+ Anisocytosis 2+ Target Cells Few Tear Drop Cells Rare Ovalocytes Few PT with INR 31.30 H INR 2.77 H D Puncture Site ABG pH ABG pCO2 at Pt Temp ABG pO2 at Pt Temp ABG HCO3 ABG O2 Sat (Measured) ABG O2 Content ABG Base Excess Ramón Test O2 Delivery Device Oxygen Flow Rate Vent Mode Vent Rate Mechanical Rate PEEP Pressure Support Vent Sodium 144 Potassium 6.1 H* D Chloride 109 H Carbon Dioxide 6 L D Anion Gap 29 H BUN 87 H Creatinine 7.2 H Creat Clearance w eGFR 7.89 Random Glucose 78 D Lactic Acid Calcium 7.1 L Total Bilirubin 3.9 H AST 2140 H ALT 399 H D Alkaline Phosphatase 507 H D Total Protein 5.0 L Albumin 1.8 L Phenytoin Double Strand DNA Ab Glomerular Base Memb Ab Active Medications Generic Name Dose Route Start Last Admin Trade Name Freq PRN Reason Stop Dose Admin Artificial Tears 1 drop 01/20/17 05:42 01/20/17 11:45 Artificial Tears OU 1 drp BID PRN Administration DRY EYES Fosphenytoin Sodium 100 mg 01/19/17 22:15 01/20/17 11:40 Cerebyx - IVPB 100 mg Q6H MEI Administration Sodium Bicarbonate 150 meq/ 1,150 mls @ 83 mls/hr 01/19/17 08:15 01/20/17 09:30 Dextrose IV 83 mls/hr Q13H MEI Administration Norepinephrine Bitartrate 4, 500 mls @ 37.5 mls/hr 01/19/17 09:00 01/20/17 09: 31 000 mcg/ Dextrose IV 562.5 mls/hr TITR MEI Administration Protocol 5 MCG/MIN Meropenem 500 mg/ Dextrose 100 mls @ 400 mls/hr 01/19/17 22:00 01/20/17 09:30 IVPB 400 mls/hr BID MEI Administration Midazolam HCl 100 mg/ Sodium 100 mls @ 2 mls/hr 01/19/17 12:00 01/20/17 11:38 Chloride IVPB 15 mls/hr TITR MEI Administration Protocol 2 MG/HR Propofol 100 mls @ 2.327 mls/hr 01/19/17 12:00 01/19/17 16:49 Diprivan - IVPB Not Given TITR MEI Protocol 5 MCG/KG/MIN Dopamine HCl/Dextrose 250 mls @ 8.726 mls/hr 01/19/17 13:15 01/20/17 05:38 Dopamine 400 Mg/D5w - IVPB 20.361 mls/hr TITR MEI Administration Protocol 3 MCG/KG/MIN Norepinephrine Bitartrate 8, 500 mls @ 8.72 mls/hr 01/20/17 05:45 01/20/17 06: 53 000 mcg/ Dextrose IV 75.62 mls/hr ASDIR MEI Administration Protocol 0.03 MCG/KG/MIN Octreotide Acetate 100 mcg 01/19/17 14:00 01/20/17 05:30 Sandostatin - SQ 100 mcg TID MEI Administration ASSESSMENT/PLAN: 56 M w/ PMH alcoholism, cirrhosis who presented to ED with n/v/d. Pt was admitted for colitis and jaundice 2/2 acute hepatic failure, DALTON. Floor team has been attempting to optimize pt's fluid and electrolytes status. Despite therapy, pt's liver and kidney function has continued to deteriorate. Pt had 2 diagnostic/therapeutic paracinteses. The possibility of doing dialysis today was being considered. However, this morning the patient had PEA arrest. Pt was coded and ROSC was achieved. Pt was then transferred to ICU. On exam in ICU, pt was unresponsive to sternal rub, had fixed dilated pupils, no corneal reflex, and no babinski sign. Pt is currently unstable. 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 -not a candidate for HD due to hemodynamic instability #seizures -pt has been seizing despite many rounds of ativan -started on propafol and midazolam drip #metab acidosis -f/u repeat ABG -pt has been receiving Bicarb pushes and Bicarb drip #ascites -Pt has received 2 taps prior to being coded -belly not currently distended #hypoalbuminemia -alb of 1.8 #normocytic anemia -likely 2/2 liver disease #hyperchloremia -Cl 109 -on fluids #lactic acidosis -LA of 15.0 -pt on pressors #colitis -bowel wall swelling on CT #troponinemia -pt s/p code -mild elevation #FEN -on d5w -pseudohypocalcemia, hyperchloremia, hyperkalemia -pt unconscious unresponsive #Dispo -admit to ICU -poor prognosis Rogelio Barlow MD PGY-1 case discussed with attending Visit type - Emergency Visit Emergency Visit: No - New Patient This patient is new to me today: No - Critical Care Critical Care patient: Yes Total Critical Care Time (in minutes): 35 Critical Care Statement: The care of this patient involved high complexity decision making to prevent further life threatening deterioration of the patient 's condition and/or to evaluate & treat vital organ system(s) failure or risk of failure. - Discharge Referral Referred to [facility] No
[2017-01-20 13:24] LABS: ARTERIAL BLD GAS O2 SATURATION 94.6 % (90-98.9)
[2017-01-20] MEDS ORDERED: SODIUM BICARBONATE 8.4% 50 MEQ/50 ML DISP.SYRIN IVPUSH ONE (13:40)
[2017-01-20] MEDS: levETIRAcetam 500 MG/5 ML INJECTION VIAL IVPB SCH ×2 (14:09→21:39)
[2017-01-20] MEDS ORDERED: PT OWN MED DRAWER 7, Y5N ONE ×3 (14:12→21:27)
--- NOTE | 2017-01-20 14:16 | EKG ---
Test Reason : Blood Pressure : / mmHG Vent. Rate : 082 BPM Atrial Rate : 082 BPM P-R Int : 184 ms QRS Dur : 100 ms QT Int : 356 ms P-R-T Axes : 041 090 055 degrees QTc Int : 415 ms NORMAL SINUS RHYTHM RIGHTWARD AXIS LOW VOLTAGE QRS BORDERLINE ECG WHEN COMPARED WITH ECG OF 09-JAN-2017 17:16, PREMATURE ATRIAL COMPLEXES ARE NO LONGER PRESENT QRS VOLTAGE HAS DECREASED T WAVE INVERSION NO LONGER EVIDENT IN INFERIOR LEADS QT HAS SHORTENED REPEAT EKG IF CLINICALLY INDICATED Confirmed by JAY ALEGRIA MD ([id number] on 01/20/2017 2:15:59 PM Referred By: MATILDA BOLIVAR DR Confirmed By:JAY ALEGRIA MD
[2017-01-20 14:18] LABS: ALLENS TEST POSITIVE; ART PUNCT SITE RIGHT BRACHIAL; LPM/O2% 100; PT. ON O2? YES
[2017-01-20 14:19] LABS: MECH. VENT. YES; TYPE OF O2 MEC.VENT; VENT RATE 20; VT/PRESS 500
[2017-01-20 14:20] LABS: ARTERIAL BLOOD GAS BASE EXCESS -30.1 meq/l (-2-2)
[2017-01-20 14:21] LABS: ARTERIAL BLOOD GAS HCO3 4.1 meq/L (22-26); ARTERIAL BLOOD GAS pH 6.72 (7.35-7.45)
--- NOTE | 2017-01-20 14:22 | PN ---
Progress Note, Physician History of Present Illness: Pt seen and examined at bedside. He remains in the ICU. He continues to have seizures and it has been difficult to control them. - Current Medication List Current Medications: Active Medications Artificial Tears (Artificial Tears) 1 drop OU BID PRN PRN Reason: DRY EYES Last Admin: 01/20/17 11:45 Dose: 1 drp Fosphenytoin Sodium (Cerebyx -) 100 mg IVPB Q6H MEI Last Admin: 01/20/17 11:40 Dose: 100 mg Sodium Bicarbonate 150 meq/ (Dextrose) 1,150 mls @ 83 mls/hr IV Q13H MEI Last Admin: 01/20/17 09:30 Dose: 83 mls/hr Norepinephrine Bitartrate 4, (000 mcg/ Dextrose) 500 mls @ 37.5 mls/hr IV TITR MEI; 5 MCG/MIN PRN Reason: Protocol Last Titration: 01/20/17 14:02 Dose: 25 mcg/min Meropenem 500 mg/ Dextrose 100 mls @ 400 mls/hr IVPB BID MEI Stop: 01/21/17 00:00 Last Admin: 01/20/17 09:30 Dose: 400 mls/hr Midazolam HCl 100 mg/ Sodium (Chloride) 100 mls @ 2 mls/hr IVPB TITR MEI; 2 MG/ HR PRN Reason: Protocol Last Admin: 01/20/17 11:38 Dose: 15 mls/hr Propofol (Diprivan -) 100 mls @ 2.327 mls/hr IVPB TITR MIE; 5 MCG/KG/MIN PRN Reason: Protocol Last Admin: 01/19/17 16:49 Dose: Not Given Dopamine HCl/Dextrose (Dopamine 400 Mg/D5w -) 250 mls @ 8.726 mls/hr IVPB TITR MEI; 3 MCG/KG/MIN PRN Reason: Protocol Last Admin: 01/20/17 14:09 Dose: 20.361 mls/hr Norepinephrine Bitartrate 8, (000 mcg/ Dextrose) 500 mls @ 8.72 mls/hr IV ASDIR MEI; 0.03 MCG/KG/MIN PRN Reason: Protocol Last Admin: 01/20/17 06:53 Dose: 75.62 mls/hr Levetiracetam (Keppra Injection -) 500 mg IVPB BID MEI Last Admin: 01/20/17 14:09 Dose: 500 mg Octreotide Acetate (Sandostatin -) 100 mcg SQ TID MEI Last Admin: 01/20/17 05:30 Dose: 100 mcg - Objective Vital Signs: Vital Signs Temperature 98.6 F 01/20/17 14:00 Pulse Rate 73 01/20/17 14:02 Respiratory Rate 22 01/20/17 14:00 Blood Pressure 80/59 01/20/17 14:02 O2 Sat by Pulse Oximetry (%) 100 01/19/17 22:00 Eyes: Yes: Sclera Icterus Cardiovascular: Yes: S1, S2 Respiratory: Yes: Mechanically Ventilated Gastrointestinal: Yes: Ascites Genitourinary: Yes: Carter Present Musculoskeletal: Yes: Muscle Weakness Edema: Yes Edema: LLE: 2+, RLE: 2+ Neurological: Yes: Lethargy, Seizure Labs: CBC, BMP 01/20/17 05:40 01/20/17 05:40 INR, PTT INR 2.77 (0.82-1.09) H D 01/20/17 05:40 Assessment/Plan Current Medications Generic Name Dose Route Start Last Admin Trade Name Freq PRN Reason Stop Dose Admin Artificial Tears 1 drop 01/20/17 05:42 01/20/17 11:45 Artificial Tears OU 1 drp BID PRN Administration DRY EYES Fosphenytoin Sodium 100 mg 01/19/17 22:15 01/20/17 11:40 Cerebyx - IVPB 100 mg Q6H MEI Administration Sodium Bicarbonate 150 meq/ 1,150 mls @ 83 mls/hr 01/19/17 08:15 01/20/17 09:30 Dextrose IV 83 mls/hr Q13H MEI Administration Norepinephrine Bitartrate 4, 500 mls @ 37.5 mls/hr 01/19/17 09:00 01/20/17 14: 02 000 mcg/ Dextrose IV 25 mcg/min TITR MEI Titration Protocol 5 MCG/MIN Meropenem 500 mg/ Dextrose 100 mls @ 400 mls/hr 01/19/17 22:00 01/20/17 09:30 IVPB 01/21/17 00:00 400 mls/hr BID MEI Administration Midazolam HCl 100 mg/ Sodium 100 mls @ 2 mls/hr 01/19/17 12:00 01/20/17 11:38 Chloride IVPB 15 mls/hr TITR MEI Administration Protocol 2 MG/HR Propofol 100 mls @ 2.327 mls/hr 01/19/17 12:00 01/19/17 16:49 Diprivan - IVPB Not Given TITR MEI Protocol 5 MCG/KG/MIN Dopamine HCl/Dextrose 250 mls @ 8.726 mls/hr 01/19/17 13:15 01/20/17 14:09 Dopamine 400 Mg/D5w - IVPB 20.361 mls/hr TITR MEI Administration Protocol 3 MCG/KG/MIN Norepinephrine Bitartrate 8, 500 mls @ 8.72 mls/hr 01/20/17 05:45 01/20/17 06: 53 000 mcg/ Dextrose IV 75.62 mls/hr ASDIR MEI Administration Protocol 0.03 MCG/KG/MIN Levetiracetam 500 mg 01/20/17 13:30 01/20/17 14:09 Keppra Injection - IVPB 500 mg BID MEI Administration Octreotide Acetate 100 mcg 01/19/17 14:00 01/20/17 05:30 Sandostatin - SQ 100 mcg TID MEI Administration Laboratory Tests 01/11/17 01/12/17 01/15/17 08:35 07:35 06:20 TESSY Screen Negative c-ANCA <1:20 Proteinase 3 (PR3) <3.5 p-ANCA <1:20 Atypical p-ANCA <1:20 Myeloperoxidase Ab <9.0 Double Strand DNA Ab 3 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 liver cirrhosis 2. DALTON 3. thrombocytopenia 4. hypokalemia 5. metabolic acidosis 6. etoh abuse 7. HRS 8. cardiac arrest 9. hypotension 10. seizure 11. hyperkalemia Plan - renal function continues to worsen - pt is now hyperkalemic - his pressor requirements have increased - pt is still seizing - pt appears too unstable for dialysis at this point and it will not likely change his course. Risks and benefits of HD were discussed with family at length. They would like to continue with medical management. They did ask to make the pt a DNR however they are waiting for his to come sign the papers. - will cont with bicarb - will evaluate for HD on a daily basis - monitor blood pressure closely - prognosis remains poor - ct head when stable, pt hasnt had a ct as he is too unstable to go down to radiology - follow up abg - likely HRS which has been rapidly progressing. Renal serologic workup negative so far. - daughter says she has never seen pt sober for the last 35 years and he has been drinking up until this admission - GI follow up - monitor urine output - will follow
--- NOTE | 2017-01-20 14:57 | HOSP ---
Subjective - Review of Symptoms Events since last encounter: Had conference call with Palliative care, Law Office Assistant, Pt's daughter, pt's , and cargo and container inspector. Pt's situation was explained to pt's in detail. She stated she understood the situation well and that she's being updated regularly. Pt's daughter also mentioned that family has been conveying information to her. Pt was asked if she thinks the patient would want to be kept alive by machines if there's little hope of meaningful recovery. She stated she did not think he would want to be kept alive on machines in that situation, but she hoped that the medical staff would take good care of him. She stated several times that she felt her was in God's hands. The palliative and pastoral representatives offered support to the family, and assured her that she would be informed of further developments. Physical Examination Vital Signs: Vital Signs Temperature 98.6 F 01/20/17 14:00 Pulse Rate 73 01/20/17 14:02 Respiratory Rate 22 01/20/17 14:00 Blood Pressure 80/59 01/20/17 14:02 O2 Sat by Pulse Oximetry (%) 100 01/19/17 22:00 Labs: CBC, BMP 01/20/17 05:40 Visit type - Emergency Visit Emergency Visit: No - New Patient This patient is new to me today: No - Critical Care Critical Care patient: Yes Total Critical Care Time (in minutes): 35 Critical Care Statement: The care of this patient involved high complexity decision making to prevent further life threatening deterioration of the patient 's condition and/or to evaluate & treat vital organ system(s) failure or risk of failure.
[2017-01-20 15:03] LABS: ANION GAP 28 (8-16); CO2 7 mmol/L (21-32); CREATININE 7.2 mg/dL (0.7-1.3); GLUCOSE,RANDOM 103 mg/dL (74-106)
[2017-01-20 15:15] LABS: CALCIUM 6.9 mg/dL (8.5-10.1)
--- NOTE | 2017-01-20 15:38 | PN ---
Progress Note, Physician History of Present Illness: continues to be intubated and sedated patient with mnimal response seizure activity - Current Medication List Current Medications: Active Medications Artificial Tears (Artificial Tears) 1 drop OU BID PRN PRN Reason: DRY EYES Last Admin: 01/20/17 11:45 Dose: 1 drp Fosphenytoin Sodium (Cerebyx -) 100 mg IVPB Q6H MEI Last Admin: 01/20/17 11:40 Dose: 100 mg Sodium Bicarbonate 150 meq/ (Dextrose) 1,150 mls @ 83 mls/hr IV Q13H MEI Last Admin: 01/20/17 09:30 Dose: 83 mls/hr Norepinephrine Bitartrate 4, (000 mcg/ Dextrose) 500 mls @ 37.5 mls/hr IV TITR MEI; 5 MCG/MIN PRN Reason: Protocol Last Titration: 01/20/17 14:02 Dose: 25 mcg/min Meropenem 500 mg/ Dextrose 100 mls @ 400 mls/hr IVPB BID MEI Stop: 01/21/17 00:00 Last Admin: 01/20/17 09:30 Dose: 400 mls/hr Midazolam HCl 100 mg/ Sodium (Chloride) 100 mls @ 2 mls/hr IVPB TITR MEI; 2 MG/ HR PRN Reason: Protocol Last Admin: 01/20/17 11:38 Dose: 15 mls/hr Propofol (Diprivan -) 100 mls @ 2.327 mls/hr IVPB TITR MEI; 5 MCG/KG/MIN PRN Reason: Protocol Last Admin: 01/19/17 16:49 Dose: Not Given Dopamine HCl/Dextrose (Dopamine 400 Mg/D5w -) 250 mls @ 8.726 mls/hr IVPB TITR MEI; 3 MCG/KG/MIN PRN Reason: Protocol Last Admin: 01/20/17 14:09 Dose: 20.361 mls/hr Norepinephrine Bitartrate 8, (000 mcg/ Dextrose) 500 mls @ 8.72 mls/hr IV ASDIR MEI; 0.03 MCG/KG/MIN PRN Reason: Protocol Last Admin: 01/20/17 06:53 Dose: 75.62 mls/hr Meropenem (Merrem (Restricted To Id) -) 10 mls @ 120 mls/hr IVPUSH BID MEI Levetiracetam (Keppra Injection -) 500 mg IVPB BID [facility] Last Admin: 01/20/17 14:09 Dose: 500 mg Octreotide Acetate (Sandostatin -) 100 mcg SQ TID [facility] Last Admin: 01/20/17 05:30 Dose: 100 mcg - Objective Vital Signs: Vital Signs Temperature 98.6 F 01/20/17 14:00 Pulse Rate 73 01/20/17 14:02 Respiratory Rate 22 01/20/17 14:00 Blood Pressure 80/59 01/20/17 14:02 O2 Sat by Pulse Oximetry (%) 100 01/19/17 22:00 Constitutional: Yes: Other Cardiovascular: Yes: S1, S2 Respiratory: Yes: Intubated, Mechanically Ventilated Gastrointestinal: Yes: Soft, Hypoactive Bowel Sounds Musculoskeletal: Yes: WNL Extremities: Yes: WNL Neurological: Yes: Other Labs: CBC, BMP 01/20/17 05:40 01/20/17 14:23 INR, PTT INR 2.77 (0.82-1.09) H D 01/20/17 05:40 - ....Imaging X-ray: Report Reviewed, Image Reviewed Assessment/Plan Problem List - Problems (1) Lethargy Code(s): R53.83 - OTHER FATIGUE (2) Elevated alkaline phosphatase level Code(s): R74.8 - ABNORMAL LEVELS OF OTHER SERUM ENZYMES 3 colitis renal failure Acute CP arrest Seizures Liver cirrhosis DALTON Thrombocytopenia Electrolyte imbalance Severe Metabolic Acidosis ETOH abuse plan conitnue current mgmt renal on case plan noted icu managing ct abx continue supportive care cc time 40 min
--- NOTE | 2017-01-20 16:40 | PN ---
Physical Exam: SUBJECTIVE: Patient seen and examined. Nonresponsive. Intubated. Levophed 20, Dopamine 7, Versed 15 @ 9AM OBJECTIVE: Vital Signs Period Temp Pulse Resp BP Sys/Arguelles Pulse Ox Last 24 Hr 96.1 F-98.7 F 73-98 20-23 80-110/46-74 98-100 GEN: Sedative, not responding to sternal rubs, intubated on pressors HEENT: Pupils fixed and dilated, no corneal reflex, no gag reflex CV: S1, S2, RRR LUNG: Upper airway noises bilaterally ABD: Increase in distension, hypoactive BS MSK: +3 pitting edema in BLUE and BLLE Laboratory Last Values WBC 13.2 K/mm3 (4.0-10.0) H D 01/20/17 05:40 Corrected WBC (auto) 11.79 K/mm3 01/20/17 05:40 RBC 3.81 M/mm3 (4.00-5.60) L 01/20/17 05:40 Hgb 10.3 GM/dL (11.7-16.9) L 01/20/17 05:40 Hct 34.0 % (35.4-49) L 01/20/17 05:40 MCV 89.4 fl (80-96) 01/20/17 05:40 MCH 27.0 pg (25.7-33.7) 01/20/17 05:40 MCHC 30.2 g/dl (32.0-35.9) L 01/20/17 05:40 RDW 21.6 % (11.9-15.9) H 01/20/17 05:40 Plt Count 51 K/MM3 (134-434) L 01/20/17 05:40 MPV 8.4 fl (7.5-11.1) D 01/20/17 05:40 Neutrophils % Floor Person 01/20/17 05:40 Neutrophils % (Manual) 46 % (42.8-82.8) 01/20/17 05:40 Band Neuts % (Manual) 35 % (0-10) H 01/20/17 05:40 Lymphocytes % Floor Person 01/20/17 05:40 Lymphocytes % (Manual) 8 % (8-40) 01/20/17 05:40 Monocytes % Floor Person 01/20/17 05:40 Monocytes % (Manual) 3 % (3.8-10.2) L 01/20/17 05:40 Eosinophils % Floor Person 01/20/17 05:40 Eosinophils % (Manual) 1 % (0-4.5) 01/20/17 05:40 Basophils % Floor Person 01/20/17 05:40 Basophils % (Manual) 0 % (0-2.0) 01/20/17 05:40 Myelocytes % (Man) 5 % (0-2) H 01/20/17 05:40 Nucleated RBC % 12 % (0-0) H* 01/20/17 05:40 Smudge Cells Rare 01/20/17 05:40 Platelet Estimate Decreased (NORMAL) 01/20/17 05:40 Platelet Comment No clumping noted 01/20/17 05:40 Poikilocytosis 2+ 01/20/17 05:40 Anisocytosis 2+ 01/20/17 05:40 Target Cells Few 01/20/17 05:40 Tear Drop Cells Rare 01/20/17 05:40 Ovalocytes Few 01/20/17 05:40 PT with INR 31.30 SEC (9.98-11.88) H 01/20/17 05:40 INR 2.77 (0.82-1.09) H D 01/20/17 05:40 PTT (Actin FS) 32.5 SECONDS (26.9-34.4) 01/10/17 07:30 Anticoagulation Therapy Y 01/18/17 20:25 Puncture Site Right brachial 01/20/17 12:50 ABG pH 6.72 (7.35-7.45) L* 01/20/17 12:50 ABG pCO2 at Pt Temp 33.5 mmHg (35-45) L 01/20/17 12:50 ABG pO2 at Pt Temp 116.0 mmHg (80-100) H D 01/20/17 12:50 ABG HCO3 4.1 meq/L (22-26) L* 01/20/17 12:50 ABG O2 Sat (Measured) 94.6 % (90-98.9) 01/20/17 12:50 ABG O2 Content 13.3 % vol (15-22) L 01/20/17 12:50 ABG Base Excess -30.1 meq/l (-2-2) L* 01/20/17 12:50 Ramón Test Positive 01/20/17 12:50 O2 Delivery Device Mec.vent 01/20/17 12:50 Oxygen Flow Rate 100 01/20/17 12:50 Vent Mode A/c 01/20/17 12:50 Vent Rate 20 01/20/17 12:50 Mechanical Rate Yes 01/20/17 12:50 PEEP 5.0 cmH2O 01/20/17 12:50 Pressure Support Vent 500 01/20/17 12:50 Sodium 141 mmol/L (136-145) 01/20/17 14:23 Potassium 6.1 mmol/L (3.5-5.1) H* 01/20/17 14:23 Chloride 106 mmol/L (98-107) 01/20/17 14:23 Carbon Dioxide 7 mmol/L (21-32) L 01/20/17 14:23 Anion Gap 28 (8-16) H 01/20/17 14:23 Hepatic Function Panel 66 % (13-88) 01/11/17 08:35 BUN 82 mg/dL (7-18) H 01/20/17 14:23 Creatinine 7.2 mg/dL (0.7-1.3) H 01/20/17 14:23 Creat Clearance w eGFR 7.89 (>60) 01/20/17 05:40 Random Glucose 103 mg/dL (74-106) D 01/20/17 14:23 Lactic Acid 17.1 mmol/L (0.4-2.0) H* 01/20/17 14:23 Calcium 6.9 mg/dL (8.5-10.1) L* 01/20/17 14:23 Phosphorus 7.9 mg/dL (2.5-4.9) H D 01/19/17 05:00 Magnesium 2.9 mg/dL (1.8-2.4) H 01/19/17 05:00 Total Bilirubin 3.9 mg/dL (0.2-1.0) H 01/20/17 05:40 Direct Bilirubin 2.4 mg/dL (0.0-0.2) H 01/19/17 05:00 GGT 880 U/L (5-85) H 01/11/17 08:35 AST 2140 U/L (15-37) H 01/20/17 05:40 ALT 399 U/L (12-78) H D 01/20/17 05:40 Alkaline Phosphatase 507 U/L (45-117) H D 01/20/17 05:40 Ammonia 103.99 umol/L (11-32) H 01/20/17 14:23 Troponin I 0.16 ng/ml (0.00-0.05) H 01/19/17 05:00 Total Protein 5.0 g/dl (6.4-8.2) L 01/20/17 05:40 Albumin 1.8 g/dl (3.4-5.0) L 01/20/17 05:40 Lipase 221 U/L (73-393) 01/09/17 17:15 Tumor Marker AFP 1.0 ng/ml (0.0-8.3) 01/11/17 08:35 Urine Color Salma 01/16/17 15:30 Urine Appearance Cloudy 01/16/17 15:30 Urine pH 5.0 (5.0-8.0) 01/16/17 15:30 Ur Specific [place] 1.020 (1.005-1.025) 01/16/17 15:30 Urine Protein 3+ (NEGATIVE) H 01/16/17 15:30 Urine Glucose (UA) 2+ (NEGATIVE) H 01/16/17 15:30 Urine Ketones Negative (NEGATIVE) 01/16/17 15:30 Urine Blood 3+ (NEGATIVE) H 01/16/17 15:30 Urine Nitrite Negative (NEGATIVE) 01/16/17 15:30 Urine Bilirubin Negative (NEGATIVE) 01/16/17 15:30 Urine Urobilinogen Negative mg/dL (0.2-1.0) 01/16/17 15:30 Ur Leukocyte Esterase Negative (NEGATIVE) 01/16/17 15:30 Urine RBC 211 /hpf (0-3) 01/16/17 15:30 Urine WBC 26 /hpf (3-5) 01/16/17 15:30 Ur Epithelial Cells Rare /hpf (FEW) 01/16/17 15:30 Urine Bacteria Rare /hpf (NONE SEEN) 01/16/17 15:30 Urine Mucus Rare 01/16/17 15:30 Urine Yeast Few 01/16/17 15:30 Urine Eosinophils None seen % (.) 01/16/17 15:30 U Random Total Protein 427 mg/dl (5-11.9) H 01/12/17 06:00 Ur Random Sodium 34 MMOL/L 01/16/17 15:30 Ur Random Potassium 24.6 MMOL/L 01/16/17 15:30 Ur Random Chloride 15 MMOL/L 01/16/17 15:30 Urine Creatinine 59.0 mg/dL (20-370) 01/16/17 15:30 Protein/Creatinin Ratio 6.325 MG/DL 01/12/17 06:00 Peritoneal WBC 91 /mm3 01/13/17 15:00 Peritoneal RBC 673 /mm3 01/13/17 15:00 Periton Neutrophils 45 % 01/13/17 15:00 Periton Lymphocytes 22 % 01/13/17 15:00 Peritoneal Monocytes 25 % 01/13/17 15:00 Periton Mesothelial 1 % 01/13/17 15:00 Periton Macrophages 7 % 01/13/17 15:00 Peritoneal Tot Protein 1 gm/dL 01/13/17 15:00 Peritoneal Albumin 0 g/dL 01/13/17 15:00 Peritoneal LDH 89 IU/L 01/13/17 15:00 Peritoneal Glucose 134 mg/dL 01/13/17 15:00 Peritoneal Amylase 54 U/L 01/13/17 15:00 Peritoneal Triglycerid 45 mg/dL 01/13/17 15:00 Stool Occult Blood Positive (NEGATIVE) 01/10/17 19:30 Stool Calprotectin TNP 01/11/17 06:00 Phenytoin 10.1 ug/ml (10.0-20.0) 01/19/17 19:35 TESSY Screen Negative (.) 01/11/17 08:35 c-ANCA <1:20 titer (Neg:<1:20) 01/12/17 07:35 Proteinase 3 (PR3) <3.5 U/mL (0.0-3.5) 01/12/17 07:35 p-ANCA <1:20 titer (Neg:<1:20) 01/12/17 07:35 Atypical p-ANCA <1:20 titer (Neg:<1:20) 01/12/17 07:35 Myeloperoxidase Ab <9.0 U/mL (0.0-9.0) 01/12/17 07:35 Double Strand DNA Ab 3 IU/mL (0-9) 10/26/17 06:20 Smooth Musc &[employer]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 Intrp 6 Units (0-19) 01/11/17 08:35 Glomerular Base Memb Ab 6 units (0-20) 01/15/17 06:20 Hep A IgM Ab Confirm Negative (Negative) 01/10/17 07:30 Hepatitis A Ab Total Positive (Negative) H 01/10/17 07:30 Hep Bs Antigen Negative (Negative) 01/10/17 07:30 Hep Bs Antibody Non reactive (.) 01/10/17 07:30 Hep B Core Total Ab Negative (Negative) 01/10/17 07:30 Hep B Core IgM Ab Negative (Negative) 01/09/17 17:15 Hepatitis C Antibody 0.3 s/co ratio (0.0-0.9) 01/11/17 17:20 Blood Type O POSITIVE 01/18/17 20:45 Antibody Screen Negative 01/18/17 20:45 Active Medications Generic Name Dose Route Start Last Admin Trade Name Freq PRN Reason Stop Dose Admin Artificial Tears 1 drop 01/20/17 05:42 01/20/17 11:45 Artificial Tears OU 1 drp BID PRN Administration DRY EYES Fosphenytoin Sodium 100 mg 01/19/17 22:15 01/20/17 11:40 Cerebyx - IVPB 100 mg Q6H MEI Administration Sodium Bicarbonate 150 meq/ 1,150 mls @ 83 mls/hr 01/19/17 08:15 01/20/17 09:30 Dextrose IV 83 mls/hr Q13H MEI Administration Norepinephrine Bitartrate 4, 500 mls @ 37.5 mls/hr 01/19/17 09:00 01/20/17 14: 02 000 mcg/ Dextrose IV 25 mcg/min TITR MEI Titration Protocol 5 MCG/MIN Meropenem 500 mg/ Dextrose 100 mls @ 400 mls/hr 01/19/17 22:00 01/20/17 09:30 IVPB 01/21/17 00:00 400 mls/hr BID MEI Administration Midazolam HCl 100 mg/ Sodium 100 mls @ 2 mls/hr 01/19/17 12:00 01/20/17 11:38 Chloride IVPB 15 mls/hr TITR MEI Administration Protocol 2 MG/HR Propofol 100 mls @ 2.327 mls/hr 01/19/17 12:00 01/19/17 16:49 Diprivan - IVPB Not Given TITR MEI Protocol 5 MCG/KG/MIN Dopamine HCl/Dextrose 250 mls @ 8.726 mls/hr 01/19/17 13:15 01/20/17 14:09 Dopamine 400 Mg/D5w - IVPB 20.361 mls/hr TITR MEI Administration Protocol 3 MCG/KG/MIN Norepinephrine Bitartrate 8, 500 mls @ 8.72 mls/hr 01/20/17 05:45 01/20/17 06: 53 000 mcg/ Dextrose IV 75.62 mls/hr ASDIR MEI Administration Protocol 0.03 MCG/KG/MIN Meropenem 10 mls @ 120 mls/hr 01/21/17 10:00 Merrem (Restricted To Id) - IVPUSH BID MEI Levetiracetam 500 mg 01/20/17 13:30 01/20/17 14:09 Keppra Injection - IVPB 500 mg BID MEI Administration Octreotide Acetate 100 mcg 01/19/17 14:00 01/20/17 05:30 Sandostatin - SQ 100 mcg TID MEI Administration ASSESSMENT/PLAN: 56yo M w/ PMHx of EtOH abuse (+30 yrs) who presented to ER w/ nausea, vomiting, profuse watery diarrhea, 15 lb wt loss over 2 weeks. Found to have elevated LFTs. # Likely Hepatorenal Syndrome - 2/2 decompensated alcoholic liver dz, failed multiple fluid challenges - S/p PEA arrest, intubated, on double pressors due to hypovolemia, but third spacing due to low albumin, now shock liver with marked LFTs, elevated INR and Ammonia level, worsening acidosis - Per renal, too unstable for HD carlene, will unlikely change outcome # HAGMA - 2/2 bicarb loss from diarrhea + worsening renal failure + lactic acidosis - S/p multiple bicarb pushes, currently on 150meq Bicarb in D5W, ABG worsening # New Onset Seizures - 2/2 anoxia from arrest vs intracerebral pathology ?bleed from low PLT, showing signs of herniation (pupils fixed, dilated, no corneal reflex) - Added Keppra, increased Fospheny + uptitrated Midazolam drip, continue Ativan PRN # Hypothermia - ?central, ?GI source, ?pneumonia, on Meropenem # Hyperkalemia - s/p D50 and Insulin # Chronic Diarrhea - unk cause carlene, surg path of colonoscopy shows no colitis, stool cultures neg, ?malabsorption related to liver dz # Thrombocytopenia - 2/2 liver dz, intermittent PLT transfusions prior to procedures # EtOH Withdrawal - Stopped ativan # FEN - NPO for now # PPx - SCDs # Dispo - Very grave prognosis, discussed with family, family to decide end-of- life care. d/w Dr Cherie Mendoza MD - [facility] Internal Medicine. Visit type - Emergency Visit Emergency Visit: No - New Patient This patient is new to me today: No - Critical Care Critical Care patient: No - Discharge Referral Referred to [facility] Med P.C.: No
--- NOTE | 2017-01-20 18:26 | PN ---
Teaching Attending Note Name of Resident: Michaela Mendoza ATTENDING PHYSICIAN STATEMENT I saw and evaluated the patient. I reviewed the resident's note and discussed the case with the resident. I agree with the resident's findings and plan as documented. SUBJECTIVE: Patient on vent. Eyes are open but he is unresponsive. OBJECTIVE: Vital Signs Period Temp Pulse Resp BP Sys/Arguelles Pulse Ox Last 24 Hr 97.8 F-98.6 F 73-98 20-23 80-110/46-74 98-100 HEART: S1S2, RRR LUNGS: Bilateral rhonchi ABDOMEN: Obese, distended, hypoactive BS EXTREMITIES: 2+ edema Current Medications Generic Name Dose Route Start Last Admin Trade Name Freq PRN Reason Stop Dose Admin Artificial Tears 1 drop 01/20/17 05:42 01/20/17 11:45 Artificial Tears OU 1 drp BID PRN Administration DRY EYES Fosphenytoin Sodium 100 mg 01/19/17 22:15 01/20/17 16:38 Cerebyx - IVPB 100 mg Q6H MEI Administration Sodium Bicarbonate 150 meq/ 1,150 mls @ 83 mls/hr 01/19/17 08:15 01/20/17 09:30 Dextrose IV 83 mls/hr Q13H MEI Administration Norepinephrine Bitartrate 4, 500 mls @ 37.5 mls/hr 01/19/17 09:00 01/20/17 14: 02 000 mcg/ Dextrose IV 25 mcg/min TITR MEI Titration Protocol 5 MCG/MIN Meropenem 500 mg/ Dextrose 100 mls @ 400 mls/hr 01/19/17 22:00 01/20/17 09:30 IVPB 01/21/17 00:00 400 mls/hr BID MEI Administration Midazolam HCl 100 mg/ Sodium 100 mls @ 2 mls/hr 01/19/17 12:00 01/20/17 11:38 Chloride IVPB 15 mls/hr TITR MEI Administration Protocol 2 MG/HR Propofol 100 mls @ 2.327 mls/hr 01/19/17 12:00 01/19/17 16:49 Diprivan - IVPB Not Given TITR MEI Protocol 5 MCG/KG/MIN Dopamine HCl/Dextrose 250 mls @ 8.726 mls/hr 01/19/17 13:15 01/20/17 14:09 Dopamine 400 Mg/D5w - IVPB 20.361 mls/hr TITR MEI Administration Protocol 3 MCG/KG/MIN Norepinephrine Bitartrate 8, 500 mls @ 8.72 mls/hr 01/20/17 05:45 01/20/17 06: 53 000 mcg/ Dextrose IV 75.62 mls/hr ASDIR MEI Administration Protocol 0.03 MCG/KG/MIN Meropenem 10 mls @ 120 mls/hr 01/21/17 10:00 Merrem (Restricted To Id) - IVPUSH BID MEI Levetiracetam 500 mg 01/20/17 13:30 01/20/17 14:09 Keppra Injection - IVPB 500 mg BID MEI Administration Octreotide Acetate 100 mcg 01/19/17 14:00 01/20/17 17:14 Sandostatin - SQ 100 mcg TID MEI Administration ASSESSMENT AND PLAN: This is a 56 year old man with a history of alcohol abuse who presented to the ER with nausea, vomiting, diarrhea, weight loss. 1. Alcoholic cirrhosis with ascites 2. Probable hepatorenal syndrome 3. s/p cardiac arrest 4. Anoxic encephalopathy 5. Acute hypoxic respiratory failure 6. Metabolic acidosis 7. Hyperkalemia 8. Seizures 9. Anemia, thrombocytopenia 10. Alcohol withdrawal 11. Continuous alcohol dependence - Continue Dopamine, Levophed - Continue sodium bicarb IV drip - Continue Merrem - Continue Allie Pratt Keppra - Prognosis grave. Family to decide goals of care - continue present treatment vs terminal extubation.
[2017-01-20] MEDS ORDERED: CALCIUM GLUCONATE 10% - 1,000 MG/10 ML VIAL IVPUSH STA (18:50)
[2017-01-20] MEDS: PROPOFOL 100 ML IVPB SCH (21:20)
[2017-01-21] MEDS: SODIUM BICARBONATE 8.4% - 150 MEQ in DEXTROSE 5%-WATER - 1,000 ML IV SCH (01:03)
[2017-01-21] MEDS: MIDAZOLAM 100 MG in SODIUM CHLORIDE 100 ML IVPB SCH (01:17)
[2017-01-21 03:00] VITALS: TEMP 97.9
[2017-01-21] MEDS ORDERED: NOREPINEPHRINE BITARTRATE 4 MG/4 ML ML IV ONE ×2 (04:14→04:38)
[2017-01-21] MEDS ORDERED: PT OWN MED DRAWER 7, Y5N ONE (04:43)
[2017-01-21] MEDS: FOSPHENYTOIN SODIUM 100 MG/2 ML VIAL IVPB SCH (04:50)
[2017-01-21] MEDS: NOREPINEPHRINE BITARTRATE 8,000 MCG in DEXTROSE 5%-WATER - 492 ML IV SCH (05:22)
[2017-01-21] MEDS: OCTREOTIDE ACETATE 100 MCG/1 ML SQ SCH (06:11)
--- NOTE | 2017-01-21 06:42 | RAPID ---
Physical Examination Vital Signs: Vital Signs Temperature 97.9 F 01/21/17 02:00 Pulse Rate 65 01/21/17 05:22 Respiratory Rate 20 01/21/17 05:35 Blood Pressure 67/46 01/21/17 05:22 O2 Sat by Pulse Oximetry (%) 99 01/20/17 20:08 Labs: CBC, BMP 01/20/17 05:40 01/20/17 14:23
--- NOTE | 2017-01-21 07:10 | RAPID ---
Physical Examination Vital Signs: Vital Signs Temperature 97.9 F 01/21/17 02:00 Pulse Rate 65 01/21/17 05:22 Respiratory Rate 20 01/21/17 05:35 Blood Pressure 67/46 01/21/17 05:22 O2 Sat by Pulse Oximetry (%) 99 01/20/17 20:08 Findings/Remarks: CODE 99 PEA arrest started at 6:46 CPR started EPI X3 given With NO ROSC Time of 7 Am Family notified Primary team notified Rest as per resident note Labs: CBC, BMP 01/20/17 05:40 01/20/17 14:23
--- NOTE | 2017-01-21 07:11 | HOSP ---
Subjective - Review of Symptoms Events since last encounter: s/p PEA arrest and ACLS w/o ROSC Non-responsive to verbal, tactile, and painful stimuli No spontaneous respirations No heart sounds No carotid, radial, femoral, or DP pulses No corneal reflex, no gag reflex HR 0, BP 0/0 Time of 07:00AM Family notified
[2017-01-21 07:47] VITALS: PULSE 0
[2017-01-21 07:48] VITALS: BP 0/0
[2017-01-21] MEDS ORDERED: MEROPENEM 500 MG PUSH 10 ML IVPUSH SCH (10:00)
--- NOTE | 2017-01-21 11:21 | DS ---
Physical Exam: LABS Laboratory Last Values WBC 13.2 K/mm3 (4.0-10.0) H D 01/20/17 05:40 Corrected WBC (auto) 11.79 K/mm3 01/20/17 05:40 RBC 3.81 M/mm3 (4.00-5.60) L 01/20/17 05:40 Hgb 10.3 GM/dL (11.7-16.9) L 01/20/17 05:40 Hct 34.0 % (35.4-49) L 01/20/17 05:40 MCV 89.4 fl (80-96) 01/20/17 05:40 MCH 27.0 pg (25.7-33.7) 01/20/17 05:40 MCHC 30.2 g/dl (32.0-35.9) L 01/20/17 05:40 RDW 21.6 % (11.9-15.9) H 01/20/17 05:40 Plt Count 51 K/MM3 (134-434) L 01/20/17 05:40 MPV 8.4 fl (7.5-11.1) D 01/20/17 05:40 Neutrophils % Prop [place]yer 01/20/17 05:40 Neutrophils % (Manual) 46 % (42.8-82.8) 01/20/17 05:40 Band Neuts % (Manual) 35 % (0-10) H 01/20/17 05:40 Lymphocytes % Prop [place]yer 01/20/17 05:40 Lymphocytes % (Manual) 8 % (8-40) 01/20/17 05:40 Monocytes % Prop Sawyer 01/20/17 05:40 Monocytes % (Manual) 3 % (3.8-10.2) L 01/20/17 05:40 Eosinophils % Prop Sawyer 01/20/17 05:40 Eosinophils % (Manual) 1 % (0-4.5) 01/20/17 05:40 Basophils % Prop Sawyer 01/20/17 05:40 Basophils % (Manual) 0 % (0-2.0) 01/20/17 05:40 Myelocytes % (Man) 5 % (0-2) H 01/20/17 05:40 Nucleated RBC % 12 % (0-0) H* 01/20/17 05:40 Smudge Cells Rare 01/20/17 05:40 Platelet Estimate Decreased (NORMAL) 01/20/17 05:40 Platelet Comment No clumping noted 01/20/17 05:40 Poikilocytosis 2+ 01/20/17 05:40 Anisocytosis 2+ 01/20/17 05:40 Target Cells Few 01/20/17 05:40 Tear Drop Cells Rare 01/20/17 05:40 Ovalocytes Few 01/20/17 05:40 PT with INR 31.30 SEC (9.98-11.88) H 01/20/17 05:40 INR 2.77 (0.82-1.09) H D 01/20/17 05:40 PTT (Actin FS) 32.5 SECONDS (26.9-34.4) 01/10/17 07:30 Anticoagulation Therapy Y 01/18/17 20:25 Puncture Site Right brachial 01/20/17 12:50 ABG pH 6.72 (7.35-7.45) L* 01/20/17 12:50 ABG pCO2 at Pt Temp 33.5 mmHg (35-45) L 01/20/17 12:50 ABG pO2 at Pt Temp 116.0 mmHg (80-100) H D 01/20/17 12:50 ABG HCO3 4.1 meq/L (22-26) L* 01/20/17 12:50 ABG O2 Sat (Measured) 94.6 % (90-98.9) 01/20/17 12:50 ABG O2 Content 13.3 % vol (15-22) L 01/20/17 12:50 ABG Base Excess -30.1 meq/l (-2-2) L* 01/20/17 12:50 Ramón Test Positive 01/20/17 12:50 O2 Delivery Device Mec.vent 01/20/17 12:50 Oxygen Flow Rate 100 01/20/17 12:50 Vent Mode A/c 01/20/17 12:50 Vent Rate 20 01/20/17 12:50 Mechanical Rate Yes 01/20/17 12:50 PEEP 5.0 cmH2O 01/20/17 12:50 Pressure Support Vent 500 01/20/17 12:50 Sodium 141 mmol/L (136-145) 01/20/17 14:23 Potassium 6.1 mmol/L (3.5-5.1) H* 01/20/17 14:23 Chloride 106 mmol/L (98-107) 01/20/17 14:23 Carbon Dioxide 7 mmol/L (21-32) L 01/20/17 14:23 Anion Gap 28 (8-16) H 01/20/17 14:23 Hepatic Function Panel 66 % (13-88) 01/11/17 08:35 BUN 82 mg/dL (7-18) H 01/20/17 14:23 Creatinine 7.2 mg/dL (0.7-1.3) H 01/20/17 14:23 Creat Clearance w eGFR 7.89 (>60) 01/20/17 05:40 Random Glucose 103 mg/dL (74-106) D 01/20/17 14:23 Lactic Acid 17.1 mmol/L (0.4-2.0) H* 01/20/17 14:23 Calcium 6.9 mg/dL (8.5-10.1) L* 01/20/17 14:23 Phosphorus 7.9 mg/dL (2.5-4.9) H D 01/19/17 05:00 Magnesium 2.9 mg/dL (1.8-2.4) H 01/19/17 05:00 Total Bilirubin 3.9 mg/dL (0.2-1.0) H 01/20/17 05:40 Direct Bilirubin 2.4 mg/dL (0.0-0.2) H 01/19/17 05:00 GGT 880 U/L (5-85) H 01/11/17 08:35 AST 2140 U/L (15-37) H 01/20/17 05:40 ALT 399 U/L (12-78) H D 01/20/17 05:40 Alkaline Phosphatase 507 U/L (45-117) H D 01/20/17 05:40 Ammonia 103.99 umol/L (11-32) H 01/20/17 14:23 Troponin I 0.16 ng/ml (0.00-0.05) H 01/19/17 05:00 Total Protein 5.0 g/dl (6.4-8.2) L 01/20/17 05:40 Albumin 1.8 g/dl (3.4-5.0) L 01/20/17 05:40 Lipase 221 U/L (73-393) 01/09/17 17:15 Tumor Marker AFP 1.0 ng/ml (0.0-8.3) 01/11/17 08:35 Urine Color Salma 01/16/17 15:30 Urine Appearance Cloudy 01/16/17 15:30 Urine pH 5.0 (5.0-8.0) 01/16/17 15:30 Ur Specific [place] 1.020 (1.005-1.025) 01/16/17 15:30 Urine Protein 3+ (NEGATIVE) H 01/16/17 15:30 Urine Glucose (UA) 2+ (NEGATIVE) H 01/16/17 15:30 Urine Ketones Negative (NEGATIVE) 01/16/17 15:30 Urine Blood 3+ (NEGATIVE) H 01/16/17 15:30 Urine Nitrite Negative (NEGATIVE) 01/16/17 15:30 Urine Bilirubin Negative (NEGATIVE) 01/16/17 15:30 Urine Urobilinogen Negative mg/dL (0.2-1.0) 01/16/17 15:30 Ur Leukocyte Esterase Negative (NEGATIVE) 01/16/17 15:30 Urine RBC 211 /hpf (0-3) 01/16/17 15:30 Urine WBC 26 /hpf (3-5) 01/16/17 15:30 Ur Epithelial Cells Rare /hpf (FEW) 01/16/17 15:30 Urine Bacteria Rare /hpf (NONE SEEN) 01/16/17 15:30 Urine Mucus Rare 01/16/17 15:30 Urine Yeast Few 01/16/17 15:30 Urine Eosinophils None seen % (.) 01/16/17 15:30 U Random Total Protein 427 mg/dl (5-11.9) H 01/12/17 06:00 Ur Random Sodium 34 MMOL/L 01/16/17 15:30 Ur Random Potassium 24.6 MMOL/L 01/16/17 15:30 Ur Random Chloride 15 MMOL/L 01/16/17 15:30 Urine Creatinine 59.0 mg/dL (20-370) 01/16/17 15:30 Protein/Creatinin Ratio 6.325 MG/DL 01/12/17 06:00 Peritoneal WBC 91 /mm3 01/13/17 15:00 Peritoneal RBC 673 /mm3 01/13/17 15:00 Periton Neutrophils 45 % 01/13/17 15:00 Periton Lymphocytes 22 % 01/13/17 15:00 Peritoneal Monocytes 25 % 01/13/17 15:00 Periton Mesothelial 1 % 01/13/17 15:00 Periton Macrophages 7 % 01/13/17 15:00 Peritoneal Tot Protein 1 gm/dL 01/13/17 15:00 Peritoneal Albumin 0 g/dL 01/13/17 15:00 Peritoneal LDH 89 IU/L 01/13/17 15:00 Peritoneal Glucose 134 mg/dL 01/13/17 15:00 Peritoneal Amylase 54 U/L 01/13/17 15:00 Peritoneal Triglycerid 45 mg/dL 01/13/17 15:00 Stool Occult Blood Positive (NEGATIVE) 01/10/17 19:30 Stool Calprotectin TNP 01/11/17 06:00 Phenytoin 10.1 ug/ml (10.0-20.0) 01/19/17 19:35 TESSY Screen Negative (.) 01/11/17 08:35 c-ANCA <1:20 titer (Neg:<1:20) 01/12/17 07:35 Proteinase 3 (PR3) <3.5 U/mL (0.0-3.5) 01/12/17 07:35 p-ANCA <1:20 titer (Neg:<1:20) 01/12/17 07:35 Atypical p-ANCA <1:20 titer (Neg:<1:20) 01/12/17 07:35 Myeloperoxidase Ab <9.0 U/mL (0.0-9.0) 01/12/17 07:35 Double Strand DNA Ab 3 IU/mL (0-9) 01/15/17 06:20 Smooth Musc &[employer] Intrp 6 Units (0-19) 01/11/17 08:35 Glomerular Base Memb Ab 6 units (0-20) 01/15/17 06:20 Hep A IgM Ab Confirm Negative (Negative) 01/10/17 07:30 Hepatitis A Ab Total Positive (Negative) H 01/10/17 07:30 Hep Bs Antigen Negative (Negative) 01/10/17 07:30 Hep Bs Antibody Non reactive (.) 01/10/17 07:30 Hep B Core Total Ab Negative (Negative) 01/10/17 07:30 Hep B Core IgM Ab Negative (Negative) 01/09/17 17:15 Hepatitis C Antibody 0.3 s/co ratio (0.0-0.9) 01/11/17 17:20 Blood Type O POSITIVE 01/18/17 20:45 Antibody Screen Negative 01/18/17 20:45 HOSPITAL COURSE: Date of Admission:01/09/17 Briefly, Mr Montes is a 56yo M with a past medical history of alcohol abuse for more then 30 years. She presented to the Emergency Department with nausea, vomitting, profuse watery diarrhea for 2 weeks. He was diagnosed with alcoholic hepatitis, and likely hepatorenal syndrome. He was treated with albumin infusions, octreotide, midrodine, and fluid challenges without improvement in kidney function. His family was updated frequently on his poor prognosis. Plan was to eventually dialyze the patient, but the patient went into a PEA arrest overnight and after rounds of ACLS had a return of spontaneous circulation with hypotension and likely anoxic brain injury resulting in respiratory failure that required intubation. He was maintained on pressors in the ICU. He had another PEA arrest with rounds of ACLS with no return of spontaneous circulation. He at 7AM. Family was notified and support was given. Minutes to complete discharge: 45 Discharge Summary Reason For Visit: ABD PAIN ELEVATED LFTS Current Active Problems Abdominal pain (Acute) Elevated LFTs (Acute) Elevated alkaline phosphatase level (Acute) Lethargy (Acute) Liver mass, right lobe (Acute) Condition: Fair - Instructions Diet, Activity, Other Instructions: small pancreatic cyst 5mm Follow stomach and colon biopsy results. Referrals: Nayana Harrell MD [Primary Care Provider] - - Home Medications Comprehensive Discharge Medication List: Ambulatory Orders NK [No Known Home Medication] 01/09/17 - Discharge Referral Referred to [facility] No
== END 2017-01-21 07:00 | disposition expired | DRG 264 ==
LOC: JER 16:11 → JERBED 23:25 → UNDOADMIN 23:33 → JERBED 23:33 → J6S 01-10 01:20 → J2W 01-17 18:18 → JICU 01-19 06:58
PROVIDERS: ADMIT Internal Medicine; ATTEND Internal Medicine
PROC: 0W9G3ZX Drainage of Peritoneal Cavity, Percutaneous Approach, Diagnostic (ICD-10-PCS; principal; 2017-01-13)
PROC: 30233R1 Transfusion of Nonautologous Platelets into Peripheral Vein, Percutaneous Approach (ICD-10-PCS; 2017-01-13)
PROC: 0W9G3ZZ Drainage of Peritoneal Cavity, Percutaneous Approach (ICD-10-PCS; 2017-01-13)
PROC: 0DB68ZX Excision of Stomach, Via Natural or Artificial Opening Endoscopic, Diagnostic (ICD-10-PCS; 2017-01-15)
PROC: 05HM33Z Insertion of Infusion Device into Right Internal Jugular Vein, Percutaneous Approach (ICD-10-PCS; 2017-01-19)
PROC: B513ZZA Fluoroscopy of Right Jugular Veins, Guidance (ICD-10-PCS; 2017-01-19)
PROC: B543ZZA Ultrasonography of Right Jugular Veins, Guidance (ICD-10-PCS; 2017-01-19)
PROC: 0BH17EZ Insertion of Endotracheal Airway into Trachea, Via Natural or Artificial Opening (ICD-10-PCS; 2017-01-19)
PROC: 5A1945Z Respiratory Ventilation, 24-96 Consecutive Hours (ICD-10-PCS; 2017-01-19)
PROC: 5A12012 Performance of Cardiac Output, Single, Manual (ICD-10-PCS; 2017-01-19)
PROC: 5A12012 Performance of Cardiac Output, Single, Manual (ICD-10-PCS; 2017-01-21)
DX: K70.11 Alcoholic hepatitis with ascites (principal); J96.00 Acute respiratory failure, unspecified whether with hypoxia or hypercapnia; K70.30 Alcoholic cirrhosis of liver without ascites; K76.7 Hepatorenal syndrome; G93.1 Anoxic brain damage, not elsewhere classified; N17.9 Acute kidney failure, unspecified; E87.2 Acidosis; D69.59 Other secondary thrombocytopenia; E87.8 Other disorders of electrolyte and fluid balance, not elsewhere classified; E83.51 Hypocalcemia; E83.39 Other disorders of phosphorus metabolism; E87.1 Hypo-osmolality and hyponatremia; K70.40 Alcoholic hepatic failure without coma; R03.0 Elevated blood-pressure reading, without diagnosis of hypertension; K29.00 Acute gastritis without bleeding; E86.0 Dehydration; E87.6 Hypokalemia; E86.1 Hypovolemia; F10.239 Alcohol dependence with withdrawal, unspecified; A09 Infectious gastroenteritis and colitis, unspecified; R63.4 Abnormal weight loss; Z87.891 Personal history of nicotine dependence; D64.9 Anemia, unspecified; Z68.26 Body mass index [BMI] 26.0-26.9, adult; R74.0 Nonspecific elevation of levels of transaminase and lactic acid dehydrogenase [LDH]; K76.89 Other specified diseases of liver; K63.89 Other specified diseases of intestine; R68.0 Hypothermia, not associated with low environmental temperature; G40.89 Other seizures; I46.9 Cardiac arrest, cause unspecified
CPT/HCPCS: 36415; 36430; 36600; 70450-TC; 71010-TC; 71250-TC; 74176-TC; 74181-TC; 76705-TC; 76775-TC; 76942-TC; 80048; 80053; 80076; 80185; 81003; 81015; 82042; 82105; 82140; 82150; 82248; 82272; 82436; 82570; 82803; 82945; 82977; 83516; 83520; 83605; 83615; 83690; 83735; 83993; 84080; 84100; 84132; 84133; 84156; 84157; 84300; 84478; 84484; 85025; 85027; 85610; 85730; 86038; 86225; 86256; 86704; 86705; 86706; 86708; 86803; 86850; 86900; 86901; 87040; 87045; 87046; 87070; 87075; 87086; 87102; 87116; 87205; 87206; 87210; 87324; 87340; 87449; 87804; 88108; 88305-TC; 89051; 93005; 93010; 93306-TC; 93976; 94002; 97116-GP; 97161-GP; 99283-25; P9034; P9038; P9047